=== PATIENT | male | born 1955 | race American Indian/Alaskan Native ===

== ENCOUNTER 2016-07-11 15:05 | Inpatient (IN) | payer MEDICARE ==
--- NOTE | 2016-07-11 15:37 | Emergency Department Report ---
Chief Complaint: Chest Pain Stated Complaint: CHEST PAIN Time Seen by Provider: 07/11/16 15:33 - HPI History of Present Illness: Patient is a 61 y/p male with h/o CHF, COPD, ESRD, TYPE 2 DIABETES and HIV who presents due to chest pain and hypotension 2 hours ago. Patient states that pain started while he was at dialysis. Patient states that he has had similar symptoms before during dialysis. Patient also c/o cough x 1 month. - ROS Review of Systems: POSITIVE FOR CHEST PAIN and dizziness, NO SOB - Exam Vital Signs: Vital Signs 07/11/16 15:21 Temperature 97.5 F L Pulse Rate 90 Respiratory 20 Rate Blood Pressure 114/70 O2 Sat by Pulse 91 Oximetry Physical Exam: NAD MSE screening note: Focused history and physical exam performed. Due to findings the following was ordered:chest pain protocol ED Disposition for MSE Condition: Stable
[2016-07-11 16:06] LABS: Basophils % (Auto) 0.5 % (0.0-1.8); Eosinophils % (Auto) 1.3 % (0.0-4.3); Hematocrit 45.6 % (35.5-45.6); Hemoglobin 14.9 gm/dl (11.8-15.2); Mean Corpuscular HGB Conc 33 % (32-34); Mean Corpuscular Hemoglobin 32 pg (28-32); Mean Corpuscular Volume 97 fl (84-94); Platelet Count 137 K/mm3 (140-440); Red Blood Count 4.69 M/mm3 (3.65-5.03); Red Cell Distribution Width 17.5 % (13.2-15.2); White Blood Count 6.5 K/mm3 (4.5-11.0)
[2016-07-11 16:29] LABS: Creatine Kinase MB 2.8 ng/mL (0.0-4.0)
[2016-07-11 16:32] LABS: Albumin 4.2 g/dL (3.9-5); BUN/Creatinine Ratio 2.84; Bilirubin,Direct 0.2 mg/dL (0-0.2); Bilirubin,Indirect 0.4 mg/dL; Bilirubin,Total 0.6 mg/dL (0.1-1.2); Calcium 8.7 mg/dL (8.4-10.2); Chloride 88.7 mmol/L (98-107); Potassium 3.4 mmol/L (3.6-5.0); Total Protein 8.5 g/dL (6.3-8.2)
--- NOTE | 2016-07-11 16:36 | XRay Report ---
PA and lateral chest: There is mild enlargement of the heart. The aorta is slightly tortuous. The lungs are clear there is no current vascular congestion. There is a left subclavian vascular stent. Compared to the prior study on January 15, 2016 the vascular pattern is improved. No other interval changes noted. Impression: Mild cardiac enlargement. No other current cardiopulmonary pathology identified.
--- NOTE | 2016-07-11 23:19 | Emergency Department Report ---
HPI - General Chief Complaint: Chest Pain Time Seen by Provider: 07/11/16 22:19 - HPI HPI: This is a 61-year-old Afro-[place] male who presents to the emergency department from dialysis after receiving 2 out of 4 hours of dialysis. All of a sudden the patient had some hypotension and began developing chest pain and some shortness of breath. He says that the pain is stopped upon presentation here. He is usually hemodialysis dependent on Monday, Monday and Monday. He has a past medical history of asthma, CHF, COPD on 3 L oxygen, insulin- dependent diabetes, HIV, hypertension. His primary care doctor is Dr. Victoria, his counter dish carrier is Dr. Lara, his infectious disease physician is Dr. Hernandez , his tank crewmember is Dr. 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 He denies any history of NH. He last had a stress test about 1 year ago. Denies any history of PE/DVT or CVA. ED Past Medical Hx - Past Medical History Hx Hypertension: Yes Hx Congestive Heart Failure: Yes Hx Diabetes: Yes Hx Renal Disease: Yes (Dialysis) Hx Asthma: Yes Hx COPD: Yes Hx HIV: Yes Additional medical history: pancreatitis, left upper arm HD graft. bells palsy - Surgical History Additional Surgical History: graft to left arm, R chest vas cath - Social History Smoking Status: Current Every Day Smoker Substance Use Type: None - Medications Home Medications: Home Medications Medication Instructions Recorded Confirmed Last Taken Type Gabapentin 200 mg PO QHS 11/29/14 01/15/16 08/02/15 History Insulin Aspart [NovoLOG Flexpen] 5 unit SQ TID 11/29/14 01/15/16 08/02/15 History [place]-3 Acid Ethyl Esters [Lovaza] 2 gm PO BID 11/29/14 01/15/16 08/02/15 History Omeprazole [PriLOSEC] 20 mg PO BID 11/29/14 01/15/16 08/02/15 History Vit B Cplx #11/FA/C/Biot/Zn Ox 1 tab PO QAM 11/29/14 01/15/16 08/02/15 History [Dialyvite with Zinc Tablet] lamiVUDine [Epivir Hbv] 50 mg PO QDAY 11/29/14 01/15/16 08/02/15 History Abacavir [Ziagen TAB] 300 mg PO BID #60 tablet 07/28/15 01/15/16 08/02/15 Rx Carvedilol [Coreg] 6.25 mg PO BID #60 tablet 07/28/15 01/15/16 08/02/15 Rx Cinacalcet [Sensipar] 30 mg PO QDAY #30 tablet 07/28/15 01/15/16 08/02/15 Rx Efavirenz [Sustiva] 600 mg PO DAILY #30 capsule 07/28/15 01/15/16 08/02/15 Rx Insulin Glargine [Lantus VIAL] 10 unit SUB-Q DAILY #30 units 07/28/15 01/15/16 08/02/15 Rx Lipase/Protease/Amylase [Zenpep Dr 1 each PO TID #90 capsule. 07/28/1508/02/15 Rx 15,000 Units Capsule] Losartan [Cozaar] 25 mg PO QDAY #30 tablet 07/28/15 01/15/16 08/02/15 Rx Rosuvastatin (Nf) [Crestor] 10 mg PO QHS #30 tablet 07/28/15 01/15/16 08/02/15 Rx ED Review of Systems ROS: Stated complaint: CHEST PAIN Other details as noted in HPI Comment: All other systems reviewed and negative Constitutional: denies: chills, fever Eyes: denies: eye pain, eye discharge, vision change ENT: denies: ear pain, throat pain Respiratory: shortness of breath. denies: cough Cardiovascular: chest pain. denies: palpitations Gastrointestinal: denies: abdominal pain, nausea, diarrhea Genitourinary: denies: urgency, dysuria Musculoskeletal: denies: back pain, joint swelling, arthralgia Skin: denies: rash, lesions Neurological: denies: headache, weakness, paresthesias Physical Exam - Physical Exam Vital Signs: Vital Signs 07/11/16 15:21 Temperature 97.5 F L Pulse Rate 90 Respiratory 20 Rate Blood Pressure 114/70 O2 Sat by Pulse 91 Oximetry Physical Exam: GENERAL: The patient is well-developed well-nourished. HEENT: Normocephalic. Atraumatic. Extraocular motions are intact. Patient has moist mucous membranes. Pupils equal reactive to light bilaterally. NECK: Supple. Trachea is midline. CHEST/LUNGS: Clear to auscultation. There is no respiratory distress noted. HEART/CARDIOVASCULAR: Regular. There is no tachycardia. There is no gallop rub or murmur. ABDOMEN: Abdomen is soft, nontender. Patient has normal bowel sounds. There is no abdominal distention. SKIN: Skin is warm and dry. NEURO: The patient is awake, alert, and oriented. The patient is cooperative. The patient has no focal neurologic deficits. The patient has normal speech. MUSCULOSKELETAL: There is no tenderness or deformity. There is no limitation range of motion. There is no evidence of acute injury. ED Course Vital Signs 07/11/16 15:21 Temperature 97.5 F L Pulse Rate 90 Respiratory 20 Rate Blood Pressure 114/70 O2 Sat by Pulse 91 Oximetry ED Medical Decision Making - Lab Data Result diagrams: 07/11/16 15:47 07/11/16 15:47 - EKG Data -: EKG Interpreted by Me EKG shows normal: sinus rhythm, axis (LAD), intervals (prolong QTC), QRS complexes (LVH with mild QRS widening), ST-T waves (T-wave inversions to the lateral leads) Rate: normal - EKG Data When compared to previous EKG there are: changes noted (patient has T-wave inversions to the lateral leads that were not previously seen on his EKG from January 2016) Interpretation: other (sinus rhythm, left axis deviation, LVH, T-wave inversions to the lateral leads) - Radiology Data Radiology results: image reviewed interpreted by me: Chest x-ray shows some mild cardiomegaly but otherwise no acute process. - Medical Decision Making 61-year-old male presents to the emergency department after developing some chest pain and shortness of breath while at dialysis. The chest pain has resolved upon presentation. However the EKG shows some T-wave inversions that are new from January of last year, and combined with his chest pain is concerning. Patient had positive troponins that are trending down. Patient does have end-stage renal disease so the elevated troponin levels may be due to the renal insufficiency versus coronary artery disease. However with the change in EKG and the comorbidities he has and his complaint of chest pain he will be admitted to the hospital for further evaluation and treatment. He has been accepted for admission by the hospice, Dr. Elmore. - Differential Diagnosis NH, PE, pneumonia, CHF Critical Care Time: No Critical care attestation.: If time is entered above; I have spent that time in minutes in the direct care of this critically ill patient, excluding procedure time. ED Disposition Clinical Impression: Abnormal EKG, HIV (human immunodeficiency virus infection), Tobacco use disorder, ESRD on hemodialysis Chest pain Qualifiers: Chest pain type: unspecified Qualified Code(s): R07.9 - Chest pain, unspecified Chronic kidney disease Qualifiers: Chronic kidney disease stage: unspecified stage Qualified Code(s): N18.9 - Chronic kidney disease, unspecified Disposition: OP ADMITTED IP TO THIS HOSP Is pt being admited?: Yes Condition: Stable
[2016-07-12 00:20] LABS: Magnesium 2.7 mg/dL (1.7-2.3); Phosphorous 4.8 mg/dL (2.5-4.5)
[2016-07-12] MEDS ORDERED: BENADRYL IV ONE (01:05)
[2016-07-12] MEDS ORDERED: MORPHINE IV PRN (03:10)
[2016-07-12] MEDS ORDERED: ZOFRAN IV PRN (03:10)
[2016-07-12] MEDS ORDERED: TYLENOL PO PRN (03:10)
[2016-07-12] MEDS ORDERED: DULCOLAX PR PRN (03:10)
[2016-07-12] MEDS ORDERED: D50W (25GM) IV PRN (03:10)
[2016-07-12] MEDS ORDERED: SODIUM CHLORIDE FLUSH SYRINGE 10 ML IV PRN (03:10)
--- NOTE | 2016-07-12 05:21 | History and Physical Report ---
History of Present Illness Date of examination: 07/12/16 Date of admission: 07/12/16 02:26 History of present illness: 61-year-old man with a history of hypertension end-stage renal disease on dialysis, diabetes, hepatitis C, HIV, hyperlipidemia comes emergency room with complaints of chest pain while he was at dialysis. Pain is in the left substernal area which she describes as a tightness, intermittent in nature lasting for 5 minutes, intensity 8/10, radiating to the left arm, cannot identify exacerbating or relieving factors. He admits to shortness breath, no nausea vomiting, diaphoresis or palpitation. He had a stress test 6 months ago Patient denies cough, abdominal pain, hematochezia, dysuria, frequency, focal weakness, dysarthria, fever chills, polydipsia polyuria, hot or cold intolerance , easy bruisability, or rash or bleeding from mucosal membrane, rhinorrhea, epistaxis, earache, tinnitus, blurry vision, eye discharge, anxiety, depression. Other review of systems negative PAST SURGICAL HISTORY: AV fistula SOCIAL HISTORY: Smoke cigarettes, no alcohol or drugs FAMILY HISTORY: Coronary artery disease Medications and Allergies Allergies Allergy/AdvReac Type Severity Reaction Status Date / Time sulfamethoxazole Allergy Unknown Verified 08/03/15 15:03 [From Bactrim] trimethoprim [From Bactrim] Allergy Unknown Verified 08/03/15 15:03 Home Medications Medication Instructions Recorded Confirmed Last Taken Type Gabapentin 200 mg PO QHS 11/29/14 01/15/16 08/02/15 History Insulin Aspart [NovoLOG Flexpen] 5 unit SQ TID 11/29/14 01/15/16 08/02/15 History [place]-3 Acid Ethyl Esters [Lovaza] 2 gm PO BID 11/29/14 01/15/16 08/02/15 History Omeprazole [PriLOSEC] 20 mg PO BID 11/29/14 01/15/16 08/02/15 History Vit B Cplx #11/FA/C/Biot/Zn Ox 1 tab PO QAM 11/29/14 01/15/16 08/02/15 History [Dialyvite with Zinc Tablet] lamiVUDine [Epivir Hbv] 50 mg PO QDAY 11/29/14 01/15/16 08/02/15 History Abacavir [Ziagen TAB] 300 mg PO BID #60 tablet 07/28/15 01/15/16 08/02/15 Rx Carvedilol [Coreg] 6.25 mg PO BID #60 tablet 07/28/15 01/15/16 08/02/15 Rx Cinacalcet [Sensipar] 30 mg PO QDAY #30 tablet 07/28/15 01/15/16 08/02/15 Rx Efavirenz [Sustiva] 600 mg PO DAILY #30 capsule 07/28/15 01/15/16 08/02/15 Rx Insulin Glargine [Lantus VIAL] 10 unit SUB-Q DAILY #30 units 07/28/15 01/15/16 08/02/15 Rx Lipase/Protease/Amylase [Zenpep Dr 1 each PO TID #90 capsule. 07/28/1508/02/15 Rx 15,000 Units Capsule] Losartan [Cozaar] 25 mg PO QDAY #30 tablet 07/28/15 01/15/16 08/02/15 Rx Rosuvastatin (Nf) [Crestor] 10 mg PO QHS #30 tablet 07/28/15 01/15/16 08/02/15 Rx Active Meds: Active Medications Acetaminophen (Tylenol) 650 mg PO Q4H PRN PRN Reason: Pain MILD(1-3)/Fever >100.5/BA Aspirin (Baby Aspirin) 81 mg PO QDAY TRICIA Bisacodyl (Dulcolax) 10 mg [place] QDAY PRN PRN Reason: Constipation unrelieved by MOM Dextrose (D50w (25gm)) 50 ml IV PRN PRN PRN Reason: Hypoglycemia Diphenhydramine HCl (Benadryl) 25 mg IV Q6H PRN PRN Reason: Itching Enoxaparin Sodium (Lovenox) 30 mg SUB-Q QDAY TRICIA Insulin Aspart (Novolog) 0 units SUB-Q ACHS TRICIA PRN Reason: Protocol Morphine Sulfate (Morphine) 2 mg IV Q4H PRN PRN Reason: Pain, Moderate (4-6) Ondansetron HCl (Zofran) 4 mg IV Q8H PRN PRN Reason: N/V unrelieved by Reglan Sodium Chloride (Sodium Chloride Flush Syringe 10 Ml) 10 ml IV PRN PRN PRN Reason: LINE FLUSH Exam - Physical Exam Narrative exam: Gen. appearance: Patient lying in bed, no apparent distress HEENT: Normocephalic, atraumatic, pupils equally round and reactive to light, extraocular movement intact, and no sclericterus,. No JVD or thyromegaly or nodule,neck supple, no carotid bruit ,mucous membranes moist, no exudate or erythema Heart: S1, S2, regular rate and rhythm Lungs: Clear to auscultation bilaterally, breathing comfortable Abdomen: Positive bowel sounds, nontender, nondistended, no organomegaly Extremity: No edema, cyanosis, clubbing Skin: No rash, nodules, warm, dry Neuro: Oriented 3, cranial nerves II-12 intact, speech is fluent, motor and sensory intact - Constitutional Vitals: Temp Pulse Resp BP Pulse Ox 97.5 F L 89 18 137/76 97 07/11/16 15:21 07/12/16 02:00 07/12/16 02:16 07/12/16 02:12 07/12/16 02:16 Results - Labs CBC & Chem 7: 07/11/16 15:47 07/11/16 15:47 - Imaging and Cardiology EKG: image reviewed Chest x-ray: image reviewed Assessment and Plan Chest pain with abnormal EKG Hypertension Diabetes type 2 End-stage renal disease on dialysis C GV inotrope cytopenia Admit to medicine Check cardiac enzymes, consult cardiology Start aspirin, IV morphine Continue appropriate outpatient medication, start DVT prophylaxis
[2016-07-12] MEDS: BENADRYL IV PRN (06:35)
[2016-07-12 07:27] LABS: Creatine Kinase MB 2.6 ng/mL (0.0-4.0)
[2016-07-12] MEDS: NOVOLOG SUB-Q SCH ×3 (08:30→17:28)
--- NOTE | 2016-07-12 09:27 | Admit Criteria Form ---
Admission Criteria Documentation: CHEST PAIN Clinical Indications for Admission to Inpatient Care (Place 'X' for any and all applicable criteria): Admission is indicated for chest pain and ANY ONE of the following(1)(2)(3)(4)(5 ): [ ]I. Angina with acute coronary syndrome (Also use Myocardial Infarction or Angina guideline) [ ]II. Hemodynamic instability [X]III. Angina needing acute intervention as indicated by ALL of the following( 11)(12): [X]a) Unstable angina is present as indicated by angina that is ANY ONE of the following: [X]i) New onset [ ]ii) Nocturnal [ ]iii) Prolonged at rest [ ]iv) Progressive [X]b) Angina warrants acute intervention as indicated by ANY ONE of the following: [ ]i) Recurrent angina (e.g, not responding as previously to treatment) [ ]ii) Angina at rest or with low-level activities despite initial medical therapy [ ]iii) New or presumably new ST-segment depression on ECG [ ]iv) Signs or symptoms of heart failure (eg, dyspnea, pulmonary edema) [ ]v) New or worsening mitral regurgitation [ ]vi) Hemodynamic instability [ ]vii) Dangerous arrhythmia (eg, sustained ventricular tachycardia) [ ]viii) History of percutaneous coronary intervention within 6 months [ ]ix) History of coronary artery bypass graft surgery [ ]x) DAWOOD risk score of 2 or greater[A] [X]xi) History of Diabetes(14) [ ]xii) High-risk cardiac ischemia findings on noninvasive testing (e.g, echocardiogram, treadmill testing, nuclear scan) [X]xiii) Chronic renal insufficiency (ie, estimated GFR less than 60 mL/min/1.732m) [ ]xiv) Left ventricular ejection fraction less than 40% [ ]IV. Evidence of AK (eg, cardiac biomarkers positive, ST-segment elevation on ECG) also use Myocardial Infarction Criteria Form. [ ]V. Pulmonary edema [ ]. Respiratory distress [ ]VII. Chest pain indicative of serious diagnosis other than coronary artery disease (eg, aortic dissection) [ ]VIII. Contraindications and/or Inappropriate clinical situations for Observational Care in patients with Chest Pain, when ANY ONE of the following is required: [ ]a) Patient with risk factor for pulmonary embolism, acute coronary syndrome and myocardial infarction (18) [ ]b) Patient with Pulmonary embolism require an average LOS of 4.3 days, therefore emergency department observation management is inappropriate 18,23 [ ]c) Painful condition/s in the elderly, have the highest rate of recidivism after emergency department observation management (10.8%) 20,21,22 [ ]d) Elevated cardiac biomarker requires intensive and exhaustive care (19) [ ]IX. General contraindications and/or Inappropriate clinical situations for Observational Care in patients with Chest Pain, when ANY ONE of the following is required: [ ]a) Prediction of prolongation of LOS based on ANY ONE of the following may be considered as a contraindication for observational care 2, 3, 4, 5, 6, 7, 8, 9, 10, 11 [ ]i) Age > 65 yrs. [ ]ii) Patient arriving by ambulance [ ]iii) Patient with high acuity [ ]iv) Patient requiring vital sign monitoring [ ]v) Patient on IV medication [ ]b) Systolic blood pressures 180mmHg 3,12 [ ]c) Patient with altered mental status including delirium and other alteration of consciousness, (3) [ ]d) Patient whose discharge disposition will be to a long term home or rehabilitation home should not be managed in Emergency Department Observation Unit. CMS rule requires 3 days hospital stay before such placement. 3,13 [ ]e) Patient with failure to thrive due to broad array of etiologies 3,16,17 [ ]f) Inability to ambulate 3,14 Extended stay beyond goal length of stay may be needed for (1)(28): [ ]a) Specific condition diagnosed after evaluation (eg, pulmonary embolism, aortic dissection) [ ]b) Unstable angina [ ]c) Continued suspicion of acute coronary syndrome with inability to complete needed cardiac evaluation (eg, patient clinically unable to undergo stress testing) [ ]d) Myocardial infarction (Contents from ANGINA and CHEST PAIN clinical indications for admission to inpatient care have been integrated in this form) The original [email or web address] content created by [email or web address] has been revised. The portions of the content which have been revised are identified through the use of italic text or in bold, and [email or web address] has neither reviewed nor approved the modified material. All other unmodified content is copyright [email or web address]. Please see references footnoted in the original [email or web address] edition 2016 Admission Criteria Met: Yes
[2016-07-12] MEDS ORDERED: LOVENOX SUB-Q SCH (10:00)
--- NOTE | 2016-07-12 12:57 | Consultation ---
History of Present Illness Consult date: 07/12/16 Consult reason: hypotension History of present illness: Patient is a 61-year-old man with end-stage renal disease on hemodialysis, and a dilated nonischemic cardiomyopathy. His cardiomyopathy dates to several years ago when he lived in [place]. A cardiac catheterization at that time demonstrated no significant coronary disease, and established a severe nonischemic cardiomyopathy. Serial outpatient left ventricular function assessment with echo have documented a left ventricle ejection fraction about 20 %. The patient has refused ICD therapy. He is admitted to the hospital at this time, with hypotension that occurred 2 hours into his dialysis session. He states that at the time he felt a little bit short of breath, but there was no chest pain, no palpitations and no syncope. He reports that over the past 2 weeks, each dialysis session has been associated with the development of borderline to low blood pressures. It will be noted that the patient is on multiple blood pressure lowering agents, both for his chronic hypertension and his dilated cardiomyopathy. He takes amlodipine, losartan, carvedilol and BiDil. At this time on the telemetry floor, he looks and feels comfortable, in no acute distress. His ECG is normal sinus rhythm with left ventricular hypertrophy and nonspecific ST and T-wave abnormalities. Cardiac enzymes show minimal levels of CPK and CK-MB, with a mild nonspecific isolated rise in troponin. Past History Past Medical History: heart failure, hypertension, renal failure Medications and Allergies Allergies Allergy/AdvReac Type Severity Reaction Status Date / Time sulfamethoxazole Allergy Unknown Verified 08/03/15 15:03 [From Bactrim] trimethoprim [From Bactrim] Allergy Unknown Verified 08/03/15 15:03 Home Medications Medication Instructions Recorded Confirmed Last Taken Type Gabapentin 200 mg PO QHS 11/29/14 01/15/16 08/02/15 History Insulin Aspart [NovoLOG Flexpen] 5 unit SQ TID 11/29/14 01/15/16 08/02/15 History [place]-3 Acid Ethyl Esters [Lovaza] 2 gm PO BID 11/29/14 01/15/16 08/02/15 History Omeprazole [PriLOSEC] 20 mg PO BID 11/29/14 01/15/16 08/02/15 History Vit B Cplx #11/FA/C/Biot/Zn Ox 1 tab PO QAM 11/29/14 01/15/16 08/02/15 History [Dialyvite with Zinc Tablet] lamiVUDine [Epivir Hbv] 50 mg PO QDAY 11/29/14 01/15/16 08/02/15 History Abacavir [Ziagen TAB] 300 mg PO BID #60 tablet 07/28/15 01/15/16 08/02/15 Rx Carvedilol [Coreg] 6.25 mg PO BID #60 tablet 07/28/15 01/15/16 08/02/15 Rx Cinacalcet [Sensipar] 30 mg PO QDAY #30 tablet 07/28/15 01/15/16 08/02/15 Rx Efavirenz [Sustiva] 600 mg PO DAILY #30 capsule 07/28/15 01/15/16 08/02/15 Rx Insulin Glargine [Lantus VIAL] 10 unit SUB-Q DAILY #30 units 07/28/15 01/15/16 08/02/15 Rx Lipase/Protease/Amylase [Zenpep Dr 1 each PO TID #90 capsule. 07/28/1508/02/15 Rx 15,000 Units Capsule] Losartan [Cozaar] 25 mg PO QDAY #30 tablet 07/28/15 01/15/16 08/02/15 Rx Rosuvastatin (Nf) [Crestor] 10 mg PO QHS #30 tablet 07/28/15 01/15/16 08/02/15 Rx Active Meds: Active Medications Acetaminophen (Tylenol) 650 mg PO Q4H PRN PRN Reason: Pain MILD(1-3)/Fever >100.5/BA Last Admin: 07/12/16 06:35 Dose: 650 mg Aspirin (Baby Aspirin) 81 mg PO QDAY TRICIA Bisacodyl (Dulcolax) 10 mg [place] QDAY PRN PRN Reason: Constipation unrelieved by MOM Dextrose (D50w (25gm)) 50 ml IV PRN PRN PRN Reason: Hypoglycemia Diphenhydramine HCl (Benadryl) 25 mg IV Q6H PRN PRN Reason: Itching Last Admin: 07/12/16 06:35 Dose: 25 mg Insulin Aspart (Novolog) 0 units SUB-Q ACHS TRICIA PRN Reason: Protocol Last Admin: 07/12/16 12:29 Dose: Not Given Morphine Sulfate (Morphine) 2 mg IV Q4H PRN PRN Reason: Pain, Moderate (4-6) Ondansetron HCl (Zofran) 4 mg IV Q8H PRN PRN Reason: N/V unrelieved by Reglan Sodium Chloride (Sodium Chloride Flush Syringe 10 Ml) 10 ml IV PRN PRN PRN Reason: LINE FLUSH Review of Systems Cardiovascular: shortness of breath, no chest pain, no orthopnea, no palpitations, no rapid/irregular heart beat, no edema, no syncope, no lightheadedness Physical Examination Vital Signs Temp Pulse Resp BP Pulse Ox 97.5 F L 90 20 114/70 91 07/11/16 15:21 07/11/16 15:21 07/11/16 15:21 07/11/16 15:21 07/11/16 15:21 General appearance: no acute distress HEENT: Positive: PERRL Neck: Positive: neck supple Cardiac: Positive: Reg Rate and Rhythm Lungs: Positive: clear to auscultation Neuro: Positive: Grossly Intact Abdomen: Positive: Soft Male genitourinary: Positive: deferred Skin: Positive: Clear Extremities: Absent: edema Results 07/11/16 15:47 07/11/16 15:47 Cardiac Enzymes 07/12/16 Range/Units 06:26 CK-MB (CK-2) 2.6 (0.0-4.0) ng/mL EKG interpretations - Telemetry EKG Rhythm: Sinus Rhythm Assessment and Plan - Patient Problems (1) Hypotension of hemodialysis Current Visit: Yes Status: Acute Plan to address problem: We will recommend that on dialysis days, the patient places a temporary hold on his amlodipine, losartan and BiDil. These medications can then be resumed after his dialysis sessions. Otherwise, no further cardiac workup is indicated , he is stable for cardiac discharge, follow-up in my office within one week.
[2016-07-12 13:41] LABS: Creatine Kinase MB 2.6 ng/mL (0.0-4.0)
[2016-07-12] MEDS ORDERED: PERCOCET 5/325 PO ONE (14:00)
[2016-07-13] MEDS: NOVOLOG SUB-Q SCH ×4 (00:24→23:44)
[2016-07-13] MEDS ORDERED: PERCOCET 5/325 ONE (11:54)
[2016-07-13] MEDS: BABY ASPIRIN PO SCH (13:40)
[2016-07-13] MEDS ORDERED: PERCOCET 5/325 PO PRN (13:40)
[2016-07-13] MEDS ORDERED: NACL 0.9% 1000 ML 100 ML IV PRN (13:58)
[2016-07-13] MEDS ORDERED: HEPARIN IV SCH (14:00)
--- NOTE | 2016-07-13 14:31 | Progress Note ---
Assessment and Plan Hypotension during HD ESRD on HD Hx of Dilated NICMP refused AICD in the past intolerance to ACEi -coughs with lisinopril HIV status Recommend On dialysis days, the patient places a temporary hold on his amlodipine, losartan and BiDil. These medications can then be resumed after his dialysis sessions. conservative cardiac management. Patient is stable for cardiac discharge. Follow-up with [facility] within one week. Subjective Date of service: 07/13/16 Interval history: Patient has no complaints. He has no shortness of breath or lower extremity edema. Objective Vital Signs Temp Pulse Pulse Resp BP Pulse Ox 07/13/16 11:43 98 07/13/16 00:00 98.2 F 76 18 110/78 94 07/12/16 23:35 20 07/12/16 20:44 81 07/12/16 20:10 95 07/12/16 20:00 97.6 F 79 20 130/69 93 07/12/16 16:48 97.9 F 88 18 156/93 - Physical Examination General: No Apparent Distress HEENT: Positive: PERRL Neck: Positive: neck supple Cardiac: Positive: Reg Rate and Rhythm Lungs: Positive: Decreased Breath Sounds Neuro: Positive: Grossly Intact Extremities: Absent: edema - Imaging and Cardiology EKG: image reviewed
[2016-07-13 14:51] LABS: Hematocrit 40.3 % (35.5-45.6); Mean Corpuscular HGB Conc 32 % (32-34); Mean Corpuscular Hemoglobin 32 pg (28-32); Mean Corpuscular Volume 100 fl (84-94); Platelet Count 120 K/mm3 (140-440); Red Blood Count 4.05 M/mm3 (3.65-5.03); Red Cell Distribution Width 17.1 % (13.2-15.2); White Blood Count 4.7 K/mm3 (4.5-11.0)
[2016-07-13 14:51] LABS: BUN/Creatinine Ratio 3.98; Calcium 8.3 mg/dL (8.4-10.2); Chloride 93.3 mmol/L (98-107); Potassium 4.1 mmol/L (3.6-5.0)
--- NOTE | 2016-07-13 16:01 | Consultation ---
History of Present Illness - Reason for Consult Consult date: 07/13/16 end stage renal disease Requesting physician: AZIZA HAMMONDS - History of Present Illness 61-year-old man with a history of hypertension end-stage renal disease on dialysis, diabetes, hepatitis C, HIV, hyperlipidemia comes emergency room with complaints of chest pain while he was at dialysis. Pain is in the left substernal area which she describes as a tightness, intermittent in nature lasting for 5 minutes, intensity 8/10, radiating to the left arm, cannot identify exacerbating or relieving factors. He admits to shortness breath, no nausea vomiting, diaphoresis or palpitation. He had a stress test 6 months ago Patient denies cough, abdominal pain, hematochezia, dysuria, frequency, focal weakness, dysarthria, fever chills, polydipsia polyuria, hot or cold intolerance , easy bruisability, or rash or bleeding from mucosal membrane, rhinorrhea, epistaxis, earache, tinnitus, blurry vision, eye discharge, anxiety, depression. Other review of systems negative Past History Past Medical History: anemia, diabetes, dialysis, ESRD, heart failure, hypertension, renal failure Past Surgical History: Other (av access) Social history: denies: prescription drug abuse, IV drug use Family history: hypertension Medications and Allergies Allergies Allergy/AdvReac Type Severity Reaction Status Date / Time sulfamethoxazole Allergy Unknown Verified 08/03/15 15:03 [From Bactrim] trimethoprim [From Bactrim] Allergy Unknown Verified 08/03/15 15:03 Home Medications Medication Instructions Recorded Confirmed Last Taken Type Gabapentin 200 mg PO QHS 11/29/14 07/13/16 08/02/15 History Insulin Aspart [NovoLOG Flexpen] 5 unit SQ TID 11/29/14 07/13/16 08/02/15 History Waldron-3 Acid Ethyl Esters [Lovaza] 2 gm PO BID 11/29/14 07/13/16 08/02/15 History Omeprazole [PriLOSEC] 20 mg PO BID 11/29/14 07/13/16 08/02/15 History Vit B Cplx #11/FA/C/Biot/Zn Ox 1 tab PO QAM 11/29/14 07/13/16 08/02/15 History [Dialyvite with Zinc Tablet] lamiVUDine [Epivir Hbv] 50 mg PO QDAY 11/29/14 07/13/16 08/02/15 History Abacavir [Ziagen TAB] 300 mg PO BID #60 tablet 07/28/15 07/13/16 08/02/15 Rx Carvedilol [Coreg] 6.25 mg PO BID #60 tablet 07/28/15 07/13/16 08/02/15 Rx Cinacalcet [Sensipar] 30 mg PO QDAY #30 tablet 07/28/15 07/13/16 08/02/15 Rx Efavirenz [Sustiva] 600 mg PO DAILY #30 capsule 07/28/15 07/13/16 08/02/15 Rx Insulin Glargine [Lantus VIAL] 10 unit SUB-Q DAILY #30 units 07/28/15 07/13/16 08/02/15 Rx Lipase/Protease/Amylase [Zenpep Dr 1 each PO TID #90 capsule. 07/28/1508/02/15 Rx 15,000 Units Capsule] Losartan [Cozaar] 25 mg PO QDAY #30 tablet 07/28/15 07/13/16 08/02/15 Rx Rosuvastatin (Nf) [Crestor] 10 mg PO QHS #30 tablet 07/28/15 07/13/16 08/02/15 Rx Active Meds: Active Medications Acetaminophen (Tylenol) 650 mg PO Q4H PRN PRN Reason: Pain MILD(1-3)/Fever >100.5/BA Last Admin: 07/12/16 06:35 Dose: 650 mg Aspirin (Baby Aspirin) 81 mg PO QDAY TRICIA Last Admin: 07/13/16 13:40 Dose: Not Given Bisacodyl (Dulcolax) 10 mg CA QDAY PRN PRN Reason: Constipation unrelieved by MOM Dextrose (D50w (25gm)) 50 ml IV PRN PRN PRN Reason: Hypoglycemia Diphenhydramine HCl (Benadryl) 25 mg IV Q6H PRN PRN Reason: Itching Last Admin: 07/12/16 06:35 Dose: 25 mg Heparin Sodium (Porcine) (Heparin) 1,000 unit IV ONCE TRICIA Stop: 07/13/16 23:00 Sodium Chloride (Nacl 0.9% 1000 Ml) 100 mls @ 999 mls/hr IV SIENA PRN PRN Reason: Hypotension Insulin Aspart (Novolog) 0 units SUB-Q ACHS TRICIA PRN Reason: Protocol Last Admin: 07/13/16 13:40 Dose: Not Given Morphine Sulfate (Morphine) 2 mg IV Q4H PRN PRN Reason: Pain, Moderate (4-6) Ondansetron HCl (Zofran) 4 mg IV Q8H PRN PRN Reason: N/V unrelieved by Reglan Oxycodone/Acetaminophen (Percocet 5/325) 1 tab PO Q4H PRN PRN Reason: Pain, Moderate (4-6) Sodium Chloride (Sodium Chloride Flush Syringe 10 Ml) 10 ml IV PRN PRN PRN Reason: LINE FLUSH Review of Systems Constitutional: fatigue, weakness, malaise Cardiovascular: chest pain, shortness of breath, high blood pressure Respiratory: shortness of breath, dyspnea on exertion Exam - Vital Signs Vital signs: Vital Signs Temp Pulse Resp BP Pulse Ox 97.5 F L 90 20 114/70 91 07/11/16 15:21 07/11/16 15:21 07/11/16 15:21 07/11/16 15:21 07/11/16 15:21 - Physical Exam Narrative exam: Gen. appearance: Patient lying in bed, no apparent distress HEENT: Normocephalic, atraumatic, pupils equally round and reactive to light, extraocular movement intact, and no sclericterus,. No JVD or thyromegaly or nodule,neck supple, no carotid bruit ,mucous membranes moist, no exudate or erythema Heart: S1, S2, regular rate and rhythm Lungs: Clear to auscultation bilaterally, breathing comfortable Abdomen: Positive bowel sounds, nontender, nondistended, no organomegaly Extremity: No edema, cyanosis, clubbing Skin: No rash, nodules, warm, dry Neuro: Oriented 3, cranial nerves II-12 intact, speech is fluent, motor and sensory intact Results - Lab Results 07/11/16 15:47 07/13/16 04:00 Most recent lab results Calcium 8.3 mg/dL (8.4-10.2) L 07/13/16 04:00 Phosphorus 4.8 mg/dL (2.5-4.5) H 07/11/16 23:22 Magnesium 2.7 mg/dL (1.7-2.3) H 07/11/16 23:22 Assessment and Plan Impression: * Chest pain with abnormal EKG * Hypertension * Diabetes type 2 * End-stage renal disease on dialysis Plan: * hd q MWF * uf with hd as tolerated * strict i/os * lytes prn * chest pain workup per cards
[2016-07-13] MEDS: BENADRYL IV PRN ×2 (16:17→21:38)
[2016-07-13 19:02] LABS: Basophils % (Manual) 0 % (0.0-1.8); Blastocytes % (Manual) 0 %
[2016-07-13 19:03] LABS: Platelet Estimate Consistent w Auto
[2016-07-13 19:04] LABS: Anisocytosis 1+; Diff Status Complete; Poikilocytosis Few
--- NOTE | 2016-07-13 19:23 | Progress Note ---
Assessment and Plan Assessment and plan: 1. Chest pain - transient hypotension during HD associated with shortness of breath and chest tightness; cardiac enzymes negative, EKG with no acute changes ; has regular cardiology follow-up and recent cardiac workup, so no additional testing necessary at this time; cardiology recommended holding some of antihypertensives (losartan, BiDil, amlodipine) on dialysis days 2. Dilated nonischemic cardiomyopathy - last cardiac catheterization showed no significant coronary disease; multiple echocardiograms in the last years showed dilated chambers and LV EF 20%; on BB, ARB, nitrate, hydralazine; cardiology consulted and no additional workup necessary at this time 3. Hypertension - on Coreg, losartan, amlodipine and bidil; see above discussion 4. Diabetes - on long-acting insulin and SSI based on Accu-Cheks 5. Hyperlipidemia - continue statin 6. ESRD on HD - nephrology consulted for regular HD 7. Hepatitis C 8. HIV - on ARB History Interval history: chest pain resolved scheduled for HD Hospitalist Physical - Constitutional Vitals: Temp Pulse Resp BP Pulse Ox 98.2 F 82 20 138/77 98 07/13/16 17:50 07/13/16 17:50 07/13/16 17:50 07/13/16 17:50 07/13/16 11:43 General appearance: Present: no acute distress, obese - EENT Eyes: Present: PERRL, EOM intact. Absent: scleral icterus, conjunctival injection - Neck Neck: Present: supple, normal ROM. Absent: masses or JVD - Respiratory Respiratory effort: normal Respiratory: bilateral: CTA, negative: rales, rhonchi, wheezing - Cardiovascular Rhythm: regular Heart Sounds: Present: S1 & S2. Absent: systolic murmur - Extremities Extremities: no ischemia - Abdominal General gastrointestinal: soft, non-tender, non-distended, normal bowel sounds - Psychiatric Psychiatric: cooperative - Neurologic Neurologic: CNII-XII intact, no focal deficits Results - Labs CBC & Chem 7: 07/13/16 07:01 07/13/16 04:00 Labs: Laboratory Last Values WBC 4.7 K/mm3 (4.5-11.0) 07/13/16 07:01 RBC 4.05 M/mm3 (3.65-5.03) 07/13/16 07:01 Hgb 13.0 gm/dl (11.8-15.2) 07/13/16 07:01 Hct 40.3 % (35.5-45.6) 07/13/16 07:01 MCV 100 fl (84-94) H D 07/13/16 07:01 MCH 32 pg (28-32) 07/13/16 07:01 MCHC 32 % (32-34) 07/13/16 07:01 RDW 17.1 % (13.2-15.2) H 07/13/16 07:01 Plt Count 120 K/mm3 (140-440) L 07/13/16 07:01 Lymph % (Auto) 32.7 % (13.4-35.0) 07/11/16 15:47 [place] % (Auto) 12.1 % (0.0-7.3) H 07/11/16 15:47 Eos % (Auto) 1.3 % (0.0-4.3) 07/11/16 15:47 Baso % (Auto) 0.5 % (0.0-1.8) 07/11/16 15:47 Lymph # 2.1 K/mm3 (1.2-5.4) 07/11/16 15:47 [place] # 0.8 K/mm3 (0.0-0.8) 07/11/16 15:47 Eos # 0.1 K/mm3 (0.0-0.4) 07/11/16 15:47 Baso # 0.0 K/mm3 (0.0-0.1) 07/11/16 15:47 Add Manual Diff Complete 07/13/16 07:01 Total Counted 100 07/13/16 07:01 Seg Neutrophils % Esthetician 07/13/16 07:01 Seg Neuts % (Manual) 41.0 % (40.0-70.0) 07/13/16 07:01 Band Neutrophils % 0 % 07/13/16 07:01 Lymphocytes % (Manual) 47.0 % (13.4-35.0) H 07/13/16 07:01 Reactive Lymphs % (Man) 0 % 07/13/16 07:01 Monocytes % (Manual) 10.0 % (0.0-7.3) H 07/13/16 07:01 Eosinophils % (Manual) 2.0 % (0.0-4.3) 07/13/16 07:01 Basophils % (Manual) 0 % (0.0-1.8) 07/13/16 07:01 Metamyelocytes % 0 % 07/13/16 07:01 Myelocytes % 0 % 07/13/16 07:01 Promyelocytes % 0 % 07/13/16 07:01 Blast Cells % 0 % 07/13/16 07:01 Nucleated RBC % Not Reportable 07/13/16 07:01 Seg Neutrophils # 3.4 K/mm3 (1.8-7.7) 07/11/16 15:47 Seg Neutrophils # Man 1.9 K/mm3 (1.8-7.7) 07/13/16 07:01 Band Neutrophils # 0.0 K/mm3 07/13/16 07:01 Lymphocytes # (Manual) 2.2 K/mm3 (1.2-5.4) 07/13/16 07:01 Abs React Lymphs (Man) 0.0 K/mm3 07/13/16 07:01 Monocytes # (Manual) 0.5 K/mm3 (0.0-0.8) 07/13/16 07:01 Eosinophils # (Manual) 0.1 K/mm3 (0.0-0.4) 07/13/16 07:01 Basophils # (Manual) 0.0 K/mm3 (0.0-0.1) 07/13/16 07:01 Metamyelocytes # 0.0 K/mm3 07/13/16 07:01 Myelocytes # 0.0 K/mm3 07/13/16 07:01 Promyelocytes # 0.0 K/mm3 07/13/16 07:01 Blast Cells # 0.0 K/mm3 07/13/16 07:01 WBC Morphology Not Reportable 07/13/16 07:01 Hypersegmented Neuts Not Reportable 07/13/16 07:01 Hyposegmented Neuts Not Reportable 07/13/16 07:01 Hypogranular Neuts Not Reportable 07/13/16 07:01 Smudge Cells Not Reportable 07/13/16 07:01 Toxic Granulation Not Reportable 07/13/16 07:01 Toxic Vacuolation Not Reportable 07/13/16 07:01 Dohle Bodies Not Reportable 07/13/16 07:01 Pelger-Huet Anomaly Not Reportable 07/13/16 07:01 Carmen Rods Not Reportable 07/13/16 07:01 Platelet Estimate Consistent w auto 07/13/16 07:01 Clumped Platelets Not Reportable 07/13/16 07:01 Plt Clumps, EDTA Not Reportable 07/13/16 07:01 Large Platelets Not Reportable 07/13/16 07:01 Giant Platelets Not Reportable 07/13/16 07:01 Platelet Satelliting Not Reportable 07/13/16 07:01 Plt Morphology Comment Not Reportable 07/13/16 07:01 RBC Morphology Not Reportable 07/13/16 07:01 Dimorphic RBCs Not Reportable 07/13/16 07:01 Polychromasia Not Reportable 07/13/16 07:01 Hypochromasia Not Reportable 07/13/16 07:01 Poikilocytosis Few 07/13/16 07:01 Anisocytosis 1+ 07/13/16 07:01 Microcytosis Not Reportable 07/13/16 07:01 Macrocytosis Not Reportable 07/13/16 07:01 Spherocytes Not Reportable 07/13/16 07:01 Pappenheimer Bodies Not Reportable 07/13/16 07:01 Sickle Cells Not Reportable 07/13/16 07:01 Target Cells Not Reportable 07/13/16 07:01 Tear Drop Cells Not Reportable 07/13/16 07:01 Ovalocytes Not Reportable 07/13/16 07:01 Helmet Cells Not Reportable 07/13/16 07:01 [place] Bodies Not Reportable 07/13/16 07:01 [place] Rings Not Reportable 07/13/16 07:01 Worth Cells Not Reportable 07/13/16 07:01 Bite Cells Not Reportable 07/13/16 07:01 Crenated Cell Not Reportable 07/13/16 07:01 Elliptocytes Not Reportable 07/13/16 07:01 Acanthocytes (Spur) Not Reportable 07/13/16 07:01 Rouleaux Not Reportable 07/13/16 07:01 Hemoglobin C Crystals Not Reportable 07/13/16 07:01 Schistocytes Not Reportable 07/13/16 07:01 Malaria parasites Not Reportable 07/13/16 07:01 Kendrick Bodies Not Reportable 07/13/16 07:01 Hem Pathologist Commnt No 07/13/16 07:01 D-Dimer < 135 ng/mlDDU (0-234) 07/11/16 23:22 Sodium 140 mmol/L (137-145) 07/13/16 04:00 Potassium 4.1 mmol/L (3.6-5.0) D 07/13/16 04:00 Chloride 93.3 mmol/L (98-107) L 07/13/16 04:00 Carbon Dioxide 28 mmol/L (22-30) 07/13/16 04:00 Anion Gap 23 mmol/L 07/13/16 04:00 BUN 51 mg/dL (9-20) H 07/13/16 04:00 Creatinine 12.8 mg/dL (0.8-1.5) H 07/13/16 04:00 Estimated GFR 5 ml/min 07/13/16 04:00 BUN/Creatinine Ratio 3.98 % 07/13/16 04:00 Glucose 73 mg/dL (75-100) L 07/13/16 04:00 POC Glucose 85 (70-105) 07/13/16 13:05 Calcium 8.3 mg/dL (8.4-10.2) L 07/13/16 04:00 Phosphorus 4.8 mg/dL (2.5-4.5) H 07/11/16 23:22 Magnesium 2.7 mg/dL (1.7-2.3) H 07/11/16 23:22 Total Bilirubin 0.6 mg/dL (0.1-1.2) 07/11/16 15:47 Direct Bilirubin 0.2 mg/dL (0-0.2) 07/11/16 15:47 Indirect Bilirubin 0.4 mg/dL 07/11/16 15:47 AST 21 units/L (5-40) 07/11/16 15:47 ALT 12 units/L (7-56) 07/11/16 15:47 Alkaline Phosphatase 136 units/L (35-129) H 07/11/16 15:47 Total Creatine Kinase 111 units/L (55-170) 07/12/16 12:42 CK-MB (CK-2) 2.6 ng/mL (0.0-4.0) 07/12/16 12:42 CK-MB (CK-2) Rel Index 2.3 (0-4) 07/12/16 12:42 Troponin T 0.139 ng/mL (0.00-0.029) H* 07/12/16 14:39 NT-Pro-B Natriuret Pep 74504 pg/mL (0-900) H 07/11/16 15:47 Total Protein 8.5 g/dL (6.3-8.2) H 07/11/16 15:47 Albumin 4.2 g/dL (3.9-5) 07/11/16 15:47 Albumin/Globulin Ratio 1.0 % 07/11/16 15:47 Triglycerides 178 mg/dL (2-149) H 07/11/16 15:47 Cholesterol 154 mg/dL (50-199) 07/11/16 15:47 LDL Cholesterol Direct 85 mg/dL (50-130) 07/11/16 15:47 HDL Cholesterol 34 mg/dL (40-59) L 07/11/16 15:47 Cholesterol/HDL Ratio 4.52 % 07/11/16 15:47 - Imaging and Cardiology Chest x-ray: image reviewed (cardiomegaly)
[2016-07-14 09:36] VITALS: BP 138/87
--- NOTE | 2016-07-14 09:42 | Progress Note ---
Assessment and Plan Impression: * Chest pain with abnormal EKG * Hypertension * Diabetes type 2 * End-stage renal disease on dialysis Plan: * hd q MWF * uf with hd as tolerated * strict i/os * lytes prn * chest pain workup per cards * ok to dc from renal standpoint Subjective Date of service: 07/14/16 Principal diagnosis: esrd Interval history: resting well in bed today Objective - Exam Narrative Exam: Gen. appearance: Patient lying in bed, no apparent distress HEENT: Normocephalic, atraumatic, pupils equally round and reactive to light, extraocular movement intact, and no sclericterus,. No JVD or thyromegaly or nodule,neck supple, no carotid bruit ,mucous membranes moist, no exudate or erythema Heart: S1, S2, regular rate and rhythm Lungs: Clear to auscultation bilaterally, breathing comfortable Abdomen: Positive bowel sounds, nontender, nondistended, no organomegaly Extremity: No edema, cyanosis, clubbing Skin: No rash, nodules, warm, dry Neuro: Oriented 3, cranial nerves II-12 intact, speech is fluent, motor and sensory intact - Vital Signs Vital signs: Vital Signs - 12hr 07/13/16 07/13/16 07/14/16 22:00 23:20 00:21 Temperature 98.2 F Pulse Rate 93 H Pulse Rate [ 101 H Right Radial] Respiratory 18 18 Rate Blood Pressure 138/77 [Right Arm] O2 Sat by Pulse 99 Oximetry 07/14/16 04:00 Temperature 98.3 F Pulse Rate Pulse Rate [ 83 Right Radial] Respiratory 18 Rate Blood Pressure 138/84 [Right Arm] O2 Sat by Pulse 99 Oximetry - Lab 07/13/16 07:01 07/13/16 04:00 Most recent lab results Calcium 8.3 mg/dL (8.4-10.2) L 07/13/16 04:00 Phosphorus 4.8 mg/dL (2.5-4.5) H 07/11/16 23:22 Magnesium 2.7 mg/dL (1.7-2.3) H 07/11/16 23:22
--- NOTE | 2016-07-14 09:43 | Discharge Summary ---
Providers - Providers Date of Admission: 07/12/16 02:26 Date of discharge: 07/14/16 Attending physician: JOSEFINA RHODES 07/13/16 13:41 Consult to Physician [CONS] Routine Consulting Provider: ROSI ARGUELLO Reason For Exam: ESRD on HD Place consult to:: Dr. Arguello Notified:: Dr. Arguello If yes, spoke with:: Fritz Time called:: 13:16 Primary care physician: [employer] WORKER Hospitalization Reason for admission: chest pain Condition: Stable Pertinent studies: CXR Hospital course: Patient is a 61 years old -Swedish obese male with ESRD on HD, hypertension, diabetes, HIV who presented to the hospital complaining of chest tightness and shortness of breath while having hemodialysis; had these symptoms with every dialysis for the last couple of weeks and they are always associated with transient hypotension. Acute coronary event was excluded. He has regular cardiology follow-ups and recentworkup; he has a known dilated nonischemic cardiomyopathy with EF 20%. Cardiology recommending holding antihypertensives on dialysis days. Discharge diagnosis: 1. Chest pain - due to hypotension secondary to antihypertensive use/ hemodialysis on his background of severe cardiomyopathy 2. Dilated nonischemic cardiomyopathy - LV EF 20%; on BB, ARB, nitrate, hydralazine 3. Hypertension 4. Diabetes 5. Hyperlipidemia 6. ESRD on HD 7. Hepatitis C 8. HIV 9. Obesity Disposition: DISCHARGED TO HOME OR SELFCARE Time spent for discharge: 35 min Core Measure Documentation - Palliative Care Palliative Care/ Comfort Measures: Not Applicable - Core Measures Any of the following diagnoses?: heart failure - Heart Failure Discharge Requirements DIOR/ARB for LVSD if EF <40%: Yes Beta caity at discharge: Yes Exam - Physical Exam Narrative exam: Patient seen and examined: - Constitutional Vitals: Temp Pulse Resp BP Pulse Ox 98.3 F 83 18 138/84 99 07/14/16 04:00 07/14/16 04:00 07/14/16 04:00 07/14/16 04:00 07/14/16 04:00 General appearance: Present: no acute distress, obese - EENT Eyes: Present: PERRL, EOM intact - Neck Neck: Present: supple, normal ROM. Absent: masses or JVD - Respiratory Respiratory effort: normal Respiratory: bilateral: CTA, negative: rales, rhonchi, wheezing - Cardiovascular Rhythm: regular Heart Sounds: Present: S1 & S2. Absent: systolic murmur - Extremities Extremities: no ischemia - Abdominal General gastrointestinal: Present: soft, non-tender, non-distended, normal bowel sounds - Integumentary Integumentary: Present: warm, dry. Absent: jaundice, rash - Psychiatric Psychiatric: cooperative - Neurologic Neurologic: CNII-XII intact, no focal deficits Plan Activity: advance as tolerated Diet: low cholesterol, low salt Special Instructions: other (hold Losartan, Bidil and Amlodipine on dialysis days) Additional Instructions: Follow-up with your ux designer to resume outpatient hemodialysis Follow up with: SHIRLEY LYNNE MD [Primary Care Provider] - 7 Days ANDREW RAMOS MD [Staff Physician] - 7 Days
[2016-07-14] MEDS: BABY ASPIRIN PO SCH (10:08)
== END 2016-07-14 10:44 | disposition home or self-care (01) | DRG 312 ==
LOC: ED 15:05 → 4A 07-12 02:26
PROVIDERS: ADMIT Internal Medicine; ATTEND Internal Medicine
PROC: 5A1D00Z (ICD-10-PCS; principal; 2016-07-13)
DX: I95.3 Hypotension of hemodialysis (principal); N18.6 End stage renal disease; B20 Human immunodeficiency virus [HIV] disease; I13.2 Hypertensive heart and chronic kidney disease with heart failure and with stage 5 chronic kidney disease, or end stage renal disease; I42.0 Dilated cardiomyopathy; J44.9 Chronic obstructive pulmonary disease, unspecified; E11.22 Type 2 diabetes mellitus with diabetic chronic kidney disease; I50.9 Heart failure, unspecified; J45.909 Unspecified asthma, uncomplicated; E78.5 Hyperlipidemia, unspecified; F17.210 Nicotine dependence, cigarettes, uncomplicated; E66.9 Obesity, unspecified; Z99.2 Dependence on renal dialysis; Z99.81 Dependence on supplemental oxygen; Z98.890 Other specified postprocedural states; Z79.4 Long term (current) use of insulin; Z79.899 Other long term (current) drug therapy; Z88.2 Allergy status to sulfonamides; Z68.32 Body mass index [BMI] 32.0-32.9, adult
CPT/HCPCS: 36415; 71020; 80048; 80053; 80061; 80074; 82550; 82553; 82962; 83735; 83880; 84100; 84484; 85007; 85025; 85379; 93005; 93010; 94760; 96374; 99406; J1200; J7030

== ENCOUNTER 2016-09-09 07:02 | Inpatient (IN) | payer MEDICARE ==
[2016-09-09] MEDS ORDERED: BABY ASPIRIN PO ONE (07:07)
[2016-09-09] MEDS: NITROSTAT SL ONE ×2 (07:20→09:15)
[2016-09-09 07:33] LABS: Basophils % (Auto) 0.8 % (0.0-1.8); Eosinophils % (Auto) 0.1 % (0.0-4.3); Hematocrit 34.9 % (35.5-45.6); Hemoglobin 11.3 gm/dl (11.8-15.2); Mean Corpuscular HGB Conc 32 % (32-34); Mean Corpuscular Hemoglobin 31 pg (28-32); Mean Corpuscular Volume 95 fl (84-94); Platelet Count 127 K/mm3 (140-440); Red Blood Count 3.68 M/mm3 (3.65-5.03); White Blood Count 5.6 K/mm3 (4.5-11.0)
--- NOTE | 2016-09-09 07:36 | Emergency Department Report ---
ED Chest Pain HPI - General Chief Complaint: Chest Pain Stated Complaint: CHEST PAIN Time Seen by Provider: 09/09/16 07:06 Source: patient, EMS Mode of arrival: Stretcher Limitations: No Limitations - History of Present Illness Initial Comments: 61-year-old male presents to the emergency department via EMS complaining of chest pain. Patient states that he got into an argument with his and began having chest pain at approximately 6 AM this morning. Patient describes a pressure sensation in the center of his chest "like someone is stepping on my chest". Patient reports pain radiates to his right shoulder with numbness in his right arm. He reports associated lightheadedness, shortness of breath, and nausea. Patient denies passing out or vomiting. EMS administered one sublingual nitroglycerin with improvement in pain. Patient also states he is scheduled for dialysis this morning at 11 AM. There are no other complaints. MD Complaint: chest pain -: Sudden, This morning Pain Location: substernal Pain Radiation: RUE Severity: moderate Severity scale (0 -10): 6 Quality: pressure Consistency: constant Improves With: nitroglycerin Worsens With: nothing re: nausea, dyspnea Treatments Prior to Arrival: nitroglycerin Aspirin use within the Past 7 Days: (0) No - Related Data Home Medications Medication Instructions Recorded Confirmed Last Taken Carvedilol [Coreg] 25 mg PO DAILY 09/09/16 09/09/16 Unknown Cinacalcet HCl [Sensipar] 60 mg PO DAILY 09/09/16 09/09/16 Unknown Fluticasone Propionate [Flovent 50 mcg IH TID PRN 09/09/16 09/09/16 Unknown Diskus] Megestrol [Megace] 40 mg PO DAILY 09/09/16 09/09/16 Unknown Triamcinolone 0.1% 0.1 mg TP TID PRN 09/09/16 09/09/16 Unknown Allergies Allergy/AdvReac Type Severity Reaction Status Date / Time sulfamethoxazole Allergy Unknown Verified 08/03/15 15:03 [From Bactrim] trimethoprim [From Bactrim] Allergy Unknown Verified 08/03/15 15:03 DAWOOD score - Dawood Score Age > 65: (0) No Aspirin use within the Past 7 Days: (0) No 3 or more CAD Risk Factors: (1) Yes 2 or more Angina events in past 24 hrs: (1) Yes Known CAD with more than 50% Stenosis: (0) No Elevated Cardiac Markers: (1) Yes ST Deviation Greater than 0.5mm: (0) No DAWOOD Score: 3 ED Review of Systems ROS: Stated complaint: CHEST PAIN Other details as noted in HPI Comment: All other systems reviewed and negative Respiratory: shortness of breath Cardiovascular: chest pain, syncope (lightheadedness, no loss of consciousness) Gastrointestinal: nausea ED Past Medical Hx - Past Medical History Previous Medical History?: Yes Hx Hypertension: Yes Hx Congestive Heart Failure: Yes Hx Diabetes: Yes Hx Renal Disease: Yes (Dialysis M, W, F) Hx Asthma: Yes Hx COPD: Yes Hx HIV: Yes Additional medical history: pancreatitis, left upper arm HD graft. bells palsy - Surgical History Past Surgical History?: Yes Hx Internal Defibrillator: Yes Additional Surgical History: graft to left arm, R chest vas cath - Family History Family history: no significant - Social History Smoking Status: Current Every Day Smoker Substance Use Type: None - Medications Home Medications: Home Medications Medication Instructions Recorded Confirmed Last Taken Type Carvedilol [Coreg] 25 mg PO DAILY 09/09/16 09/09/16 Unknown History Cinacalcet HCl [Sensipar] 60 mg PO DAILY 09/09/16 09/09/16 Unknown History Fluticasone Propionate [Flovent 50 mcg IH TID PRN 09/09/16 09/09/16 Unknown History Diskus] Megestrol [Megace] 40 mg PO DAILY 09/09/16 09/09/16 Unknown History Triamcinolone 0.1% 0.1 mg TP TID PRN 09/09/16 09/09/16 Unknown History ED Physical Exam - General Limitations: No Limitations General appearance: alert, in no apparent distress - Head Head exam: Present: atraumatic, normocephalic - Eye Eye exam: Present: normal appearance, PERRL, EOMI - ENT ENT exam: Present: normal exam, normal orophraynx, mucous membranes moist - Neck Neck exam: Present: normal inspection, full ROM. Absent: tenderness - Respiratory Respiratory exam: Present: normal lung sounds bilaterally. Absent: respiratory distress - Cardiovascular Cardiovascular Exam: Present: regular rate, normal rhythm, normal heart sounds - GI/Abdominal GI/Abdominal exam: Present: soft, normal bowel sounds. Absent: distended, tenderness - Extremities Exam Extremities exam: Present: normal inspection (dialysis graft noted to LUE), full ROM. Absent: tenderness - Neurological Exam Neurological exam: Present: alert, oriented X3. Absent: motor sensory deficit - Skin Skin exam: Present: warm, dry, intact ED Course Vital Signs 09/09/16 09/09/16 09/09/16 07:06 07:12 07:20 Temperature 98.9 F Pulse Rate 91 H 87 78 Respiratory 22 16 Rate Blood Pressure 159/95 162/97 Blood Pressure 159/95 [Right] O2 Sat by Pulse 99 98 Oximetry ED Medical Decision Making - Lab Data Result diagrams: 09/09/16 07:11 09/09/16 07:11 - EKG Data -: EKG Interpreted by Me EKG shows normal: sinus rhythm, axis Rate: normal - EKG Data When compared to previous EKG there are: previous EKG unavailable Interpretation: nonspecific ST-T wave shaheen, LVH, other (prolonged QT) - Radiology Data Radiology results: image reviewed interpreted by me: Chest x-ray shows cardiomegaly. There is mild pulmonary edema as exhibited by fluid in the right major fissure. - Medical Decision Making Lab and imaging results reviewed and discussed with the patient. Review of old records reveal that the patient has a nonischemic dilated cardiomyopathy. I have spoken with Dr. Olivera, cardiology. Dr. Ambrose with nephrology will also be notified. Patient is to be admitted by the hospitalist. - Differential Diagnosis ACS, AMI, ESRD needing dialysis Critical care attestation.: If time is entered above; I have spent that time in minutes in the direct care of this critically ill patient, excluding procedure time. ED Disposition Clinical Impression: Elevated troponin, ESRD on hemodialysis Chest pain Qualifiers: Chest pain type: precordial chest pain Qualified Code(s): R07.2 - Precordial pain Disposition: OP ADMITTED IP TO THIS HOSP Is pt being admited?: Yes Condition: Stable Instructions: Chest Pain (ED) Time of Disposition: 08:18
[2016-09-09 07:50] LABS: Creatine Kinase MB 2.5 ng/mL (0.0-4.0)
[2016-09-09 07:51] LABS: Albumin 3.6 g/dL (3.9-5); BUN/Creatinine Ratio 3.81; Bilirubin,Total 0.4 mg/dL (0.1-1.2); Calcium 10.1 mg/dL (8.4-10.2); Magnesium 2.5 mg/dL (1.7-2.3); Phosphorous 5.3 mg/dL (2.5-4.5); Potassium 4.3 mmol/L (3.6-5.0); Total Protein 7.3 g/dL (6.3-8.2)
--- NOTE | 2016-09-09 07:52 | XRay Report ---
Single view chest: Compared to 07/11/16. History: Chest pain. Findings: Cardiomegaly. Trachea is midline. No consolidation, pneumothorax or pleural effusion. Impression: Cardiomegaly. No acute lung changes.
[2016-09-09] MEDS ORDERED: MORPHINE IV ONE (08:05)
--- NOTE | 2016-09-09 08:18 | Admit Criteria Form ---
Admission Criteria Documentation: CHEST PAIN Clinical Indications for Admission to Inpatient Care (Place 'X' for any and all applicable criteria): Admission is indicated for chest pain and ANY ONE of the following(1)(2)(3)(4)(5 ): [ ]I. Angina with acute coronary syndrome (Also use Myocardial Infarction or Angina guideline) [ ]II. Hemodynamic instability [X ]III. Angina needing acute intervention as indicated by ALL of the following (11)(12): [X ]a) Unstable angina is present as indicated by angina that is ANY ONE of the following: [X ]i) New onset [ ]ii) Nocturnal [ ]iii) Prolonged at rest [ ]iv) Progressive [ X]b) Angina warrants acute intervention as indicated by ANY ONE of the following: [ ]i) Recurrent angina (e.g, not responding as previously to treatment) [ ]ii) Angina at rest or with low-level activities despite initial medical therapy [ ]iii) New or presumably new ST-segment depression on ECG [ ]iv) Signs or symptoms of heart failure (eg, dyspnea, pulmonary edema) [ ]v) New or worsening mitral regurgitation [ ]vi) Hemodynamic instability [ ]vii) Dangerous arrhythmia (eg, sustained ventricular tachycardia) [ ]viii) History of percutaneous coronary intervention within 6 months [ ]ix) History of coronary artery bypass graft surgery [ X]x) DAWOOD risk score of 2 or greater[A] [X ]xi) History of Diabetes(14) [ ]xii) High-risk cardiac ischemia findings on noninvasive testing (e.g, echocardiogram, treadmill testing, nuclear scan) [X ]xiii) Chronic renal insufficiency (ie, estimated GFR less than 60 mL/min/1.732m) [ ]xiv) Left ventricular ejection fraction less than 40% [ ]IV. Evidence of PA (eg, cardiac biomarkers positive, ST-segment elevation on ECG) also use Myocardial Infarction Criteria Form. [ ]V. Pulmonary edema [ ]. Respiratory distress [ ]VII. Chest pain indicative of serious diagnosis other than coronary artery disease (eg, aortic dissection) [X ]VIII. Contraindications and/or Inappropriate clinical situations for Observational Care in patients with Chest Pain, when ANY ONE of the following is required: [ ]a) Patient with risk factor for pulmonary embolism, acute coronary syndrome and myocardial infarction (18) [ ]b) Patient with Pulmonary embolism require an average LOS of 4.3 days, therefore emergency department observation management is inappropriate 18,23 [ ]c) Painful condition/s in the elderly, have the highest rate of recidivism after emergency department observation management (10.8%) 20,21,22 [X ]d) Elevated cardiac biomarker requires intensive and exhaustive care (19) [ X]IX. General contraindications and/or Inappropriate clinical situations for Observational Care in patients with Chest Pain, when ANY ONE of the following is required: [ X]a) Prediction of prolongation of LOS based on ANY ONE of the following may be considered as a contraindication for observational care 2, 3, 4, 5, 6, 7, 8, 9, 10, 11 [ ]i) Age > 65 yrs. [X ]ii) Patient arriving by ambulance [ ]iii) Patient with high acuity [ ]iv) Patient requiring vital sign monitoring [ ]v) Patient on IV medication [ ]b) Systolic blood pressures 180mmHg 3,12 [ ]c) Patient with altered mental status including delirium and other alteration of consciousness, (3) [ ]d) Patient whose discharge disposition will be to a fci home or rehabilitation home should not be managed in Emergency Department Observation Unit. CMS rule requires 3 days hospital stay before such placement. 3,13 [ ]e) Patient with failure to thrive due to broad array of etiologies 3,16,17 [ ]f) Inability to ambulate 3,14 Extended stay beyond goal length of stay may be needed for (1)(28): [ ]a) Specific condition diagnosed after evaluation (eg, pulmonary embolism, aortic dissection) [ ]b) Unstable angina [ ]c) Continued suspicion of acute coronary syndrome with inability to complete needed cardiac evaluation (eg, patient clinically unable to undergo stress testing) [ ]d) Myocardial infarction (Contents from ANGINA and CHEST PAIN clinical indications for admission to inpatient care have been integrated in this form) The original [facility] content created by [employer] has been revised. The portions of the content which have been revised are identified through the use of italic text or in bold, and [facility] has neither reviewed nor approved the modified material. All other unmodified content is copyright [facility]. Please see references footnoted in the original [facility] [employer] edition 2016 Admission Criteria Met: Yes
[2016-09-09 09:29] LABS: Creatine Kinase MB 2.6 ng/mL (0.0-4.0)
[2016-09-09] MEDS ORDERED: SODIUM CHLORIDE FLUSH SYRINGE 10 ML IV PRN (09:30)
[2016-09-09] MEDS ORDERED: ZOFRAN IV PRN (09:30)
[2016-09-09] MEDS ORDERED: TYLENOL PO PRN (09:30)
[2016-09-09] MEDS ORDERED: D50W (25GM) IV PRN (09:30)
[2016-09-09] MEDS ORDERED: MILK OF MAGNESIA PO PRN (09:30)
[2016-09-09] MEDS ORDERED: DULCOLAX PR PRN (10:00)
[2016-09-09] MEDS ORDERED: LEXISCAN IV ONE (10:35)
[2016-09-09] MEDS ORDERED: PROVENTIL IH PRN (11:00)
--- NOTE | 2016-09-09 11:48 | Consultation ---
History of Present Illness - History of Present Illness thank you for the consultation Assessment and plan Patient admitted with chest pain and cardiomyopathy currently does not acute emergent indication for renal replacement therapy will await for cardiology evaluation and likely will dialyze him tomorrow morning Ab card enzyme being follwed by cardioogy No evidence of any significant volume overload and the patient does have history of underlying cardiomyopathy has had ICD placement/ Anemia and end-stage renal disease to monitor and follow Secondary hyperparathyroidism monitor phosphorus and parathyroid hormone level Patient currently dialyzes on Monday here can be changed to Monday and Monday schedule End-stage renal disease related to dietary counseling and education was done and all questions are answered Patient needs to modify his lifestyle significantly We'll continue to follow and make recommendation from renal standpoint Medications and Allergies Allergies Allergy/AdvReac Type Severity Reaction Status Date / Time sulfamethoxazole Allergy Unknown Verified 08/03/15 15:03 [From Bactrim] trimethoprim [From Bactrim] Allergy Unknown Verified 08/03/15 15:03 Home Medications Medication Instructions Recorded Confirmed Last Taken Type Albuterol Sulfate [Ventolin HFA] 8 mg IH DAILY 09/09/16 09/09/16 Unknown History Carvedilol [Coreg] 25 mg PO DAILY 09/09/16 09/09/16 Unknown History Cinacalcet HCl [Sensipar] 60 mg PO DAILY 09/09/16 09/09/16 Unknown History Etravirine [Intelence] 200 mg PO DAILY 09/09/16 09/09/16 Unknown History Fluticasone Propionate [Flovent 50 mcg IH TID PRN 09/09/16 09/09/16 Unknown History Diskus] Gemfibrozil [Lopid] 600 mg PO DAILY 09/09/16 09/09/16 Unknown History Insulin Glargine [Lantus VIAL] See Protocol SQ TID 09/09/16 09/09/16 Unknown History Ipratropium/Albuter (Nf) 1 puff IH DAILY 09/09/16 09/09/16 Unknown History [Combivent Inhaler] Ipratropium/Albuterol Sulfate 1 puff IH PRN PRN 09/09/16 09/09/16 Unknown History [Duoneb 0.5 mg-3 mg/3 ml Soln] Losartan [Cozaar] 25 mg PO DAILY 09/09/16 09/09/16 Unknown History Megestrol [Megace] 40 mg PO DAILY 09/09/16 09/09/16 Unknown History Omega3,5,6,7,9 No.1/[place] Oil 1 tab PO DAILY 09/09/16 09/09/16 Unknown History [Complete [place] Softgel] Paroxetine HCl [PARoxetine] 40 mg PO DAILY 09/09/16 09/09/16 Unknown History Prezcobix 800 mg-150 mg Tablet 800 mg PO DAILY 09/09/16 09/09/16 Unknown History Raltegravir Potassium [Isentress] 400 mg PO DAILY 09/09/16 09/09/16 Unknown History Rosuvastatin (Nf) [Crestor] 10 mg PO DAILY 09/09/16 09/09/16 Unknown History Sevelamer Carbonate [Renvela] 800 mg PO TID 09/09/16 09/09/16 Unknown History Symbicort 160-4.5 (Nf) 160 mcg IH DAILY 09/09/16 09/09/16 Unknown History Triamcinolone 0.1% 0.1 mg TP TID PRN 09/09/16 09/09/16 Unknown History amLODIPine [Norvasc] 10 mg PO DAILY 09/09/16 09/09/16 Unknown History Active Meds: Active Medications Acetaminophen (Tylenol) 650 mg PO Q4H PRN PRN Reason: Pain MILD(1-3)/Fever >100.5/BA Albuterol (Proventil) 2.5 mg IH Q3HRT PRN PRN Reason: Shortness Of Breath Albuterol/Ipratropium (Duoneb 0.5 Mg-3 Mg/3 Ml Soln) 1 ampul IH Q6HRT [facility] Bisacodyl (Dulcolax) 10 mg [place] QDAY PRN PRN Reason: Constipation Dextrose (D50w (25gm)) 50 ml IV PRN PRN PRN Reason: Hypoglycemia Heparin Sodium (Porcine) (Heparin) 5,000 unit SUB-Q Q8HR [facility] Insulin Aspart (Novolog) 0 units SUB-Q ACHS [facility] PRN Reason: Protocol Magnesium Hydroxide (Milk Of Magnesia) 30 ml PO Q4H PRN PRN Reason: Constipation Methylprednisolone Sodium Succinate (Solu-Medrol) 20 mg IV BID [facility] Stop: 09/10/16 10:01 Morphine Sulfate (Morphine) 2 mg IV Q4H PRN PRN Reason: Pain, Moderate (4-6) Ondansetron HCl (Zofran) 4 mg IV Q8H PRN PRN Reason: Nausea And Vomiting Sodium Chloride (Sodium Chloride Flush Syringe 10 Ml) 10 ml IV PRN PRN PRN Reason: LINE FLUSH Exam - Vital Signs Vital signs: Vital Signs Pulse Resp 90 26 H 09/09/16 06:52 09/09/16 06:52 Results - Lab Results 09/09/16 07:11 09/09/16 07:11 Most recent lab results Calcium 10.1 mg/dL (8.4-10.2) 09/09/16 07:11 Phosphorus 5.3 mg/dL (2.5-4.5) H 09/09/16 07:11 Magnesium 2.5 mg/dL (1.7-2.3) H 09/09/16 07:11
[2016-09-09] MEDS: NOVOLOG SUB-Q SCH ×3 (11:59→22:23)
--- NOTE | 2016-09-09 12:10 | Consultation ---
History of Present Illness Consult date: 09/09/16 Consult reason: chest pain History of present illness: 61-year-old male presents to the emergency department via EMS complaining of chest pain. Patient states that he got into an argument with his and began having chest pain at approximately 6 AM this morning. Patient describes a pressure sensation in the center of his chest "like someone is stepping on my chest". Patient reports pain radiates to his right shoulder with numbness in his right arm. He reports associated lightheadedness, shortness of breath, and nausea. Patient denies passing out or vomiting. EMS administered one sublingual nitroglycerin with improvement in pain. Patient also states he is scheduled for dialysis this morning at 11 AM. There are no other complaints. Past History Past Medical History: diabetes, dialysis, ESRD, heart failure, HIV/AIDS, hypertension, renal failure, stroke Past Surgical History: Other (AV fistula, AICD) Social history: smoking Family history: cancer, hypertension Medications and Allergies Allergies Allergy/AdvReac Type Severity Reaction Status Date / Time sulfamethoxazole Allergy Unknown Verified 08/03/15 15:03 [From Bactrim] trimethoprim [From Bactrim] Allergy Unknown Verified 08/03/15 15:03 Home Medications Medication Instructions Recorded Confirmed Last Taken Type Albuterol Sulfate [Ventolin HFA] 8 mg IH DAILY 09/09/16 09/09/16 Unknown History Carvedilol [Coreg] 25 mg PO DAILY 09/09/16 09/09/16 Unknown History Cinacalcet HCl [Sensipar] 60 mg PO DAILY 09/09/16 09/09/16 Unknown History Etravirine [Intelence] 200 mg PO DAILY 09/09/16 09/09/16 Unknown History Fluticasone Propionate [Flovent 50 mcg IH TID PRN 09/09/16 09/09/16 Unknown History Diskus] Gemfibrozil [Lopid] 600 mg PO DAILY 09/09/16 09/09/16 Unknown History Insulin Glargine [Lantus VIAL] See Protocol SQ TID 09/09/16 09/09/16 Unknown History Ipratropium/Albuter (Nf) 1 puff IH DAILY 09/09/16 09/09/16 Unknown History [Combivent Inhaler] Ipratropium/Albuterol Sulfate 1 puff IH PRN PRN 09/09/16 09/09/16 Unknown History [Duoneb 0.5 mg-3 mg/3 ml Soln] Losartan [Cozaar] 25 mg PO DAILY 09/09/16 09/09/16 Unknown History Megestrol [Megace] 40 mg PO DAILY 09/09/16 09/09/16 Unknown History Omega3,5,6,7,9 No.1/[place] Oil 1 tab PO DAILY 09/09/16 09/09/16 Unknown History [Complete [place] Softgel] Paroxetine HCl [PARoxetine] 40 mg PO DAILY 09/09/16 09/09/16 Unknown History Prezcobix 800 mg-150 mg Tablet 800 mg PO DAILY 09/09/16 09/09/16 Unknown History Raltegravir Potassium [Isentress] 400 mg PO DAILY 09/09/16 09/09/16 Unknown History Rosuvastatin (Nf) [Crestor] 10 mg PO DAILY 09/09/16 09/09/16 Unknown History Sevelamer Carbonate [Renvela] 800 mg PO TID 09/09/16 09/09/16 Unknown History Symbicort 160-4.5 (Nf) 160 mcg IH DAILY 09/09/16 09/09/16 Unknown History Triamcinolone 0.1% 0.1 mg TP TID PRN 09/09/16 09/09/16 Unknown History amLODIPine [Norvasc] 10 mg PO DAILY 09/09/16 09/09/16 Unknown History Active Meds: Active Medications Acetaminophen (Tylenol) 650 mg PO Q4H PRN PRN Reason: Pain MILD(1-3)/Fever >100.5/BA Albuterol (Proventil) 2.5 mg IH Q3HRT PRN PRN Reason: Shortness Of Breath Albuterol/Ipratropium (Duoneb 0.5 Mg-3 Mg/3 Ml Soln) 1 ampul IH Q6HRT [facility] Bisacodyl (Dulcolax) 10 mg [place] QDAY PRN PRN Reason: Constipation Dextrose (D50w (25gm)) 50 ml IV PRN PRN PRN Reason: Hypoglycemia Heparin Sodium (Porcine) (Heparin) 5,000 unit SUB-Q Q8HR [facility] Insulin Aspart (Novolog) 0 units SUB-Q ACHS [facility] PRN Reason: Protocol Magnesium Hydroxide (Milk Of Magnesia) 30 ml PO Q4H PRN PRN Reason: Constipation Methylprednisolone Sodium Succinate (Solu-Medrol) 20 mg IV BID [facility] Stop: 09/10/16 10:01 Morphine Sulfate (Morphine) 2 mg IV Q4H PRN PRN Reason: Pain, Moderate (4-6) Ondansetron HCl (Zofran) 4 mg IV Q8H PRN PRN Reason: Nausea And Vomiting Sodium Chloride (Sodium Chloride Flush Syringe 10 Ml) 10 ml IV PRN PRN PRN Reason: LINE FLUSH Review of Systems All systems: negative Physical Examination Vital Signs Pulse Resp 90 26 H 09/09/16 06:52 09/09/16 06:52 General appearance: no acute distress HEENT: Positive: PERRL Neck: Positive: neck supple Cardiac: Positive: Reg Rate and Rhythm, Systolic Murmur Lungs: Positive: Normal Exam Abdomen: Positive: Soft Results 09/09/16 07:11 09/09/16 07:11 Cardiac Enzymes 09/09/16 Range/Units 08:58 CK-MB (CK-2) 2.6 (0.0-4.0) ng/mL - EKG Interpretation EKG: sinus rhythm EKG interpretations - Telemetry EKG Rhythm: Sinus Rhythm Assessment and Plan Assessment: Atypical chest pain Chronically elevated troponin No significant ECG changes No ischemia by MPI this admission BP on admission 159/95 Non-ischemic cardiomyopathy s/p AICD Normal coronaries in 2014 Systemic Hypertension End-stage renal disease HIV Recommendations: No further cardiac intervention is needed HD today May go home cardiac reilly
[2016-09-09] MEDS: DUONEB 0.5 MG-3 MG/3 ML SOLN IH SCH ×2 (13:21→19:58)
[2016-09-09] MEDS: HEPARIN SUB-Q SCH ×3 (14:07→22:27)
[2016-09-09] MEDS ORDERED: NON-FORMULARY (Fluticasone Propionate [Flovent Diskus] 50 MCG) IH PRN (15:48)
--- NOTE | 2016-09-09 15:52 | History and Physical Report ---
History of Present Illness Date of examination: 09/09/16 Date of admission: 09/09/16 08:40 Chief complaint: Chest pain History of present illness: Patient is a 61-year-old male with history of HIV, and stage renal disease, diabetes mellitus, asthma, who presents to the hospital with complaint of chest pain that started after argument with the . He reports that he felt like heaviness on his center of his chest like someone stepping on his chest. Her post radiation to his right shoulder numbness down the right arm. He didn't associate this with lightheadedness and some shortness of breath with no nausea diaphoresis. He denies any syncopal episode. He denies any palpitation or orthopnea. He fortunately did not go for his dialysis and presented to the hospital for evaluation. On arrival to the hospitalization via EMS he had received pre-hospitalization nitroglycerin which improved the pain initially the pain was rated at 10 over 10 in intensity pelvis of 5/10 intensity. ROS Constitutional: No fever, fatigue or weight loss. Skin: No rash. Eyes: No recent vision problems or eye pain. ENT: No congestion, ear pain, or sore throat. Endocrine: No thyroid problems. Cardiovascular: Chest pain Respiratory: Shortness of breath but no cough, congestion, or wheezing. Gastrointestinal: No abdominal pain, nausea, vomiting, or diarrhea. Genitourinary: No dysuria. Musculoskeletal: No joint swelling. Neurologic: No seizures. Hematologic: No unusual bruising or bleeding. Psychiatric: No psychiatric problems, hallucinations or depression. All other systems reviewed and otherwise negative. Past History Past Medical History: diabetes, dialysis, ESRD, heart failure, HIV/AIDS, hypertension, renal failure, stroke Past Surgical History: Other (AV fistula, AICD) Social history: smoking Family history: cancer, hypertension Medications and Allergies Allergies Allergy/AdvReac Type Severity Reaction Status Date / Time sulfamethoxazole Allergy Unknown Verified 08/03/15 15:03 [From Bactrim] trimethoprim [From Bactrim] Allergy Unknown Verified 08/03/15 15:03 Home Medications Medication Instructions Recorded Confirmed Last Taken Type Albuterol Sulfate [Ventolin HFA] 8 mg IH DAILY 09/09/16 09/09/16 Unknown History Carvedilol [Coreg] 25 mg PO DAILY 09/09/16 09/09/16 Unknown History Cinacalcet HCl [Sensipar] 60 mg PO DAILY 09/09/16 09/09/16 Unknown History Etravirine [Intelence] 200 mg PO DAILY 09/09/16 09/09/16 Unknown History Fluticasone Propionate [Flovent 50 mcg IH TID PRN 09/09/16 09/09/16 Unknown History Diskus] Gemfibrozil [Lopid] 600 mg PO DAILY 09/09/16 09/09/16 Unknown History Insulin Glargine [Lantus VIAL] See Protocol SQ TID 09/09/16 09/09/16 Unknown History Ipratropium/Albuter (Nf) 1 puff IH DAILY 09/09/16 09/09/16 Unknown History [Combivent Inhaler] Ipratropium/Albuterol Sulfate 1 puff IH PRN PRN 09/09/16 09/09/16 Unknown History [Duoneb 0.5 mg-3 mg/3 ml Soln] Losartan [Cozaar] 25 mg PO DAILY 09/09/16 09/09/16 Unknown History Megestrol [Megace] 40 mg PO DAILY 09/09/16 09/09/16 Unknown History Omega3,5,6,7,9 No.1/[place] Oil 1 tab PO DAILY 09/09/16 09/09/16 Unknown History [Complete [place] Softgel] Paroxetine HCl [PARoxetine] 40 mg PO DAILY 09/09/16 09/09/16 Unknown History Prezcobix 800 mg-150 mg Tablet 800 mg PO DAILY 09/09/16 09/09/16 Unknown History Raltegravir Potassium [Isentress] 400 mg PO DAILY 09/09/16 09/09/16 Unknown History Rosuvastatin (Nf) [Crestor] 10 mg PO DAILY 09/09/16 09/09/16 Unknown History Sevelamer Carbonate [Renvela] 800 mg PO TID 09/09/16 09/09/16 Unknown History Symbicort 160-4.5 (Nf) 160 mcg IH DAILY 09/09/16 09/09/16 Unknown History Triamcinolone 0.1% 0.1 mg TP TID PRN 09/09/16 09/09/16 Unknown History amLODIPine [Norvasc] 10 mg PO DAILY 09/09/16 09/09/16 Unknown History Active Meds: Active Medications Acetaminophen (Tylenol) 650 mg PO Q4H PRN PRN Reason: Pain MILD(1-3)/Fever >100.5/BA Albuterol (Proventil) 2.5 mg IH Q3HRT PRN PRN Reason: Shortness Of Breath Albuterol/Ipratropium (Duoneb 0.5 Mg-3 Mg/3 Ml Soln) 1 ampul IH Q6HRT [facility] Last Admin: 09/09/16 13:21 Dose: 1 ampul Bisacodyl (Dulcolax) 10 mg [place] QDAY PRN PRN Reason: Constipation Dextrose (D50w (25gm)) 50 ml IV PRN PRN PRN Reason: Hypoglycemia Heparin Sodium (Porcine) (Heparin) 5,000 unit SUB-Q Q8HR [facility] Last Admin: 09/09/16 14:07 Dose: 5,000 unit Insulin Aspart (Novolog) 0 units SUB-Q ACHS [facility] PRN Reason: Protocol Last Admin: 09/09/16 11:59 Dose: Not Given Magnesium Hydroxide (Milk Of Magnesia) 30 ml PO Q4H PRN PRN Reason: Constipation Methylprednisolone Sodium Succinate (Solu-Medrol) 20 mg IV BID [facility] Stop: 09/10/16 10:01 Last Admin: 09/09/16 14:06 Dose: 20 mg Morphine Sulfate (Morphine) 2 mg IV Q4H PRN PRN Reason: Pain, Moderate (4-6) Ondansetron HCl (Zofran) 4 mg IV Q8H PRN PRN Reason: Nausea And Vomiting Sodium Chloride (Sodium Chloride Flush Syringe 10 Ml) 10 ml IV PRN PRN PRN Reason: LINE FLUSH Exam - Physical Exam Narrative exam: VITAL SIGNS: Reviewed. GENERAL: The patient appeared well nourished and normally developed. Vital signs as documented. HEAD: No signs of head trauma. EYES: Pupils are equal. Extraocular motions intact. EARS: Hearing grossly intact. MOUTH: Oropharynx is normal. NECK: No adenopathy, no JVD. CHEST: Chest with clear breath sounds bilaterally. No wheezes, rales, or rhonchi. CARDIAC: Regular rate and rhythm. S1 and S2, without murmurs, gallops, or rubs. VASCULAR: No Edema. Peripheral pulses normal and equal in all extremities. Positive thrill to the left upper arm ABDOMEN: Soft, without detectable tenderness. No sign of distention. No rebound or guarding, and no masses palpated. Bowel Sounds normal. MUSCULOSKELETAL: Good range of motion of all major joints. Extremities without clubbing, cyanosis or edema. NEUROLOGIC EXAM: Alert and oriented x 3. No focal sensory or strength deficits. Speech normal. Follows commands. PSYCHIATRIC: Mood normal. SKIN: Without spinal or lesions to the left upper arm, right upper arm - Constitutional Vitals: Temp Pulse Resp BP Pulse Ox 97.8 F 84 20 157/92 94 09/09/16 12:28 09/09/16 13:31 09/09/16 13:31 09/09/16 12:28 09/09/16 12:28 Results - Labs CBC & Chem 7: 09/09/16 07:11 09/09/16 07:11 Labs: Laboratory Last Values WBC 5.6 K/mm3 (4.5-11.0) 09/09/16 07:11 RBC 3.68 M/mm3 (3.65-5.03) 09/09/16 07:11 Hgb 11.3 gm/dl (11.8-15.2) L 09/09/16 07:11 Hct 34.9 % (35.5-45.6) L 09/09/16 07:11 MCV 95 fl (84-94) H 09/09/16 07:11 MCH 31 pg (28-32) 09/09/16 07:11 MCHC 32 % (32-34) 09/09/16 07:11 RDW 16.0 % (13.2-15.2) H 09/09/16 07:11 Plt Count 127 K/mm3 (140-440) L 09/09/16 07:11 Lymph % (Auto) 44.1 % (13.4-35.0) H 09/09/16 07:11 [place] % (Auto) 6.7 % (0.0-7.3) 09/09/16 07:11 Eos % (Auto) 0.1 % (0.0-4.3) 09/09/16 07:11 Baso % (Auto) 0.8 % (0.0-1.8) 09/09/16 07:11 Lymph # 2.5 K/mm3 (1.2-5.4) 09/09/16 07:11 [place] # 0.4 K/mm3 (0.0-0.8) 09/09/16 07:11 Eos # 0.0 K/mm3 (0.0-0.4) 09/09/16 07:11 Baso # 0.0 K/mm3 (0.0-0.1) 09/09/16 07:11 Seg Neutrophils % 48.3 % (40.0-70.0) 09/09/16 07:11 Seg Neutrophils # 2.7 K/mm3 (1.8-7.7) 09/09/16 07:11 Sodium 140 mmol/L (137-145) 09/09/16 07:11 Potassium 4.3 mmol/L (3.6-5.0) 09/09/16 07:11 Chloride 98.0 mmol/L (98-107) 09/09/16 07:11 Carbon Dioxide 26 mmol/L (22-30) 09/09/16 07:11 Anion Gap 20 mmol/L 09/09/16 07:11 BUN 37 mg/dL (9-20) H 09/09/16 07:11 Creatinine 9.7 mg/dL (0.8-1.5) H 09/09/16 07:11 Estimated GFR 7 ml/min 09/09/16 07:11 BUN/Creatinine Ratio 3.81 % 09/09/16 07:11 Glucose 101 mg/dL (75-100) H 09/09/16 07:11 Calcium 10.1 mg/dL (8.4-10.2) 09/09/16 07:11 Phosphorus 5.3 mg/dL (2.5-4.5) H 09/09/16 07:11 Magnesium 2.5 mg/dL (1.7-2.3) H 09/09/16 07:11 Total Bilirubin 0.4 mg/dL (0.1-1.2) 09/09/16 07:11 AST 14 units/L (5-40) 09/09/16 07:11 ALT 5 units/L (7-56) L 09/09/16 07:11 Alkaline Phosphatase 98 units/L (35-129) 09/09/16 07:11 Total Creatine Kinase 39 units/L (55-170) L 09/09/16 08:58 CK-MB (CK-2) 2.6 ng/mL (0.0-4.0) 09/09/16 08:58 CK-MB (CK-2) Rel Index 6.6 (0-4) H 09/09/16 08:58 Troponin T 0.110 ng/mL (0.00-0.029) H* 09/09/16 08:58 Total Protein 7.3 g/dL (6.3-8.2) 09/09/16 07:11 Albumin 3.6 g/dL (3.9-5) L 09/09/16 07:11 Albumin/Globulin Ratio 1.0 % 09/09/16 07:11 Triglycerides 160 mg/dL (2-149) H 09/09/16 07:11 Cholesterol 176 mg/dL (50-199) 09/09/16 07:11 LDL Cholesterol Direct 108 mg/dL (50-130) 09/09/16 07:11 HDL Cholesterol 36 mg/dL (40-59) L 09/09/16 07:11 Cholesterol/HDL Ratio 4.88 % 09/09/16 07:11 - Imaging and Cardiology EKG: image reviewed (paced) Chest x-ray: image reviewed (no acute pathology) Assessment and Plan Assessment and plan: Patient is a 61-year-old male with history of HIV, and stage renal disease, diabetes mellitus, asthma, who presents to the hospital with complaint of chest pain that started after argument with the . He reports that he felt like heaviness on his center of his chest like someone stepping on his chest. Her post radiation to his right shoulder numbness down the right arm. He didn't associate this with lightheadedness and some shortness of breath with no nausea diaphoresis. He denies any syncopal episode. He denies any palpitation or orthopnea. He fortunately did not go for his dialysis and presented to the hospital for evaluation. On arrival to the hospitalization via EMS he had received pre-hospitalization nitroglycerin which improved the pain initially the pain was rated at 10 over 10 in intensity pelvis of 5/10 intensity. * Atypical chest pain, likely anxiety related * ASTHMA with mild exacerbation * ESRD on HD * HIV * Dyslipidemia * HTN * s/p pacemaker * Anemia of chronic renal disease * Nstemi Type 2 PLAN * Admit to tele, supportive care, cardiac and nephrology consult * Plan for stress test * Start on oxygen. Also start on morphine when necessary * Resume home medications * Resume lipid medications * DVT and GI prophylaxis * Wean oxygen as tolerated patient uses home oxygen at 2 L nasal cannula Advance Directives: Yes Plan of care discussed with patient/family: Yes
[2016-09-09] MEDS: MORPHINE IV PRN ×2 (16:47→22:18)
[2016-09-09] MEDS ORDERED: NACL 0.9% 100 ML IV PRN (20:17)
[2016-09-09] MEDS: RENVELA PO SCH (22:18)
[2016-09-09] MEDS: ISENTRESS PO SCH (22:18)
[2016-09-09] MEDS: NON-FORMULARY (Etravirine [Intelence] 200 MG) PO SCH (22:23)
--- NOTE | 2016-09-10 00:49 | Treadmill Report ---
INDICATION: Chest pain. ORDERING PHYSICIAN: Emergency Room FINDINGS: The left ventricular cavity is severely dilated. There is no scintigraphic evidence of myocardial ischemia. There is a mild decrease in counts noted in the anterior wall on stress imaging that is nonspecific. The left ventricular ejection fraction is measured at 25%. There is severe global left ventricular hypokinesis. IMPRESSION: 1. No scintigraphic evidence of significant myocardial ischemia. 2. Severely dilated and hypokinetic left ventricle with an ejection fraction measured at 25%. 3. Findings are consistent with nonischemic cardiomyopathy. JOB# [id number] JUAN ANTONIO/EDIN
[2016-09-10] MEDS: DUONEB 0.5 MG-3 MG/3 ML SOLN IH SCH ×3 (02:00→14:59)
[2016-09-10 04:07] LABS: Hematocrit 36.1 % (35.5-45.6); Hemoglobin 11.7 gm/dl (11.8-15.2); Mean Corpuscular HGB Conc 33 % (32-34); Mean Corpuscular Hemoglobin 31 pg (28-32); Mean Corpuscular Volume 95 fl (84-94); Platelet Count 123 K/mm3 (140-440); Red Blood Count 3.82 M/mm3 (3.65-5.03); Red Cell Distribution Width 15.7 % (13.2-15.2)
[2016-09-10 04:28] LABS: BUN/Creatinine Ratio 4.12; Calcium 9.7 mg/dL (8.4-10.2); Chloride 95.8 mmol/L (98-107)
[2016-09-10 04:44] LABS: Potassium 5.4 mmol/L (3.6-5.0)
[2016-09-10] MEDS: HEPARIN SUB-Q SCH (05:23)
[2016-09-10] MEDS: NOVOLOG SUB-Q SCH (08:25)
[2016-09-10] MEDS: RENVELA PO SCH (08:35)
[2016-09-10] MEDS: ISENTRESS PO SCH (09:36)
[2016-09-10] MEDS: NON-FORMULARY (Etravirine [Intelence] 200 MG) PO SCH (09:54)
[2016-09-10] MEDS ORDERED: COREG PO SCH (10:00)
[2016-09-10] MEDS ORDERED: BENADRYL PO PRN (10:00)
[2016-09-10] MEDS ORDERED: SENSIPAR PO SCH (10:00)
[2016-09-10] MEDS ORDERED: COZAAR PO SCH (10:00)
[2016-09-10] MEDS ORDERED: PREZCOBIX PO SCH (10:00)
[2016-09-10] MEDS ORDERED: NON-FORMULARY (Rosuvastatin (Nf) 10 MG) PO SCH (10:00)
[2016-09-10] MEDS ORDERED: LOPID PO SCH (10:00)
[2016-09-10] MEDS ORDERED: MEGACE PO SCH (10:00)
[2016-09-10] MEDS ORDERED: NON-FORMULARY (Etravirine [Intelence] 200 MG) PO SCH (10:00)
[2016-09-10] MEDS ORDERED: PAXIL PO SCH (10:00)
[2016-09-10] MEDS ORDERED: GEMFIBROZIL 600 MG PO SCH (10:00)
[2016-09-10] MEDS ORDERED: NORVASC PO SCH (10:00)
[2016-09-10] MEDS ORDERED: ISENTRESS PO SCH (10:00)
[2016-09-10] MEDS ORDERED: NON-FORMULARY (Paroxetine Hcl [Paroxetine] 40 MG) PO SCH (10:00)
--- NOTE | 2016-09-10 11:18 | Consultation ---
TIME OF SERVICE: Around 1148 in the morning. HISTORY OF PRESENT ILLNESS: The patient is a pleasant 61-year-old -[place] gentleman who has been admitted here with complaints of chest pain. The patient is also currently dialysis dependent on Monday, Monday, Monday schedule. His chest pain started around 6:00 in the morning and he felt like somebody was stepping on his chest with some radiation of his pain to right shoulder along with numbness of the right arm. The patient denies any nausea, vomiting, otherwise no history of any fever or chills. PAST MEDICAL HISTORY: Significant for: 1. End-stage renal disease, currently on maintenance hemodialysis. 2. Anemia and end-stage renal disease. 3. Secondary hyperparathyroidism. 4. Diabetes. 5. HIV. 6. Prior stroke. CURRENT ALLERGIES: INCLUDE BACTRIM. HOME MEDICATIONS: Included albuterol, carvedilol, Sensipar, Intelence, Flovent, Lopid, Lantus, Combivent, DuoNeb, losartan, Megace, [place]-3, paroxetine, Prezcobix, raltegravir, rosuvastatin, sevelamer, Symbicort, triamcinolone and amlodipine. REVIEW OF SYSTEMS: Positive for intermittent chest pain with mild shortness of breath, but no discomfort. The patient denies any other complaint at this time. Complete review of systems obtained, pertinent positives as mentioned above. Other review of systems negative. PHYSICAL EXAMINATION: GENERAL: The patient is a pleasant 61-year-old -[place] male who is lying comfortably and does not appear in acute distress. VITAL SIGNS: Reviewed from this admission. HEENT: Normocephalic and atraumatic. Extraocular movements are intact. NECK: Supple without thyromegaly or JVD. CHEST: Essentially clear to auscultation anteriorly and posteriorly. HEART: Regular rate. S1, S2 are heard. No S3, S4. No JVD. ABDOMEN: Soft, nontender. No hepatojugular reflux. EXTREMITIES: Minimal edema. LABORATORY DATA: Labs and x-rays as of this admission, BUN 37, creatinine 9.7, sodium 140, potassium 4.3, chloride 98, bicarbonate 26. White cell count 5.6, hemoglobin 11.3, hematocrit 34.9, platelet count 127,000. ASSESSMENT AND PLAN: 1. End-stage renal disease, currently on maintenance hemodialysis. The patient normally dialyzes on Monday, Monday, and Monday; however, he has been admitted here with diffuse and intermittent chest pain with a history of prior cardiac problems. At this time, I would like to await till cardiology evaluation. There is no emergent indication for renal replacement therapy. Consider hemodialysis tomorrow morning. 2. Abnormal cardiac enzymes currently needs to be seen and followed by Cardiology. The patient does have history of prior cardiac history. 3. Anemia and end-stage renal disease to follow. 4. Secondary hyperparathyroidism to follow. 5. History of underlying cardiomyopathy. 6. Outpatient dialysis on Monday, Monday, Monday, which will be changed to Monday, Monday, outpatient and receive on the regular scheduled days. 7. Hypertension. Goal systolic blood pressure on dialysis day should be around 160, on predialysis and normal days under 140. Plan of care discussed with the patient. All questions were answered. At this time, he does need further workup for his chest pain after which if he is stable, can be considered for hemodialysis and no acute emergent indication for renal replacement therapy today. The patient been advised to maintain fluid restriction. We will continue to follow and make recommendations from renal standpoint. The patient extensively counseled and educated about the role of diet and lifestyle, modify eating habits, fluid restriction and increased protein diet, which will improve overall outcome and prevent hospitalization. JOB# [id number] DUONG/EDIN
[2016-09-10 11:23] LABS: Basophils % (Manual) 0 % (0.0-1.8); Blastocytes % (Manual) 0 %; Eosinophils % (Manual) 0 % (0.0-4.3)
[2016-09-10 11:24] LABS: Anisocytosis 1+; Diff Status Complete; Platelet Estimate Appears Decreased; Polychromasia 1+; Stomatocytes 2+
[2016-09-10] MEDS ORDERED: NACL 0.9 (PRIMING MACHINE ONLY DIALYSIS) MC ONE (12:45)
--- NOTE | 2016-09-10 13:42 | Progress Note ---
Assessment and Plan Impression * Chest pain w/ elevated troponin * End-stage renal disease on HD (MWF at outpatient clinic) * Cardiomyopathy * Hypertension * Secondary hyperparathyroidism * Anemia secondary to end-stage renal disease Plan: * Hemodialysis today; will change to MWF schedule next week * UF as tolerated * Cardiology following * Continue current antiHTN medications * Renal diet * Epogen with dialysis Subjective Date of service: 09/10/16 Interval history: Patient seen sleeping during dialysis Objective - Vital Signs Vital signs: Vital Signs - 12hr 09/10/16 09/10/16 09/10/16 05:48 08:18 08:28 Temperature 97.7 F Pulse Rate Pulse Rate [ 91 H 88 Anterior Bilateral Throughout] Pulse Rate [ 775 H Left Radial] Respiratory 20 Rate Respiratory 20 20 Rate [Anterior Bilateral Throughout] Blood Pressure Blood Pressure 168/95 [Left Arm] O2 Sat by Pulse 100 98 Oximetry 09/10/16 09/10/16 09/10/16 09:07 09:08 10:00 Temperature 97.6 F Pulse Rate 70 70 93 H Pulse Rate [ Anterior Bilateral Throughout] Pulse Rate [ Left Radial] Respiratory 18 Rate Respiratory Rate [Anterior Bilateral Throughout] Blood Pressure 167/76 167/76 155/94 Blood Pressure [Left Arm] O2 Sat by Pulse Oximetry 09/10/16 09/10/16 09/10/16 10:05 10:30 10:45 Temperature Pulse Rate 86 84 89 Pulse Rate [ Anterior Bilateral Throughout] Pulse Rate [ Left Radial] Respiratory Rate Respiratory Rate [Anterior Bilateral Throughout] Blood Pressure 142/90 157/96 163/103 Blood Pressure [Left Arm] O2 Sat by Pulse Oximetry 09/10/16 09/10/16 09/10/16 11:00 11:15 11:30 Temperature Pulse Rate 77 75 74 Pulse Rate [ Anterior Bilateral Throughout] Pulse Rate [ Left Radial] Respiratory Rate Respiratory Rate [Anterior Bilateral Throughout] Blood Pressure 161/93 163/96 156/95 Blood Pressure [Left Arm] O2 Sat by Pulse Oximetry 09/10/16 09/10/16 09/10/16 11:45 11:56 12:00 Temperature Pulse Rate 74 60 Pulse Rate [ Anterior Bilateral Throughout] Pulse Rate [ Left Radial] Respiratory Rate Respiratory Rate [Anterior Bilateral Throughout] Blood Pressure 163/111 161/98 Blood Pressure [Left Arm] O2 Sat by Pulse 96 Oximetry 09/10/16 09/10/16 09/10/16 12:15 12:30 12:45 Temperature Pulse Rate 73 72 72 Pulse Rate [ Anterior Bilateral Throughout] Pulse Rate [ Left Radial] Respiratory Rate Respiratory Rate [Anterior Bilateral Throughout] Blood Pressure 150/95 151/100 144/93 Blood Pressure [Left Arm] O2 Sat by Pulse Oximetry 09/10/16 09/10/16 13:00 13:15 Temperature Pulse Rate 71 71 Pulse Rate [ Anterior Bilateral Throughout] Pulse Rate [ Left Radial] Respiratory Rate Respiratory Rate [Anterior Bilateral Throughout] Blood Pressure 139/90 125/83 Blood Pressure [Left Arm] O2 Sat by Pulse Oximetry - General Appearance General appearance: well-developed, well-nourished EENT: ATNC Respiratory: Present: Decreased Breath Sounds Cardiology: regular, S1S2 Gastrointestinal: normal, no tenderness, no distended Integumentary: no rash Musculoskeletal: other (trace edema) Psychiatric: cooperative - Lab 09/10/16 03:41 09/10/16 03:41 Most recent lab results Calcium 9.7 mg/dL (8.4-10.2) 09/10/16 03:41 Phosphorus 5.3 mg/dL (2.5-4.5) H 09/09/16 07:11 Magnesium 2.5 mg/dL (1.7-2.3) H 09/09/16 07:11
--- NOTE | 2016-09-10 14:01 | Discharge Summary ---
Providers - Providers Date of Admission: 09/09/16 08:40 Date of discharge: 09/10/16 Attending physician: SWATHI SNYDER MD Primary care physician: SCULPTURE INSTRUCTOR Hospitalization Reason for admission: chest pain Condition: Stable Hospital course: Patient is a 61-year-old male with history of HIV, and stage renal disease, diabetes mellitus, asthma, who presents to the hospital with complaint of chest pain that started after argument with the . He reports that he felt like heaviness on his center of his chest like someone stepping on his chest. Her post radiation to his right shoulder numbness down the right arm. He didn't associate this with lightheadedness and some shortness of breath with no nausea diaphoresis. He denies any syncopal episode. He denies any palpitation or orthopnea. He fortunately did not go for his dialysis and presented to the hospital for evaluation. On arrival to the hospitalization via EMS he had received pre-hospitalization nitroglycerin which improved the pain initially the pain was rated at 10 over 10 in intensity pelvis of 5/10 intensity. She was admitted and proceeded to have a stress test which was negative for ischemia and did show severely dilated and hypokinetic ventricle with ejection fraction of 25% significant for nonischemic cardiomyopathy. Patient does have an AICD in place. Cardiology recommended continued conservative management and no other intervention. Patient was dialyzed with recommendation for Monday at outpatient clinic. He is clinically stable at this point for discharge to follow up with nephrology and cardiology outpatient. Asthma exacerbation is also resolved. * Atypical chest pain, likely anxiety related * ASTHMA with mild exacerbation * ESRD on HD * HIV * Dyslipidemia * HTN * s/p pacemaker * Anemia of chronic renal disease * Nstemi Type 2-chronically elevated troponin * Ischemic cardiomyopathy Disposition: DISCHARGED TO HOME OR SELFCARE Time spent for discharge: 35 mins Core Measure Documentation - Palliative Care Palliative Care/ Comfort Measures: Not Applicable - Core Measures Any of the following diagnoses?: none - VTE Discharge Requirements Deep Vein Thrombosis/Pulmonary Embolism Present on Admission: No Exam - Physical Exam Narrative exam: VITAL SIGNS: Reviewed. GENERAL: The patient appeared well and comfortably in bed in no acute distress. Vital signs as documented. HEAD: No signs of head trauma. EYES: Pupils are equal. Extraocular motions intact. EARS: Hearing grossly intact. MOUTH: Oropharynx is normal. NECK: No adenopathy, no JVD. CHEST: Chest with clear breath sounds bilaterally. No wheezes, rales, or rhonchi. CARDIAC: Regular rate and rhythm. S1 and S2, without murmurs, gallops, or rubs. VASCULAR: No Edema. Peripheral pulses normal and equal in all extremities. Positive thrill to the left upper arm ABDOMEN: Soft, without detectable tenderness. No sign of distention. No rebound or guarding, and no masses palpated. Bowel Sounds normal. MUSCULOSKELETAL: Good range of motion of all major joints. Extremities without clubbing, cyanosis or edema. NEUROLOGIC EXAM: Alert and oriented x 3. No focal sensory or strength deficits. Speech normal. Follows commands. PSYCHIATRIC: Mood normal. SKIN: Without spinal or lesions to the left upper arm, right upper arm - Constitutional Vitals: Temp Pulse Resp BP Pulse Ox 97.6 F 71 18 125/83 96 09/10/16 10:00 09/10/16 13:15 09/10/16 10:00 09/10/16 13:15 09/10/16 11:56 Plan Activity: advance as tolerated, fall precautions Diet: low salt, renal Special Instructions: record daily weights, record daily BP diary Additional Instructions: Must follow with Senior Security Engineer- there is a plan to change dialysis days to MWF Follow up with: PRIMARY MD MAGED [Primary Care Provider] - 7 Days SHAGGY PINZON MD [Staff Physician] - 7 Days GENARO SUN MD [Staff Physician] - 7 Days
[2016-09-10 14:17] VITALS: BP 137/83
== END 2016-09-10 16:40 | disposition home or self-care (01) | DRG 880 ==
LOC: ED 07:02 → 4A 08:40
PROVIDERS: ADMIT Internal Medicine; ATTEND Internal Medicine
PROC: 5A1D00Z (ICD-10-PCS; principal; 2016-09-09)
DX: F41.9 Anxiety disorder, unspecified (principal); N18.6 End stage renal disease; B20 Human immunodeficiency virus [HIV] disease; I21.4 Non-ST elevation (NSTEMI) myocardial infarction; I13.2 Hypertensive heart and chronic kidney disease with heart failure and with stage 5 chronic kidney disease, or end stage renal disease; J45.901 Unspecified asthma with (acute) exacerbation; I50.9 Heart failure, unspecified; E11.9 Type 2 diabetes mellitus without complications; J45.909 Unspecified asthma, uncomplicated; J44.9 Chronic obstructive pulmonary disease, unspecified; G51.0 Bell's palsy; F17.200 Nicotine dependence, unspecified, uncomplicated; E11.22 Type 2 diabetes mellitus with diabetic chronic kidney disease; D63.1 Anemia in chronic kidney disease; E78.5 Hyperlipidemia, unspecified; I25.5 Ischemic cardiomyopathy; Z99.2 Dependence on renal dialysis; Z88.2 Allergy status to sulfonamides; Z80.9 Family history of malignant neoplasm, unspecified; Z82.49 Family history of ischemic heart disease and other diseases of the circulatory system; Z86.73 Personal history of transient ischemic attack (TIA), and cerebral infarction without residual deficits
CPT/HCPCS: 36415; 71010; 78452; 80048; 80053; 80061; 82550; 82553; 82962; 83735; 84100; 84132; 84484; 85007; 85025; 93005; 93010; 93017; 94640; 94760; 96374; 96375; 99406; A9270-GY; A9502; J1644; J1815; J2270; J2785; J2920; J7030

== ENCOUNTER 2016-11-22 10:33 | Emergency (ER) | payer MEDICARE ==
--- NOTE | 2016-11-22 11:17 | Emergency Department Report ---
Entered by AARON OSBORN, acting as scribe for LARRY CHERY NP. Chief Complaint: Extremity Injury, Lower Stated Complaint: FLUID ISSUE/ DIALYSIS PT Time Seen by Provider: 11/22/16 11:05 - HPI History of Present Illness: 61 y/o male with bilateral foot pain. PT states the pain is his neuropathy and he has had to stop hd earlier on Monday and Monday due to the pain. No relief with Neurotin or Trazadone. denies swelling and redness of the extremities - ROS Review of Systems: + SOB + Pain in the feet - Exam Vital Signs: Vital Signs 11/22/16 11:04 Temperature 98.3 F Pulse Rate 103 H Respiratory 20 Rate Blood Pressure 156/83 O2 Sat by Pulse 96 Oximetry Physical Exam: GENERAL: The patient is a well-developed, well-nourished male in no apparent distress. Patient is alert and oriented x3. Extremities: no swelling or redness MSE screening note: Focused history and physical exam performed. Due to findings the following was ordered: labs This documentation as recorded by the scribe,AARON OSBORN,accurately reflects the service I personally performed and the decisions made by ,LARRY CHERY, FIRE WATCHER.
[2016-11-22 11:41] LABS: Basophils % (Auto) 0.7 % (0.0-1.8); Eosinophils % (Auto) 1.3 % (0.0-4.3); Hematocrit 33.2 % (35.5-45.6); Hemoglobin 10.7 gm/dl (11.8-15.2); Mean Corpuscular HGB Conc 32 % (32-34); Mean Corpuscular Hemoglobin 31 pg (28-32); Mean Corpuscular Volume 96 fl (84-94); Platelet Count 166 K/mm3 (140-440); Red Blood Count 3.46 M/mm3 (3.65-5.03); Red Cell Distribution Width 16.9 % (13.2-15.2); White Blood Count 4.5 K/mm3 (4.5-11.0)
[2016-11-22 11:55] LABS: Albumin 3.7 g/dL (3.9-5); Albumin/Globulin Ratio 0.9 %; BUN/Creatinine Ratio 3.14; Bilirubin,Total 0.4 mg/dL (0.1-1.2); Calcium 9.2 mg/dL (8.4-10.2); Chloride 95.2 mmol/L (98-107); Potassium 3.8 mmol/L (3.6-5.0); Total Protein 7.7 g/dL (6.3-8.2)
[2016-11-22] MEDS ORDERED: DILAUDID IV ONE ×2 (15:38→18:03)
[2016-11-22] MEDS ORDERED: ZOFRAN IV ONE (15:38)
--- NOTE | 2016-11-22 16:46 | XRay Report ---
PORTABLE CHEST INDICATION: Shortness of breath. COMPARISON: 09/09/2016 FINDINGS: Portable, frontal chest radiograph again demonstrates mild cardiomegaly, aortic knob calcifications and a left chest wall battery pack with single lead projecting left paraspinal and terminating about the aortic knob level. Congestive bronchovascular prominence again noted with mild fluid or thickening along the right minor fissure. No large pleural effusions toward the bases. EKG leads. Stable bones with mild degenerative changes. CONCLUSION: Mild cardiomegaly and possible chronic congestive appearance again noted, as described. Please correlate. Thank you for the opportunity to participate in this patient's care.
--- NOTE | 2016-11-22 17:06 | Emergency Department Report ---
ED Shortness of Breath HPI - General Chief Complaint: Extremity Injury, Lower Stated Complaint: FLUID ISSUE/ DIALYSIS PT Time Seen by Provider: 11/22/16 11:02 Source: patient Mode of arrival: Ambulatory Limitations: No Limitations - History of Present Illness Initial Comments: Chief complaint: Bilateral foot pain HPI: 61-year-old male with a past medical history CHF, COPD on 3 L of home oxygen, diabetes, HIV, hypertension, neuropathy, end-stage renal disease on dialysis presents to the hospital complaining of exacerbation in his neuropathy pain. Patient has been having worsening neuropathic pain to bilateral feet for the past week. Patient taken Neurontin 300 mg once a day without improvement. Patient denies any recent injury or trauma or edema. Symptoms worsened during dialysis and patient has had difficulty completing a dialysis session the last several episodes secondary to worsening foot pain. Pain is at its worse 10/10 in intensity is still a his toes are being cut off. Pain is currently not/10 in intensity it is constant and worse with palpation. Patient does complain of some shortness of breath and states he feels a little boudreaux the usual but not severe. - Related Data Home Medications Medication Instructions Recorded Confirmed Last Taken Albuterol Sulfate [Ventolin HFA] 8 mg IH DAILY 09/09/16 09/09/16 Unknown Carvedilol [Coreg] 25 mg PO DAILY 09/09/16 09/09/16 Unknown Cinacalcet HCl [Sensipar] 60 mg PO DAILY 09/09/16 09/09/16 Unknown Etravirine [Intelence] 200 mg PO DAILY 09/09/16 09/09/16 Unknown Fluticasone Propionate [Flovent 50 mcg IH TID PRN 09/09/16 09/09/16 Unknown Diskus] Gemfibrozil [Lopid] 600 mg PO DAILY 09/09/16 09/09/16 Unknown Insulin Glargine [Lantus VIAL] See Protocol SQ TID 09/09/16 09/09/16 Unknown Ipratropium/Albuter (Nf) 1 puff IH DAILY 09/09/16 09/09/16 Unknown [Combivent Inhaler] Ipratropium/Albuterol Sulfate 1 puff IH PRN PRN 09/09/16 09/09/16 Unknown [Duoneb 0.5 mg-3 mg/3 ml Soln] Losartan [Cozaar] 25 mg PO DAILY 09/09/16 09/09/16 Unknown Megestrol [Megace] 40 mg PO DAILY 09/09/16 09/09/16 Unknown Omega3,5,6,7,9 No.1/[place] Oil 1 tab PO DAILY 09/09/16 09/09/16 Unknown [Complete Thomas Softgel] Paroxetine HCl [PARoxetine] 40 mg PO DAILY 09/09/16 09/09/16 Unknown Prezcobix 800 mg-150 mg Tablet 800 mg PO DAILY 09/09/16 09/09/16 Unknown Raltegravir Potassium [Isentress] 400 mg PO DAILY 09/09/16 09/09/16 Unknown Rosuvastatin (Nf) [Crestor] 10 mg PO DAILY 09/09/16 09/09/16 Unknown Sevelamer Carbonate [Renvela] 800 mg PO TID 09/09/16 09/09/16 Unknown Symbicort 160-4.5 (Nf) 160 mcg IH DAILY 09/09/16 09/09/16 Unknown Triamcinolone 0.1% 0.1 mg TP TID PRN 09/09/16 09/09/16 Unknown amLODIPine [Norvasc] 10 mg PO DAILY 09/09/16 09/09/16 Unknown Gabapentin [Neurontin] 300 mg PO QHS 11/22/16 11/22/16 Unknown Previous Rx's Medication Instructions Recorded Last Taken Type Oxycodone HCl/Acetaminophen 1 each PO Q6HR PRN #20 tablet 11/22/16 Unknown Rx [Percocet 7.5/325 mg] Allergies Allergy/AdvReac Type Severity Reaction Status Date / Time sulfamethoxazole Allergy Anaphylaxis Verified 11/22/16 11:03 [From Bactrim] trimethoprim [From Bactrim] Allergy Anaphylaxis Verified 11/22/16 11:03 ED Review of Systems ROS: Stated complaint: FLUID ISSUE/ DIALYSIS PT Other details as noted in HPI Comment: All other systems reviewed and negative Other: Constitutional: No fevers chills Eyes: No eye pain visual changes ENT: No ear pain or throat pain Neck: Denies pain Respiratory: Denies cough wheezing shortness of breath Cardiovascular: Denies chest pain, palpitations, syncope GI: Denies abdominal pain, nausea, vomiting, diarrhea : Denies dysuria Musculoskeletal: As per HPI Skin: Denies rash, lesions, erythema Neurologic: Denies headache, numbness, weakness Psychiatric: Denies suicidal ideation, hallucinations ED Past Medical Hx - Past Medical History Hx Hypertension: Yes Hx Congestive Heart Failure: Yes Hx Diabetes: Yes Hx Renal Disease: Yes (Dialysis M, W, F) Hx Asthma: Yes Hx COPD: Yes Hx HIV: Yes Additional medical history: pancreatitis, left upper arm HD graft. bells palsy - Surgical History Hx Internal Defibrillator: Yes Additional Surgical History: graft to left arm, R chest vas cath - Social History Smoking Status: Current Every Day Smoker Substance Use Type: None - Medications Home Medications: Home Medications Medication Instructions Recorded Confirmed Last Taken Type Albuterol Sulfate [Ventolin HFA] 8 mg IH DAILY 09/09/16 09/09/16 Unknown History Carvedilol [Coreg] 25 mg PO DAILY 09/09/16 09/09/16 Unknown History Cinacalcet HCl [Sensipar] 60 mg PO DAILY 09/09/16 09/09/16 Unknown History Etravirine [Intelence] 200 mg PO DAILY 09/09/16 09/09/16 Unknown History Fluticasone Propionate [Flovent 50 mcg IH TID PRN 09/09/16 09/09/16 Unknown History Diskus] Gemfibrozil [Lopid] 600 mg PO DAILY 09/09/16 09/09/16 Unknown History Insulin Glargine [Lantus VIAL] See Protocol SQ TID 09/09/16 09/09/16 Unknown History Ipratropium/Albuter (Nf) 1 puff IH DAILY 09/09/16 09/09/16 Unknown History [Combivent Inhaler] Ipratropium/Albuterol Sulfate 1 puff IH PRN PRN 09/09/16 09/09/16 Unknown History [Duoneb 0.5 mg-3 mg/3 ml Soln] Losartan [Cozaar] 25 mg PO DAILY 09/09/16 09/09/16 Unknown History Megestrol [Megace] 40 mg PO DAILY 09/09/16 09/09/16 Unknown History Omega3,5,6,7,9 No.1/[place] Oil 1 tab PO DAILY 09/09/16 09/09/16 Unknown History [Complete Thomas Softgel] Paroxetine HCl [PARoxetine] 40 mg PO DAILY 09/09/16 09/09/16 Unknown History Prezcobix 800 mg-150 mg Tablet 800 mg PO DAILY 09/09/16 09/09/16 Unknown History Raltegravir Potassium [Isentress] 400 mg PO DAILY 09/09/16 09/09/16 Unknown History Rosuvastatin (Nf) [Crestor] 10 mg PO DAILY 09/09/16 09/09/16 Unknown History Sevelamer Carbonate [Renvela] 800 mg PO TID 09/09/16 09/09/16 Unknown History Symbicort 160-4.5 (Nf) 160 mcg IH DAILY 09/09/16 09/09/16 Unknown History Triamcinolone 0.1% 0.1 mg TP TID PRN 09/09/16 09/09/16 Unknown History amLODIPine [Norvasc] 10 mg PO DAILY 09/09/16 09/09/16 Unknown History Gabapentin [Neurontin] 300 mg PO QHS 11/22/16 11/22/16 Unknown History Oxycodone HCl/Acetaminophen 1 each PO Q6HR PRN #20 tablet 11/22/16 Unknown Rx [Percocet 7.5/325 mg] ED Physical Exam - General Limitations: No Limitations - Other Other exam information: General: No limitations, patient is alert in no acute distress Head exam: Atraumatic, normocephalic Eyes exam: Normal appearance ENT: Moist mucous membrane, normal oropharynx Neck exam: Normal inspection Respiratory exam: Clear to auscultation bilateral, no wheezes, rales, crackles Cardiovascular: Normal rate and rhythm. Positive thrill to left arm AV access Abdomen: Soft, nondistended, and nontender, with normal bowel sounds, no rebound, or guarding Extremity: Full range of motion normal inspection no deformity, 2+ DP pulses equal bilateral no ulcerations, edema, erythema, warmth Back: Normal Inspection, full range of motion, no tenderness Neurologic: Alert, oriented x3, cranial nerves intact, no motor or sensory deficit Psychiatric: normal affect, normal mood Skin: Warm, dry, intact ED Course Vital Signs 11/22/16 11/22/16 11/22/16 11:04 14:22 14:30 Temperature 98.3 F Pulse Rate 103 H 90 Respiratory 20 38 H Rate Blood Pressure 156/83 154/88 Blood Pressure [Right] O2 Sat by Pulse 96 100 100 Oximetry 11/22/16 14:50 Temperature 98.3 F Pulse Rate 89 Respiratory 22 Rate Blood Pressure Blood Pressure 162/82 [Right] O2 Sat by Pulse 99 Oximetry - Reevaluation(s) Reevaluation #1: 11/22/16 17:20 Patient received Dilaudid and Zofran with improvement in symptoms ED Medical Decision Making - Lab Data Result diagrams: 11/22/16 11:22 11/22/16 11:22 Lab Results 11/22/16 11/22/16 Range/Units 11:22 11:22 WBC 4.5 (4.5-11.0) K/mm3 RBC 3.46 L (3.65-5.03) M/mm3 Hgb 10.7 L (11.8-15.2) gm/dl Hct 33.2 L (35.5-45.6) % MCV 96 H (84-94) fl MCH 31 (28-32) pg MCHC 32 (32-34) % RDW 16.9 H (13.2-15.2) % Plt Count 166 (140-440) K/mm3 Lymph % (Auto) 32.5 (13.4-35.0) % [place] % (Auto) 13.8 H (0.0-7.3) % Eos % (Auto) 1.3 (0.0-4.3) % Baso % (Auto) 0.7 (0.0-1.8) % Lymph # 1.4 (1.2-5.4) K/mm3 [place] # 0.6 (0.0-0.8) K/mm3 Eos # 0.1 (0.0-0.4) K/mm3 Baso # 0.0 (0.0-0.1) K/mm3 Seg Neutrophils % 51.7 (40.0-70.0) % Seg Neutrophils # 2.3 (1.8-7.7) K/mm3 Sodium 140 (137-145) mmol/L Potassium 3.8 (3.6-5.0) mmol/L Chloride 95.2 L (98-107) mmol/L Carbon Dioxide 31 H (22-30) mmol/L Anion Gap 18 mmol/L BUN 33 H (9-20) mg/dL Creatinine 10.5 H (0.8-1.5) mg/dL Estimated GFR 6 ml/min BUN/Creatinine Ratio 3.14 % Glucose 134 H (75-100) mg/dL Calcium 9.2 (8.4-10.2) mg/dL Total Bilirubin 0.40 (0.1-1.2) mg/dL AST 14 (5-40) units/L ALT 7 (7-56) units/L Alkaline Phosphatase 93 (35-129) units/L Total Protein 7.7 (6.3-8.2) g/dL Albumin 3.7 L (3.9-5) g/dL Albumin/Globulin Ratio 0.9 % - Radiology Data Radiology results: report reviewed (chest x-ray: Cardiomegaly chronic CHF) - Medical Decision Making Patient's had exacerbation of his chronic and progressive peripheral neuropathy. Symptoms improved ED treatment. Although patient has had difficulty completing a full dialysis session he does not meet criteria for emergent dialysis at this time. Patient is not hypoxic on his dose of home oxygen. There are no signs of hyperkalemia, pulmonary edema, or leg edema. Patient is scheduled for dialysis tomorrow is stable to go to his outpatient dialysis center. He will be instructed to take a pain tablet/Percocet prior to his dialysis session to see if it makes his sessions more tolerable. Just prior to discharge patient expresses to me that he has problems with chronic impotence and was wondering what was the cause. I informed him he needs to follow-up with the urologist and will provide the name of one for outpatient evaluation. - Differential Diagnosis volume overload, hyperkalemia, neuropathy, vascular disease Critical Care Time: No Critical care attestation.: If time is entered above; I have spent that time in minutes in the direct care of this critically ill patient, excluding procedure time. ED Disposition Clinical Impression: Diabetic neuropathy, End stage renal disease on dialysis, COPD (chronic obstructive pulmonary disease), O2 dependent Disposition: DC-01 TO HOME OR SELFCARE Is pt being admited?: No Does the pt Need Aspirin: No Condition: Stable Instructions: Diabetic Neuropathy (ED), End-Stage Kidney Disease (ED), Chronic Obstructive Pulmonary Disease (ED) Additional Instructions: Take the pain medication as needed specifically prior to dialysis see if it makes dialysis more tolerable. Return if symptoms worsen. Follow up with your doctor and the urologist provided. Prescriptions: Oxycodone HCl/Acetaminophen [Percocet 7.5/325 mg] 1 each PO Q6HR PRN #20 tablet PRN Reason: Pain Referrals: Georgina Vega [Other] - 3-5 Days RICHARD AGUILAR MD [Staff Physician] - as needed (Urologist) Time of Disposition: 17:26
[2016-11-22 17:35] VITALS: BP 162/98
== END 2016-11-22 18:27 | disposition home or self-care (01) ==
LOC: ED 10:33
DX: J44.9 Chronic obstructive pulmonary disease, unspecified (principal); E11.40 Type 2 diabetes mellitus with diabetic neuropathy, unspecified; I12.0 Hypertensive chronic kidney disease with stage 5 chronic kidney disease or end stage renal disease; E11.22 Type 2 diabetes mellitus with diabetic chronic kidney disease; N18.6 End stage renal disease; I50.9 Heart failure, unspecified; J45.909 Unspecified asthma, uncomplicated; F17.200 Nicotine dependence, unspecified, uncomplicated; Z99.2 Dependence on renal dialysis; Z79.4 Long term (current) use of insulin; Z88.2 Allergy status to sulfonamides; Z88.8 Allergy status to other drugs, medicaments and biological substances
CPT/HCPCS: 36415; 71010; 80053; 85025; 96374; 96375; 96376; 99284; J1170; J2405

== ENCOUNTER 2016-12-03 19:48 | Emergency (ER) | payer MEDICARE | END 2016-12-03 20:15 | disposition left against medical advice (07) | LOC: ED 19:48 | DX: R07.9 Chest pain, unspecified (principal); Z88.2 Allergy status to sulfonamides; Z88.8 Allergy status to other drugs, medicaments and biological substances; Z53.21 Procedure and treatment not carried out due to patient leaving prior to being seen by health care provider | CPT/HCPCS: 93005; 93010 ==

== ENCOUNTER 2017-01-27 20:39 | Inpatient (IN) | payer MEDICARE ==
[2017-01-27 21:47] LABS: Hematocrit 36.5 % (35.5-45.6); Hemoglobin 11.9 gm/dl (11.8-15.2); Mean Corpuscular HGB Conc 33 % (32-34); Mean Corpuscular Hemoglobin 31 pg (28-32); Mean Corpuscular Volume 94 fl (84-94); Platelet Count 172 K/mm3 (140-440); Red Blood Count 3.88 M/mm3 (3.65-5.03); Red Cell Distribution Width 17.4 % (13.2-15.2); White Blood Count 7.7 K/mm3 (4.5-11.0)
[2017-01-27] MEDS ORDERED: TYLENOL ONE (21:48)
[2017-01-27] MEDS ORDERED: TYLENOL PO ONE (21:50)
[2017-01-27 22:03] LABS: BUN/Creatinine Ratio 2.81; Chloride 91.9 mmol/L (98-107); Potassium 3.3 mmol/L (3.6-5.0)
[2017-01-27 22:24] LABS: Basophils % (Manual) 0 % (0.0-1.8); Blastocytes % (Manual) 0 %
[2017-01-27 22:26] LABS: Anisocytosis 1+
[2017-01-27 22:27] LABS: Ovalocytes Rare; Stomatocytes 1+
[2017-01-27 22:28] LABS: Diff Status Complete; Platelet Estimate Consistent w Auto
--- NOTE | 2017-01-28 00:02 | XRay Report ---
FINAL REPORT PROCEDURE: XR CHEST ROUTINE 2V TECHNIQUE: PA and lateral chest radiographs were obtained. CPT 54155 HISTORY: PRODUCTIVE COUGH, SOB COMPARISON: No prior studies are available for comparison. FINDINGS: Heart: [id number] cardiomegaly is noted. Mediastinum/Vessels: Mild degree pulmonary venous congestion is noted. Lungs/Pleural space: Evaluation of the lungs is limited due to suboptimal inspiration. There are no confluent infiltrates or mass lesions. Pleural spaces are clear. There is mild prominence of interstitial markings. Bony thorax: No acute osseous abnormality. Other: A spinal stimulation lead is identified IMPRESSION: Cardiomegaly with the findings of early CHF.
[2017-01-28] MEDS ORDERED: MORPHINE IV ONE (00:05)
--- NOTE | 2017-01-28 00:06 | Emergency Department Report ---
ED General Adult HPI - General Chief complaint: Chest Pain Stated complaint: SHANTHI, CHEST PAIN, DIZZINESS, ITCHING Time Seen by Provider: 01/27/17 23:22 Source: patient, RN notes reviewed, old records reviewed Mode of arrival: Ambulatory Limitations: No Limitations - History of Present Illness Initial comments: This is a 61-year-old male, he is previously unknown to me. Past medical history includes diabetes, dialysis, end-stage renal disease on dialysis Monday, Monday, Monday, congestive heart failure, HIV/AIDS (does not know CD4 count, does not know viral load, he reports he is on highly active antiretroviral therapy, but he does not recall the name of his medication or the name of his HIV specialist), CVA The patient reports that he got his typical outpatient dialysis on Monday, Monday, and he comes in today complaining of chest tightness, cough, wheezing, shortness of breath, frothy liquid. The patient has been admitted to the hospital recently, as for his cardiology evaluation in August 2016, he was found to have chronically elevated troponin, a negative nuclear stress test, nonischemic cardiomyopathy with "normal coronaries in 2014), and cardiology recommended "no further cardiac intervention is needed." -: Gradual Location: chest Radiation: non-radiation Severity scale (0 -10): 5 Quality: aching Consistency: intermittent Improves with: movement, rest Associated Symptoms: chest pain, cough, shortness of breath, weakness - Related Data Home Medications Medication Instructions Recorded Confirmed Last Taken Albuterol Sulfate [Ventolin HFA] 8 mg IH DAILY 09/09/16 01/28/17 01/27/17 Carvedilol [Coreg] 25 mg PO DAILY 09/09/16 01/28/17 01/27/17 Cinacalcet HCl [Sensipar] 60 mg PO DAILY 09/09/16 01/28/17 01/27/17 Etravirine [Intelence] 200 mg PO DAILY 09/09/16 01/28/17 01/27/17 Fluticasone Propionate [Flovent 50 mcg IH TID PRN 09/09/16 01/28/17 01/27/17 Diskus] Gemfibrozil [Lopid] 600 mg PO DAILY 09/09/16 01/28/17 01/27/17 Insulin Glargine [Lantus VIAL] See Protocol SQ TID 09/09/16 01/28/17 01/27/17 Ipratropium/Albuter (Nf) 1 puff IH DAILY 09/09/16 01/28/17 01/27/17 [Combivent Inhaler] Ipratropium/Albuterol Sulfate 1 puff IH PRN PRN 09/09/16 01/28/17 01/27/17 [DUONEB *Not for PRN Use*] Losartan [Cozaar] 25 mg PO DAILY 09/09/16 01/28/17 01/27/17 Megestrol [Megace] 40 mg PO DAILY 09/09/16 01/28/17 01/27/17 Omega3,5,6,7,9 No.1/Radnor Oil 1 tab PO DAILY 09/09/16 01/28/17 01/27/17 [Complete [place] Softgel] Paroxetine HCl [PARoxetine] 40 mg PO DAILY 09/09/16 01/28/17 01/27/17 Prezcobix 800 mg-150 mg Tablet 800 mg PO DAILY 09/09/16 01/28/17 01/27/17 Raltegravir Potassium [Isentress] 400 mg PO DAILY 09/09/16 01/28/17 01/27/17 Rosuvastatin (Nf) [Crestor] 10 mg PO DAILY 09/09/16 01/28/17 01/27/17 Sevelamer Carbonate [Renvela] 800 mg PO TID 09/09/16 01/28/17 01/27/17 Symbicort 160-4.5 (Nf) 160 mcg IH DAILY 09/09/16 01/28/17 01/27/17 Triamcinolone 0.1% 0.1 mg TP TID PRN 09/09/16 01/28/17 01/27/17 amLODIPine [Norvasc] 10 mg PO DAILY 09/09/16 01/28/17 01/27/17 Gabapentin [Neurontin] 300 mg PO QHS 11/22/16 01/28/17 01/27/17 Previous Rx's Medication Instructions Recorded Last Taken Type Oxycodone HCl/Acetaminophen 1 each PO Q6HR PRN #20 tablet 11/22/16 01/27/17 Rx [Percocet 7.5/325 mg] Allergies Allergy/AdvReac Type Severity Reaction Status Date / Time sulfamethoxazole Allergy Anaphylaxis Verified 01/28/17 00:05 [From Bactrim] trimethoprim [From Bactrim] Allergy Anaphylaxis Verified 01/28/17 00:05 ED Review of Systems ROS: Stated complaint: SHANTHI, CHEST PAIN, DIZZINESS, ITCHING Other details as noted in HPI Constitutional: malaise. denies: fever Eyes: denies: vision change ENT: denies: epistaxis Respiratory: cough, shortness of breath, wheezing Cardiovascular: chest pain Gastrointestinal: denies: abdominal pain Genitourinary: denies: dysuria Musculoskeletal: arthralgia, myalgia Skin: rash. denies: lesions Neurological: weakness Psychiatric: anxiety ED Past Medical Hx - Past Medical History Previous Medical History?: Yes Hx Hypertension: Yes Hx Congestive Heart Failure: Yes Hx Diabetes: Yes Hx Renal Disease: Yes (Dialysis M, W, F) Hx Asthma: Yes Hx COPD: Yes Hx HIV: Yes Additional medical history: pancreatitis, left upper arm HD graft. bells palsy - Surgical History Past Surgical History?: Yes Hx Pacemaker: Yes Hx Internal Defibrillator: Yes Additional Surgical History: graft to left arm, R chest vas cath - Social History Smoking Status: Current Every Day Smoker Substance Use Type: None - Medications Home Medications: Home Medications Medication Instructions Recorded Confirmed Last Taken Type Albuterol Sulfate [Ventolin HFA] 8 mg IH DAILY 09/09/16 01/28/17 01/27/17 History Carvedilol [Coreg] 25 mg PO DAILY 09/09/16 01/28/17 01/27/17 History Cinacalcet HCl [Sensipar] 60 mg PO DAILY 09/09/16 01/28/17 01/27/17 History Etravirine [Intelence] 200 mg PO DAILY 09/09/16 01/28/17 01/27/17 History Fluticasone Propionate [Flovent 50 mcg IH TID PRN 09/09/16 01/28/17 01/27/17 History Diskus] Gemfibrozil [Lopid] 600 mg PO DAILY 09/09/16 01/28/17 01/27/17 History Insulin Glargine [Lantus VIAL] See Protocol SQ TID 09/09/16 01/28/17 01/27/17 History Ipratropium/Albuter (Nf) 1 puff IH DAILY 09/09/16 01/28/17 01/27/17 History [Combivent Inhaler] Ipratropium/Albuterol Sulfate 1 puff IH PRN PRN 09/09/16 01/28/17 01/27/17 History [DUONEB *Not for PRN Use*] Losartan [Cozaar] 25 mg PO DAILY 09/09/16 01/28/17 01/27/17 History Megestrol [Megace] 40 mg PO DAILY 09/09/16 01/28/17 01/27/17 History Omega3,5,6,7,9 No.1/Radnor Oil 1 tab PO DAILY 09/09/16 01/28/17 01/27/17 History [Complete [place] Softgel] Paroxetine HCl [PARoxetine] 40 mg PO DAILY 09/09/16 01/28/17 01/27/17 History Prezcobix 800 mg-150 mg Tablet 800 mg PO DAILY 09/09/16 01/28/17 01/27/17 History Raltegravir Potassium [Isentress] 400 mg PO DAILY 09/09/16 01/28/17 01/27/17 History Rosuvastatin (Nf) [Crestor] 10 mg PO DAILY 09/09/16 01/28/17 01/27/17 History Sevelamer Carbonate [Renvela] 800 mg PO TID 09/09/16 01/28/17 01/27/17 History Symbicort 160-4.5 (Nf) 160 mcg IH DAILY 09/09/16 01/28/17 01/27/17 History Triamcinolone 0.1% 0.1 mg TP TID PRN 09/09/16 01/28/17 01/27/17 History amLODIPine [Norvasc] 10 mg PO DAILY 09/09/16 01/28/17 01/27/17 History Gabapentin [Neurontin] 300 mg PO QHS 11/22/16 01/28/17 01/27/17 History Oxycodone HCl/Acetaminophen 1 each PO Q6HR PRN #20 tablet 11/22/16 01/28/17 Rx [Percocet 7.5/325 mg] ED Physical Exam - General Limitations: No Limitations General appearance: alert, in distress, obese - Head Head exam: Present: atraumatic, normocephalic - Eye Eye exam: Present: normal appearance, EOMI. Absent: nystagmus - ENT ENT exam: Present: normal exam, normal orophraynx, mucous membranes moist, normal external ear exam - Neck Neck exam: Present: normal inspection, full ROM, other (jugular venous distention is noted bilaterally). Absent: tenderness, meningismus - Respiratory Respiratory exam: Present: respiratory distress, rales, rhonchi - Cardiovascular Cardiovascular Exam: Present: normal rhythm, tachycardia, normal heart sounds. Absent: systolic murmur, diastolic murmur, rubs, gallop - GI/Abdominal GI/Abdominal exam: Present: soft, distended, tenderness, normal bowel sounds. Absent: guarding, rebound, rigid, pulsatile mass - Rectal Rectal exam: Present: deferred - Extremities Exam Extremities exam: Present: normal inspection (left upper extremity AV fistula is appreciated, appropriate throat, no redness, pus or streaking), full ROM, normal capillary refill, other (chronic areas of hyperpigmentation are noted, suggestive of nephrocalcinosis). Absent: pedal edema, joint swelling, calf tenderness - Back Exam Back exam: Present: normal inspection, full ROM. Absent: tenderness, CVA tenderness (R), CVA tenderness (L), paraspinal tenderness, vertebral tenderness - Neurological Exam Neurological exam: Present: alert, oriented X3, other (Extraocular movements intact. Tongue midline. No facial droop. Facial sensation intact to light touch in the V1, V2, V3 distribution bilaterally. 5 and 5 strength in 4 extremities.. Sensation is intact to light touch in 4 extremities.). Absent: motor sensory deficit - Psychiatric Psychiatric exam: Present: normal affect, normal mood - Skin Skin exam: Present: warm, dry, intact, normal color. Absent: rash ED Course Vital Signs 01/27/17 01/27/17 01/28/17 21:02 22:05 00:05 Temperature 98.9 F Pulse Rate 99 H 95 H Respiratory 22 24 20 Rate Blood Pressure 119/64 Blood Pressure 153/98 [Right] O2 Sat by Pulse 100 96 Oximetry 01/28/17 01/28/17 01/28/17 00:56 01:28 01:33 Temperature Pulse Rate 94 H 101 H 97 H Respiratory 18 22 24 Rate Blood Pressure Blood Pressure 148/93 143/98 [Right] O2 Sat by Pulse 96 98 93 Oximetry 01/28/17 01/28/17 01/28/17 01:45 01:56 02:15 Temperature Pulse Rate 98 H 98 H 91 H Respiratory 22 22 20 Rate Blood Pressure Blood Pressure 153/99 148/99 164/96 [Right] O2 Sat by Pulse 95 94 98 Oximetry 01/28/17 01/28/17 01/28/17 02:45 04:00 05:00 Temperature Pulse Rate 91 H 98 H 98 H Respiratory 20 16 16 Rate Blood Pressure Blood Pressure 156/98 133/71 125/71 [Right] O2 Sat by Pulse 98 100 100 Oximetry 01/28/17 06:06 Temperature Pulse Rate 81 Respiratory 16 Rate Blood Pressure Blood Pressure 133/79 [Right] O2 Sat by Pulse 100 Oximetry ED Medical Decision Making - Lab Data Result diagrams: 01/27/17 21:26 01/27/17 21:26 Vital Signs 01/27/17 01/27/17 01/28/17 21:02 22:05 00:05 Temperature 98.9 F Pulse Rate 99 H 95 H Respiratory 22 24 20 Rate Blood Pressure 119/64 Blood Pressure 153/98 [Right] O2 Sat by Pulse 100 96 Oximetry 01/28/17 01/28/17 01/28/17 00:56 01:28 01:33 Temperature Pulse Rate 94 H 101 H 97 H Respiratory 18 22 24 Rate Blood Pressure Blood Pressure 148/93 143/98 [Right] O2 Sat by Pulse 96 98 93 Oximetry 01/28/17 01/28/17 01:45 01:56 Temperature Pulse Rate 98 H 98 H Respiratory 22 22 Rate Blood Pressure Blood Pressure 153/99 148/99 [Right] O2 Sat by Pulse 95 94 Oximetry Lab Results 01/27/17 01/27/17 01/28/17 Range/Units 21:26 21:26 00:08 WBC 7.7 (4.5-11.0) K/mm3 RBC 3.88 (3.65-5.03) M/mm3 Hgb 11.9 (11.8-15.2) gm/dl Hct 36.5 (35.5-45.6) % MCV 94 (84-94) fl MCH 31 (28-32) pg MCHC 33 (32-34) % RDW 17.4 H (13.2-15.2) % Plt Count 172 (140-440) K/mm3 Lymph % (Auto) Internist [place] % (Auto) Internist Eos % (Auto) Internist Baso % (Auto) Internist Lymph # Internist [place] # Internist Eos # Internist Baso # Internist Add Manual Diff Complete Total Counted 100 Seg Neutrophils % Internist Seg Neuts % (Manual) 50.0 (40.0-70.0) % Band Neutrophils % 0 % Lymphocytes % (Manual) 26.0 (13.4-35.0) % Reactive Lymphs % (Man) 0 % Monocytes % (Manual) 22.0 H (0.0-7.3) % Eosinophils % (Manual) 2.0 (0.0-4.3) % Basophils % (Manual) 0 (0.0-1.8) % Metamyelocytes % 0 % Myelocytes % 0 % Promyelocytes % 0 % Blast Cells % 0 % Nucleated RBC % Not Reportable Seg Neutrophils # Internist Seg Neutrophils # Man 3.9 (1.8-7.7) K/mm3 Band Neutrophils # 0.0 K/mm3 Lymphocytes # (Manual) 2.0 (1.2-5.4) K/mm3 Abs React Lymphs (Man) 0.0 K/mm3 Monocytes # (Manual) 1.7 H (0.0-0.8) K/mm3 Eosinophils # (Manual) 0.2 (0.0-0.4) K/mm3 Basophils # (Manual) 0.0 (0.0-0.1) K/mm3 Metamyelocytes # 0.0 K/mm3 Myelocytes # 0.0 K/mm3 Promyelocytes # 0.0 K/mm3 Blast Cells # 0.0 K/mm3 WBC Morphology Not Reportable Hypersegmented Neuts Not Reportable Hyposegmented Neuts Not Reportable Hypogranular Neuts Not Reportable Smudge Cells Not Reportable Toxic Granulation Not Reportable Toxic Vacuolation Not Reportable Dohle Bodies Not Reportable Pelger-Huet Anomaly Not Reportable Carmen Rods Not Reportable Platelet Estimate Consistent w auto Clumped Platelets Not Reportable Plt Clumps, EDTA Not Reportable Large Platelets Not Reportable Giant Platelets Not Reportable Platelet Satelliting Not Reportable Plt Morphology Comment Not Reportable RBC Morphology Not Reportable Dimorphic RBCs Not Reportable Polychromasia Not Reportable Hypochromasia Not Reportable Poikilocytosis Not Reportable Anisocytosis 1+ Microcytosis Not Reportable Macrocytosis Not Reportable Spherocytes Not Reportable Pappenheimer Bodies Not Reportable Sickle Cells Not Reportable Target Cells Not Reportable Tear Drop Cells Not Reportable Ovalocytes Rare Stomatocytes 1+ Helmet Cells Not Reportable Villalobos-[place] Bodies Not Reportable [place] Rings Not Reportable [place] Cells Not Reportable Bite Cells Not Reportable Crenated Cell Not Reportable Elliptocytes Not Reportable Acanthocytes (Spur) Not Reportable Rouleaux Not Reportable Hemoglobin C Crystals Not Reportable Schistocytes Not Reportable Malaria parasites Not Reportable Kendrick Bodies Not Reportable Hem Pathologist Commnt No PT (12.2-14.9) Sec. INR (0.87-1.13) Sodium 139 (137-145) mmol/L Potassium 3.3 L (3.6-5.0) mmol/L Chloride 91.9 L (98-107) mmol/L Carbon Dioxide 29 (22-30) mmol/L Anion Gap 21 mmol/L BUN 20 (9-20) mg/dL Creatinine 7.1 H (0.8-1.5) mg/dL Estimated GFR 10 ml/min BUN/Creatinine Ratio 2.81 % Glucose 119 H (75-100) mg/dL Calcium 8.0 L (8.4-10.2) mg/dL Total Bilirubin (0.1-1.2) mg/dL Direct Bilirubin (0-0.2) mg/dL Indirect Bilirubin mg/dL AST (5-40) units/L ALT (7-56) units/L Alkaline Phosphatase (35-129) units/L Troponin T 0.336 H* (0.00-0.029) ng/mL NT-Pro-B Natriuret Pep 82599 H (0-900) pg/mL Total Protein (6.3-8.2) g/dL Albumin (3.9-5) g/dL Albumin/Globulin Ratio % Triglycerides 226 H (2-149) mg/dL Cholesterol 157 (50-199) mg/dL LDL Cholesterol Direct 87 (50-130) mg/dL HDL Cholesterol 25 L (40-59) mg/dL Cholesterol/HDL Ratio 6.28 % Lipase (13-60) units/L 08/19/17 08/19/17 08/19/17 Range/Units 00:18 00:18 00:18 WBC (4.5-11.0) K/mm3 RBC (3.65-5.03) M/mm3 Hgb (11.8-15.2) gm/dl Hct (35.5-45.6) % MCV (84-94) fl MCH (28-32) pg MCHC (32-34) % RDW (13.2-15.2) % Plt Count (140-440) K/mm3 Lymph % (Auto) [place] % (Auto) Eos % (Auto) Baso % (Auto) Lymph # [place] # Eos # Baso # Add Manual Diff Total Counted Seg Neutrophils % Seg Neuts % (Manual) (40.0-70.0) % Band Neutrophils % % Lymphocytes % (Manual) (13.4-35.0) % Reactive Lymphs % (Man) % Monocytes % (Manual) (0.0-7.3) % Eosinophils % (Manual) (0.0-4.3) % Basophils % (Manual) (0.0-1.8) % Metamyelocytes % % Myelocytes % % Promyelocytes % % Blast Cells % % Nucleated RBC % Seg Neutrophils # Seg Neutrophils # Man (1.8-7.7) K/mm3 Band Neutrophils # K/mm3 Lymphocytes # (Manual) (1.2-5.4) K/mm3 Abs React Lymphs (Man) K/mm3 Monocytes # (Manual) (0.0-0.8) K/mm3 Eosinophils # (Manual) (0.0-0.4) K/mm3 Basophils # (Manual) (0.0-0.1) K/mm3 Metamyelocytes # K/mm3 Myelocytes # K/mm3 Promyelocytes # K/mm3 Blast Cells # K/mm3 WBC Morphology Hypersegmented Neuts Hyposegmented Neuts Hypogranular Neuts Smudge Cells Toxic Granulation Toxic Vacuolation Dohle Bodies Pelger-Huet Anomaly Carmen Rods Platelet Estimate Clumped Platelets Plt Clumps, EDTA Large Platelets Giant Platelets Platelet Satelliting Plt Morphology Comment RBC Morphology Dimorphic RBCs Polychromasia Hypochromasia Poikilocytosis Anisocytosis Microcytosis Macrocytosis Spherocytes Pappenheimer Bodies Sickle Cells Target Cells Tear Drop Cells Ovalocytes Stomatocytes Helmet Cells Villalobos-[place] Bodies [place] Rings [place] Cells Bite Cells Crenated Cell Elliptocytes Acanthocytes (Spur) Rouleaux Hemoglobin C Crystals Schistocytes Malaria parasites Kendrick Bodies Hem Pathologist Commnt PT 14.2 (12.2-14.9) Sec. INR 1.05 (0.87-1.13) Sodium (137-145) mmol/L Potassium (3.6-5.0) mmol/L Chloride (98-107) mmol/L Carbon Dioxide (22-30) mmol/L Anion Gap mmol/L BUN (9-20) mg/dL Creatinine (0.8-1.5) mg/dL Estimated GFR ml/min BUN/Creatinine Ratio % Glucose (75-100) mg/dL Calcium (8.4-10.2) mg/dL Total Bilirubin 0.70 (0.1-1.2) mg/dL Direct Bilirubin < 0.2 (0-0.2) mg/dL Indirect Bilirubin 0.5 mg/dL AST 36 (5-40) units/L ALT 12 (7-56) units/L Alkaline Phosphatase 113 (35-129) units/L Troponin T 0.360 H* (0.00-0.029) ng/mL NT-Pro-B Natriuret Pep (0-900) pg/mL Total Protein 8.9 H (6.3-8.2) g/dL Albumin 3.5 L (3.9-5) g/dL Albumin/Globulin Ratio 0.6 % Triglycerides (2-149) mg/dL Cholesterol (50-199) mg/dL LDL Cholesterol Direct (50-130) mg/dL HDL Cholesterol (40-59) mg/dL Cholesterol/HDL Ratio % Lipase 35 (13-60) units/L - EKG Data -: EKG Interpreted by Or EKG shows normal: sinus rhythm Rate: normal - EKG Data 01/28/17 01:59 EKG #1 demonstrates sinus tachycardia, 100 bpm, left axis deviation, high left ventricular voltage, poor R wave progression, T-wave inversions in the lateral leads, not morphologically consistent with STEMI, unchanged from prior November 2016 EKG #2 demonstrates normal sinus 94 bpm, left axis deviation, left ventricular hypertrophy, persistence lateral T-wave abnormality, QTC prolonged at 552 ms - Radiology Data Radiology results: report reviewed, image reviewed X-ray of the chest shows congestive heart failure volume overload - Medical Decision Making Differential diagnosis: Congestive heart failure, volume overload, acute coronary syndrome, costochondritis, pneumonia Assessment and plan: 61-year-old male with a primary complaint of cough, chest tightness, shortness of breath, tachypnea. He denies dietary indiscretions, x- ray of the chest consistent with congestive heart failure and not pneumonia. Low risk by well's criteria. Elevated troponin is appreciated, patient always has elevated troponins, however this troponin is somewhat more elevated than baseline. He will be given aspirin. The patient was started empirically on nitroglycerin drip and BiPAP therapy; the patient is an uric, so Lasix would not be helpful. He clinically improved remarkably on positive pressure ventilation and on nitroglycerin drip. The case was discussed with the call worker person on-call, Dr. Ambrose, who will graciously arranged dialysis in the morning. The case is presented to the Hospital physician, Dr. Elmore, and she accepted the patient to her service. Patient did complain of diffuse pruritic lesions on his upper and lower extremities, on extraction they are consistent with nephrocalcinosis, and they' re not superinfected. Critical Care Time: Yes Critical care time in (mins) excluding proc time.: 35 Critical care attestation.: If time is entered above; I have spent that time in minutes in the direct care of this critically ill patient, excluding procedure time. Critical Care Time: Critical care time includes multiple bedside evaluations, interpretation of laboratory studies, radiology studies, time spent managing a patient with congestive heart failure and end-stage renal disease, requiring positive pressure ventilation, and nitroglycerin drip. This does not include procedure time. ED Disposition Clinical Impression: Chest pain, Elevated troponin, Chronic systolic (congestive) heart failure, Acute pulmonary edema, Chronic kidney disease Disposition: OP ADMIT IP TO THIS HOSP Is pt being admited?: Yes Does the pt Need Aspirin: Yes Condition: Good
[2017-01-28 00:38] LABS: INR 1.05 (0.87-1.13)
[2017-01-28 00:51] LABS: Alanine Aminotransferase 12 units/L (7-56); Albumin 3.5 g/dL (3.9-5); Albumin/Globulin Ratio 0.6 %; Alkaline Phosphatase 113 units/L (35-129); Lipase 35 units/L (13-60); Total Protein 8.9 g/dL (6.3-8.2)
[2017-01-28 00:53] LABS: Bilirubin,Direct < 0.2 mg/dL (0-0.2); Bilirubin,Indirect 0.5 mg/dL
[2017-01-28] MEDS ORDERED: TRIDIL DRIP 50MG/250ML 50 MG/250 ML BOTTLE IV SCH (01:00)
[2017-01-28] MEDS ORDERED: BABY ASPIRIN PO ONE (02:03)
[2017-01-28] MEDS ORDERED: ATARAX PO ONE (02:12)
[2017-01-28 02:37] LABS: ISTAT Base Excess 12; ISTAT HCO3 36.2; ISTAT PCO2 53.1 (35-45); ISTAT PH 7.441 (7.35-7.45); ISTAT PO2 66 (80-105); ISTAT SO2 93; ISTAT TCO2 38
[2017-01-28 02:37] LABS: ISTAT Base Excess 15; ISTAT HCO3 38.6; ISTAT PCO2 52.6 (35-45); ISTAT PH 7.473 (7.35-7.45); ISTAT PO2 36 (80-105); ISTAT SO2 71; ISTAT TCO2 40
--- NOTE | 2017-01-28 04:04 | History and Physical Report ---
History of Present Illness Date of examination: 01/28/17 History of present illness: 61-year-old man with a history of hypertension end-stage renal disease on dialysis, diabetes, hepatitis C, HIV, unknown CD4 count, hyperlipidemia comes emergency room with complaints of nonproductive cough, sneezing and shortness of breath. Patient stated he had dialysis today, he had a scheduled treatment. Also complaining of chest pain, Pain is in the epigastric which she describes as sharp, intermittent in nature lasting for 5 minutes, intensity 6/10 , radiating to cross chest, cannot identify exacerbating or relieving factors. He admits to shortness breath, nausea , no vomiting, diaphoresis or palpitation. He had a stress test this year. Patient was placed on BiPAP, started on nitroglycerin drip Review Of Systems: Constitutional: no fever, chills, weight loss Ears, eyes, nose, mouth and throat: no nasal congestion, no nasal discharge, no sinus pressure, blurry vision, diplopia Neck: No neck pain or rigidity. Cardiovascular: no orthopnea, palpitations Respiratory: No shortness of breath Gastrointestinal: abdominal pain, hematochezia Genitourinary : no dysuria, frequency , hematuria Musculoskeletal: no joint swelling or muscle ache Integumentary: no rash, no pruritis Neurological: no parathesias, focal weakness Endocrine: no cold or heat intolerance, no polyuria or polydipsia Hematologic/Lymphatic: no easy bruising, no easy bleeding, no gland swelling Allergic/Immunologic: no urticaria, no angioedema. PAST SURGICAL HISTORY: AV fistula, AICD SOCIAL HISTORY: Smoke cigarettes, no alcohol or drugs FAMILY HISTORY: Coronary artery disease Medications and Allergies Allergies Allergy/AdvReac Type Severity Reaction Status Date / Time sulfamethoxazole Allergy Anaphylaxis Verified 01/28/17 00:05 [From Bactrim] trimethoprim [From Bactrim] Allergy Anaphylaxis Verified 01/28/17 00:05 Home Medications Medication Instructions Recorded Confirmed Last Taken Type Albuterol Sulfate [Ventolin HFA] 8 mg IH DAILY 09/09/16 01/28/17 01/27/17 History Carvedilol [Coreg] 25 mg PO DAILY 09/09/16 01/28/17 01/27/17 History Cinacalcet HCl [Sensipar] 60 mg PO DAILY 09/09/16 01/28/17 01/27/17 History Etravirine [Intelence] 200 mg PO DAILY 09/09/16 01/28/17 01/27/17 History Fluticasone Propionate [Flovent 50 mcg IH TID PRN 09/09/16 01/28/17 01/27/17 History Diskus] Gemfibrozil [Lopid] 600 mg PO DAILY 09/09/16 01/28/17 01/27/17 History Insulin Glargine [Lantus VIAL] See Protocol SQ TID 09/09/16 01/28/17 01/27/17 History Ipratropium/Albuter (Nf) 1 puff IH DAILY 09/09/16 01/28/17 01/27/17 History [Combivent Inhaler] Ipratropium/Albuterol Sulfate 1 puff IH PRN PRN 09/09/16 01/28/17 01/27/17 History [DUONEB *Not for PRN Use*] Losartan [Cozaar] 25 mg PO DAILY 09/09/16 01/28/17 01/27/17 History Megestrol [Megace] 40 mg PO DAILY 09/09/16 01/28/17 01/27/17 History Omega3,5,6,7,9 No.1/[place] Oil 1 tab PO DAILY 09/09/16 01/28/17 01/27/17 History [Complete [place] Softgel] Paroxetine HCl [PARoxetine] 40 mg PO DAILY 09/09/16 01/28/17 01/27/17 History Prezcobix 800 mg-150 mg Tablet 800 mg PO DAILY 09/09/16 01/28/17 01/27/17 History Raltegravir Potassium [Isentress] 400 mg PO DAILY 09/09/16 01/28/17 01/27/17 History Rosuvastatin (Nf) [Crestor] 10 mg PO DAILY 09/09/16 01/28/17 01/27/17 History Sevelamer Carbonate [Renvela] 800 mg PO TID 09/09/16 01/28/17 01/27/17 History Symbicort 160-4.5 (Nf) 160 mcg IH DAILY 09/09/16 01/28/17 01/27/17 History Triamcinolone 0.1% 0.1 mg TP TID PRN 09/09/16 01/28/17 01/27/17 History amLODIPine [Norvasc] 10 mg PO DAILY 09/09/16 01/28/17 01/27/17 History Gabapentin [Neurontin] 300 mg PO QHS 11/22/16 01/28/17 01/27/17 History Oxycodone HCl/Acetaminophen 1 each PO Q6HR PRN #20 tablet 11/22/16 01/28/17 Rx [Percocet 7.5/325 mg] Active Meds: Active Medications Nitroglycerin/Dextrose (Tridil Drip 50mg/250ml) 50 mg in 250 mls @ 3 mls/hr IV TITR TRICIA; 10 MCG/MIN PRN Reason: Protocol Last Admin: 01/28/17 01:22 Dose: 10 mcg/min, 3 mls/hr Exam - Physical Exam Narrative exam: Gen. appearance: Patient lying in bed, no apparent distress HEENT: Normocephalic, atraumatic, pupils equally round and reactive to light, extraocular movement intact, and no sclericterus,. No JVD or thyromegaly or nodule,neck supple, no carotid bruit ,mucous membranes moist, no exudate or erythema Heart: S1, S2, regular rate and rhythm Lungs: Crackles bilaterally, breathing comfortable Abdomen: Positive bowel sounds, nontender, nondistended, no organomegaly Extremity: No edema, cyanosis, clubbing Skin: No rash, nodules, warm, dry Neuro: Oriented 3, cranial nerves II-12 intact, speech is fluent, motor and sensory intact - Constitutional Vitals: Temp Pulse Resp BP Pulse Ox 98.9 F 91 H 20 156/98 98 01/27/17 21:02 01/28/17 02:45 01/28/17 02:45 01/28/17 02:45 01/28/17 02:45 Results - Labs CBC & Chem 7: 01/27/17 21:26 01/27/17 21:26 Labs: Abnormal lab results 01/27/17 01/27/17 01/28/17 Range/Units 21:26 21:26 00:08 RDW 17.4 H (13.2-15.2) % Monocytes % (Manual) 22.0 H (0.0-7.3) % Monocytes # (Manual) 1.7 H (0.0-0.8) K/mm3 POC ABG pH (7.35-7.45) POC ABG pCO2 (35-45) POC ABG pO2 (80-105) Potassium 3.3 L (3.6-5.0) mmol/L Chloride 91.9 L (98-107) mmol/L Creatinine 7.1 H (0.8-1.5) mg/dL Glucose 119 H (75-100) mg/dL Calcium 8.0 L (8.4-10.2) mg/dL Troponin T 0.336 H* (0.00-0.029) ng/mL NT-Pro-B Natriuret Pep 57848 H (0-900) pg/mL Total Protein (6.3-8.2) g/dL Albumin (3.9-5) g/dL Triglycerides 226 H (2-149) mg/dL HDL Cholesterol 25 L (40-59) mg/dL 01/28/17 01/28/17 01/28/17 Range/Units 00:18 00:18 02:09 RDW (13.2-15.2) % Monocytes % (Manual) (0.0-7.3) % Monocytes # (Manual) (0.0-0.8) K/mm3 POC ABG pH 7.473 H (7.35-7.45) POC ABG pCO2 52.6 H (35-45) POC ABG pO2 36 L (80-105) Potassium (3.6-5.0) mmol/L Chloride (98-107) mmol/L Creatinine (0.8-1.5) mg/dL Glucose (75-100) mg/dL Calcium (8.4-10.2) mg/dL Troponin T 0.360 H* (0.00-0.029) ng/mL NT-Pro-B Natriuret Pep (0-900) pg/mL Total Protein 8.9 H (6.3-8.2) g/dL Albumin 3.5 L (3.9-5) g/dL Triglycerides (2-149) mg/dL HDL Cholesterol (40-59) mg/dL 01/28/17 01/28/17 Range/Units 02:19 03:04 RDW (13.2-15.2) % Monocytes % (Manual) (0.0-7.3) % Monocytes # (Manual) (0.0-0.8) K/mm3 POC ABG pH (7.35-7.45) POC ABG pCO2 53.1 H (35-45) POC ABG pO2 66 L (80-105) Potassium (3.6-5.0) mmol/L Chloride (98-107) mmol/L Creatinine (0.8-1.5) mg/dL Glucose (75-100) mg/dL Calcium (8.4-10.2) mg/dL Troponin T 0.319 H* (0.00-0.029) ng/mL NT-Pro-B Natriuret Pep (0-900) pg/mL Total Protein (6.3-8.2) g/dL Albumin (3.9-5) g/dL Triglycerides (2-149) mg/dL HDL Cholesterol (40-59) mg/dL - Imaging and Cardiology EKG: image reviewed Chest x-ray: image reviewed Assessment and Plan Assessment Acute respiratory distress Acute CHF exacerbation Chest pain Hypertension Diabetes type 2 End-stage renal disease on dialysis Plan Admit to medicine Check cardiac enzymes, consult cardiology, renal Monitor ins and outs, daily weight Start aspirin, IV morphine, continue BiPAP Continue appropriate outpatient medications, start DVT prophylaxis
[2017-01-28] MEDS ORDERED: MILK OF MAGNESIA PO PRN (04:11)
[2017-01-28] MEDS ORDERED: TYLENOL PO PRN ×2 (04:11→12:17)
[2017-01-28] MEDS ORDERED: DULCOLAX PR PRN (04:11)
[2017-01-28] MEDS ORDERED: ZOFRAN IV PRN (04:11)
[2017-01-28 05:17] LABS: Creatine Kinase MB 2.7 ng/mL (0.0-4.0)
[2017-01-28] MEDS: DUONEB *Not for PRN Use IH SCH ×3 (07:50→19:48)
--- NOTE | 2017-01-28 08:13 | Consultation ---
History of Present Illness Consult date: 01/28/17 Consult reason: chest pain History of present illness: 61 year old male presenting with cough induced chest pain and shortness of breath. He has missed HD on monday. His ECG is showing no interval changes and his SHARLENE are known to be chronically elevated. Today he states that he is feeling better. Medications and Allergies Allergies Allergy/AdvReac Type Severity Reaction Status Date / Time sulfamethoxazole Allergy Anaphylaxis Verified 01/28/17 00:05 [From Bactrim] trimethoprim [From Bactrim] Allergy Anaphylaxis Verified 01/28/17 00:05 Home Medications Medication Instructions Recorded Confirmed Last Taken Type Albuterol Sulfate [Ventolin HFA] 8 mg IH DAILY 09/09/16 01/28/17 01/27/17 History Carvedilol [Coreg] 25 mg PO DAILY 09/09/16 01/28/17 01/27/17 History Cinacalcet HCl [Sensipar] 60 mg PO DAILY 09/09/16 01/28/17 01/27/17 History Etravirine [Intelence] 200 mg PO DAILY 09/09/16 01/28/17 01/27/17 History Fluticasone Propionate [Flovent 50 mcg IH TID PRN 09/09/16 01/28/17 01/27/17 History Diskus] Gemfibrozil [Lopid] 600 mg PO DAILY 09/09/16 01/28/17 01/27/17 History Insulin Glargine [Lantus VIAL] See Protocol SQ TID 09/09/16 01/28/17 01/27/17 History Ipratropium/Albuter (Nf) 1 puff IH DAILY 09/09/16 01/28/17 01/27/17 History [Combivent Inhaler] Ipratropium/Albuterol Sulfate 1 puff IH PRN PRN 09/09/16 01/28/17 01/27/17 History [DUONEB *Not for PRN Use*] Losartan [Cozaar] 25 mg PO DAILY 09/09/16 01/28/17 01/27/17 History Megestrol [Megace] 40 mg PO DAILY 09/09/16 01/28/17 01/27/17 History Omega3,5,6,7,9 No.1/[place] Oil 1 tab PO DAILY 09/09/16 01/28/17 01/27/17 History [Complete [place] Softgel] Paroxetine HCl [PARoxetine] 40 mg PO DAILY 09/09/16 01/28/17 01/27/17 History Prezcobix 800 mg-150 mg Tablet 800 mg PO DAILY 09/09/16 01/28/17 01/27/17 History Raltegravir Potassium [Isentress] 400 mg PO DAILY 09/09/16 01/28/17 01/27/17 History Rosuvastatin (Nf) [Crestor] 10 mg PO DAILY 09/09/16 01/28/17 01/27/17 History Sevelamer Carbonate [Renvela] 800 mg PO TID 09/09/16 01/28/17 01/27/17 History Symbicort 160-4.5 (Nf) 160 mcg IH DAILY 09/09/16 01/28/17 01/27/17 History Triamcinolone 0.1% 0.1 mg TP TID PRN 09/09/16 01/28/17 01/27/17 History amLODIPine [Norvasc] 10 mg PO DAILY 09/09/16 01/28/17 01/27/17 History Gabapentin [Neurontin] 300 mg PO QHS 11/22/16 01/28/17 01/27/17 History Oxycodone HCl/Acetaminophen 1 each PO Q6HR PRN #20 tablet 11/22/16 01/28/17 Rx [Percocet 7.5/325 mg] Active Meds: Active Medications Acetaminophen (Tylenol) 650 mg PO Q4H PRN PRN Reason: Pain MILD(1-3)/Fever >100.5/BA Albuterol/Ipratropium (Duoneb *Not For Prn Use*) 1 ampul IH Q6HRT [facility] Last Admin: 01/28/17 07:50 Dose: 1 ampul Bisacodyl (Dulcolax) 10 mg [place] QDAY PRN PRN Reason: Constipation unrelieved by MOM Enoxaparin Sodium (Lovenox) 30 mg SUB-Q QDAY [facility] Magnesium Hydroxide (Milk Of Magnesia) 30 ml PO Q4H PRN PRN Reason: Constipation Ondansetron HCl (Zofran) 4 mg IV Q8H PRN PRN Reason: N/V unrelieved by Reglan Physical Examination Vital Signs Temp Pulse Resp BP Pulse Ox 98.9 F 99 H 22 119/64 100 01/27/17 21:02 01/27/17 21:02 01/27/17 21:02 01/27/17 21:02 01/27/17 21:02 Results 01/27/17 21:26 01/27/17 21:26 Cardiac Enzymes 01/28/17 01/28/17 Range/Units 04:38 04:38 Total Creatine Kinase 308 H (55-170) units/L CK-MB (CK-2) 2.7 (0.0-4.0) ng/mL CK-MB (CK-2) Rel Index 0.8 (0-4) Troponin T 0.309 H* (0.00-0.029) ng/mL Assessment and Plan Assessment: Atypical chest pain Chronically elevated troponin No significant ECG changes No ischemia by MPI this admission Non-ischemic cardiomyopathy s/p AICD Normal coronaries in 2014 Systemic Hypertension End-stage renal disease HIV Recommendations: No further cardiac intervention is needed Fluid management through HD May go home cardiac reilly
[2017-01-28] MEDS: LOVENOX SUB-Q SCH (09:28)
[2017-01-28] MEDS ORDERED: PROAIR IH SCH (10:00)
[2017-01-28] MEDS ORDERED: CLARITIN PO SCH (11:00)
[2017-01-28] MEDS ORDERED: NACL 0.9% 100 ML IV PRN (11:22)
--- NOTE | 2017-01-28 11:23 | Consultation ---
History of Present Illness - History of Present Illness Thank you for the consultation patient was evaluated today for dialysis needs dictation to follow Assessment and plan End-stage renal disease patient does appear to have some evidence of fluid overload based on the fact that he does have bilateral crackles both lower to mid edema and some JVD upon lying down Will consider dialysis for approximately 3 hours needs to comply with fluid and sodium restriction, noncompliance could not be completely ruled out Patient was advised not to miss any dialysis treatment Anemia in end-stage renal disease to monitor and follow. Current hemoglobin is satisfactory 11.9 platelet count normal once every 1999 Secondary hyperparathyroidism to monitor phosphorus and PTH level Hypokalemia we'll consider higher dialysis potassium bath Chest pain felt to be atypical per cardiology no significant EKG changes History of nonischemic cardiomyopathy status post AICD placement Cardiac catheterization was normal in 2014 HIV disease Patient did receive at appropriate counseling and education regarding multiple renal related issues advise about diet and lifestyle changes workup risk factors and follow-up with his personal trainer upon discharge We'll continue to follow and make recommendation from renal standpoint Medications and Allergies Allergies Allergy/AdvReac Type Severity Reaction Status Date / Time sulfamethoxazole Allergy Anaphylaxis Verified 01/28/17 00:05 [From Bactrim] trimethoprim [From Bactrim] Allergy Anaphylaxis Verified 01/28/17 00:05 Home Medications Medication Instructions Recorded Confirmed Last Taken Type Albuterol Sulfate [Ventolin HFA] 8 mg IH DAILY 09/09/16 01/28/17 01/27/17 History Carvedilol [Coreg] 25 mg PO DAILY 09/09/16 01/28/17 01/27/17 History Cinacalcet HCl [Sensipar] 60 mg PO DAILY 09/09/16 01/28/17 01/27/17 History Etravirine [Intelence] 200 mg PO DAILY 09/09/16 01/28/17 01/27/17 History Fluticasone Propionate [Flovent 50 mcg IH TID PRN 09/09/16 01/28/17 01/27/17 History Diskus] Gemfibrozil [Lopid] 600 mg PO DAILY 09/09/16 01/28/17 01/27/17 History Insulin Glargine [Lantus VIAL] See Protocol SQ TID 09/09/16 01/28/17 01/27/17 History Ipratropium/Albuter (Nf) 1 puff IH DAILY 09/09/16 01/28/17 01/27/17 History [Combivent Inhaler] Ipratropium/Albuterol Sulfate 1 puff IH PRN PRN 09/09/16 01/28/17 01/27/17 History [DUONEB *Not for PRN Use*] Losartan [Cozaar] 25 mg PO DAILY 09/09/16 01/28/17 01/27/17 History Megestrol [Megace] 40 mg PO DAILY 09/09/16 01/28/17 01/27/17 History Omega3,5,6,7,9 No.1/[place] Oil 1 tab PO DAILY 09/09/16 01/28/17 01/27/17 History [Complete [place] Softgel] Paroxetine HCl [PARoxetine] 40 mg PO DAILY 09/09/16 01/28/17 01/27/17 History Raltegravir Potassium [Isentress] 400 mg PO DAILY 09/09/16 01/28/17 01/27/17 History Rosuvastatin (Nf) [Crestor] 10 mg PO DAILY 09/09/16 01/28/17 01/27/17 History Sevelamer Carbonate [Renvela] 800 mg PO TID 09/09/16 01/28/17 01/27/17 History Symbicort 160-4.5 (Nf) 160 mcg IH DAILY 09/09/16 01/28/17 01/27/17 History Triamcinolone 0.1% 0.1 mg TP TID PRN 09/09/16 01/28/17 01/27/17 History amLODIPine [Norvasc] 10 mg PO DAILY 09/09/16 01/28/17 01/27/17 History Gabapentin [Neurontin] 300 mg PO QHS 11/22/16 01/28/17 01/27/17 History Oxycodone HCl/Acetaminophen 1 each PO Q6HR PRN #20 tablet 11/22/16 01/28/17 Rx [Percocet 7.5/325 mg] Evotaz 300 mg-150 mg Tablet 1 tab PO DAILY 01/29/17 01/29/17 01/26/17 09:00 History Tivicay (Nf) 50 mg PO DAILY 01/29/17 01/29/1701/26/17 09:00 History Active Meds: Active Medications Acetaminophen (Tylenol) 650 mg PO Q4H PRN PRN Reason: Pain MILD(1-3)/Fever >100.5/BA Albuterol/Ipratropium (Duoneb *Not For Prn Use*) 1 ampul IH Q6HRT [facility] Last Admin: 01/28/17 07:50 Dose: 1 ampul Bisacodyl (Dulcolax) 10 mg [place] QDAY PRN PRN Reason: Constipation unrelieved by MOM Enoxaparin Sodium (Lovenox) 30 mg SUB-Q QDAY [facility] Last Admin: 01/28/17 09:28 Dose: 30 mg Guaifenesin (Robitussin Dm) 10 ml PO Q4H PRN PRN Reason: Cough Loratadine (Claritin) 10 mg PO Q48H [facility] Magnesium Hydroxide (Milk Of Magnesia) 30 ml PO Q4H PRN PRN Reason: Constipation Ondansetron HCl (Zofran) 4 mg IV Q8H PRN PRN Reason: N/V unrelieved by Reglan Exam - Vital Signs Vital signs: Vital Signs Temp Pulse Resp BP Pulse Ox 98.9 F 99 H 22 119/64 100 01/27/17 21:02 01/27/17 21:02 01/27/17 21:02 01/27/17 21:02 01/27/17 21:02 Results - Lab Results 01/29/17 07:15 01/29/17 07:15 Most recent lab results Calcium 8.0 mg/dL (8.4-10.2) L 01/27/17 21:26
[2017-01-28] MEDS ORDERED: DUONEB *Not for PRN Use IH (11:24)
[2017-01-28] MEDS ORDERED: NON-FORMULARY (Fluticasone Propionate [Flovent Diskus] 50 MCG) IH PRN (11:24)
[2017-01-28] MEDS ORDERED: NON-FORMULARY (Oxycodone Hcl/Acetaminophen [Percocet 7.5/325 Mg] 1 EACH) PO PRN (11:24)
[2017-01-28] MEDS ORDERED: NON-FORMULARY (Rosuvastatin (Nf) 10 MG) PO SCH (11:30)
[2017-01-28] MEDS ORDERED: NON-FORMULARY (Ipratropium/Albuter (Nf) 1 PUFF) IH SCH (11:30)
[2017-01-28] MEDS ORDERED: NON-FORMULARY (Paroxetine Hcl [Paroxetine] 40 MG) PO SCH (11:30)
--- NOTE | 2017-01-28 11:33 | Event Note ---
Date: 01/28/17 Patient admitted this morning, charts were reviewed, labs and imaging noted. Patient's medications were reconciled, GI and nephrology consult appreciated.
[2017-01-28] MEDS ORDERED: ISENTRESS PO SCH (12:00)
[2017-01-28] MEDS ORDERED: PROVENTIL IH PRN (12:07)
[2017-01-28] MEDS: SENSIPAR PO SCH (12:08)
[2017-01-28] MEDS: CLARITIN PO SCH (12:09)
[2017-01-28] MEDS: NORVASC PO SCH (12:10)
[2017-01-28] MEDS: MEGACE PO SCH (12:10)
[2017-01-28] MEDS: COREG PO SCH (12:11)
[2017-01-28] MEDS: BENADRYL IV PRN ×2 (12:17→21:52)
[2017-01-28] MEDS: ROBITUSSIN DM PO PRN (12:17)
[2017-01-28 12:57] LABS: Creatine Kinase MB 4.1 ng/mL (0.0-4.0)
[2017-01-28] MEDS: RENVELA PO SCH ×2 (13:57→21:50)
[2017-01-28] MEDS ORDERED: NON-FORMULARY (Insulin Glargine 5 UNITS) SQ SCH (14:00)
[2017-01-28] MEDS: BROVANA NEBU IH SCH ×2 (14:03→19:48)
[2017-01-28] MEDS: PULMICORT IH SCH ×2 (14:04→19:48)
[2017-01-28] MEDS ORDERED: NACL 0.9 (PRIMING MACHINE ONLY DIALYSIS) MC ONE (14:16)
[2017-01-28] MEDS: LOPID PO SCH (18:22)
[2017-01-28] MEDS: NON-FORMULARY (Etravirine [Intelence] 200 MG) PO SCH (21:47)
[2017-01-28] MEDS: NEURONTIN PO SCH (21:50)
[2017-01-28] MEDS: ROXICODONE PO PRN (21:50)
[2017-01-28] MEDS ORDERED: LEVEMIR SUB-Q SCH (22:00)
[2017-01-29] MEDS: DUONEB *Not for PRN Use IH SCH ×4 (01:49→19:36)
[2017-01-29] MEDS: LEVEMIR SUB-Q SCH ×2 (03:12→21:45)
[2017-01-29] MEDS: PULMICORT IH SCH ×2 (07:37→19:36)
[2017-01-29] MEDS: BROVANA NEBU IH SCH ×2 (07:37→19:36)
[2017-01-29 07:41] LABS: Hematocrit 36.4 % (35.5-45.6); Hemoglobin 11.8 gm/dl (11.8-15.2); Mean Corpuscular HGB Conc 32 % (32-34); Mean Corpuscular Hemoglobin 31 pg (28-32); Mean Corpuscular Volume 95 fl (84-94); Platelet Count 148 K/mm3 (140-440); Red Blood Count 3.84 M/mm3 (3.65-5.03); Red Cell Distribution Width 17.9 % (13.2-15.2); White Blood Count 6.4 K/mm3 (4.5-11.0)
[2017-01-29 07:50] LABS: BUN/Creatinine Ratio 2.62; Calcium 8.2 mg/dL (8.4-10.2); Chloride 96.8 mmol/L (98-107); Potassium 4.4 mmol/L (3.6-5.0)
[2017-01-29] MEDS: RENVELA PO SCH ×3 (08:33→21:42)
[2017-01-29] MEDS: LOPID PO SCH ×2 (08:33→17:44)
--- NOTE | 2017-01-29 08:51 | Progress Note ---
Assessment and Plan Assessment: Atypical chest pain Chronically elevated troponin No significant ECG changes No ischemia by MPI previous recent admission Non-ischemic cardiomyopathy s/p AICD Normal coronaries in 2015 Systemic Hypertension End-stage renal disease HIV Recommendations: No further cardiac intervention is needed Fluid management through HD May go home cardiac reilly Subjective Date of service: 01/29/17 Principal diagnosis: Atypical CP Interval history: No interval changes No events on tele Objective Vital Signs Temp Pulse Pulse Resp Resp Resp BP 01/29/17 04:49 97.6 F 74 18 130/82 01/29/17 01:45 72 01/29/17 01:19 20 01/29/17 00:00 97.5 F L 72 18 99/66 01/28/17 23:59 78 22 01/28/17 21:50 22 01/28/17 19:58 83 18 01/28/17 19:48 78 18 01/28/17 18:09 98.7 F 75 20 98/57 01/28/17 17:00 98.3 F 71 18 109/52 01/28/17 16:55 87 01/28/17 16:45 70 107/56 01/28/17 16:30 71 109/60 01/28/17 16:15 61 101/50 01/28/17 16:00 69 106/56 01/28/17 15:45 71 101/62 01/28/17 15:30 69 104/67 01/28/17 15:15 74 107/59 01/28/17 15:00 78 100/48 01/28/17 14:45 72 107/64 01/28/17 14:30 73 108/54 01/28/17 14:15 73 108/66 01/28/17 14:00 75 113/66 01/28/17 13:45 76 105/58 01/28/17 13:30 80 112/64 01/28/17 13:15 90 125/69 01/28/17 13:00 98.3 F 79 18 115/68 01/28/17 12:11 78 153/83 01/28/17 12:10 78 153/83 01/28/17 11:25 98.3 F 94 H 20 153/83 01/28/17 11:17 18 Pulse Ox 01/29/17 04:49 97 01/29/17 01:45 01/29/17 01:19 01/29/17 00:00 100 01/28/17 23:59 98 01/28/17 21:50 01/28/17 19:58 01/28/17 19:48 95 01/28/17 18:09 94 01/28/17 17:00 01/28/17 16:55 01/28/17 16:45 01/28/17 16:30 01/28/17 16:15 01/28/17 16:00 01/28/17 15:45 01/28/17 15:30 01/28/17 15:15 01/28/17 15:00 01/28/17 14:45 01/28/17 14:30 01/28/17 14:15 01/28/17 14:00 01/28/17 13:45 01/28/17 13:30 01/28/17 13:15 01/28/17 13:00 01/28/17 12:11 01/28/17 12:10 01/28/17 11:25 98 01/28/17 11:17 94 - Physical Examination General: Appears Well HEENT: Positive: PERRL Neck: Positive: neck supple Cardiac: Positive: Reg Rate and Rhythm Lungs: Positive: Normal Exam - Labs and Meds Cardiac Enzymes 01/28/17 Range/Units 11:16 CK-MB (CK-2) 4.1 H (0.0-4.0) ng/mL CBC 01/29/17 Range/Units 07:15 WBC 6.4 (4.5-11.0) K/mm3 RBC 3.84 (3.65-5.03) M/mm3 Hgb 11.8 (11.8-15.2) gm/dl Hct 36.4 (35.5-45.6) % Plt Count 148 (140-440) K/mm3 Comprehensive Metabolic Panel 01/29/17 Range/Units 07:15 Sodium 140 (137-145) mmol/L Potassium 4.4 D (3.6-5.0) mmol/L Chloride 96.8 L (98-107) mmol/L Carbon Dioxide 30 (22-30) mmol/L BUN 16 (9-20) mg/dL Creatinine 6.1 H (0.8-1.5) mg/dL Glucose 79 (75-100) mg/dL Calcium 8.2 L (8.4-10.2) mg/dL - Imaging and Cardiology EKG: image reviewed
[2017-01-29 09:26] LABS: Anisocytosis 1+; Basophils % (Manual) 0 % (0.0-1.8); Blastocytes % (Manual) 0 %
[2017-01-29 09:27] LABS: Diff Status Complete; Poikilocytosis Few; Polychromasia 1+
[2017-01-29] MEDS: NON-FORMULARY (Etravirine [Intelence] 200 MG) PO SCH ×2 (09:30→21:44)
[2017-01-29] MEDS: MEGACE PO SCH (09:31)
[2017-01-29] MEDS: SENSIPAR PO SCH (09:31)
[2017-01-29] MEDS: LOVENOX SUB-Q SCH (09:32)
[2017-01-29] MEDS: COREG PO SCH ×2 (09:33→21:45)
[2017-01-29] MEDS: COZAAR PO SCH (09:33)
[2017-01-29] MEDS: NORVASC PO SCH (09:34)
[2017-01-29] MEDS: ROBITUSSIN DM PO PRN ×2 (09:52→21:41)
[2017-01-29] MEDS ORDERED: SYMBICORT 160 MCG IH SCH (10:00)
--- NOTE | 2017-01-29 11:01 | Progress Note ---
Subjective Principal diagnosis: Atypical CP Interval history: patient was seen today for follow-up of multiple renal-related issues He tolerated dialysis treatment fairly well localized without any shortness of breath Vitals last intake and output medications were reviewed HEENT: No pallor or icterus Neck: Supple no JVD Chest: Clear to auscultation Heart: Regular rate and rhythm Abdomen: Soft nontender no renal bruit Extremity examination no edema Neurological: Alert and awake oriented 4 Assessment and plan End-stage renal disease patient manages this is a Monday received extra treatment yesterday with which his shortness of breath has markedly improved Noncompliant patient educated to comply with diet and lifestyle fluid and sodium restriction Dietary counseling and education was done Monitor dialysis related labs blood pressure volume control is important Patient did receive appropriate counseling and education regarding all the related issues Upon discharge will need to make appointment for follow-up with 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 crime prevention police officer and will also benefit from a pulmonary evaluation please consider We'll continue to follow and make recommendation for renal standpoint Objective - Vital Signs Vital signs: Vital Signs - 12hr 01/28/17 01/29/17 01/29/17 23:59 00:00 01:19 Temperature 97.5 F L Pulse Rate 78 72 Pulse Rate [ Anterior Bilateral Throughout] Respiratory 22 18 Rate Respiratory Rate [Anterior Bilateral Throughout] Respiratory 20 Rate [chest pain] Blood Pressure 99/66 O2 Sat by Pulse 98 100 Oximetry 01/29/17 01/29/17 01/29/17 01:45 04:49 07:15 Temperature 97.6 F 97.4 F L Pulse Rate 72 74 78 Pulse Rate [ Anterior Bilateral Throughout] Respiratory 18 20 Rate Respiratory Rate [Anterior Bilateral Throughout] Respiratory Rate [chest pain] Blood Pressure 130/82 114/71 O2 Sat by Pulse 97 95 Oximetry 01/29/17 01/29/17 01/29/17 07:37 07:47 09:33 Temperature Pulse Rate 78 Pulse Rate [ 72 73 Anterior Bilateral Throughout] Respiratory Rate Respiratory 20 20 Rate [Anterior Bilateral Throughout] Respiratory Rate [chest pain] Blood Pressure 114/71 O2 Sat by Pulse 97 Oximetry 01/29/17 09:34 Temperature Pulse Rate 78 Pulse Rate [ Anterior Bilateral Throughout] Respiratory Rate Respiratory Rate [Anterior Bilateral Throughout] Respiratory Rate [chest pain] Blood Pressure 114/71 O2 Sat by Pulse Oximetry - Lab 01/29/17 07:15 01/29/17 07:15 Most recent lab results Calcium 8.2 mg/dL (8.4-10.2) L 01/29/17 07:15
--- NOTE | 2017-01-29 11:45 | Progress Note ---
Assessment and Plan Assessment and plan: Atypical chest pain Hypertension ESRD on hemodialysis Cough likely secondary to viral upper respiratory tract infection HIV/AIDS - Nephrology consult appreciated and continue with hemodialysis - Cardiology consult appreciated and doesn't need any cardiac workup - Continue appropriate home medications - Cough syrup, and symptomatic treatment for upper respiratory tract infection DVT prophylaxis -Heparin Disposition - Patient said he is not feeling well - will observe him today and will discharge tomorrow morning History Interval history: Patient was seen and evaluated this morning, he complains occasional shortness of breath and chest pain, congestion. Hospitalist Physical - Physical exam Narrative exam: Not in cardiopulmonary distress. The patient appeared well nourished and normally developed. Vital signs as documented. Head exam is unremarkable. No scleral icterus . Neck is without jugular venous distension, thyromegaly, or carotid bruits. Lungs are clear to auscultation. Cardiac exam reveals regular rate and Rhythm. First and second heart sounds normal. No murmurs, rubs or gallops. Abdominal exam reveals normal bowel sounds, no masses, no organomegaly and no aortic enlargement. Extremities are nonedematous and both femoral and pedal pulses are normal. BANQUET SET UP PERSON: Alert and oriented 3. No focal weakness. - Constitutional Vitals: Temp Pulse Resp BP Pulse Ox 97.4 F L 78 20 114/71 97 01/29/17 07:15 01/29/17 09:34 01/29/17 07:47 01/29/17 09:34 01/29/17 07:37 Results - Labs CBC & Chem 7: 01/29/17 07:15 01/29/17 07:15 Labs: Laboratory Last Values WBC 6.4 K/mm3 (4.5-11.0) 01/29/17 07:15 RBC 3.84 M/mm3 (3.65-5.03) 01/29/17 07:15 Hgb 11.8 gm/dl (11.8-15.2) 01/29/17 07:15 Hct 36.4 % (35.5-45.6) 01/29/17 07:15 MCV 95 fl (84-94) H 01/29/17 07:15 MCH 31 pg (28-32) 01/29/17 07:15 MCHC 32 % (32-34) 01/29/17 07:15 RDW 17.9 % (13.2-15.2) H 01/29/17 07:15 Plt Count 148 K/mm3 (140-440) 01/29/17 07:15 Lymph % (Auto) Cable Installer Repairer Helper 01/27/17 21:26 [place] % (Auto) Cable Installer Repairer Helper 01/29/17 07:15 Eos % (Auto) Cable Installer Repairer Helper 01/27/17 21:26 Baso % (Auto) Cable Installer Repairer Helper 01/27/17 21:26 Lymph # Cable Installer Repairer Helper 01/27/17 21:26 [place] # Cable Installer Repairer Helper 01/27/17 21:26 Eos # Cable Installer Repairer Helper 01/27/17 21:26 Baso # Cable Installer Repairer Helper 01/27/17 21:26 Add Manual Diff Complete 01/29/17 07:15 Total Counted 100 01/29/17 07:15 Seg Neutrophils % Cable Installer Repairer Helper 01/29/17 07:15 Seg Neuts % (Manual) 39 % (40.0-70.0) L 01/29/17 07:15 Band Neutrophils % 1.0 % 01/29/17 07:15 Lymphocytes % (Manual) 31.0 % (13.4-35.0) 01/29/17 07:15 Reactive Lymphs % (Man) 0 % 01/29/17 07:15 Monocytes % (Manual) 15 % (0.0-7.3) H 01/29/17 07:15 Eosinophils % (Manual) 4.0 % (0.0-4.3) 01/29/17 07:15 Basophils % (Manual) 0 % (0.0-1.8) 01/29/17 07:15 Metamyelocytes % 0 % 01/29/17 07:15 Myelocytes % 0 % 01/29/17 07:15 Promyelocytes % 0 % 01/29/17 07:15 Blast Cells % 0 % 01/29/17 07:15 Nucleated RBC % Not Reportable 01/29/17 07:15 Seg Neutrophils # Cable Installer Repairer Helper 01/27/17 21:26 Seg Neutrophils # Man 2.7 K/mm3 (1.8-7.7) 01/29/17 07:15 Band Neutrophils # 0.1 K/mm3 01/29/17 07:15 Lymphocytes # (Manual) 2.0 K/mm3 (1.2-5.4) 01/29/17 07:15 Abs React Lymphs (Man) 0.0 K/mm3 01/29/17 07:15 Monocytes # (Manual) 1.4 K/mm3 (0.0-0.8) H 01/29/17 07:15 Eosinophils # (Manual) 0.3 K/mm3 (0.0-0.4) 01/29/17 07:15 Basophils # (Manual) 0.0 K/mm3 (0.0-0.1) 01/29/17 07:15 Metamyelocytes # 0.0 K/mm3 01/29/17 07:15 Myelocytes # 0.0 K/mm3 01/29/17 07:15 Promyelocytes # 0.0 K/mm3 01/29/17 07:15 Blast Cells # 0.0 K/mm3 01/29/17 07:15 WBC Morphology Not Reportable 01/29/17 07:15 Hypersegmented Neuts Not Reportable 01/29/17 07:15 Hyposegmented Neuts Not Reportable 01/29/17 07:15 Hypogranular Neuts Not Reportable 01/29/17 07:15 Smudge Cells Not Reportable 01/29/17 07:15 Toxic Granulation Not Reportable 01/29/17 07:15 Toxic Vacuolation Not Reportable 01/29/17 07:15 Dohle Bodies Not Reportable 01/29/17 07:15 Pelger-Huet Anomaly Not Reportable 01/29/17 07:15 Carmen Rods Not Reportable 01/29/17 07:15 Platelet Estimate Not Reportable 01/29/17 07:15 Clumped Platelets Not Reportable 01/29/17 07:15 Plt Clumps, EDTA Not Reportable 01/29/17 07:15 Large Platelets Not Reportable 01/29/17 07:15 Giant Platelets Not Reportable 01/29/17 07:15 Platelet Satelliting Not Reportable 01/29/17 07:15 Plt Morphology Comment Not Reportable 01/29/17 07:15 RBC Morphology Not Reportable 01/29/17 07:15 Dimorphic RBCs Not Reportable 01/29/17 07:15 Polychromasia 1+ 01/29/17 07:15 Hypochromasia Not Reportable 01/29/17 07:15 Poikilocytosis Few 01/29/17 07:15 Anisocytosis 1+ 01/29/17 07:15 Microcytosis Not Reportable 01/29/17 07:15 Macrocytosis Not Reportable 01/29/17 07:15 Spherocytes Not Reportable 01/29/17 07:15 Pappenheimer Bodies Not Reportable 01/29/17 07:15 Sickle Cells Not Reportable 01/29/17 07:15 Target Cells Not Reportable 01/29/17 07:15 Tear Drop Cells Not Reportable 01/29/17 07:15 Ovalocytes Not Reportable 01/29/17 07:15 Stomatocytes 1+ 01/27/17 21:26 Helmet Cells Not Reportable 01/29/17 07:15 [place] Bodies Not Reportable 01/29/17 07:15 [place] Rings Not Reportable 01/29/17 07:15 [place] Cells Not Reportable 01/29/17 07:15 Bite Cells Not Reportable 01/29/17 07:15 Crenated Cell Not Reportable 01/29/17 07:15 Elliptocytes Not Reportable 01/29/17 07:15 Acanthocytes (Spur) Not Reportable 01/29/17 07:15 Rouleaux Not Reportable 01/29/17 07:15 Hemoglobin C Crystals Not Reportable 01/29/17 07:15 Schistocytes Not Reportable 01/29/17 07:15 Malaria parasites Not Reportable 01/29/17 07:15 [place] Bodies Not Reportable 01/29/17 07:15 Hem Pathologist Commnt No 01/29/17 07:15 PT 14.2 Sec. (12.2-14.9) 01/28/17 00:18 INR 1.05 (0.87-1.13) 01/28/17 00:18 POC ABG pH 7.441 (7.35-7.45) 01/28/17 02:19 POC ABG pCO2 53.1 (35-45) H 01/28/17 02:19 POC ABG pO2 66 (80-105) L 01/28/17 02:19 POC ABG HCO3 36.2 01/28/17 02:19 POC ABG Total CO2 38 01/28/17 02:19 POC ABG O2 Sat 93 01/28/17 02:19 POC ABG Base Excess 12 01/28/17 02:19 FiO2 35 % 01/28/17 02:19 Sodium 140 mmol/L (137-145) 01/29/17 07:15 Potassium 4.4 mmol/L (3.6-5.0) D 01/29/17 07:15 Chloride 96.8 mmol/L (98-107) L 01/29/17 07:15 Carbon Dioxide 30 mmol/L (22-30) 01/29/17 07:15 Anion Gap 18 mmol/L 01/29/17 07:15 BUN 16 mg/dL (9-20) 01/29/17 07:15 Creatinine 6.1 mg/dL (0.8-1.5) H 01/29/17 07:15 Estimated GFR 11 ml/min 01/29/17 07:15 BUN/Creatinine Ratio 2.62 % 01/29/17 07:15 Glucose 79 mg/dL (75-100) 01/29/17 07:15 POC Glucose 142 (70-105) H 01/29/17 01:10 Calcium 8.2 mg/dL (8.4-10.2) L 01/29/17 07:15 Total Bilirubin 0.70 mg/dL (0.1-1.2) 01/28/17 00:18 Direct Bilirubin < 0.2 mg/dL (0-0.2) 01/28/17 00:18 Indirect Bilirubin 0.5 mg/dL 01/28/17 00:18 AST 36 units/L (5-40) 01/28/17 00:18 ALT 12 units/L (7-56) 01/28/17 00:18 Alkaline Phosphatase 113 units/L (35-129) 01/28/17 00:18 Total Creatine Kinase 331 units/L (55-170) H 01/28/17 11:16 CK-MB (CK-2) 4.1 ng/mL (0.0-4.0) H 01/28/17 11:16 CK-MB (CK-2) Rel Index 1.2 (0-4) 01/28/17 11:16 Troponin T 0.292 ng/mL (0.00-0.029) H* 01/28/17 11:16 NT-Pro-B Natriuret Pep 49963 pg/mL (0-900) H 01/28/17 00:08 Total Protein 8.9 g/dL (6.3-8.2) H 01/28/17 00:18 Albumin 3.5 g/dL (3.9-5) L 01/28/17 00:18 Albumin/Globulin Ratio 0.6 % 01/28/17 00:18 Triglycerides 226 mg/dL (2-149) H 01/27/17 21:26 Cholesterol 157 mg/dL (50-199) 01/27/17 21:26 LDL Cholesterol Direct 87 mg/dL (50-130) 01/27/17 21:26 HDL Cholesterol 25 mg/dL (40-59) L 01/27/17 21:26 Cholesterol/HDL Ratio 6.28 % 01/27/17 21:26 Lipase 35 units/L (13-60) 01/28/17 00:18
[2017-01-29] MEDS: PAXIL PO SCH (13:33)
[2017-01-29] MEDS: BENADRYL IV PRN (17:45)
[2017-01-29] MEDS: ROXICODONE PO PRN (21:42)
[2017-01-29] MEDS: NEURONTIN PO SCH (21:42)
--- NOTE | 2017-01-30 00:43 | Consultation ---
TIME OF SERVICE: Around 10:45 in morning. REQUESTING PHYSICIAN: Billy Dickey MD REASON FOR CONSULTATION: Management of end-stage renal disease in a patient who is currently short of breath and in need for additional dialysis treatment. HISTORY OF PRESENT ILLNESS: The patient is a pleasant 61-year-old -[place] male who is currently being dialyzed on Monday, Monday, Monday. The patient came to the hospital with complaints of shortness of breath and was also noted to have some pulmonary edema. Normally, he does dialyze 3 times a week, but the compliance with fluid has not been so good. Denies any complaints of fever, nausea, vomiting, yellowish expectoration or any skin rashes. PAST MEDICAL HISTORY: 1. Significant for end-stage renal disease, currently on maintenance hemodialysis, being dialyzed 3 times a week. 2. Hypertension. 3. Anemia of end-stage renal disease. 4. Secondary hyperparathyroidism. 5. HIV. HOME MEDICATIONS: Reviewed. CURRENT ALLERGIES: Reviewed. SOCIAL HISTORY: The patient denies any recreational drug or substance abuse. The patient has a history of smoking. FAMILY HISTORY: Essentially negative for renal-related disorder. REVIEW OF SYSTEMS: Positive for shortness of breath, cough and wheezing. Dialysis access has been working well, no fever or chills. Complete other systems are obtained, pertinent positive as mentioned above, other review of systems negative. PHYSICAL EXAMINATION: GENERAL: The patient is a pleasant 89-year-old -[place] male who is lying comfortably in bed, does not complain of any acute issues, but does complain of some shortness of breath and some wheezing. VITAL SIGNS: Reviewed from this admission. HEENT: Normocephalic, atraumatic skull. Extraocular movements intact. Oral mucosa moist. NECK: Supple. CHEST: Occasional wheezes posteriorly in the lower one-third lung jay with basilar crackles. HEART: Regular rate. S1, S2 are heard. S3 or S4. ABDOMEN: Soft, nontender. No voluntary guarding, rigidity, rebound, or organomegaly. No masses. EXTREMITIES: The patient does have approximately 1+ edema. Peripheral pulses palpable. No acute discoloration or cyanosis. ENDOCRINE: Thyroid not enlarged. PSYCHIATRIC: The patient is pleasant, but mildly anxious due to his breathing issues. LABORATORY DATA: Labs and x-rays: reviewed from this admission. ASSESSMENT AND PLAN: 1. End-stage renal disease, currently on maintenance hemodialysis. The patient will need an additional treatment even though he has had dialysis yesterday due to some evidence of fluid overload, his dry weight needs to be adjusted. I have educated him about fluid restriction, sodium restriction and increasing protein in the back and follow up with the forensic identification specialist for dry weight adjustment upon discharge. 2. Appears to have pulmonary edema, bilateral crackles and 1+ peripheral edema. Advised to regulate fluid, restrict to approximately 800 mL per day and then titrate as needed. 3. Anemia of end-stage renal disease, to monitor and follow. 4. Secondary hyperparathyroidism. I also educated about avoiding processed food, foods with high phosphorus content and preferably eat fresh and fresh frozen. 5. HIV disease, to follow up with his physician. Adequately counseled and educated. All questions were answered and the patient may benefit from seeing a pulmonary physician given the history smoking in the past and some shortness of breath, which will be due to underlying lung condition. He also needs keep up with his infectious disease physician as well. As far as I am concerned, we will reevaluate him in the morning after dialysis is done today to see what his breathing status is tomorrow. We will continue to follow and make recommendations from a renal standpoint. JOB# [id number] DUONG/EDIN
[2017-01-30] MEDS: DUONEB *Not for PRN Use IH SCH ×4 (01:43→21:27)
--- NOTE | 2017-01-30 06:23 | Admit Criteria Form ---
Admission Criteria Documentation: HEART FAILURE: COMMON COMPLICATIONS Clinical Indications for Inpatient Care (nome/check or initial the applicable condition/criteria): Ongoing inpatient care may be indicated for heart failure with 1 or more of the following (1)(2)(3)(4)(5)(6)(7)(8): [ ]I. New-onset heart failure [ ]II. Acute cardiac ischemia causing or associated with failure [ ]III. Ongoing need for care for primary condition requiring frequent therapy adjustments because of changes in cardiac function (eg, drug dosage changes for drugs that are renally metabolized) [X ]IV. Complications of heart failure, including 1 or more of the following: [ ]a) Hemodynamic instability [ ]b) Pericardial effusion [ ]c) Symptomatic pleural effusion(16) [ ]d) Hypoxemia [ ]e) Tachypnea [ X]f) Dyspnea [ ]g) Syncope [ ]h) Altered mental status [ ]i) Acute renal insufficiency that is severe (reduction of more than 50% in estimated glomerular filtration rate from baseline) or progressive (reduction of more than 25% in estimated glomerular filtration rate from baseline, with creatinine continuing to rise) [ ]j) Debilitating anasarca (eg tissue breakdown with infection, inability to void due to edema)(E) (17) [ ]k) Clinically significant metabolic abnormalities due to heart failure (e.g., new-onset metabolic acidosis) Extended stay may be needed until ALL of the following are present(1)(3)(18)(41) (55): [ ]a) Hemodynamic stability [ ]b) Stable and effective diuretic regimen established (or patient on stable dialysis regimen if in chronic renal failure) [ ]c) Volume status acceptable on oral medication [ ]d) Breathing comfortably at rest [ ]e) Saturation of arterial oxygen greater than 90% or at acceptable baseline [ ]f) Pulmonary edema absent or improved [ ]g) Peripheral or sacral edema absent or improved [ ]h) Renal function stable and manageable at a lower level of care [ ]i) Complications (e.g., pleural effusion) resolved or manageable at a lower level of care [ ]j) Patient or caregiver has received written discharge instructions or educational material addressing activity level, diet, discharge medications, follow-up appointment, weight monitoring, and what to do if symptoms worsen. (56)(57)(58) The original [facility] content created by Justin Perez has been revised. The portions of the content which have been revised are identified through the use of italic text or in bold, and Justin Perez has neither reviewed nor approved the modified material.All other unmodified content is copyright [facility] [employer]. Please see references footnoted in the original [facility] edition 2017 Admission Criteria Met: Yes
[2017-01-30] MEDS: PREZCOBIX PO SCH (07:21)
[2017-01-30] MEDS ORDERED: EVOTAZ PO SCH (08:00)
[2017-01-30] MEDS: LOPID PO SCH ×2 (08:28→16:28)
[2017-01-30] MEDS: RENVELA PO SCH ×2 (08:28→14:37)
[2017-01-30] MEDS: PULMICORT IH SCH ×2 (08:54→21:28)
[2017-01-30] MEDS: BROVANA NEBU IH SCH ×2 (08:54→21:27)
--- NOTE | 2017-01-30 08:57 | Discharge Summary ---
Providers - Providers Date of Admission: 01/28/17 04:11 Date of discharge: 01/30/17 Attending physician: JUDIT MORENO MD Primary care physician: CERTIFIED MEDICAL BILLER Hospitalization Reason for admission: cough, Chest pain, ESRD on HD Condition: Good Hospital course: History of present illness: 61-year-old man with a history of hypertension end-stage renal disease on dialysis, diabetes, hepatitis C, HIV, unknown CD4 count, hyperlipidemia comes emergency room with complaints of nonproductive cough, sneezing and shortness of breath. Patient stated he had dialysis today, he had a scheduled treatment. Also complaining of chest pain, Pain is in the epigastric which she describes as sharp, intermittent in nature lasting for 5 minutes, intensity 6/10 , radiating to cross chest, cannot identify exacerbating or relieving factors. He admits to shortness breath, nausea , no vomiting, diaphoresis or palpitation. He had a stress test this year. Patient was placed on BiPAP, started on nitroglycerin. Patient was admitted to the floor and cardiology was consulted and doesn't think he has acute cardiac event and recommend to continue with his home medications. Nephrology was consulted and continued with his HD. We resumed appropriate home medications. I believe the cough is due to viral Upper respiratory tract infections and was treated symptomatically and patient showed some improvement and discharged home in a stable condition. Disposition: DC-01 TO HOME OR SELFCARE Time spent for discharge: 31 minutes - Discharge Diagnoses (1) Acute pulmonary edema Status: Acute (2) Chest pain Status: Acute Qualifiers: Chest pain type: C Ischemic chest pain type: I (3) Chronic systolic (congestive) heart failure Status: Acute (4) Elevated troponin Status: Acute (5) Diabetes mellitus Status: Chronic Qualifiers: Diabetes mellitus type: D Diabetes mellitus complication status: D Diabetes mellitus complication detail: D Diabetic retinopathy severity: D Proliferative retinopathy type: P Diabetes mellitus macular edema: D Diabetes mellitus long term acute care registered nurse insulin use: D Laterality: L Chronic kidney disease stage: C (6) ESRD on hemodialysis Status: Chronic Core Measure Documentation - Palliative Care Palliative Care/ Comfort Measures: Not Applicable - Core Measures Any of the following diagnoses?: none Exam - Physical Exam Narrative exam: Not in cardiopulmonary distress. The patient appeared well nourished and normally developed. Vital signs as documented. Head exam is unremarkable. No scleral icterus . Neck is without jugular venous distension, thyromegaly, or carotid bruits. Lungs are clear to auscultation. Cardiac exam reveals regular rate and Rhythm. First and second heart sounds normal. No murmurs, rubs or gallops. Abdominal exam reveals normal bowel sounds, no masses, no organomegaly and no aortic enlargement. Extremities are nonedematous and both femoral and pedal pulses are normal. PEDIATRIC ORTHODONTIST: Alert and oriented 3. No focal weakness. - Constitutional Vitals: Temp Pulse Resp BP Pulse Ox 98.7 F 69 18 100/54 100 01/30/17 04:00 01/30/17 04:00 01/30/17 04:00 01/30/17 04:00 01/30/17 04:00 Plan Activity: no restrictions Weight Bearing Status: Full Weight Bearing Diet: low cholesterol, low salt, diabetic, renal Follow up with: PRIMARY CARE,MD [Primary Care Provider] - 3-5 Days Prescriptions: Acetaminophen [Acetaminophen TAB] 325 mg PO Q6H PRN #20 tablet PRN Reason: Pain, Mild (1-3) guaiFENesin DM [Robitussin Dm] 10 ml PO Q4H PRN #1 bottle PRN Reason: Cough Loratadine [Claritin] 10 mg PO Q48H #5 tablet
[2017-01-30] MEDS ORDERED: TIVICAY 50 MG PO SCH (10:00)
[2017-01-30] MEDS: COREG PO SCH (10:05)
[2017-01-30] MEDS: SENSIPAR PO SCH (10:05)
[2017-01-30] MEDS: MEGACE PO SCH (10:05)
[2017-01-30] MEDS: COZAAR PO SCH (10:05)
[2017-01-30] MEDS: NORVASC PO SCH (10:06)
[2017-01-30] MEDS: CLARITIN PO SCH (10:06)
[2017-01-30] MEDS: LOVENOX SUB-Q SCH (10:06)
[2017-01-30] MEDS: PAXIL PO SCH (10:06)
[2017-01-30] MEDS: ROBITUSSIN DM PO PRN (10:06)
[2017-01-30] MEDS ORDERED: NACL 0.9% 100 ML IV PRN (10:36)
--- NOTE | 2017-01-30 10:36 | Progress Note ---
Subjective Principal diagnosis: Atypical CP Interval history: patient was seen today for follow-up of multiple renal-related issues He tolerated dialysis treatment fairly well localized without any shortness of breath His normal dialysis days are Monday and Monday patient wants to know if he can receive his dialysis today He will be discharged today and is requesting dialysis Vitals last intake and output medications were reviewed HEENT: No pallor or icterus Neck: Supple no JVD Chest: Clear to auscultation Heart: Regular rate and rhythm Abdomen: Soft nontender no renal bruit Extremity examination no edema Neurological: Alert and awake oriented 4 Assessment and plan End-stage renal disease patient manages this is a Monday Will order for hemodialysis treatment today patient normally dialyzes 4 hours he has been appropriately counseled and educated regarding sodium fluid restriction etc. 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 upon discharge Will also benefit from pulmonary evaluation this can be done in the outpatient setting as well Patient did receive sufficient education about his renal-related issues here We'll continue to follow and make recommendation for renal standpoint Objective - Vital Signs Vital signs: Vital Signs - 12hr 01/29/17 01/30/17 01/30/17 23:43 00:00 02:00 Temperature 98.3 F Pulse Rate 76 71 73 Pulse Rate [ Anterior Bilateral Throughout] Respiratory 22 18 Rate Respiratory Rate [Anterior Bilateral Throughout] Blood Pressure 92/53 O2 Sat by Pulse 97 100 Oximetry 01/30/17 01/30/17 01/30/17 04:00 08:55 09:03 Temperature 98.7 F Pulse Rate 69 Pulse Rate [ 63 75 Anterior Bilateral Throughout] Respiratory 18 Rate Respiratory 20 20 Rate [Anterior Bilateral Throughout] Blood Pressure 100/54 O2 Sat by Pulse 100 95 Oximetry 01/30/17 09:34 Temperature 98.0 F Pulse Rate 78 Pulse Rate [ Anterior Bilateral Throughout] Respiratory 18 Rate Respiratory Rate [Anterior Bilateral Throughout] Blood Pressure 108/59 O2 Sat by Pulse 91 Oximetry - Lab 01/29/17 07:15 01/29/17 07:15 Most recent lab results Calcium 8.2 mg/dL (8.4-10.2) L 01/29/17 07:15
--- NOTE | 2017-01-30 11:02 | Progress Note ---
Assessment and Plan Atypical chest pain Chronically elevated troponin No significant ECG changes No ischemia by MPI 08/2016 Non-ischemic cardiomyopathy s/p AICD Normal coronaries in 2015 Systemic Hypertension End-stage renal disease HIV Recommendations: Fluid management through HD. Continue medical management for his nonischemic cardiomyopathy. Stable cardiac reilly. Subjective Date of service: 01/30/17 Principal diagnosis: Atypical CP Interval history: Patient reports continued coughs and congestion. Objective Vital Signs Temp Pulse Pulse Resp Resp Resp BP 01/30/17 10:40 72 01/30/17 09:34 98.0 F 78 18 108/59 01/30/17 09:03 75 20 01/30/17 08:55 63 20 01/30/17 04:00 98.7 F 69 18 100/54 01/30/17 02:00 73 01/30/17 00:00 98.3 F 71 18 92/53 01/29/17 23:43 76 22 01/29/17 22:00 18 18 01/29/17 21:45 74 98/57 01/29/17 21:42 18 01/29/17 20:00 98.1 F 73 18 98/57 01/29/17 19:46 78 18 01/29/17 19:36 74 18 01/29/17 18:42 68 01/29/17 16:40 97.7 F 72 20 113/56 01/29/17 13:50 75 20 01/29/17 13:39 72 20 01/29/17 12:00 98.1 F 73 18 102/56 Pulse Ox 01/30/17 10:40 01/30/17 09:34 91 01/30/17 09:03 01/30/17 08:55 95 01/30/17 04:00 100 01/30/17 02:00 01/30/17 00:00 100 01/29/17 23:43 97 01/29/17 22:00 96 01/29/17 21:45 01/29/17 21:42 01/29/17 20:00 99 01/29/17 19:46 01/29/17 19:36 94 01/29/17 18:42 01/29/17 16:40 97 01/29/17 13:50 01/29/17 13:39 01/29/17 12:00 98 - Physical Examination General: No Apparent Distress HEENT: Positive: PERRL Cardiac: Positive: Reg Rate and Rhythm - Imaging and Cardiology EKG: image reviewed
[2017-01-30] MEDS: BENADRYL IV PRN (14:06)
[2017-01-30 17:53] VITALS: BP 104/64
== END 2017-01-30 20:30 | disposition home or self-care (01) | DRG 291 ==
LOC: ED 20:39 → 4A 01-28 04:11
PROVIDERS: ADMIT Internal Medicine; ATTEND Internal Medicine
PROC: 4A033R1 Measurement of Arterial Saturation, Peripheral, Percutaneous Approach (ICD-10-PCS; principal; 2017-01-28)
PROC: 5A09357 Assistance with Respiratory Ventilation, Less than 24 Consecutive Hours, Continuous Positive Airway Pressure (ICD-10-PCS; 2017-01-28)
PROC: 5A1D60Z (ICD-10-PCS; 2017-01-28)
DX: I13.2 Hypertensive heart and chronic kidney disease with heart failure and with stage 5 chronic kidney disease, or end stage renal disease (principal); N18.6 End stage renal disease; B20 Human immunodeficiency virus [HIV] disease; I50.23 Acute on chronic systolic (congestive) heart failure; N25.81 Secondary hyperparathyroidism of renal origin; J06.9 Acute upper respiratory infection, unspecified; I42.8 Other cardiomyopathies; E11.22 Type 2 diabetes mellitus with diabetic chronic kidney disease; E78.5 Hyperlipidemia, unspecified; F41.9 Anxiety disorder, unspecified; G51.0 Bell's palsy; J44.9 Chronic obstructive pulmonary disease, unspecified; B19.20 Unspecified viral hepatitis C without hepatic coma; F17.210 Nicotine dependence, cigarettes, uncomplicated; E87.6 Hypokalemia; D63.1 Anemia in chronic kidney disease; Z71.3 Dietary counseling and surveillance; Z79.4 Long term (current) use of insulin; Z88.2 Allergy status to sulfonamides; Z82.49 Family history of ischemic heart disease and other diseases of the circulatory system; Z95.810 Presence of automatic (implantable) cardiac defibrillator; Z91.14 Patient's other noncompliance with medication regimen
CPT/HCPCS: 36415; 71020; 80048; 80061; 80074; 82550; 82553; 82803; 82962; 83690; 83880; 84484; 85007; 85025; 85610; 93005; 93010; 94640; 94760; 99291; A9270-GY; J1200; J1650; J1818; J2270; J2405; J7030

== ENCOUNTER 2017-03-13 07:34 | Inpatient (IN) | payer MEDICARE ==
[2017-03-13] MEDS ORDERED: MORPHINE IV ONE (10:18)
[2017-03-13] MEDS ORDERED: NITRO-BID 2% TP ONE (10:18)
[2017-03-13] MEDS ORDERED: ZOFRAN IV ONE (10:18)
[2017-03-13] MEDS ORDERED: ASPIRIN PO ONE (10:18)
--- NOTE | 2017-03-13 10:25 | Emergency Department Report ---
HPI - General Chief Complaint: Chest Pain Time Seen by Provider: 03/13/17 10:09 - HPI HPI: Room 5 The patient is a 61-year-old male presented with a chief complaint of chest pain. The patient states his symptoms began yesterday at 18:00 with left-sided chest pain. Patient states he took a nitroglycerin and the pain improved. The patient states the pain has been intermittent since last night. The patient states the pain is associated with shortness of breath and nausea/vomiting. Patient denies diaphoresis. Patient states his last stress test occurred approximately 6 months ago but he is not certain of the results. The patient states he is uncertain if he has ever had a cardiac catheterization Location: Left chest Duration: Intermittent since 18:00 yesterday Quality: Sharp/stabbing Severity: Moderate Modifying factors: [see above] Context: [see above] Mode of transportation: [not driving] ED Past Medical Hx - Past Medical History Hx Hypertension: Yes Hx Congestive Heart Failure: Yes Hx Diabetes: Yes Hx Renal Disease: Yes (Dialysis M, W, F) Hx Asthma: Yes Hx COPD: Yes Hx HIV: Yes Additional medical history: pancreatitis, left upper arm HD graft. bells palsy - Surgical History Hx Pacemaker: Yes Hx Internal Defibrillator: Yes Additional Surgical History: graft to left arm, R chest vas cath, DeFib - Family History Family history: no significant - Social History Smoking Status: Current Every Day Smoker Substance Use Type: None (denies illicit drug use) - Medications Home Medications: Home Medications Medication Instructions Recorded Confirmed Last Taken Type Albuterol Sulfate [Ventolin HFA] 8 mg IH DAILY 09/09/16 01/28/17 01/27/17 History Carvedilol [Coreg] 25 mg PO DAILY 09/09/16 01/28/17 01/27/17 History Cinacalcet HCl [Sensipar] 60 mg PO DAILY 09/09/16 01/28/17 01/27/17 History Etravirine [Intelence] 200 mg PO DAILY 09/09/16 01/28/17 01/27/17 History Fluticasone Propionate [Flovent 50 mcg IH TID PRN 09/09/16 01/28/17 01/27/17 History Diskus] Gemfibrozil [Lopid] 600 mg PO DAILY 09/09/16 01/28/17 01/27/17 History Insulin Glargine [Lantus VIAL] See Protocol SQ TID 09/09/16 01/28/17 01/27/17 History Ipratropium/Albuter (Nf) 1 puff IH DAILY 09/09/16 01/28/17 01/27/17 History [Combivent Inhaler] Ipratropium/Albuterol Sulfate 1 puff IH PRN PRN 09/09/16 01/28/17 01/27/17 History [DUONEB *Not for PRN Use*] Losartan [Cozaar] 25 mg PO DAILY 09/09/16 01/28/17 01/27/17 History Megestrol [Megace] 40 mg PO DAILY 09/09/16 01/28/17 01/27/17 History Omega3,5,6,7,9 No.1/[place] Oil 1 tab PO DAILY 09/09/16 01/28/17 01/27/17 History [Complete [place] Softgel] Paroxetine HCl [PARoxetine] 40 mg PO DAILY 09/09/16 01/28/17 01/27/17 History Raltegravir Potassium [Isentress] 400 mg PO DAILY 09/09/16 01/28/17 01/27/17 History Rosuvastatin (Nf) [Crestor] 10 mg PO DAILY 09/09/16 01/28/17 01/27/17 History Sevelamer Carbonate [Renvela] 800 mg PO TID 09/09/16 01/28/17 01/27/17 History Symbicort 160-4.5 (Nf) 160 mcg IH DAILY 09/09/16 01/28/17 01/27/17 History Triamcinolone 0.1% 0.1 mg TP TID PRN 09/09/16 01/28/17 01/27/17 History amLODIPine [Norvasc] 10 mg PO DAILY 09/09/16 01/28/17 01/27/17 History Gabapentin [Neurontin] 300 mg PO QHS 11/22/16 01/28/17 01/27/17 History Oxycodone HCl/Acetaminophen 1 each PO Q6HR PRN #20 tablet 11/22/16 01/28/17 Rx [Percocet 7.5/325 mg] Evotaz 300 mg-150 mg Tablet 1 tab PO DAILY 01/29/17 01/29/17 01/26/17 09:00 History Tivicay (Nf) 50 mg PO DAILY 01/29/17 01/29/17 01/26/17 09:00 History Acetaminophen [Acetaminophen TAB] 325 mg PO Q6H PRN #20 tablet 01/30/17 Unknown Rx Loratadine [Claritin] 10 mg PO Q48H #5 tablet 01/30/17 Unknown Rx guaiFENesin DM [Robitussin Dm] 10 ml PO Q4H PRN #1 bottle 01/30/17 Unknown Rx ED Review of Systems ROS: Stated complaint: CHEST PAIN Other details as noted in HPI Comment: All other systems reviewed and negative Constitutional: denies: chills, diaphoresis, fever Eyes: denies: eye pain, eye discharge, vision change ENT: denies: ear pain, throat pain Respiratory: shortness of breath Cardiovascular: chest pain Endocrine: no symptoms reported Gastrointestinal: nausea. denies: vomiting Genitourinary: denies: urgency, dysuria Musculoskeletal: denies: back pain, joint swelling, arthralgia Skin: denies: rash, lesions Neurological: denies: headache, weakness, paresthesias Psychiatric: denies: anxiety, depression Hematological/Lymphatic: denies: easy bleeding, easy bruising Physical Exam - Physical Exam Vital Signs: Vital Signs 03/13/17 07:57 Temperature 99.3 F Pulse Rate 64 Respiratory 18 Rate Blood Pressure 146/70 O2 Sat by Pulse 100 Oximetry Physical Exam: GENERAL: The patient is well-developed well-nourished male lying on stretcher not appearing to be in acute distress. [] HEENT: Normocephalic. Atraumatic. Extraocular motions are intact. Patient has moist mucous membranes. NECK: Supple. Trachea midline CHEST/LUNGS: Clear to auscultation. There is no respiratory distress noted. HEART/CARDIOVASCULAR: Regular. There is no tachycardia. There is no gallop rub or murmur. ABDOMEN: Abdomen is soft, nontender. Patient has normal bowel sounds. There is no abdominal distention. SKIN: There is no rash. There is no diaphoresis. NEURO: The patient is awake, alert, and oriented. The patient is cooperative. The patient has normal speech MUSCULOSKELETAL: There is no evidence of acute injury. ED Course Vital Signs 03/13/17 07:57 Temperature 99.3 F Pulse Rate 64 Respiratory 18 Rate Blood Pressure 146/70 O2 Sat by Pulse 100 Oximetry - Consultations Consultation #1: 03/13/17 10:[address] De Oliveira and Mary called- message given to office staff to inform physicians that Mr. Hinojosa will be admitted to the hospital for chest pain ED Medical Decision Making - Lab Data Result diagrams: 03/13/17 10:30 03/13/17 10:30 Laboratory Tests 03/13/17 03/13/17 03/13/17 10:19 10:30 10:30 WBC 5.7 RBC 3.55 L Hgb 10.9 L Hct 33.2 L MCV 94 MCH 31 MCHC 33 RDW 18.0 H Plt Count 143 Lymph % (Auto) 42.1 H [place] % (Auto) 15.0 H Eos % (Auto) 2.1 Baso % (Auto) 0.6 Lymph # 2.4 [place] # 0.9 H Eos # 0.1 Baso # 0.0 Seg Neutrophils % 40.2 Seg Neutrophils # 2.3 PT 14.8 INR 1.10 APTT 35.4 Sodium 139 Potassium 4.3 Chloride 95.9 L Carbon Dioxide 26 Anion Gap 21 BUN 50 H Creatinine 11.3 H Estimated GFR 6 BUN/Creatinine Ratio 4.42 Glucose 100 Calcium 8.8 Troponin T 0.178 H* - EKG Data -: EKG Interpreted by Me EKG shows normal: sinus rhythm Rate: normal - EKG Data When compared to previous EKG there are: previous EKG unavailable Interpretation: nonspecific ST-T wave shaheen (biphasic T-wave in lead 1, T wave inversion in lead aVL.) - Radiology Data Radiology results: image reviewed (chest x-ray) interpreted by me: Chest x-ray- cardiomegaly, venous congestion. No pneumothorax - Differential Diagnosis ACS, GERD, pericarditis, pneumothorax, pneumonia Critical care attestation.: If time is entered above; I have spent that time in minutes in the direct care of this critically ill patient, excluding procedure time. ED Disposition Clinical Impression: Chest pain, ESRD on hemodialysis Disposition: OP ADMIT IP TO THIS HOSP Is pt being admited?: Yes Does the pt Need Aspirin: Yes Condition: Fair Instructions: Chest Pain (ED) Referrals: PRIMARY CARE, [Primary Care Provider] - 3-5 Days Time of Disposition: 11:12 (hospitalist paged)
[2017-03-13 10:45] LABS: INR 1.1 (0.87-1.13)
[2017-03-13 10:46] LABS: Partial Thromboplastin Time 35.4 Sec. (24.2-36.6)
--- NOTE | 2017-03-13 10:58 | XRay Report ---
Single view chest: Compared to 01/27/17. History: Chest pain. Findings: Cardiomegaly. Trachea is midline. Mild pulmonary venous congestion. No consolidation or pleural effusion. No significant interval change. Impression: No significant interval change.
[2017-03-13 10:59] LABS: BUN/Creatinine Ratio 4.42; Calcium 8.8 mg/dL (8.4-10.2); Chloride 95.9 mmol/L (98-107); Potassium 4.3 mmol/L (3.6-5.0)
[2017-03-13 11:07] LABS: Basophils % (Auto) 0.6 % (0.0-1.8); Eosinophils % (Auto) 2.1 % (0.0-4.3); Hematocrit 33.2 % (35.5-45.6); Hemoglobin 10.9 gm/dl (11.8-15.2); Mean Corpuscular HGB Conc 33 % (32-34); Mean Corpuscular Hemoglobin 31 pg (28-32); Mean Corpuscular Volume 94 fl (84-94); Platelet Count 143 K/mm3 (140-440); Red Blood Count 3.55 M/mm3 (3.65-5.03); White Blood Count 5.7 K/mm3 (4.5-11.0)
--- NOTE | 2017-03-13 12:35 | History and Physical Report ---
History of Present Illness Date of admission: 03/13/17 11:42 Chief complaint: Im having pain in my chest History of present illness: 61 YO Male with Systolic CHF(EF 25%), HTN, ESRD (HD:M,W,F), Asthma, COPD, HIV, Nicotine Dependence presents to ED for evaluation. Pt states that he has experienced pain in his chest for the past day, with worsening pain over the past 4 hours. Pain is 7/10, Localized to the left chest, nonradiating, stabbing/ sharp in nature, nonradiating, associated with shortness of breath and diaphoresis. No reports of fever, chills, palpitations, Synope, prolonged travel /immobility, leg swelling, calf pain, individual/family hisotry of DVT/PE, productive cough, BRBPR, or recent ill contacts. Past History Past Medical History: COPD, ESRD, heart failure, HIV/AIDS, hypertension Past Surgical History: Other (AV Fistula, Permacath, ICD/Pacemaker) Social history: . denies: smoking, alcohol abuse Family history: CAD, hypertension Medications and Allergies Allergies Allergy/AdvReac Type Severity Reaction Status Date / Time sulfamethoxazole Allergy Anaphylaxis Verified 01/28/17 00:05 [From Bactrim] trimethoprim [From Bactrim] Allergy Anaphylaxis Verified 01/28/17 00:05 Home Medications Medication Instructions Recorded Confirmed Last Taken Type Albuterol Sulfate [Ventolin HFA] 8 mg IH DAILY 09/09/16 03/13/17 01/27/17 History Carvedilol [Coreg] 25 mg PO DAILY 09/09/16 03/13/17 03/12/17 History Cinacalcet HCl [Sensipar] 60 mg PO DAILY 09/09/16 03/13/17 03/12/17 History Etravirine [Intelence] 200 mg PO DAILY 09/09/16 03/13/17 03/12/17 History Fluticasone Propionate [Flovent 50 mcg IH TID PRN 09/09/16 03/13/17 01/27/17 History Diskus] Gemfibrozil [Lopid] 600 mg PO DAILY 09/09/16 03/13/17 03/12/17 History Insulin Glargine [Lantus VIAL] See Protocol SQ TID 09/09/16 03/13/17 03/12/17 History Ipratropium/Albuter (Nf) 1 puff IH DAILY 09/09/16 03/13/17 01/27/17 History [Combivent Inhaler] Losartan [Cozaar] 25 mg PO DAILY 09/09/16 03/13/17 03/12/17 History Megestrol [Megace] 40 mg PO DAILY 09/09/16 03/13/17 03/12/17 History Omega3,5,6,7,9 No.1/[place] Oil 1 tab PO DAILY 09/09/16 03/13/17 03/12/17 History [Complete [place] Softgel] Paroxetine HCl [PARoxetine] 40 mg PO DAILY 09/09/16 03/13/17 03/12/17 History Raltegravir Potassium [Isentress] 400 mg PO DAILY 09/09/16 03/13/17 03/12/17 History Rosuvastatin (Nf) [Crestor] 10 mg PO DAILY 09/09/16 03/13/17 03/12/17 History Sevelamer Carbonate [Renvela] 800 mg PO TID 09/09/16 03/13/17 03/12/17 History Symbicort 160-4.5 (Nf) 160 mcg IH DAILY 09/09/16 03/13/17 03/12/17 History Triamcinolone 0.1% 0.1 mg TP TID PRN 09/09/16 03/13/17 03/12/17 History amLODIPine [Norvasc] 10 mg PO DAILY 09/09/16 03/13/17 03/12/17 History Gabapentin [Neurontin] 300 mg PO QHS 11/22/16 03/13/17 03/12/17 History Oxycodone HCl/Acetaminophen 1 each PO Q6HR PRN #20 tablet 11/22/16 03/13/1706/28 Rx [Percocet 7.5/325 mg] Evotaz 300 mg-150 mg Tablet 1 tab PO DAILY 01/29/17 03/13/17 03/12/17 History Tivicay (Nf) 50 mg PO DAILY 01/29/17 03/13/17 03/12/17 History Loratadine [Claritin] 10 mg PO Q48H #5 tablet 01/30/17 03/13/17 03/12/17 Rx guaiFENesin DM [Robitussin Dm] 10 ml PO Q4H PRN #1 bottle 01/30/17 03/13/17 Unknown Rx Acetaminophen [Acetaminophen TAB] 650 mg PO Q6H PRN 03/13/17 03/13/17 03/12/17 History Review of Systems Constitutional: no weight loss, no weight gain, no fever, no chills Ears, nose, mouth and throat: no ear pain, no ear discharge, no tinnitis, no decreased hearing, no nose pain, no nasal congestion, no nasal discharge, no sinus pressure, no sinus pain Cardiovascular: chest pain, shortness of breath, no orthopnea, no palpitations, no rapid/irregular heart beat, no edema, no syncope Respiratory: no cough, no cough with sputum, no excessive sputum, no hemoptysis Gastrointestinal: no abdominal pain, no nausea, no vomiting, no diarrhea Genitourinary Male: no dysuria, no hematuria, no flank pain, no discharge, no urinary frequency Rectal: no pain, no incontinence, no bleeding Musculoskeletal: no neck stiffness, no neck pain, no shooting arm pain, no arm numbness/tingling, no low back pain, no shooting leg pain, no leg numbness/ tingling, no redness of joints Integumentary: no rash, no pruritis, no redness, no sores, no wounds, no jaundice Neurological: no head injury, no transient paralysis, no paralysis, no weakness , no parathesias, no numbness, no tingling, no seizures Psychiatric: no anxiety, no memory loss, no change in sleep habits, no sleep disturbances, no insomnia, no hypersomnia, no change in appetite, no change in libido, no suicidal ideation Endocrine: no cold intolerance, no heat intolerance, no polyphagia, no excessive thirst, no polydipsia, no polyuria, no nocturia, no excessive sweating Hematologic/Lymphatic: no easy bruising, no easy bleeding Allergic/Immunologic: no urticaria, no allergic rhinitis, no wheezing Exam - Constitutional Vitals: Temp Pulse Resp BP Pulse Ox 99.3 F 79 18 156/93 98 03/13/17 07:57 03/13/17 11:16 03/13/17 11:50 03/13/17 11:16 03/13/17 11:50 General appearance: Present: mild distress - EENT Eyes: Present: PERRL ENT: hearing intact, clear oral mucosa - Neck Neck: Present: supple, normal ROM - Respiratory Respiratory: bilateral: diminished - Cardiovascular Heart Sounds: Present: S1 & S2. Absent: rub, click - Extremities Extremities: pulses symmetrical, No edema Peripheral Pulses: within normal limits - Abdominal General gastrointestinal: Present: soft, non-tender, non-distended, normal bowel sounds Male genitourinary: Present: normal - Integumentary Integumentary: Present: clear, warm, dry - Musculoskeletal Musculoskeletal: gait normal, strength equal bilaterally - Psychiatric Psychiatric: appropriate mood/affect, intact judgment & insight - Neurologic Neurologic: CNII-XII intact, moves all extremities Results - Labs CBC & Chem 7: 03/13/17 10:30 03/13/17 10:30 Assessment and Plan - Patient Problems (1) CHF (congestive heart failure) Current Visit: Yes Status: Acute Qualifiers: Congestive heart failure type: systolic Congestive heart failure chronicity : acute on chronic Qualified Code(s): I50.23 - Acute on chronic systolic ( congestive) heart failure Plan to address problem: Cardiology consulted, Fluid restriction, afterload reduction, telemetry, diuresis, monitor uop q shift, dialysis as per renal team. (2) ACS (acute coronary syndrome) Current Visit: Yes Status: Acute Plan to address problem: Serial cardiac enzymes, ekg, telemetry, supportive care, (3) ESRD (end stage renal disease) Current Visit: Yes Status: Acute Plan to address problem: Nephrology consulted for dialysis, Renal diet, sodium restriction (4) HIV (human immunodeficiency virus infection) Current Visit: Yes Status: Acute Plan to address problem: resume home medication, outpatient ID F/u (5) DVT prophylaxis Current Visit: Yes Status: Acute
[2017-03-13] MEDS ORDERED: NACL 0.9% 100 ML IV PRN (12:53)
[2017-03-13] MEDS ORDERED: ZOFRAN IV PRN (13:08)
[2017-03-13] MEDS ORDERED: TYLENOL PO PRN (13:08)
[2017-03-13] MEDS ORDERED: PROVENTIL IH PRN (13:08)
--- NOTE | 2017-03-13 15:56 | Consultation ---
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 Pain is 7/10, nonradiating, stabbing/sharp in nature. We are consulted for management of his ESRD. He gets HD on MWF schedule and last dialysis was on Monday. Past Medical History: COPD, ESRD, heart failure, HIV/AIDS, hypertension Past Surgical History: Other (AV Fistula, Permacath, ICD/Pacemaker) Social history: . denies: smoking, alcohol abuse Family history: CAD, hypertension Medications and Allergies Allergies Allergy/AdvReac Type Severity Reaction Status Date / Time sulfamethoxazole Allergy Anaphylaxis Verified 01/28/17 00:05 [From Bactrim] trimethoprim [From Bactrim] Allergy Anaphylaxis Verified 01/28/17 00:05 Home Medications Medication Instructions Recorded Confirmed Last Taken Type Albuterol Sulfate [Ventolin HFA] 8 mg IH DAILY 09/09/16 03/13/17 01/27/17 History Carvedilol [Coreg] 25 mg PO DAILY 09/09/16 03/13/17 03/12/17 History Cinacalcet HCl [Sensipar] 60 mg PO DAILY 09/09/16 03/13/17 03/12/17 History Etravirine [Intelence] 200 mg PO DAILY 09/09/16 03/13/17 03/12/17 History Fluticasone Propionate [Flovent 50 mcg IH TID PRN 09/09/16 03/13/17 01/27/17 History Diskus] Gemfibrozil [Lopid] 600 mg PO DAILY 09/09/16 03/13/17 03/12/17 History Insulin Glargine [Lantus VIAL] See Protocol SQ TID 09/09/16 03/13/17 03/12/17 History Ipratropium/Albuter (Nf) 1 puff IH DAILY 09/09/16 03/13/17 01/27/17 History [Combivent Inhaler] Losartan [Cozaar] 25 mg PO DAILY 09/09/16 03/13/17 03/12/17 History Megestrol [Megace] 40 mg PO DAILY 09/09/16 03/13/17 03/12/17 History Omega3,5,6,7,9 No.1/[place] Oil 1 tab PO DAILY 09/09/16 03/13/17 03/12/17 History [Complete [place] Softgel] Paroxetine HCl [PARoxetine] 40 mg PO DAILY 09/09/16 03/13/17 03/12/17 History Raltegravir Potassium [Isentress] 400 mg PO DAILY 09/09/16 03/13/17 03/12/17 History Rosuvastatin (Nf) [Crestor] 10 mg PO DAILY 09/09/16 03/13/17 03/12/17 History Sevelamer Carbonate [Renvela] 800 mg PO TID 09/09/16 03/13/17 03/12/17 History Symbicort 160-4.5 (Nf) 160 mcg IH DAILY 09/09/16 03/13/17 03/12/17 History Triamcinolone 0.1% 0.1 mg TP TID PRN 09/09/16 03/13/17 03/12/17 History amLODIPine [Norvasc] 10 mg PO DAILY 09/09/16 03/13/17 03/12/17 History Gabapentin [Neurontin] 300 mg PO QHS 11/22/16 03/13/17 03/12/17 History Oxycodone HCl/Acetaminophen 1 each PO Q6HR PRN #20 tablet 11/22/16 03/13/1706/28 Rx [Percocet 7.5/325 mg] Evotaz 300 mg-150 mg Tablet 1 tab PO DAILY 01/29/17 03/13/17 03/12/17 History Tivicay (Nf) 50 mg PO DAILY 01/29/17 03/13/17 03/12/17 History Loratadine [Claritin] 10 mg PO Q48H #5 tablet 01/30/17 03/13/17 03/12/17 Rx guaiFENesin DM [Robitussin Dm] 10 ml PO Q4H PRN #1 bottle 01/30/17 03/13/17 Unknown Rx Acetaminophen [Acetaminophen TAB] 650 mg PO Q6H PRN 03/13/17 03/13/17 03/12/17 History Active Meds: Active Medications Acetaminophen (Tylenol) 650 mg PO Q4H PRN PRN Reason: Pain MILD(1-3)/Fever >100.5/BA Albuterol (Proventil) 2.5 mg IH Q4HRT PRN PRN Reason: Shortness Of Breath Furosemide (Lasix) 20 mg IV BID@0600,1800 TRICIA Sodium Chloride (Nacl 0.9%) 100 mls @ 999 mls/hr IV SIENA PRN PRN Reason: Hypotension Ondansetron HCl (Zofran) 4 mg IV Q8H PRN PRN Reason: N/V unrelieved by [facility] Review of Systems Constitutional: no fever, no chills, no fatigue, no poor appetite, no daytime sleepiness Ears, nose, mouth and throat: no ear pain, no ear discharge, no tinnitis Cardiovascular: chest pain, shortness of breath, no orthopnea, no palpitations, no rapid/irregular heart beat Respiratory: no cough, no shortness of breath Gastrointestinal: no abdominal pain, no nausea, no vomiting, no diarrhea, no constipation Genitourinary Male: no dysuria, no hematuria, no flank pain, no discharge Rectal: no pain, no incontinence Musculoskeletal: no neck pain, no shooting arm pain, no low back pain Integumentary: no rash, no pruritis, no redness Neurological: no paralysis, no weakness, no parathesias Psychiatric: no memory loss, no change in sleep habits, no sleep disturbances Endocrine: no cold intolerance, no heat intolerance Hematologic/Lymphatic: no easy bruising, no easy bleeding Allergic/Immunologic: no urticaria Exam - Vital Signs Vital signs: Vital Signs Temp Pulse Resp BP Pulse Ox 99.3 F 64 18 146/70 100 03/13/17 07:57 03/13/17 07:57 03/13/17 07:57 03/13/17 07:57 03/13/17 07:57 - General Appearance General appearance: well-developed, well-nourished, appears stated age EENT: PERRL, mucous membranes moist Neck: Present: neck supple, trachea midline. Absent: JVD/HJR, Masses Respiratory: Clear to Ascultation Heart: regular, normal heart rate, S1S2, no murmurs Gastrointestinal: Present: normoactive bowel sounds. Absent: tenderness Integumentary: no rash, warm and dry Neurologic: no focal deficit, alert and oriented x3, gait normal, strength 5/5 Musculoskeletal: Absent: deformities, joint swelling Psychiatric: mood/affect appropriate, cooperative Results - Lab Results 03/13/17 10:30 03/13/17 10:30 Most recent lab results Calcium 8.8 mg/dL (8.4-10.2) 03/13/17 10:30 Assessment and Plan (1) ESRD on HD (2) Fluid overload (3) ACS (acute coronary syndrome) (4) Anemia of ESRD (5) HIV (human immunodeficiency virus infection) Plan: - HD arrangements made. Will plan to remove 3-4 L as BP/HR allows -EPogen on dialysis -Cardio work up -Further recommendations to follow. Thank you for the consult
--- NOTE | 2017-03-13 17:35 | Consultation ---
History of Present Illness Consult date: 03/13/17 Consult reason: congestive heart failure History of present illness: This is a 61yr old man with end-stage renal disease on hemodialysis. He also has a dilated nonischemic cardiomyopathy. His cardiomyopathy dates to several years ago when he lived in [place]. A cardiac catheterization at that time demonstrated no significant coronary disease, and established a severe nonischemic cardiomyopathy. He has an indwelling ICD. Serial outpatient left ventricular function assessment with echo have documented a left ventricle ejection fraction about 20%. Most recent cardiac workup was a normal stress thallium test 6 months ago that reports no ischemia. He is admitted to the hospital at this time chest pain. Patient reports intermittent chest pain over the last 2 days relieved with chest pain. He denies missed dialysis. He denies AICD discharge. Cardiology consultation was requested. Past History Past Medical History: COPD, ESRD, heart failure, HIV/AIDS, hypertension Past Surgical History: Other (AV Fistula, Permacath, ICD/Pacemaker) Social history: . denies: smoking, alcohol abuse Family history: CAD, hypertension Medications and Allergies Allergies Allergy/AdvReac Type Severity Reaction Status Date / Time sulfamethoxazole Allergy Anaphylaxis Verified 01/28/17 00:05 [From Bactrim] trimethoprim [From Bactrim] Allergy Anaphylaxis Verified 01/28/17 00:05 Home Medications Medication Instructions Recorded Confirmed Last Taken Type Albuterol Sulfate [Ventolin HFA] 8 mg IH DAILY 09/09/16 03/13/17 01/27/17 History Carvedilol [Coreg] 25 mg PO DAILY 09/09/16 03/13/17 03/12/17 History Cinacalcet HCl [Sensipar] 60 mg PO DAILY 09/09/16 03/13/17 03/12/17 History Etravirine [Intelence] 200 mg PO DAILY 09/09/16 03/13/17 03/12/17 History Fluticasone Propionate [Flovent 50 mcg IH TID PRN 09/09/16 03/13/17 01/27/17 History Diskus] Gemfibrozil [Lopid] 600 mg PO DAILY 09/09/16 03/13/17 03/12/17 History Insulin Glargine [Lantus VIAL] See Protocol SQ TID 09/09/16 03/13/17 03/12/17 History Ipratropium/Albuter (Nf) 1 puff IH DAILY 09/09/16 03/13/17 01/27/17 History [Combivent Inhaler] Losartan [Cozaar] 25 mg PO DAILY 09/09/16 03/13/17 03/12/17 History Megestrol [Megace] 40 mg PO DAILY 09/09/16 03/13/17 03/12/17 History Omega3,5,6,7,9 No.1/Wallace Oil 1 tab PO DAILY 09/09/16 03/13/17 03/12/17 History [Complete [place] Softgel] Paroxetine HCl [PARoxetine] 40 mg PO DAILY 09/09/16 03/13/17 03/12/17 History Raltegravir Potassium [Isentress] 400 mg PO DAILY 09/09/16 03/13/17 03/12/17 History Rosuvastatin (Nf) [Crestor] 10 mg PO DAILY 09/09/16 03/13/17 03/12/17 History Sevelamer Carbonate [Renvela] 800 mg PO TID 09/09/16 03/13/17 03/12/17 History Symbicort 160-4.5 (Nf) 160 mcg IH DAILY 09/09/16 03/13/17 03/12/17 History Triamcinolone 0.1% 0.1 mg TP TID PRN 09/09/16 03/13/17 03/12/17 History amLODIPine [Norvasc] 10 mg PO DAILY 09/09/16 03/13/17 03/12/17 History Gabapentin [Neurontin] 300 mg PO QHS 11/22/16 03/13/17 03/12/17 History Oxycodone HCl/Acetaminophen 1 each PO Q6HR PRN #20 tablet 11/22/16 03/13/1706/28 Rx [Percocet 7.5/325 mg] Evotaz 300 mg-150 mg Tablet 1 tab PO DAILY 01/29/17 03/13/17 03/12/17 History Tivicay (Nf) 50 mg PO DAILY 01/29/17 03/13/17 03/12/17 History Loratadine [Claritin] 10 mg PO Q48H #5 tablet 01/30/17 03/13/17 03/12/17 Rx guaiFENesin DM [Robitussin Dm] 10 ml PO Q4H PRN #1 bottle 01/30/17 03/13/17 Unknown Rx Acetaminophen [Acetaminophen TAB] 650 mg PO Q6H PRN 03/13/17 03/13/17 03/12/17 History Active Meds: Active Medications Acetaminophen (Tylenol) 650 mg PO Q4H PRN PRN Reason: Pain MILD(1-3)/Fever >100.5/BA Albuterol (Proventil) 2.5 mg IH Q4HRT PRN PRN Reason: Shortness Of Breath Furosemide (Lasix) 20 mg IV BID@0600,1800 TRICIA Sodium Chloride (Nacl 0.9%) 100 mls @ 999 mls/hr IV SIENA PRN PRN Reason: Hypotension Ondansetron HCl (Zofran) 4 mg IV Q8H PRN PRN Reason: N/V unrelieved by Reglan Physical Examination Vital Signs Temp Pulse Resp BP Pulse Ox 99.3 F 64 18 146/70 100 03/13/17 07:57 03/13/17 07:57 03/13/17 07:57 03/13/17 07:57 03/13/17 07:57 General appearance: no acute distress HEENT: Positive: PERRL Neck: Positive: trachea midline Cardiac: Positive: Reg Rate and Rhythm Results 03/13/17 10:30 03/13/17 10:30 Assessment and Plan Atypical chest pain Chronically elevated troponin No significant ECG changes No ischemia by MPI 08/2016 Non-ischemic cardiomyopathy s/p AICD Normal coronaries in 2014 Hypertension End-stage renal disease on HD HIV disease Hx of COPD on home O2
[2017-03-13] MEDS: LASIX IV SCH (17:51)
[2017-03-13] MEDS: COZAAR PO SCH (20:37)
[2017-03-13] MEDS: COREG PO SCH (22:24)
[2017-03-14] MEDS: LASIX IV SCH ×2 (06:04→17:09)
[2017-03-14] MEDS: COREG PO SCH ×2 (09:29→21:51)
[2017-03-14] MEDS: COZAAR PO SCH (09:29)
--- NOTE | 2017-03-14 10:32 | Progress Note ---
Assessment and Plan (1) ESRD on HD (2) Fluid overload (3) ACS (acute coronary syndrome) (4) Anemia of ESRD (5) HIV (human immunodeficiency virus infection) Plan: - HD terminated 40 minutes early per pt request yesterday. 2.5 L fluid removed. - Next HD on Monday - Epogen on dialysis -D/c planning per primary team Subjective Date of service: 03/14/17 Interval history: +SOB Objective - Exam Narrative Exam: General appearance: well-developed, well-nourished, appears stated age EENT: PERRL, mucous membranes moist Neck: Present: neck supple, trachea midline. Absent: JVD/HJR, Masses Respiratory: Clear to Ascultation Heart: regular, normal heart rate, S1S2, no murmurs Gastrointestinal: Present: normoactive bowel sounds. Absent: tenderness Integumentary: no rash, warm and dry Neurologic: no focal deficit, alert and oriented x3, gait normal, strength 5/5 Musculoskeletal: Absent: deformities, joint swelling Psychiatric: mood/affect appropriate, cooperative - Vital Signs Vital signs: Vital Signs - 12hr 03/13/17 03/14/17 03/14/17 23:43 04:34 08:01 Temperature 98.6 F 98.6 F 98.8 F Pulse Rate 86 77 Respiratory 20 20 Rate Blood Pressure 146/84 133/83 108/65 O2 Sat by Pulse 98 94 Oximetry - Lab 03/13/17 10:30 03/13/17 10:30 Most recent lab results Calcium 8.8 mg/dL (8.4-10.2) 03/13/17 10:30
[2017-03-14] MEDS ORDERED: TYLENOL PO PRN (11:16)
[2017-03-14] MEDS ORDERED: TRIAMCINOLONE TP PRN (11:16)
[2017-03-14] MEDS ORDERED: NON-FORMULARY (Oxycodone Hcl/Acetaminophen [Percocet 7.5/325 Mg] 1 EACH) PO PRN (11:16)
[2017-03-14] MEDS ORDERED: EVOTAZ PO SCH (11:30)
[2017-03-14] MEDS ORDERED: NON-FORMULARY (Ipratropium/Albuter (Nf) 1 PUFF) IH SCH (11:30)
[2017-03-14] MEDS ORDERED: NON-FORMULARY (Paroxetine Hcl [Paroxetine] 40 MG) PO SCH (11:30)
[2017-03-14] MEDS ORDERED: NON-FORMULARY (Etravirine [Intelence] 200 MG) PO SCH (11:30)
[2017-03-14] MEDS ORDERED: NON-FORMULARY (Cinacalcet Hcl [Sensipar] 60 MG) PO SCH (11:30)
[2017-03-14] MEDS ORDERED: GEMFIBROZIL 600 MG PO SCH (11:30)
[2017-03-14] MEDS ORDERED: SYMBICORT 160 MCG IH SCH (11:30)
[2017-03-14] MEDS ORDERED: TIVICAY 50 MG PO SCH (11:30)
--- NOTE | 2017-03-14 11:43 | Progress Note ---
Assessment and Plan Chest pain, musculoskeletal Chronically elevated troponin No significant ECG changes No ischemia by MPI 08/2016 Non-ischemic cardiomyopathy, EF 20-25% s/p AICD Normal coronaries in 2015 Hypertension End-stage renal disease on HD HIV disease Hx of COPD on home O2 Recommendations: Medical therapy for dilated nonischemic cardiomyopathy. Hemodialysis for fluid management. Subjective Date of service: 03/14/17 Interval history: Patient complains of coughs followed by musculoskeletal chest pain. Chest pain reproducible with palpation. Objective Vital Signs Temp Pulse Resp Resp Resp BP BP 03/14/17 10:00 18 18 20 03/14/17 08:01 98.8 F 108/65 03/14/17 04:34 98.6 F 77 20 133/83 03/13/17 23:43 98.6 F 86 20 146/84 03/13/17 20:28 03/13/17 20:25 97.5 F L 84 20 132/80 03/13/17 20:15 84 03/13/17 19:40 60 13 141/81 03/13/17 19:30 63 16 141/81 03/13/17 19:20 65 10 L 141/81 03/13/17 19:10 67 12 141/81 03/13/17 19:00 71 11 L 141/81 03/13/17 18:50 75 10 L 171/77 03/13/17 18:40 65 18 171/77 03/13/17 18:30 97.3 F L 75 20 171/77 148/81 03/13/17 18:20 77 22 171/77 03/13/17 18:10 63 19 171/77 03/13/17 18:00 64 13 155/77 03/13/17 17:50 62 18 155/77 03/13/17 17:40 65 18 155/77 03/13/17 17:30 65 10 L 155/77 03/13/17 17:20 66 16 155/77 03/13/17 17:10 64 11 L 155/77 03/13/17 17:00 58 L 18 155/77 03/13/17 16:50 59 L 19 159/75 03/13/17 16:40 98.3 F 66 12 159/75 03/13/17 16:30 59 L 20 159/75 03/13/17 16:20 59 L 14 159/75 03/13/17 16:15 74 141/77 03/13/17 16:10 59 L 16 165/85 03/13/17 16:00 58 L 21 165/85 03/13/17 15:52 63 159/75 03/13/17 15:45 71 144/72 03/13/17 15:30 72 129/67 03/13/17 15:15 72 140/73 03/13/17 15:00 58 L 13 159/75 03/13/17 14:50 60 12 152/73 03/13/17 14:45 69 137/71 03/13/17 14:40 62 22 152/73 03/13/17 14:30 58 L 18 152/73 03/13/17 14:20 57 L 10 L 152/73 03/13/17 14:16 45 L 14 155/89 03/13/17 14:00 79 156/83 03/13/17 13:45 76 159/90 03/13/17 13:35 98.3 F 76 20 151/77 03/13/17 13:10 74 155/89 03/13/17 13:00 75 155/89 03/13/17 12:50 75 145/95 03/13/17 12:40 77 145/95 03/13/17 12:30 75 145/95 03/13/17 12:20 76 145/95 03/13/17 12:10 78 145/95 03/13/17 12:00 79 145/95 03/13/17 11:50 77 18 155/98 Pulse Ox 03/14/17 10:00 99 03/14/17 08:01 03/14/17 04:34 94 03/13/17 23:43 98 03/13/17 20:28 97 03/13/17 20:25 99 03/13/17 20:15 03/13/17 19:40 100 03/13/17 19:30 72 L 03/13/17 19:20 89 03/13/17 19:10 03/13/17 19:00 84 03/13/17 18:50 99 03/13/17 18:40 95 03/13/17 18:30 96 03/13/17 18:20 96 03/13/17 18:10 99 03/13/17 18:00 96 03/13/17 17:50 98 03/13/17 17:40 84 03/13/17 17:30 57 L 03/13/17 17:20 03/13/17 17:10 03/13/17 17:00 03/13/17 16:50 03/13/17 16:40 03/13/17 16:30 03/13/17 16:20 03/13/17 16:15 03/13/17 16:10 03/13/17 16:00 87 03/13/17 15:52 03/13/17 15:45 03/13/17 15:30 03/13/17 15:15 03/13/17 15:00 03/13/17 14:50 03/13/17 14:45 03/13/17 14:40 100 03/13/17 14:30 99 03/13/17 14:20 100 03/13/17 14:16 03/13/17 14:00 03/13/17 13:45 03/13/17 13:35 03/13/17 13:10 98 03/13/17 13:00 99 03/13/17 12:50 98 03/13/17 12:40 98 03/13/17 12:30 98 03/13/17 12:20 99 03/13/17 12:10 98 03/13/17 12:00 98 03/13/17 11:50 99 - Physical Examination General: No Apparent Distress HEENT: Positive: PERRL Neck: Positive: trachea midline Cardiac: Positive: Reg Rate and Rhythm Lungs: Positive: Decreased Breath Sounds Neuro: Positive: Grossly Intact
[2017-03-14] MEDS: PERCOCET 5/325 PO PRN ×2 (11:56→18:07)
[2017-03-14] MEDS: ROXICODONE PO PRN ×2 (11:57→18:07)
[2017-03-14] MEDS ORDERED: CLARITIN PO SCH (12:00)
[2017-03-14] MEDS ORDERED: ISENTRESS PO SCH (12:00)
[2017-03-14] MEDS: LOPID PO SCH (12:23)
[2017-03-14] MEDS: PAXIL PO SCH (12:24)
[2017-03-14] MEDS: NORVASC PO SCH (12:24)
[2017-03-14] MEDS: SENSIPAR PO SCH (12:24)
[2017-03-14] MEDS: RENVELA PO SCH ×2 (14:02→21:51)
--- NOTE | 2017-03-14 15:28 | Progress Note ---
Assessment and Plan Assessment and plan: Chest pain, to r/o acute coronary syndrome. cardiology following. On Aspirin, coreg ESRD on dialysis. Nephrology managing dialysis Chronic respiratory failure due to COPD. He is on home oxygen. Willl continue oxygen at discharge. Non ischemic cardiomyopathy with EF 20-25% COPD, stable, no acute exacerbation HIV. Continue HAART medications. Hypertension. BP stable on Coreg, losartan Dyslipidemia. On Crestor, Lopid DVT prophylaxis Full code status. I discussed plan with patient History Interval history: Chest pain on and off, No shortness of breath, no fever Hospitalist Physical - Physical exam Narrative exam: Gen Appearance: Not in acute distress,obese,sitting up in bed HEENT: normocephalic, atraumatic Neck: supple, no JVD Lungs: Clear to auscultation, no rales, no wheezing, Heart: S1 and S2 regular, no murmurs,no rubs or gallop, Abdomen: Soft , non tender, non distended, normal bowel sounds Extremity: No edema, no clubbing or cyanosis, Neuro : Awake,alert, oriented x 3, normal speech, moves all extremities - Constitutional Vitals: Temp Pulse Resp BP Pulse Ox 98.4 F 70 18 122/70 99 03/14/17 13:07 03/14/17 12:00 03/14/17 13:07 03/14/17 13:07 03/14/17 10:00 General appearance: Present: no acute distress Results - Labs CBC & Chem 7: 03/13/17 10:30 03/13/17 10:30 Labs: Laboratory Last Values WBC 5.7 K/mm3 (4.5-11.0) 03/13/17 10:30 RBC 3.55 M/mm3 (3.65-5.03) L 03/13/17 10:30 Hgb 10.9 gm/dl (11.8-15.2) L 03/13/17 10:30 Hct 33.2 % (35.5-45.6) L 03/13/17 10:30 MCV 94 fl (84-94) 03/13/17 10:30 MCH 31 pg (28-32) 03/13/17 10:30 MCHC 33 % (32-34) 03/13/17 10:30 RDW 18.0 % (13.2-15.2) H 03/13/17 10:30 Plt Count 143 K/mm3 (140-440) 03/13/17 10:30 Lymph % (Auto) 42.1 % (13.4-35.0) H 03/13/17 10:30 Daniels % (Auto) 15.0 % (0.0-7.3) H 03/13/17 10:30 Eos % (Auto) 2.1 % (0.0-4.3) 03/13/17 10:30 Baso % (Auto) 0.6 % (0.0-1.8) 03/13/17 10:30 Lymph # 2.4 K/mm3 (1.2-5.4) 03/13/17 10:30 Daniels # 0.9 K/mm3 (0.0-0.8) H 03/13/17 10:30 Eos # 0.1 K/mm3 (0.0-0.4) 03/13/17 10:30 Baso # 0.0 K/mm3 (0.0-0.1) 03/13/17 10:30 Seg Neutrophils % 40.2 % (40.0-70.0) 03/13/17 10:30 Seg Neutrophils # 2.3 K/mm3 (1.8-7.7) 03/13/17 10:30 PT 14.8 Sec. (12.2-14.9) 03/13/17 10:19 INR 1.10 (0.87-1.13) 03/13/17 10:19 APTT 35.4 Sec. (24.2-36.6) 03/13/17 10:19 Sodium 139 mmol/L (137-145) 03/13/17 10:30 Potassium 4.3 mmol/L (3.6-5.0) 03/13/17 10:30 Chloride 95.9 mmol/L (98-107) L 03/13/17 10:30 Carbon Dioxide 26 mmol/L (22-30) 03/13/17 10:30 Anion Gap 21 mmol/L 03/13/17 10:30 BUN 50 mg/dL (9-20) H 03/13/17 10:30 Creatinine 11.3 mg/dL (0.8-1.5) H 03/13/17 10:30 Estimated GFR 6 ml/min 03/13/17 10:30 BUN/Creatinine Ratio 4.42 % 03/13/17 10:30 Glucose 100 mg/dL (75-100) 03/13/17 10:30 POC Glucose 104 (70-105) 03/13/17 22:27 Calcium 8.8 mg/dL (8.4-10.2) 03/13/17 10:30 Troponin T 0.191 ng/mL (0.00-0.029) H* 03/13/17 19:05 Triglycerides 252 mg/dL (2-149) H 03/13/17 10:30 Cholesterol 132 mg/dL (50-199) 03/13/17 10:30 LDL Cholesterol Direct 61 mg/dL (50-130) 03/13/17 10:30 HDL Cholesterol 21 mg/dL (40-59) L 03/13/17 10:30 Cholesterol/HDL Ratio 6.28 % 03/13/17 10:30
[2017-03-14] MEDS: HABITROL TD SCH (18:06)
[2017-03-14] MEDS ORDERED: DUONEB *Not for PRN Use IH SCH (19:30)
[2017-03-14] MEDS ORDERED: PULMICORT IH SCH (20:00)
[2017-03-14] MEDS ORDERED: KENALOG TP SCH (20:00)
[2017-03-14] MEDS ORDERED: KENALOG TP PRN (20:00)
[2017-03-14] MEDS: BROVANA NEBU IH SCH (21:23)
[2017-03-14] MEDS: PULMICORT IH SCH (21:23)
[2017-03-14] MEDS ORDERED: NEURONTIN PO SCH (22:00)
[2017-03-15] MEDS ORDERED: PROVENTIL IH PRN
[2017-03-15] MEDS: LASIX IV SCH ×2 (06:42→18:00)
[2017-03-15] MEDS: PULMICORT IH SCH (07:46)
[2017-03-15] MEDS: BROVANA NEBU IH SCH (07:46)
[2017-03-15] MEDS: RENVELA PO SCH ×2 (08:37→13:16)
--- NOTE | 2017-03-15 09:11 | Progress Note ---
Assessment and Plan Chest pain, musculoskeletal Chronically elevated troponin No significant ECG changes No ischemia by MPI 08/2016 Non-ischemic cardiomyopathy, EF 20-25% s/p AICD Normal coronaries in 2015 Hypertension End-stage renal disease on HD HIV disease Hx of COPD on home O2 Subjective Date of service: 03/15/17 Interval history: Patient complains of coughs and congestion. Objective Vital Signs Temp Pulse Pulse Resp Resp Resp Resp 03/15/17 05:00 98.1 F 69 18 03/15/17 01:56 20 03/14/17 23:35 98.1 F 73 18 03/14/17 21:25 85 22 03/14/17 21:15 03/14/17 21:10 80 20 03/14/17 20:25 80 18 20 03/14/17 19:38 98.2 F 80 18 03/14/17 18:07 20 03/14/17 16:43 98.0 F 20 03/14/17 13:07 98.4 F 18 03/14/17 12:57 20 03/14/17 12:00 70 03/14/17 11:57 20 03/14/17 10:00 18 18 20 BP Pulse Ox 03/15/17 05:00 117/63 93 03/15/17 01:56 03/14/17 23:35 130/78 98 03/14/17 21:25 03/14/17 21:15 95 03/14/17 21:10 03/14/17 20:25 03/14/17 19:38 138/73 100 03/14/17 18:07 03/14/17 16:43 134/72 03/14/17 13:07 122/70 03/14/17 12:57 03/14/17 12:00 03/14/17 11:57 03/14/17 10:00 99 - Physical Examination General: No Apparent Distress HEENT: Positive: PERRL Neck: Positive: trachea midline Cardiac: Positive: Reg Rate and Rhythm Lungs: Positive: Decreased Breath Sounds Neuro: Positive: Grossly Intact
[2017-03-15] MEDS: PAXIL PO SCH (09:24)
[2017-03-15] MEDS: HABITROL TD SCH (09:25)
[2017-03-15] MEDS: SENSIPAR PO SCH (09:25)
[2017-03-15] MEDS: LOPID PO SCH (09:25)
[2017-03-15] MEDS: NORVASC PO SCH (10:00)
[2017-03-15] MEDS ORDERED: NON-FORMULARY (Rosuvastatin (Nf) 10 MG) PO SCH ×2 (10:00)
[2017-03-15] MEDS ORDERED: FISH OIL PO SCH (10:00)
[2017-03-15] MEDS ORDERED: DUONEB *Not for PRN Use IH SCH (10:00)
[2017-03-15] MEDS ORDERED: [UNRECOGNIZED DRUG - REMARK] PO SCH (10:00)
[2017-03-15] MEDS ORDERED: MEGACE PO SCH (10:00)
[2017-03-15] MEDS ORDERED: COZAAR PO SCH (10:00)
[2017-03-15] MEDS ORDERED: ISENTRESS PO SCH (10:00)
[2017-03-15] MEDS: COREG PO SCH (10:00)
--- NOTE | 2017-03-15 11:02 | Discharge Summary ---
Providers - Providers Date of Admission: 03/13/17 11:42 Date of discharge: 03/15/17 Attending physician: SAMANTHA JAY 03/13/17 12:26 Consult to Physician [CONS] Urgent Consulting Provider: LAXMI BRIGGS Reason For Exam: esrd Place consult to:: office Notified:: yes Phone number called:: [phone] Was contact made?: Yes If yes, spoke with:: Silviano Time called:: 12:39 03/13/17 13:09 Consult to Cardiology [CONS] Routine Consulting Provider: ANDREW RAMOS Reason For Exam: chf Primary care physician: MEDICAID ELIGIBILITY SPECIALIST Hospitalization Condition: Fair Disposition: DC-01 TO HOME OR SELFCARE - Discharge Diagnoses (1) Chest pain Status: Acute Qualifiers: Chest pain type: C Ischemic chest pain type: I Core Measure Documentation - Palliative Care Palliative Care/ Comfort Measures: Not Applicable Exam - Physical Exam Narrative exam: Gen Appearance: Not in acute distress,obese,sitting up in bed HEENT: normocephalic, atraumatic Neck: supple, no JVD Lungs: Clear to auscultation, no rales, no wheezing, Heart: S1 and S2 regular, no murmurs,no rubs or gallop, Abdomen: Soft , non tender, non distended, normal bowel sounds Extremity: No edema, no clubbing or cyanosis, Neuro : Awake,alert, oriented x 3, normal speech, moves all extremities - Constitutional Vitals: Temp Pulse Resp BP Pulse Ox 98.2 F 68 18 134/77 94 03/15/17 10:13 03/15/17 10:13 03/15/17 05:00 03/15/17 10:13 03/15/17 08:02 Plan Activity: advance as tolerated Diet: low fat, low cholesterol, low salt, diabetic, renal Additional Instructions: 1.Follow up with PCP in 1 week. 2.Follow up with cardiology in 1 week. 3.Continue routine hemodialysis. 4.Continue home Oxygen continuously. Follow up with: PRIMARY CAREMD [Primary Care Provider] - 3-5 Days
[2017-03-15] MEDS ORDERED: NACL 0.9% 100 ML IV PRN (11:47)
--- NOTE | 2017-03-15 12:10 | Progress Note ---
Assessment and Plan (1) ESRD on HD (2) Fluid overload (3) ACS (acute coronary syndrome) (4) Anemia of ESRD (5) HIV (human immunodeficiency virus infection) Plan: - HD today. - Epogen on dialysis -D/c planning per primary team Subjective Date of service: 03/15/17 Interval history: No new complaints Objective - Exam Narrative Exam: General appearance: well-developed, well-nourished, appears stated age EENT: PERRL, mucous membranes moist Neck: Present: neck supple, trachea midline. Absent: JVD/HJR, Masses Respiratory: Clear to Ascultation Heart: regular, normal heart rate, S1S2, no murmurs Gastrointestinal: Present: normoactive bowel sounds. Absent: tenderness Integumentary: no rash, warm and dry Neurologic: no focal deficit, alert and oriented x3, gait normal, strength 5/5 Musculoskeletal: Absent: deformities, joint swelling Psychiatric: mood/affect appropriate, cooperative - Vital Signs Vital signs: Vital Signs - 12hr 03/15/17 03/15/17 03/15/17 01:56 05:00 08:02 Temperature 98.1 F Pulse Rate 69 71 Respiratory 20 18 Rate Blood Pressure 117/63 Blood Pressure [Right] O2 Sat by Pulse 93 94 Oximetry 03/15/17 10:13 Temperature 98.2 F Pulse Rate 68 Respiratory Rate Blood Pressure Blood Pressure 134/77 [Right] O2 Sat by Pulse Oximetry - Lab 03/13/17 10:30 03/13/17 10:30 Most recent lab results Calcium 8.8 mg/dL (8.4-10.2) 03/13/17 10:30
[2017-03-15] MEDS ORDERED: NACL 0.9 (PRIMING MACHINE ONLY DIALYSIS) MC ONE (17:42)
[2017-03-15 19:34] VITALS: BP 131/75
== END 2017-03-15 20:40 | disposition home or self-care (01) | DRG 291 ==
LOC: ED 07:34 → 4A 11:42
PROVIDERS: ADMIT Internal Medicine; ATTEND Internal Medicine
PROC: 5A1D70Z Performance of Urinary Filtration, Intermittent, Less than 6 Hours Per Day (ICD-10-PCS; principal; 2017-03-13)
DX: I13.2 Hypertensive heart and chronic kidney disease with heart failure and with stage 5 chronic kidney disease, or end stage renal disease (principal); I50.23 Acute on chronic systolic (congestive) heart failure; N18.6 End stage renal disease; B20 Human immunodeficiency virus [HIV] disease; I24.9 Acute ischemic heart disease, unspecified; J96.10 Chronic respiratory failure, unspecified whether with hypoxia or hypercapnia; E11.22 Type 2 diabetes mellitus with diabetic chronic kidney disease; J44.9 Chronic obstructive pulmonary disease, unspecified; F17.200 Nicotine dependence, unspecified, uncomplicated; D63.1 Anemia in chronic kidney disease; I42.0 Dilated cardiomyopathy; Z82.49 Family history of ischemic heart disease and other diseases of the circulatory system; Z95.810 Presence of automatic (implantable) cardiac defibrillator; Z99.2 Dependence on renal dialysis; Z88.2 Allergy status to sulfonamides; Z88.8 Allergy status to other drugs, medicaments and biological substances; Z79.899 Other long term (current) drug therapy
CPT/HCPCS: 36415; 71010; 80048; 80061; 82962; 84484; 85025; 85610; 85730; 93005; 93010; 94640; 94760; 96374; 96375; 99406; J1940; J2270; J2405; J7030

== ENCOUNTER 2017-05-22 12:21 | Emergency (ER) | payer MEDICARE ==
[2017-05-22 12:39] VITALS: BP 127/80
--- NOTE | 2017-05-22 14:26 | XRay Report ---
AP AND LATERAL SOFT TISSUES OF THE NECK: History: Foreign body. The contour of the upper airway appears within normal limits. The epiglottis is not enlarged. No prevertebral soft tissue swelling is apparent. No mass density or foreign body is evident. IMPRESSION: Normal study.
== END 2017-05-22 16:30 | disposition left against medical advice (07) ==
LOC: ED 12:21
DX: Z53.21 Procedure and treatment not carried out due to patient leaving prior to being seen by health care provider (principal)
CPT/HCPCS: 70360

== ENCOUNTER → 2017-07-07 | Emergency (ER) | payer MEDICARE ==
[~2017-07-07] MED LIST: ASPIRIN PO ONE; NACL 0.9% 500 ML 500 ML IV ONE
--- NOTE | 2017-07-07 11:24 | Emergency Department Report ---
ED Chest Pain HPI - General Stated Complaint: HEART RATE ELEVATED Time Seen by Provider: 07/07/17 11:20 Source: patient, EMS Mode of arrival: Stretcher Limitations: No Limitations - History of Present Illness Initial Comments: Patient is a 62-year-old male presents to emergency room via EMS after being at dialysis center and completing his dialysis complaints of chest pain. EMS states that they had to stop dialysis early due to tachycardia. Patient then developed chest pain approximately 30 minutes afterwards. Patient denies shortness of breath. Patient denies fever and chills. Patient denies diaphoresis. Patient states his chest pain is worse with movement. Denies tenderness to chest wall. Patient states the chest pain is better with rest. Patient complains of palpitations. -: Sudden Onset: during rest Pain Location: substernal, left chest Severity: severe Severity scale (0 -10): 10 Quality: tightness, heaviness, sharp, pressure Consistency: constant Improves With: rest Worsens With: exertion, movement Other Symptoms: cough Treatments Prior to Arrival: oxygen Aspirin use within the Past 7 Days: (0) No - Related Data On Oral Contraceptives: No Home Medications Medication Instructions Recorded Confirmed Last Taken Albuterol Sulfate [Ventolin HFA] 8 mg IH DAILY 09/09/16 04/03/17 01/27/17 Carvedilol [Coreg] 25 mg PO DAILY 09/09/16 04/03/17 03/12/17 Fluticasone Propionate [Flovent 50 mcg IH TID PRN 09/09/16 04/03/17 01/27/17 Diskus] Losartan [Cozaar] 25 mg PO DAILY 09/09/16 04/03/17 03/12/17 amLODIPine [Norvasc] 10 mg PO DAILY 09/09/16 04/03/17 03/12/17 Gabapentin [Neurontin] 300 mg PO QHS 11/22/16 04/03/17 03/12/17 Acetaminophen [Acetaminophen TAB] 650 mg PO Q6H PRN 03/13/17 04/03/17 03/12/17 Atazanavir Sulfate/Cobicistat 1 each PO DAILY 04/03/17 04/03/17 Unknown [Evotaz 300 mg-150 mg Tablet] Previous Rx's Medication Instructions Recorded Last Taken Type Aspirin EC [Aspirin Enteric Coated 81 mg PO QDAY #100 tablet. 04/07/17 Unknown Rx TAB] Budesonide/Formoterol Fumarate 10.2 gm IH PRN #1 hfa.aer.ad 04/07/17 Unknown Rx [Symbicort 160-4.5 Mcg Inhaler] Cinacalcet HCl [Sensipar] 60 mg PO DAILY #30 tablet 04/07/17 Unknown Rx Dolutegravir Sodium [Tivicay] 50 mg PO DAILY #30 04/07/17 Unknown Rx Dolutegravir Sodium [Tivicay] 50 mg PO DAILY #30 tablet 04/07/17 Unknown Rx Etravirine [Intelence] 200 mg PO DAILY #30 tablet 04/07/17 Unknown Rx Ferric Citrate 630 mg PO QID #30 04/07/17 Unknown Rx Gemfibrozil [Lopid] 600 mg PO DAILY #30 tablet 04/07/17 Unknown Rx Insulin Glargine [Lantus VIAL] See Protocol SQ HS #15 units 04/07/17 Unknown Rx Ipratropium/Albuter (Nf) 1 puff IH DAILY #1 inha 04/07/17 Unknown Rx [Combivent Inhaler] Loratadine [Claritin] 10 mg PO Q48H #30 tablet 04/07/17 Unknown Rx Omega3,5,6,7,9 No.1/[place] Oil 1 tab PO DAILY #30 capsule 04/07/17 Unknown Rx [Complete [place] Softgel] Oxycodone HCl/Acetaminophen 1 each PO Q6HR PRN #20 tablet 04/07/17 Unknown Rx [Percocet 7.5/325 mg] PARoxetine [Paxil] 40 mg PO DAILY #30 tablet 04/07/17 Unknown Rx Paroxetine HCl [PARoxetine] 40 mg PO DAILY #30 tablet 04/07/17 Unknown Rx Rosuvastatin (Nf) [Crestor] 10 mg PO DAILY #30 tablet 04/07/17 Unknown Rx Sevelamer Carbonate [Renvela] 800 mg PO TID #90 tablet 04/07/17 Unknown Rx Sevelamer Carbonate [Renvela] 800 mg PO TID #90 tablet 04/07/17 Unknown Rx ALBUTEROL NEB's [Proventil 0.083% 2.5 mg IH Q4HRT PRN nebu 07/05/17 Unknown Rx NEBS] Acetaminophen [Acetaminophen TAB] 650 mg PO Q4H PRN tablet 07/05/17 Unknown Rx Arformoterol Nebu [Brovana Nebu] 15 mcg IH Q12HRT ml 07/05/17 Unknown Rx AtorvaSTATin [Lipitor] 20 mg PO QHS tablet 07/05/17 Unknown Rx Budesonide [Pulmicort Respules] 1 mg IH Q12HRT nebu 07/05/17 Unknown Rx Cinacalcet [Sensipar] 60 mg PO QDAY tablet 07/05/17 Unknown Rx Fluticasone [Flonase] 100 mcg NS QDAY bottle 07/05/17 Unknown Rx Insulin Detemir [Levemir] 10 units SUB-Q QHS units 07/05/17 Unknown Rx Loperamide [Imodium] 2 mg PO Q2H PRN capsule 07/05/17 Unknown Rx Warfarin [Coumadin] 5 mg PO DAILY@1700 tablet 07/05/17 Unknown Rx lamoTRIgine [LaMICtal] 200 mg PO BID tablet 07/05/17 Unknown Rx Allergies Allergy/AdvReac Type Severity Reaction Status Date / Time sulfamethoxazole Allergy Anaphylaxis Verified 01/28/17 00:05 [From Bactrim] trimethoprim [From Bactrim] Allergy Anaphylaxis Verified 01/28/17 00:05 Heart Score - HEART Score History: Slightly suspicious EKG: Normal Age: 45-65 Risk factors: > 3 risk factors or hx of atherosclerotic disease Troponin: 1-3x normal limit HEART Score: 4 ED Review of Systems ROS: Stated complaint: HEART RATE ELEVATED Other details as noted in HPI Comment: All other systems reviewed and negative Constitutional: denies: chills, fever Eyes: denies: eye pain, eye discharge, vision change ENT: denies: ear pain, throat pain Respiratory: cough. denies: shortness of breath, wheezing Cardiovascular: chest pain, palpitations Endocrine: no symptoms reported Gastrointestinal: denies: abdominal pain, nausea, diarrhea Genitourinary: denies: urgency, dysuria Musculoskeletal: denies: back pain, joint swelling, arthralgia Skin: denies: rash, lesions Neurological: denies: headache, weakness, paresthesias Psychiatric: denies: anxiety, depression Hematological/Lymphatic: denies: easy bleeding, easy bruising ED Past Medical Hx - Past Medical History Previous Medical History?: Yes Hx Hypertension: Yes Hx Congestive Heart Failure: Yes Hx Diabetes: Yes Hx Renal Disease: Yes (Dialysis M, W, F) Hx Asthma: Yes Hx COPD: Yes (3 L home O2) Hx HIV: Yes Additional medical history: pancreatitis, left upper arm HD graft. bells palsy - Surgical History Hx Pacemaker: Yes Hx Internal Defibrillator: Yes Additional Surgical History: graft to left arm, R chest vas cath, DeFib - Family History Family history: hypertension - Social History Smoking Status: Current Every Day Smoker Substance Use Type: None - Medications Home Medications: Home Medications Medication Instructions Recorded Confirmed Last Taken Type Albuterol Sulfate [Ventolin HFA] 8 mg IH DAILY 09/09/16 04/03/17 01/27/17 History Carvedilol [Coreg] 25 mg PO DAILY 09/09/16 04/03/17 03/12/17 History Fluticasone Propionate [Flovent 50 mcg IH TID PRN 09/09/16 04/03/17 01/27/17 History Diskus] Losartan [Cozaar] 25 mg PO DAILY 09/09/16 04/03/17 03/12/17 History amLODIPine [Norvasc] 10 mg PO DAILY 09/09/16 04/03/17 03/12/17 History Gabapentin [Neurontin] 300 mg PO QHS 11/22/16 04/03/17 03/12/17 History Acetaminophen [Acetaminophen TAB] 650 mg PO Q6H PRN 03/13/17 04/03/17 03/12/17 History Atazanavir Sulfate/Cobicistat 1 each PO DAILY 04/03/17 04/03/17 Unknown History [Evotaz 300 mg-150 mg Tablet] Aspirin EC [Aspirin Enteric Coated 81 mg PO QDAY #100 tablet.dr 04/07/17 Unknown Rx TAB] Budesonide/Formoterol Fumarate 10.2 gm IH PRN #1 hfa.aer.ad 04/07/17 Unknown Rx [Symbicort 160-4.5 Mcg Inhaler] Cinacalcet HCl [Sensipar] 60 mg PO DAILY #30 tablet 04/07/17 Unknown Rx Dolutegravir Sodium [Tivicay] 50 mg PO DAILY #30 04/07/17 Unknown Rx Dolutegravir Sodium [Tivicay] 50 mg PO DAILY #30 tablet 04/07/17 Unknown Rx Etravirine [Intelence] 200 mg PO DAILY #30 tablet 04/07/17 Unknown Rx Ferric Citrate 630 mg PO QID #30 04/07/17 Unknown Rx Gemfibrozil [Lopid] 600 mg PO DAILY #30 tablet 04/07/17 Unknown Rx Insulin Glargine [Lantus VIAL] See Protocol SQ HS #15 units 04/07/17 Unknown Rx Ipratropium/Albuter (Nf) 1 puff IH DAILY #1 inha 04/07/17 Unknown Rx [Combivent Inhaler] Loratadine [Claritin] 10 mg PO Q48H #30 tablet 04/07/17 Unknown Rx Omega3,5,6,7,9 No.1/[place] Oil 1 tab PO DAILY #30 capsule 04/07/17 Unknown Rx [Complete [place] Softgel] Oxycodone HCl/Acetaminophen 1 each PO Q6HR PRN #20 tablet 04/07/17 Unknown Rx [Percocet 7.5/325 mg] PARoxetine [Paxil] 40 mg PO DAILY #30 tablet 04/07/17 Unknown Rx Paroxetine HCl [PARoxetine] 40 mg PO DAILY #30 tablet 04/07/17 Unknown Rx Rosuvastatin (Nf) [Crestor] 10 mg PO DAILY #30 tablet 04/07/17 Unknown Rx Sevelamer Carbonate [Renvela] 800 mg PO TID #90 tablet 04/07/17 Unknown Rx Sevelamer Carbonate [Renvela] 800 mg PO TID #90 tablet 04/07/17 Unknown Rx ALBUTEROL NEB's [Proventil 0.083% 2.5 mg IH Q4HRT PRN nebu 07/05/17 Unknown Rx NEBS] Acetaminophen [Acetaminophen TAB] 650 mg PO Q4H PRN tablet 07/05/17 Unknown Rx Arformoterol Nebu [Brovana Nebu] 15 mcg IH Q12HRT ml 07/05/17 Unknown Rx AtorvaSTATin [Lipitor] 20 mg PO QHS tablet 07/05/17 Unknown Rx Budesonide [Pulmicort Respules] 1 mg IH Q12HRT nebu 07/05/17 Unknown Rx Cinacalcet [Sensipar] 60 mg PO QDAY tablet 07/05/17 Unknown Rx Fluticasone [Flonase] 100 mcg NS QDAY bottle 07/05/17 Unknown Rx Insulin Detemir [Levemir] 10 units SUB-Q QHS units 07/05/17 Unknown Rx Loperamide [Imodium] 2 mg PO Q2H PRN capsule 07/05/17 Unknown Rx Warfarin [Coumadin] 5 mg PO DAILY@1700 tablet 07/05/17 Unknown Rx lamoTRIgine [LaMICtal] 200 mg PO BID tablet 07/05/17 Unknown Rx ED Physical Exam - General Limitations: No Limitations General appearance: alert, in no apparent distress - Head Head exam: Present: atraumatic, normocephalic - Eye Eye exam: Present: normal appearance - ENT ENT exam: Present: mucous membranes moist - Neck Neck exam: Present: normal inspection - Respiratory Respiratory exam: Present: normal lung sounds bilaterally. Absent: respiratory distress - Cardiovascular Cardiovascular Exam: Present: regular rate, normal rhythm, tachycardia. Absent : systolic murmur, diastolic murmur, rubs, gallop - GI/Abdominal GI/Abdominal exam: Present: soft, normal bowel sounds - Rectal Rectal exam: Present: deferred - Extremities Exam Extremities exam: Present: normal inspection - Back Exam Back exam: Present: normal inspection - Neurological Exam Neurological exam: Present: alert, oriented X3 - Psychiatric Psychiatric exam: Present: normal affect, normal mood - Skin Skin exam: Present: warm, dry, intact, normal color. Absent: rash ED Course Vital Signs 07/07/17 11:46 Temperature 98.3 F Pulse Rate 123 H Respiratory 19 Rate Blood Pressure 88/50 O2 Sat by Pulse 96 Oximetry - Reevaluation(s) Reevaluation #1: 07/07/17 14:30 patient wants to leave. Patient states that he is tired of waiting. Patient made aware of all results. AMA signed. Discussed risk of leaving hospital AGAINST MEDICAL ADVICE. Patient voiced understanding of risks. Patient A&O 4. DAWOOD score - Dawood Score Age > 65: (0) No Aspirin use within the Past 7 Days: (1) Yes 3 or more CAD Risk Factors: (1) Yes 2 or more Angina events in past 24 hrs: (1) Yes Known CAD with more than 50% Stenosis: (0) No Elevated Cardiac Markers: (1) Yes ST Deviation Greater than 0.5mm: (0) No DAWOOD Score: 4 ED Medical Decision Making - Lab Data Result diagrams: 07/07/17 13:37 07/07/17 13:37 - EKG Data -: EKG Interpreted by Me EKG shows normal: sinus rhythm Rate: tachycardia - EKG Data When compared to previous EKG there are: changes noted Interpretation: no acute changes, LVH Critical care attestation.: If time is entered above; I have spent that time in minutes in the direct care of this critically ill patient, excluding procedure time. ED Disposition Clinical Impression: Chest pain, Chronic kidney disease, ESRD (end stage renal disease) on dialysis , Tachycardia Disposition: LEFT AGAINST MED ADVICE Is pt being admited?: No Does the pt Need Aspirin: No Time of Disposition: 14:30 (left AMA)
[2017-07-07 13:57] LABS: Hematocrit 38.5 % (35.5-45.6); Hemoglobin 12.2 gm/dl (11.8-15.2); Mean Corpuscular HGB Conc 32 % (32-34); Mean Corpuscular Hemoglobin 30 pg (28-32); Mean Corpuscular Volume 93 fl (84-94); Platelet Count 304 K/mm3 (140-440); Red Blood Count 4.13 M/mm3 (3.65-5.03); Red Cell Distribution Width 18.6 % (13.2-15.2)
--- NOTE | 2017-07-07 13:58 | XRay Report ---
Single view chest: Compared to 07/03/17 p.m. History: Chest pain. Findings: Cardiomegaly. Trachea is midline. Prominent pulmonary arteries are dominantly on the right side without significant interval change. There is suspicion of infiltrate right lower lobe. Normal CP angles. Impression: Suspicion of infiltrates right lower lobe
[2017-07-07 14:17] LABS: Albumin 3.5 g/dL (3.9-5); Calcium 6.9 mg/dL (8.4-10.2)
[2017-07-07 14:40] LABS: Chol/HDL Ratio 6.27 %
[2017-07-07 14:57] LABS: Anisocytosis 2+; Total Cells Counted 100
[2017-07-07 14:58] LABS: Crenated RBC 2+; Macrocytosis 1+; Platelet Estimate Consistent w Auto
[2017-07-07 16:04] VITALS: BP 93/59
== END | disposition left against medical advice (07) ==
LOC: ED 11:13
DX: R07.9 Chest pain, unspecified (principal); R00.0 Tachycardia, unspecified; E11.22 Type 2 diabetes mellitus with diabetic chronic kidney disease; I12.0 Hypertensive chronic kidney disease with stage 5 chronic kidney disease or end stage renal disease; N18.6 End stage renal disease; Z99.2 Dependence on renal dialysis; J44.9 Chronic obstructive pulmonary disease, unspecified; F17.200 Nicotine dependence, unspecified, uncomplicated
CPT/HCPCS: 36415; 71045; 80053; 80061; 84484; 85007; 85025; 93005; 93010

== ENCOUNTER 2017-07-19 19:41 | Emergency (ER) | payer MEDICARE ==
[2017-07-19 19:56] VITALS: BP 146/80
[2017-07-20] MEDS ORDERED: TYLENOL PO ONE (01:37)
--- NOTE | 2017-07-20 01:43 | Emergency Department Report ---
ED General Adult HPI - General Chief complaint: Pain General Stated complaint: PAINFUL LEGS AND ARMS Time Seen by Provider: 07/20/17 01:31 Source: patient Mode of arrival: Ambulatory Limitations: No Limitations - History of Present Illness Initial comments: This is 62-year-old male nontoxic, well nourished in appearance, no acute signs of distress presents to the ED with c/o of diabetic neuropathy pain of Bilateral hands, feet, legs and arms. Patient stated this is a chronic condition and that he does see a primary care doctor which is prescribed neurontin for 2 years but stated it is not working anymore. Patient denies any trauma to any extremities. Patient denies any chest pain, shortness of breath, fever, chills, nausea, vomiting. Patient denies any numbness or tingling. Patient states past medical history includes asthma, COPD, CHF, diabetes, HIV, hypertension, and renal disease. Allergies includes Bactrim. MD Complaint: neuropathy pain -: year(s) Radiation: non-radiation Severity scale (0 -10): 8 Quality: aching Consistency: constant Improves with: none Worsens with: none Associated Symptoms: denies other symptoms. denies: confusion, chest pain, cough, diaphoresis, fever/chills, headaches, loss of appetite, malaise, nausea/ vomiting, rash, seizure, shortness of breath, syncope, weakness Treatments Prior to Arrival: none - Related Data Home Medications Medication Instructions Recorded Confirmed Last Taken Albuterol Sulfate [Ventolin HFA] 8 mg IH DAILY 09/09/16 04/03/17 01/27/17 Carvedilol [Coreg] 25 mg PO DAILY 09/09/16 04/03/17 03/12/17 Fluticasone Propionate [Flovent 50 mcg IH TID PRN 09/09/16 04/03/17 01/27/17 Diskus] Losartan [Cozaar] 25 mg PO DAILY 09/09/16 04/03/17 03/12/17 amLODIPine [Norvasc] 10 mg PO DAILY 09/09/16 04/03/17 03/12/17 Gabapentin [Neurontin] 300 mg PO QHS 11/22/16 04/03/17 03/12/17 Acetaminophen [Acetaminophen TAB] 650 mg PO Q6H PRN 03/13/17 04/03/17 03/12/17 Atazanavir Sulfate/Cobicistat 1 each PO DAILY 04/03/17 04/03/17 Unknown [Evotaz 300 mg-150 mg Tablet] Previous Rx's Medication Instructions Recorded Last Taken Type Aspirin EC [Aspirin Enteric Coated 81 mg PO QDAY #100 tablet.dr 04/07/17 Unknown Rx TAB] Budesonide/Formoterol Fumarate 10.2 gm IH PRN #1 hfa.aer.ad 04/07/17 Unknown Rx [Symbicort 160-4.5 Mcg Inhaler] Cinacalcet HCl [Sensipar] 60 mg PO DAILY #30 tablet 04/07/17 Unknown Rx Dolutegravir Sodium [Tivicay] 50 mg PO DAILY #30 04/07/17 Unknown Rx Dolutegravir Sodium [Tivicay] 50 mg PO DAILY #30 tablet 04/07/17 Unknown Rx Etravirine [Intelence] 200 mg PO DAILY #30 tablet 04/07/17 Unknown Rx Ferric Citrate 630 mg PO QID #30 04/07/17 Unknown Rx Gemfibrozil [Lopid] 600 mg PO DAILY #30 tablet 04/07/17 Unknown Rx Insulin Glargine [Lantus VIAL] See Protocol SQ HS #15 units 04/07/17 Unknown Rx Ipratropium/Albuter (Nf) 1 puff IH DAILY #1 inha 04/07/17 Unknown Rx [Combivent Inhaler] Loratadine [Claritin] 10 mg PO Q48H #30 tablet 04/07/17 Unknown Rx Omega3,5,6,7,9 No.1/[place] Oil 1 tab PO DAILY #30 capsule 04/07/17 Unknown Rx [Complete [place] Softgel] Oxycodone HCl/Acetaminophen 1 each PO Q6HR PRN #20 tablet 04/07/17 Unknown Rx [Percocet 7.5/325 mg] PARoxetine [Paxil] 40 mg PO DAILY #30 tablet 04/07/17 Unknown Rx Paroxetine HCl [PARoxetine] 40 mg PO DAILY #30 tablet 04/07/17 Unknown Rx Rosuvastatin (Nf) [Crestor] 10 mg PO DAILY #30 tablet 04/07/17 Unknown Rx Sevelamer Carbonate [Renvela] 800 mg PO TID #90 tablet 04/07/17 Unknown Rx Sevelamer Carbonate [Renvela] 800 mg PO TID #90 tablet 04/07/17 Unknown Rx ALBUTEROL NEB's [Proventil 0.083% 2.5 mg IH Q4HRT PRN nebu 07/05/17 Unknown Rx NEBS] Acetaminophen [Acetaminophen TAB] 650 mg PO Q4H PRN tablet 07/05/17 Unknown Rx Arformoterol Nebu [Brovana Nebu] 15 mcg IH Q12HRT ml 07/05/17 Unknown Rx AtorvaSTATin [Lipitor] 20 mg PO QHS tablet 07/05/17 Unknown Rx Budesonide [Pulmicort Respules] 1 mg IH Q12HRT nebu 07/05/17 Unknown Rx Cinacalcet [Sensipar] 60 mg PO QDAY tablet 07/05/17 Unknown Rx Fluticasone [Flonase] 100 mcg NS QDAY bottle 07/05/17 Unknown Rx Insulin Detemir [Levemir] 10 units SUB-Q QHS units 07/05/17 Unknown Rx Loperamide [Imodium] 2 mg PO Q2H PRN capsule 07/05/17 Unknown Rx Warfarin [Coumadin] 5 mg PO DAILY@1700 tablet 07/05/17 Unknown Rx lamoTRIgine [LaMICtal] 200 mg PO BID tablet 07/05/17 Unknown Rx Acetaminophen/Codeine [Tylenol 1 tab PO Q6H PRN #12 tab 07/20/17 Unknown Rx /Codeine # 3 tab] Allergies Allergy/AdvReac Type Severity Reaction Status Date / Time sulfamethoxazole Allergy Anaphylaxis Verified 07/19/17 19:53 [From Bactrim] trimethoprim [From Bactrim] Allergy Anaphylaxis Verified 07/19/17 19:53 ED Review of Systems ROS: Stated complaint: PAINFUL LEGS AND ARMS Other details as noted in HPI Constitutional: denies: chills, fever Eyes: denies: eye pain, eye discharge, vision change ENT: denies: ear pain, throat pain Respiratory: denies: cough, shortness of breath, wheezing Cardiovascular: denies: chest pain, palpitations Endocrine: no symptoms reported Gastrointestinal: denies: abdominal pain, nausea, diarrhea Genitourinary: denies: urgency, dysuria Musculoskeletal: arthralgia. denies: back pain, joint swelling Skin: denies: rash, lesions Neurological: denies: headache, weakness, paresthesias Psychiatric: denies: anxiety, depression Hematological/Lymphatic: denies: easy bleeding, easy bruising ED Past Medical Hx - Past Medical History Hx Hypertension: Yes Hx Congestive Heart Failure: Yes Hx Diabetes: Yes Hx Renal Disease: Yes (Dialysis M, W, F) Hx Asthma: Yes Hx COPD: Yes (3 L home O2) Hx HIV: Yes Additional medical history: pancreatitis, left upper arm HD graft. bells palsy - Surgical History Hx Pacemaker: Yes Hx Internal Defibrillator: Yes Additional Surgical History: graft to left arm, R chest vas cath, DeFib - Social History Smoking Status: Current Every Day Smoker Substance Use Type: None - Medications Home Medications: Home Medications Medication Instructions Recorded Confirmed Last Taken Type Albuterol Sulfate [Ventolin HFA] 8 mg IH DAILY 09/09/16 04/03/17 01/27/17 History Carvedilol [Coreg] 25 mg PO DAILY 09/09/16 04/03/17 03/12/17 History Fluticasone Propionate [Flovent 50 mcg IH TID PRN 09/09/16 04/03/17 01/27/17 History Diskus] Losartan [Cozaar] 25 mg PO DAILY 09/09/16 04/03/17 03/12/17 History amLODIPine [Norvasc] 10 mg PO DAILY 09/09/16 04/03/17 03/12/17 History Gabapentin [Neurontin] 300 mg PO QHS 11/22/16 04/03/17 03/12/17 History Acetaminophen [Acetaminophen TAB] 650 mg PO Q6H PRN 03/13/17 04/03/17 03/12/17 History Atazanavir Sulfate/Cobicistat 1 each PO DAILY 04/03/17 04/03/17 Unknown History [Evotaz 300 mg-150 mg Tablet] Aspirin EC [Aspirin Enteric Coated 81 mg PO QDAY #100 tablet.dr 04/07/17 Unknown Rx TAB] Budesonide/Formoterol Fumarate 10.2 gm IH PRN #1 hfa.aer.ad 04/07/17 Unknown Rx [Symbicort 160-4.5 Mcg Inhaler] Cinacalcet HCl [Sensipar] 60 mg PO DAILY #30 tablet 04/07/17 Unknown Rx Dolutegravir Sodium [Tivicay] 50 mg PO DAILY #30 04/07/17 Unknown Rx Dolutegravir Sodium [Tivicay] 50 mg PO DAILY #30 tablet 04/07/17 Unknown Rx Etravirine [Intelence] 200 mg PO DAILY #30 tablet 04/07/17 Unknown Rx Ferric Citrate 630 mg PO QID #30 04/07/17 Unknown Rx Gemfibrozil [Lopid] 600 mg PO DAILY #30 tablet 04/07/17 Unknown Rx Insulin Glargine [Lantus VIAL] See Protocol SQ HS #15 units 04/07/17 Unknown Rx Ipratropium/Albuter (Nf) 1 puff IH DAILY #1 inha 04/07/17 Unknown Rx [Combivent Inhaler] Loratadine [Claritin] 10 mg PO Q48H #30 tablet 04/07/17 Unknown Rx Omega3,5,6,7,9 No.1/[place] Oil 1 tab PO DAILY #30 capsule 04/07/17 Unknown Rx [Complete [place] Softgel] Oxycodone HCl/Acetaminophen 1 each PO Q6HR PRN #20 tablet 04/07/17 Unknown Rx [Percocet 7.5/325 mg] PARoxetine [Paxil] 40 mg PO DAILY #30 tablet 04/07/17 Unknown Rx Paroxetine HCl [PARoxetine] 40 mg PO DAILY #30 tablet 04/07/17 Unknown Rx Rosuvastatin (Nf) [Crestor] 10 mg PO DAILY #30 tablet 04/07/17 Unknown Rx Sevelamer Carbonate [Renvela] 800 mg PO TID #90 tablet 04/07/17 Unknown Rx Sevelamer Carbonate [Renvela] 800 mg PO TID #90 tablet 04/07/17 Unknown Rx ALBUTEROL NEB's [Proventil 0.083% 2.5 mg IH Q4HRT PRN nebu 07/05/17 Unknown Rx NEBS] Acetaminophen [Acetaminophen TAB] 650 mg PO Q4H PRN tablet 07/05/17 Unknown Rx Arformoterol Nebu [Brovana Nebu] 15 mcg IH Q12HRT ml 07/05/17 Unknown Rx AtorvaSTATin [Lipitor] 20 mg PO QHS tablet 07/05/17 Unknown Rx Budesonide [Pulmicort Respules] 1 mg IH Q12HRT nebu 07/05/17 Unknown Rx Cinacalcet [Sensipar] 60 mg PO QDAY tablet 07/05/17 Unknown Rx Fluticasone [Flonase] 100 mcg NS QDAY bottle 07/05/17 Unknown Rx Insulin Detemir [Levemir] 10 units SUB-Q QHS units 07/05/17 Unknown Rx Loperamide [Imodium] 2 mg PO Q2H PRN capsule 07/05/17 Unknown Rx Warfarin [Coumadin] 5 mg PO DAILY@1700 tablet 07/05/17 Unknown Rx lamoTRIgine [LaMICtal] 200 mg PO BID tablet 07/05/17 Unknown Rx Acetaminophen/Codeine [Tylenol 1 tab PO Q6H PRN #12 tab 07/20/17 Unknown Rx /Codeine # 3 tab] ED Physical Exam - General Limitations: No Limitations General appearance: alert, in no apparent distress - Head Head exam: Present: atraumatic, normocephalic - Eye Eye exam: Present: normal appearance - ENT ENT exam: Present: mucous membranes moist - Neck Neck exam: Present: normal inspection - Respiratory Respiratory exam: Present: normal lung sounds bilaterally. Absent: respiratory distress - Cardiovascular Cardiovascular Exam: Present: regular rate, normal rhythm. Absent: systolic murmur, diastolic murmur, rubs, gallop - GI/Abdominal GI/Abdominal exam: Present: soft, normal bowel sounds - Rectal Rectal exam: Present: deferred - Extremities Exam Extremities exam: Present: normal inspection - Back Exam Back exam: Present: normal inspection - Neurological Exam Neurological exam: Present: alert, oriented X3 - Psychiatric Psychiatric exam: Present: normal affect, normal mood - Skin Skin exam: Present: warm, dry, intact, normal color. Absent: rash ED Course Vital Signs 07/19/17 19:53 Temperature 98.2 F Pulse Rate 106 H Respiratory 16 Rate Blood Pressure 146/80 O2 Sat by Pulse 93 Oximetry - Reevaluation(s) Reevaluation #1: 07/20/17 01:41 Patient is speaking in full sentences with no signs of distress noted. ED Medical Decision Making - Medical Decision Making This is a 62-year-old male that presents with diabetic neuropathy. Patient is stable and was examined by me. There is no joint swelling or joint redness. Patient received Tylenol in the ED respiratory symptoms are improving and subsided. I will treat patient with Tylenol 3 and was instructed not to operate any machinery while taking Tylenol No. 3 due to drowsiness. Patient was also instructed to follow-up with a primary care doctor in 3-5 days or if symptoms worsen and continue return to emergency room as soon as possible. At time of discharge, the patient does not seem toxic or ill in appearance. No acute signs of distress noted. Patient agrees to discharge treatment plan of care. No further questions noted by the patient. Critical care attestation.: If time is entered above; I have spent that time in minutes in the direct care of this critically ill patient, excluding procedure time. ED Disposition Clinical Impression: Diabetic neuropathy Qualifiers: Diabetes mellitus type: other specified (including PEPPER) Diabetes mellitus complication detail: with other neurological complication Qualified Code(s): E13.49 - Other specified diabetes mellitus with other diabetic neurological complication Disposition: DC- TO HOME OR SELFCARE Is pt being admited?: No Does the pt Need Aspirin: No Condition: Stable Instructions: Diabetes Mellitus Type 2 in Adults (ED), Diabetic Neuropathy (ED) , Acetaminophen/Codeine (By mouth) Additional Instructions: Follow-up with a primary care doctor in 3-5 days or if symptoms worsen and continue return to emergency room as soon as possible. Do not operate any machinery while taking Tylenol No. 3 due to drowsiness. Prescriptions: Acetaminophen/Codeine [Tylenol /Codeine # 3 tab] 1 tab PO Q6H PRN #12 tab PRN Reason: Pain Referrals: PRIMARY CAREMD [Primary Care Provider] - 3-5 Days LATANYA MENDOZA MD [Staff Physician] - 3-5 Days [facility] [Outside] - 3-5 Days [facility] [Outside] - 3-5 Days Forms: Work/School Release Form(ED)
== END 2017-07-20 01:50 | disposition home or self-care (01) ==
LOC: ED 19:41
DX: E13.49 Other specified diabetes mellitus with other diabetic neurological complication (principal); I10 Essential (primary) hypertension; J44.9 Chronic obstructive pulmonary disease, unspecified
CPT/HCPCS: 99282

== ENCOUNTER 2017-08-28 08:28 | Inpatient (IN) | payer MEDICARE ==
[2017-08-28] MEDS ORDERED: MORPHINE IV ONE (08:40)
[2017-08-28] MEDS ORDERED: DUONEB *Not for PRN Use IH ONE (08:40)
[2017-08-28] MEDS ORDERED: NORMODYNE IV ONE (08:57)
--- NOTE | 2017-08-28 08:58 | XRay Report ---
AP CHEST: HISTORY: Dyspnea Mild cardiomegaly and mild pulmonary venous congestion. No consolidation, large pleural effusion or pneumothorax. Stimulator device is unchanged since 07/21/17. IMPRESSION: Mild cardiomegaly and pulmonary venous congestion.
--- NOTE | 2017-08-28 09:09 | Emergency Department Report ---
HPI - General Chief Complaint: Dyspnea/Respdistress Time Seen by Provider: 08/28/17 08:36 - HPI HPI: 62 year-old male presents to the emergency department via EMS from home with complaint of shortness of breath has been going on for the past few days. It is associated with a mixed dry and productive cough. He denies any chest pain, fever, nausea, vomiting or diaphoresis. He also complains of a boil to the left buttock that opened yesterday after he soaked it in some warm water. He's been using some breathing treatments at home without much relief. He has a past medical history of asthma, CHF, COPD on 3 L home oxygen, diabetes , HIV, hypertension and has end-stage renal disease on hemodialysis on Monday/ Monday/Monday with a dialysis graft to the left upper extremity. His land surveying manager is Dr. Georgina Vega and his director adult is Dr. Castañeda. No recent travel or sick contacts at home. ED Past Medical Hx - Past Medical History Previous Medical History?: Yes Hx Hypertension: Yes Hx Congestive Heart Failure: Yes Hx Diabetes: Yes Hx Renal Disease: Yes (Dialysis M, W, F) Hx Asthma: Yes Hx COPD: Yes (3 L home O2) Hx HIV: Yes Additional medical history: pancreatitis, left upper arm HD graft. bells palsy - Surgical History Past Surgical History?: Yes Hx Pacemaker: Yes Hx Internal Defibrillator: Yes Additional Surgical History: graft to left arm, R chest vas cath, DeFib - Social History Smoking Status: Current Every Day Smoker Substance Use Type: None - Medications Home Medications: Home Medications Medication Instructions Recorded Confirmed Last Taken Type Albuterol Sulfate [Ventolin HFA] 2 puff IH QID PRN 09/09/16 08/28/17 01/27/17 History amLODIPine [Norvasc] 10 mg PO DAILY 09/09/16 08/28/17 03/12/17 History Gabapentin [Neurontin] 300 mg PO QHS 11/22/16 08/28/17 08/28/17 History Atazanavir Sulfate/Cobicistat 1 each PO QDAY 04/03/17 08/28/17 Unknown History [Evotaz 300 mg-150 mg Tablet] Dolutegravir Sodium [Tivicay] 50 mg PO DAILY #30 tablet 04/07/17 08/28/17 Unknown Rx Paroxetine HCl [PARoxetine] 40 mg PO DAILY #30 tablet 04/07/17 08/28/17 Unknown Rx Cinacalcet [Sensipar] 60 mg PO QDAY tablet 07/05/17 08/28/17 Unknown Rx Acetaminophen/Codeine [Tylenol 1 tab PO Q6H PRN #12 tab 07/20/17 08/28/17 Rx /Codeine # 3 tab] ALBUTEROL NEB's [Proventil 0.083% 2.5 mg IH Q6H PRN 07/21/17 08/28/17 Unknown History NEBS] Budesonide/Formoterol Fumarate 2 puff IH BID 07/21/17 08/28/17 Unknown History [Symbicort 160-4.5 Mcg Inhaler] Ferric Citrate (Nf) [Auryxia (Nf)] 3 tab PO QID 07/21/17 08/28/17 Unknown History Fluticasone [Flonase] 2 sprays NS QDAY 07/21/17 08/28/17 Unknown History Gemfibrozil [Lopid] 600 mg PO BID 07/21/17 08/28/17 Unknown History Insulin Glargine,Hum.rec.anlog 10 units SUB-Q DAILY 07/21/17 08/28/17 Unknown History [Lantus Solostar] Ipratropium/Albuterol Sulfate 1 spray IH QID 07/21/17 08/28/17 Unknown History [Combivent Respimat] Nitroglycerin [Nitrostat] 0.4 mg SL Q5M PRN 07/21/17 08/28/17 08/28/17 History Rosuvastatin Calcium [Crestor] 10 mg PO HS 07/21/17 08/28/17 Unknown History lamiVUDine [Epivir NICU] 5 ml PO DAILY 07/21/17 08/28/17 Unknown History traZODone [Desyrel] 50 mg PO QHS 07/21/17 08/28/17 Unknown History Amiodarone [Cordarone 200 MG TAB] 200 mg PO BID #60 tablet 07/26/17 08/28/17 Unknown Rx AtorvaSTATin [Lipitor] 20 mg PO QHS #30 tablet 07/26/17 08/28/17 Unknown Rx Budesonide [Pulmicort Respules] 1 mg IH Q12HRT #60 nebu 07/26/17 08/28/17 Unknown Rx Diltiazem [Cardizem] 60 mg PO Q6HR #90 tablet 07/26/17 08/28/17 Unknown Rx Sevelamer Carbonate [Renvela] 1,600 mg PO TIDWM #30 tablet 07/26/17 08/28/17 Unknown Rx Warfarin [Coumadin] 7.5 mg PO QDAY #30 tablet 07/26/17 08/28/17 Unknown Rx ED Review of Systems ROS: Stated complaint: SHANTHI Other details as noted in HPI Comment: All other systems reviewed and negative Constitutional: denies: chills, fever Eyes: denies: eye pain, eye discharge, vision change ENT: denies: ear pain, throat pain Respiratory: cough, shortness of breath Cardiovascular: denies: edema, syncope Gastrointestinal: denies: abdominal pain, nausea, diarrhea Genitourinary: denies: urgency, dysuria Musculoskeletal: denies: back pain, joint swelling, arthralgia Skin: denies: rash, lesions Neurological: denies: headache, weakness, paresthesias Physical Exam - Physical Exam Vital Signs: Vital Signs 08/28/17 08:40 Temperature 98 F Pulse Rate 135 H Respiratory 22 Rate Blood Pressure 151/97 O2 Sat by Pulse 100 Oximetry ED Course Vital Signs 08/28/17 08:40 Temperature 98 F Pulse Rate 135 H Respiratory 22 Rate Blood Pressure 151/97 O2 Sat by Pulse 100 Oximetry ED Medical Decision Making - Lab Data Result diagrams: 08/28/17 08:55 08/28/17 08:55 - EKG Data -: EKG Interpreted by Me - EKG Data When compared to previous EKG there are: no significant change Interpretation: unchanged when compared t (07/21/17), other (atrial flutter with RVR, left axis deviation, PVCs, Q waves to the anterior, lateral and inferior leads, slightly prolonged QTC) - Radiology Data Radiology results: image reviewed interpreted by me: Chest x-ray shows some cardiomegaly and pulmonary vascular congestion. No obvious pneumonia. Critical care attestation.: If time is entered above; I have spent that time in minutes in the direct care of this critically ill patient, excluding procedure time. ED Disposition Clinical Impression: Atrial flutter with rapid ventricular response, ESRD needing dialysis Dyspnea Qualifiers: Dyspnea type: shortness of breath Qualified Code(s): R06.02 - Shortness of breath; R06.00 - Dyspnea, unspecified; R06.01 - Orthopnea CHF (congestive heart failure) Qualifiers: Heart failure type: unspecified Heart failure chronicity: acute on chronic Qualified Code(s): I50.9 - Heart failure, unspecified Disposition: -09 OP ADMIT IP TO THIS HOSP Is pt being admited?: Yes Condition: Fair Time of Disposition: 14:43
[2017-08-28 09:16] LABS: Basophils # (Auto) 0.1 K/mm3 (0.0-0.1); Basophils % (Auto) 0.7 % (0.0-1.8); Eosinophils # (Auto) 0.2 K/mm3 (0.0-0.4); Eosinophils % (Auto) 2.3 % (0.0-4.3); Hematocrit 37.2 % (35.5-45.6); Hemoglobin 12.1 gm/dl (11.8-15.2); Lymphocytes # (Auto) 1.9 K/mm3 (1.2-5.4); Lymphocytes % (Auto) 26.4 % (13.4-35.0); Mean Corpuscular HGB Conc 33 % (32-34); Mean Corpuscular Hemoglobin 29 pg (28-32); Mean Corpuscular Volume 89 fl (84-94); Monocytes # (Auto) 0.9 K/mm3 (0.0-0.8); Monocytes % (Auto) 11.6 % (0.0-7.3); Platelet Count 236 K/mm3 (140-440); Red Blood Count 4.16 M/mm3 (3.65-5.03); Red Cell Distribution Width 19.2 % (13.2-15.2)
[2017-08-28 09:23] LABS: Albumin 3.6 g/dL (3.9-5); Calcium 8.2 mg/dL (8.4-10.2)
[2017-08-28 09:55] LABS: Chol/HDL Ratio 4.46 %
[2017-08-28 09:57] LABS: INR 1.41 (0.87-1.13)
[2017-08-28] MEDS ORDERED: BREVIBLOC DRIP 2.5GM/250ML 2.5 GM/250 ML BAG IV ONE (10:00)
[2017-08-28 10:06] LABS: Partial Thromboplastin Time 63.8 Sec. (24.2-36.6)
--- NOTE | 2017-08-28 14:37 | Nuclear Medicine Report ---
LUNG SCAN, VENTILATION AND PERFUSION: History: Vertebra. Technique: 5mci of Tc99m MAA was infused for the perfusion images. 15mci XE 133 gas was inhaled for the ventilatory images. Correlation is made with a chest x-ray dated 08/28/17. Findings: Inhalation of Xenon gas demonstrates a normal distribution of the activity throughout both lungs. The wash out phases show no focal retention of activity. After injection of Technetium 99m macroaggregated albumin gamma camera imaging of the lungs in multiple projections demonstrates normal pulmonary contours with a homogeneous distribution of activity. No focal areas of perfusion deficiency are identified. IMPRESSION: Low probability for pulmonary embolus.
[2017-08-28] MEDS ORDERED: SUBLIMAZE IV ONE (15:40)
[2017-08-28] MEDS ORDERED: ZOFRAN IV ONE (15:57)
--- NOTE | 2017-08-28 16:39 | Consultation ---
History of Present Illness - Reason for Consult Consult date: 08/28/17 end stage renal disease - History of Present Illness This is a 62 year old male who presented to the E.R with a chief complaint of shortness of breath and tachycardia. Patient was sent form his dialysis clinic which is [facility]. His outpatient Cutting Supervisor is Dr. Vega. Patient was placed on Esmolol drip for rate control as he was found to be with Atrial flutter. Patient has ESRD and is on Hemodialysis every ,,. He is due for hemodialysis today. We are being consulted for dialysis provision. Past History Past Medical History: arrhythmia, anemia, diabetes, dialysis, ESRD, HIV/AIDS, hypertension, hyperlipidemia Past Surgical History: Other (Left AVF placement) Social history: no significant social history Family history: no significant family history Medications and Allergies Allergies Allergy/AdvReac Type Severity Reaction Status Date / Time sulfamethoxazole Allergy Anaphylaxis Verified 08/28/17 08:46 [From Bactrim] trimethoprim [From Bactrim] Allergy Anaphylaxis Verified 08/28/17 08:46 Home Medications Medication Instructions Recorded Confirmed Last Taken Type Albuterol Sulfate [Ventolin HFA] 2 puff IH QID PRN 09/09/16 08/28/17 01/27/17 History amLODIPine [Norvasc] 10 mg PO DAILY 09/09/16 08/28/17 03/12/17 History Gabapentin [Neurontin] 300 mg PO QHS 11/22/16 08/28/17 08/28/17 History Atazanavir Sulfate/Cobicistat 1 each PO QDAY 04/03/17 08/28/17 Unknown History [Evotaz 300 mg-150 mg Tablet] Dolutegravir Sodium [Tivicay] 50 mg PO DAILY #30 tablet 04/07/17 08/28/17 Unknown Rx Paroxetine HCl [PARoxetine] 40 mg PO DAILY #30 tablet 04/07/17 08/28/17 Unknown Rx Cinacalcet [Sensipar] 60 mg PO QDAY tablet 07/05/17 08/28/17 Unknown Rx Acetaminophen/Codeine [Tylenol 1 tab PO Q6H PRN #12 tab 07/20/17 08/28/17 Rx /Codeine # 3 tab] ALBUTEROL NEB's [Proventil 0.083% 2.5 mg IH Q6H PRN 07/21/17 08/28/17 Unknown History NEBS] Budesonide/Formoterol Fumarate 2 puff IH BID 07/21/17 08/28/17 Unknown History [Symbicort 160-4.5 Mcg Inhaler] Ferric Citrate (Nf) [Auryxia (Nf)] 3 tab PO QID 07/21/17 08/28/17 Unknown History Fluticasone [Flonase] 2 sprays NS QDAY 07/21/17 08/28/17 Unknown History Gemfibrozil [Lopid] 600 mg PO BID 07/21/17 08/28/17 Unknown History Insulin Glargine,Hum.rec.anlog 10 units SUB-Q DAILY 07/21/17 08/28/17 Unknown History [Lantus Solostar] Ipratropium/Albuterol Sulfate 1 spray IH QID 07/21/17 08/28/17 Unknown History [Combivent Respimat] Nitroglycerin [Nitrostat] 0.4 mg SL Q5M PRN 07/21/17 08/28/17 08/28/17 History Rosuvastatin Calcium [Crestor] 10 mg PO HS 07/21/17 08/28/17 Unknown History lamiVUDine [Epivir NICU] 5 ml PO DAILY 07/21/17 08/28/17 Unknown History traZODone [Desyrel] 50 mg PO QHS 07/21/17 08/28/17 Unknown History Amiodarone [Cordarone 200 MG TAB] 200 mg PO BID #60 tablet 07/26/17 08/28/17 Unknown Rx AtorvaSTATin [Lipitor] 20 mg PO QHS #30 tablet 07/26/17 08/28/17 Unknown Rx Budesonide [Pulmicort Respules] 1 mg IH Q12HRT #60 nebu 07/26/17 08/28/17 Unknown Rx Diltiazem [Cardizem] 60 mg PO Q6HR #90 tablet 07/26/17 08/28/17 Unknown Rx Sevelamer Carbonate [Renvela] 1,600 mg PO TIDWM #30 tablet 07/26/17 08/28/17 Unknown Rx Warfarin [Coumadin] 7.5 mg PO QDAY #30 tablet 07/26/17 08/28/17 Unknown Rx Active Meds: Active Medications Esmolol HCl (Brevibloc Drip 2.5gm/250ml) 2.5 gm in 250 mls @ 29.937 mls/hr IV TITR ONE; Protocol Stop: 08/28/17 18:21 Last Titration: 08/28/17 14:42 Dose: 75 mcg/kg/min, 44.906 mls/hr Review of Systems Constitutional: fatigue, no weight loss, no weight gain, no fever, no chills, no sweats Ears, nose, mouth and throat: no ear pain, no ear discharge, no tinnitis, no decreased hearing, no nose pain, no nasal congestion, no nasal discharge Cardiovascular: chest pain, rapid/irregular heart beat, edema, shortness of breath, dyspnea on exertion, leg edema, no orthopnea Respiratory: cough, cough with sputum, shortness of breath, dyspnea on exertion Gastrointestinal: nausea, vomiting, no diarrhea, no constipation, no hematemesis Genitourinary Male: no hematuria, no flank pain, no discharge, no urinary frequency, no urinary hesitancy, no nocturia, no incontinence Rectal: no pain, no incontinence, no bleeding Musculoskeletal: no neck pain, no shooting arm pain, no arm numbness/tingling, no low back pain, no shooting leg pain, no leg numbness/tingling, no redness of joints Integumentary: no rash, no pruritis, no redness, no sores, no wounds, no jaundice Neurological: no head injury, no transient paralysis, no paralysis, no parathesias, no numbness, no tingling, no seizures Psychiatric: anxiety, no memory loss, no change in sleep habits, no sleep disturbances Endocrine: no cold intolerance, no heat intolerance, no polyphagia, no excessive thirst, no polydipsia Hematologic/Lymphatic: no easy bruising, no easy bleeding, no lymphadenopathy, no lymphedema Exam - Vital Signs Vital signs: Vital Signs Pulse Ox 100 08/28/17 08:36 - General Appearance General appearance: well-developed, fatigue EENT: ATNC, PERRL, hearing intact, vision intact Neck: Present: neck supple, trachea midline Respiratory: Decreased Breath Sounds Heart: tachycardia, S1S2 Gastrointestinal: Present: normoactive bowel sounds Integumentary: warm and dry Neurologic: alert and oriented x3 Musculoskeletal: Present: joint swelling Results - Lab Results 08/28/17 08:55 08/28/17 08:55 Most recent lab results Calcium 8.2 mg/dL (8.4-10.2) L 08/28/17 08:55 Assessment and Plan - Patient Problems (1) ESRD needing dialysis Current Visit: Yes Status: Acute Plan to address problem: Hemodialysis today for UF and clearance Fluid restriction of 1 liter per day Obtain daily weights Monitor I/O's Assess dialysis needs daily (2) Atrial flutter with rapid ventricular response Current Visit: Yes Status: Acute Plan to address problem: On Esmolol drip (3) Acute and chronic respiratory failure Current Visit: No Status: Acute Qualifiers: Respiratory failure complication: hypoxia Qualified Code(s): J96.21 - Acute and chronic respiratory failure with hypoxia Plan to address problem: CXR- Mild Cardiomegaly and pulmonary vascular congestion VQ scan- Low probability for Pulmonary Embolus (4) Hypertensive CKD, ESRD on dialysis Current Visit: No Status: Acute Plan to address problem: Blood pressures are controlled
--- NOTE | 2017-08-28 18:52 | History and Physical Report ---
History of Present Illness Date of examination: 08/28/17 Date of admission: 08/28/2017 Chief complaint: Chief complaint: Increasing shortness of breath for 1 day. Palpitations for 1 day. History of present illness: History of Present Illness This is a 62 year old male who presented to the E.R with a chief complaint of shortness of breath and tachycardia. Patient was sent form his dialysis clinic which is [facility]. His outpatient Qa Analyst is Dr. Vega. Patient was placed on Esmolol drip for rate control as he was found to be with Atrial flutter. Patient has ESRD and is on Hemodialysis every M,W,F. He is due for hemodialysis today. No chest pain. Shortness of breath on minimal exertion. No diaphoresis. Palpitations for 1 day present. Patient does class IV [employer] symptoms. Past History Past Medical History: arrhythmia, anemia, diabetes, dialysis, ESRD, HIV/AIDS, hypertension, hyperlipidemia Past Surgical History: Other (Left AVF placement) Social history: no significant social history Family history: no significant family history Review of Systems Constitutional: fatigue, no weight loss, no weight gain, no fever, no chills, no sweats Ears, nose, mouth and throat: no ear pain, no ear discharge, no tinnitis, no decreased hearing, no nose pain, no nasal congestion, no nasal discharge Cardiovascular: chest pain, rapid/irregular heart beat, edema, shortness of breath, dyspnea on exertion, leg edema, no orthopnea Respiratory: cough, cough with sputum, shortness of breath, dyspnea on exertion Gastrointestinal: nausea, vomiting, no diarrhea, no constipation, no hematemesis Genitourinary Male: no hematuria, no flank pain, no discharge, no urinary frequency, no urinary hesitancy, no nocturia, no incontinence Rectal: no pain, no incontinence, no bleeding Musculoskeletal: no neck pain, no shooting arm pain, no arm numbness/tingling, no low back pain, no shooting leg pain, no leg numbness/tingling, no redness of joints Integumentary: no rash, no pruritis, no redness, no sores, no wounds, no jaundice Neurological: no head injury, no transient paralysis, no paralysis, no parathesias, no numbness, no tingling, no seizures Psychiatric: anxiety, no memory loss, no change in sleep habits, no sleep disturbances Endocrine: no cold intolerance, no heat intolerance, no polyphagia, no excessive thirst, no polydipsia Hematologic/Lymphatic: no easy bruising, no easy bleeding, no lymphadenopathy, no lymphedema Medications Home Medications: Home Medications Medication Instructions Recorded Confirmed Last Taken Type Albuterol Sulfate [Ventolin HFA] 2 puff IH QID PRN 09/09/16 08/28/17 01/27/17 History amLODIPine [Norvasc] 10 mg PO DAILY 09/09/16 08/28/17 03/12/17 History Gabapentin [Neurontin] 300 mg PO QHS 11/22/16 08/28/17 08/28/17 History Atazanavir Sulfate/Cobicistat 1 each PO QDAY 04/03/17 08/28/17 Unknown History [Evotaz 300 mg-150 mg Tablet] Dolutegravir Sodium [Tivicay] 50 mg PO DAILY #30 tablet 04/07/17 08/28/17 Unknown Rx Paroxetine HCl [PARoxetine] 40 mg PO DAILY #30 tablet 04/07/17 08/28/17 Unknown Rx Cinacalcet [Sensipar] 60 mg PO QDAY tablet 07/05/17 08/28/17 Unknown Rx Acetaminophen/Codeine [Tylenol 1 tab PO Q6H PRN #12 tab 07/20/17 08/28/17 Rx /Codeine # 3 tab] ALBUTEROL NEB's [Proventil 0.083% 2.5 mg IH Q6H PRN 07/21/17 08/28/17 Unknown History NEBS] Budesonide/Formoterol Fumarate 2 puff IH BID 07/21/17 08/28/17 Unknown History [Symbicort 160-4.5 Mcg Inhaler] Ferric Citrate (Nf) [Auryxia (Nf)] 3 tab PO QID 07/21/17 08/28/17 Unknown History Fluticasone [Flonase] 2 sprays NS QDAY 07/21/17 08/28/17 Unknown History Gemfibrozil [Lopid] 600 mg PO BID 07/21/17 08/28/17 Unknown History Insulin Glargine,Hum.rec.anlog 10 units SUB-Q DAILY 07/21/17 08/28/17 Unknown History [Lantus Solostar] Ipratropium/Albuterol Sulfate 1 spray IH QID 07/21/17 08/28/17 Unknown History [Combivent Respimat] Nitroglycerin [Nitrostat] 0.4 mg SL Q5M PRN 07/21/17 08/28/17 08/28/17 History Rosuvastatin Calcium [Crestor] 10 mg PO HS 07/21/17 08/28/17 Unknown History lamiVUDine [Epivir NICU] 5 ml PO DAILY 07/21/17 08/28/17 Unknown History traZODone [Desyrel] 50 mg PO QHS 07/21/17 08/28/17 Unknown History Amiodarone [Cordarone 200 MG TAB] 200 mg PO BID #60 tablet 07/26/17 08/28/17 Unknown Rx AtorvaSTATin [Lipitor] 20 mg PO QHS #30 tablet 07/26/17 08/28/17 Unknown Rx Budesonide [Pulmicort Respules] 1 mg IH Q12HRT #60 nebu 07/26/17 08/28/17 Unknown Rx Diltiazem [Cardizem] 60 mg PO Q6HR #90 tablet 07/26/17 08/28/17 Unknown Rx Sevelamer Carbonate [Renvela] 1,600 mg PO TIDWM #30 tablet 07/26/17 08/28/17 Unknown Rx Warfarin [Coumadin] 7.5 mg PO QDAY #30 tablet 07/26/17 08/28/17 Unknown Rx Past History Past Medical History: arrhythmia, anemia, diabetes, dialysis, ESRD, HIV/AIDS, hypertension, hyperlipidemia Past Surgical History: Other (Left AVF placement) Social history: no significant social history Family history: no significant family history Medications and Allergies Allergies Allergy/AdvReac Type Severity Reaction Status Date / Time sulfamethoxazole Allergy Anaphylaxis Verified 08/28/17 08:46 [From Bactrim] trimethoprim [From Bactrim] Allergy Anaphylaxis Verified 08/28/17 08:46 Home Medications Medication Instructions Recorded Confirmed Last Taken Type Albuterol Sulfate [Ventolin HFA] 2 puff IH QID PRN 09/09/16 08/28/17 01/27/17 History amLODIPine [Norvasc] 10 mg PO DAILY 09/09/16 08/28/17 03/12/17 History Gabapentin [Neurontin] 300 mg PO QHS 11/22/16 08/28/17 08/28/17 History Atazanavir Sulfate/Cobicistat 1 each PO QDAY 04/03/17 08/28/17 Unknown History [Evotaz 300 mg-150 mg Tablet] Dolutegravir Sodium [Tivicay] 50 mg PO DAILY #30 tablet 04/07/17 08/28/17 Unknown Rx Paroxetine HCl [PARoxetine] 40 mg PO DAILY #30 tablet 04/07/17 08/28/17 Unknown Rx Cinacalcet [Sensipar] 60 mg PO QDAY tablet 07/05/17 08/28/17 Unknown Rx Acetaminophen/Codeine [Tylenol 1 tab PO Q6H PRN #12 tab 07/20/17 08/28/17 Rx /Codeine # 3 tab] ALBUTEROL NEB's [Proventil 0.083% 2.5 mg IH Q6H PRN 07/21/17 08/28/17 Unknown History NEBS] Budesonide/Formoterol Fumarate 2 puff IH BID 07/21/17 08/28/17 Unknown History [Symbicort 160-4.5 Mcg Inhaler] Ferric Citrate (Nf) [Auryxia (Nf)] 3 tab PO QID 07/21/17 08/28/17 Unknown History Fluticasone [Flonase] 2 sprays NS QDAY 07/21/17 08/28/17 Unknown History Gemfibrozil [Lopid] 600 mg PO BID 07/21/17 08/28/17 Unknown History Insulin Glargine,Hum.rec.anlog 10 units SUB-Q DAILY 07/21/17 08/28/17 Unknown History [Lantus Solostar] Ipratropium/Albuterol Sulfate 1 spray IH QID 07/21/17 08/28/17 Unknown History [Combivent Respimat] Nitroglycerin [Nitrostat] 0.4 mg SL Q5M PRN 07/21/17 08/28/17 08/28/17 History Rosuvastatin Calcium [Crestor] 10 mg PO HS 07/21/17 08/28/17 Unknown History lamiVUDine [Epivir NICU] 5 ml PO DAILY 07/21/17 08/28/17 Unknown History traZODone [Desyrel] 50 mg PO QHS 07/21/17 08/28/17 Unknown History Amiodarone [Cordarone 200 MG TAB] 200 mg PO BID #60 tablet 07/26/17 08/28/17 Unknown Rx AtorvaSTATin [Lipitor] 20 mg PO QHS #30 tablet 07/26/17 08/28/17 Unknown Rx Budesonide [Pulmicort Respules] 1 mg IH Q12HRT #60 nebu 07/26/17 08/28/17 Unknown Rx Diltiazem [Cardizem] 60 mg PO Q6HR #90 tablet 07/26/17 08/28/17 Unknown Rx Sevelamer Carbonate [Renvela] 1,600 mg PO TIDWM #30 tablet 07/26/17 08/28/17 Unknown Rx Warfarin [Coumadin] 7.5 mg PO QDAY #30 tablet 07/26/17 08/28/17 Unknown Rx Exam - Physical Exam Narrative exam: Lying in bed-slight respiratory distress - Constitutional Vitals: Temp Pulse Resp BP Pulse Ox 98.2 F 90 18 124/72 92 08/28/17 16:15 08/28/17 18:45 08/28/17 16:15 08/28/17 18:45 08/28/17 14:46 General appearance: Present: no acute distress, well-nourished - EENT Eyes: Present: PERRL ENT: hearing intact, clear oral mucosa - Neck Neck: Present: supple, normal ROM - Respiratory Respiratory effort: normal Respiratory: bilateral: CTA - Cardiovascular Heart rate: 130 Rhythm: regular Heart Sounds: Present: S1 & S2. Absent: rub, click - Extremities Extremities: no ischemia, pulses intact, pulses symmetrical, No edema Peripheral Pulses: within normal limits - Abdominal General gastrointestinal: Present: soft, non-tender, non-distended, normal bowel sounds Male genitourinary: Present: normal - Rectal Rectal Exam: deferred - Integumentary Integumentary: Present: clear, warm, dry - Musculoskeletal Musculoskeletal: gait normal, strength equal bilaterally - Psychiatric Psychiatric: appropriate mood/affect, intact judgment & insight - Neurologic Neurologic: CNII-XII intact, moves all extremities - Allied Health Allied health notes reviewed: nursing, case management Results - Labs CBC & Chem 7: 08/28/17 08:55 08/28/17 08:55 Labs: Laboratory Last Values WBC 7.4 K/mm3 (4.5-11.0) 08/28/17 08:55 RBC 4.16 M/mm3 (3.65-5.03) 08/28/17 08:55 Hgb 12.1 gm/dl (11.8-15.2) 08/28/17 08:55 Hct 37.2 % (35.5-45.6) 08/28/17 08:55 MCV 89 fl (84-94) 08/28/17 08:55 MCH 29 pg (28-32) 08/28/17 08:55 MCHC 33 % (32-34) 08/28/17 08:55 RDW 19.2 % (13.2-15.2) H 08/28/17 08:55 Plt Count 236 K/mm3 (140-440) 08/28/17 08:55 Lymph % (Auto) 26.4 % (13.4-35.0) 08/28/17 08:55 Burke % (Auto) 11.6 % (0.0-7.3) H 08/28/17 08:55 Eos % (Auto) 2.3 % (0.0-4.3) 08/28/17 08:55 Baso % (Auto) 0.7 % (0.0-1.8) 08/28/17 08:55 Lymph # 1.9 K/mm3 (1.2-5.4) 08/28/17 08:55 Burke # 0.9 K/mm3 (0.0-0.8) H 08/28/17 08:55 Eos # 0.2 K/mm3 (0.0-0.4) 08/28/17 08:55 Baso # 0.1 K/mm3 (0.0-0.1) 08/28/17 08:55 Seg Neutrophils % 59.0 % (40.0-70.0) 08/28/17 08:55 Seg Neutrophils # 4.4 K/mm3 (1.8-7.7) 08/28/17 08:55 PT 18.1 Sec. (12.2-14.9) H 08/28/17 08:55 INR 1.41 (0.87-1.13) H 08/28/17 08:55 APTT 63.8 Sec. (24.2-36.6) H* 08/28/17 08:55 D-Dimer 292.39 ng/mlDDU (0-234) H 08/28/17 08:55 Sodium 137 mmol/L (137-145) 08/28/17 08:55 Potassium 4.4 mmol/L (3.6-5.0) 08/28/17 08:55 Chloride 92.3 mmol/L (98-107) L 08/28/17 08:55 Carbon Dioxide 26 mmol/L (22-30) 08/28/17 08:55 Anion Gap 23 mmol/L 08/28/17 08:55 BUN 42 mg/dL (9-20) H 08/28/17 08:55 Creatinine 11.7 mg/dL (0.8-1.5) H 08/28/17 08:55 Estimated GFR 5 ml/min 08/28/17 08:55 BUN/Creatinine Ratio 4 % 08/28/17 08:55 Glucose 97 mg/dL (75-100) 08/28/17 08:55 Calcium 8.2 mg/dL (8.4-10.2) L 08/28/17 08:55 Total Bilirubin 0.60 mg/dL (0.1-1.2) 08/28/17 08:55 AST 19 units/L (5-40) 08/28/17 08:55 ALT 8 units/L (7-56) 08/28/17 08:55 Alkaline Phosphatase 106 units/L (35-129) 08/28/17 08:55 Troponin T 0.161 ng/mL (0.00-0.029) H* 08/28/17 08:55 Total Protein 7.9 g/dL (6.3-8.2) 08/28/17 08:55 Albumin 3.6 g/dL (3.9-5) L 08/28/17 08:55 Albumin/Globulin Ratio 0.8 % 08/28/17 08:55 Triglycerides 153 mg/dL (2-149) H 08/28/17 08:55 Cholesterol 116 mg/dL (50-199) 08/28/17 08:55 LDL Cholesterol Direct 67 mg/dL (50-130) 08/28/17 08:55 HDL Cholesterol 26 mg/dL (40-59) L 08/28/17 08:55 Cholesterol/HDL Ratio 4.46 % 08/28/17 08:55 - Imaging and Cardiology EKG: report reviewed (supraventricular tachycardia) Chest x-ray: report reviewed Imaging and Cardiology: Chest x-ray Pulmonary venous congestion Mild cardiomegaly Assessment and Plan Assessment and plan: The high probability of a clinically significant, sudden or life threatening deterioration of the [Pulmonary, cadiac, renal] system(s) required my full and direct attention, intervention and personal management. The aggregate critical care time was [45] minutes. This time is in addition to time spent performing reported procedures but includes the following: [x] Data Review and interpretation [x] Patient assessment and monitoring of vital signs [x] Documentation [x] Medication orders and management Advance Directives: Yes (full code) VTE prophylaxis?: Chemical Plan of care discussed with patient/family: Yes - Patient Problems (1) Supraventricular tachycardia Current Visit: Yes Status: Acute Plan to address problem: Patient on Esmolol drip Patient also started on Cardizem 240 mg once a day for rate control. Discontinue esmolol drip once the rate is better in the 70s to 80s. Critical care unit admission. Cardiology and nephrology and shrimp peeling machine tender consulted (2) Acute and chronic respiratory failure Current Visit: No Status: Acute Qualifiers: Respiratory failure complication: hypoxia Qualified Code(s): J96.21 - Acute and chronic respiratory failure with hypoxia Plan to address problem: Secondary to CHF and volume overload (3) Acute exacerbation of congestive heart failure Current Visit: Yes Status: Acute Qualifiers: Heart failure type: combined systolic and diastolic Qualified Code(s): I50.43 - Acute on chronic combined systolic (congestive) and diastolic ( congestive) heart failure Plan to address problem: Secondary to noncompliance. Excessive fluid intake. Needs ultrafiltration. Echocardiogram for ejection fraction (4) ESRD needing dialysis Current Visit: Yes Status: Acute Plan to address problem: Continue hemodialysis. Nephrology consulted Dr. RAMIREZ (5) Elevated troponin level Current Visit: Yes Status: Acute Plan to address problem: Maybe secondary to end-stage renal disease and compromised renal function. Will trend the troponins. Cardiology consulted for CHF (6) HIV (human immunodeficiency virus infection) Current Visit: No Status: Chronic Plan to address problem: Continue antiretrovirals (7) HTN (hypertension) Current Visit: No Status: Chronic Qualifiers: Hypertension type: essential hypertension Qualified Code(s): I10 - Essential (primary) hypertension Plan to address problem: Continue antihypertensives (8) IDDM (insulin dependent diabetes mellitus) Current Visit: No Status: Chronic Plan to address problem: Continue hypoglycemics and coverage Check A1c (9) Tobacco use disorder Current Visit: No Status: Chronic Plan to address problem: NicoDerm patch ordered. Smoking cessation consult (10) Arrhythmia Current Visit: Yes Status: Chronic Qualifiers: Arrhythmia type: atrial fibrillation Atrial fibrillation type: chronic Qualified Code(s): I48.2 - Chronic atrial fibrillation Plan to address problem: Continue amiodarone (11) COPD (chronic obstructive pulmonary disease) Current Visit: Yes Status: Chronic Qualifiers: Emphysema type: unspecified Plan to address problem: Continue bronchodilators (12) Neuropathy Current Visit: No Status: Chronic Plan to address problem: Continue gabapentin (13) Hyperlipidemia Current Visit: Yes Status: Chronic Qualifiers: Hyperlipidemia type: mixed hyperlipidemia Qualified Code(s): E78.2 - Mixed hyperlipidemia Plan to address problem: Continue gemfibrozil and statins (14) Anticoagulation goal of INR 2 to 3 Current Visit: Yes Status: Chronic Plan to address problem: Continue codeine with goal INR of 2-3. (15) DVT prophylaxis Current Visit: No Status: Acute Plan to address problem: On heparin
[2017-08-28] MEDS ORDERED: PROAIR IH PRN (18:53)
[2017-08-28] MEDS ORDERED: TYLENOL #3 PO PRN (18:53)
[2017-08-28] MEDS ORDERED: NITROSTAT SL PRN (18:53)
[2017-08-28] MEDS ORDERED: PROVENTIL IH PRN (18:53)
[2017-08-28] MEDS ORDERED: NACL 0.9 (PRIMING MACHINE ONLY DIALYSIS) MC ONE (18:58)
[2017-08-28] MEDS ORDERED: COUMADIN PO SCH ×2 (19:00→20:00)
[2017-08-28] MEDS ORDERED: BREVIBLOC DRIP 2.5GM/250ML 2.5 GM/250 ML BAG IV SCH (19:00)
[2017-08-28] MEDS ORDERED: NON-FORMULARY (Paroxetine Hcl [Paroxetine] 40 MG) PO SCH (19:00)
[2017-08-28] MEDS ORDERED: NON-FORMULARY (Insulin Glargine,Hum.Rec.Anlog [Lantus Solostar] 10 UNITS) SUB-Q SCH (19:00)
[2017-08-28] MEDS ORDERED: SODIUM CHLORIDE FLUSH SYRINGE 10 ML IV PRN (19:01)
[2017-08-28] MEDS ORDERED: DILAUDID IV PRN (19:01)
[2017-08-28] MEDS ORDERED: MORPHINE IV PRN (19:01)
[2017-08-28] MEDS ORDERED: HABITROL TD ONE (19:52)
[2017-08-28] MEDS ORDERED: CARDIZEM CD PO ONE (20:00)
[2017-08-28] MEDS ORDERED: NON-FORMULARY (Rosuvastatin Calcium [Crestor] 10 MG) PO SCH (22:00)
[2017-08-28] MEDS ORDERED: NON-FORMULARY (Budesonide/Formoterol Fumarate [Symbicort 160-4.5 Mcg Inhaler] 2 PUFF) IH SCH (22:00)
[2017-08-28] MEDS ORDERED: NON-FORMULARY (Ipratropium/Albuterol Sulfate [Combivent Respimat] 1 SPRAY) IH SCH (22:00)
[2017-08-28] MEDS ORDERED: NACL 0.9% 250ML 250 ML IV ONE (22:51)
[2017-08-28] MEDS: CARDIZEM PO SCH (23:08)
[2017-08-28] MEDS: COBICISTAT PO SCH (23:08)
[2017-08-28] MEDS: ATAZANAVIR SULFATE PO SCH (23:08)
[2017-08-28] MEDS: NORVASC PO SCH (23:09)
[2017-08-28] MEDS: SENSIPAR PO SCH (23:09)
[2017-08-28] MEDS: NON-FORMULARY (Dolutegravir Sodium [Tivicay] 50 MG) PO SCH (23:09)
[2017-08-28] MEDS: PAXIL PO SCH (23:10)
[2017-08-28] MEDS: LOPID PO SCH (23:11)
[2017-08-28] MEDS ORDERED: INTROPIN DRIP 800 MG/D5W 250 ML 800 MG/250 ML BAG IV SCH (23:45)
[2017-08-28] MEDS: EPIVIR PO SCH (23:59)
[2017-08-29] MEDS: SODIUM CHLORIDE FLUSH SYRINGE 10 ML IV SCH ×2 (00:01→10:30)
[2017-08-29] MEDS: CORDARONE PO SCH ×3 (00:01→23:51)
[2017-08-29] MEDS: HEPARIN SUB-Q SCH ×4 (00:06→22:34)
[2017-08-29] MEDS: CARDIZEM PO SCH ×3 (00:07→13:47)
[2017-08-29] MEDS: LANTUS SUB-Q SCH (00:32)
[2017-08-29] MEDS: FERRIC CITRATE PO SCH ×2 (00:32→13:56)
[2017-08-29] MEDS: NEURONTIN PO SCH ×2 (00:33→23:47)
[2017-08-29] MEDS: DESYREL PO SCH ×2 (00:33→23:47)
[2017-08-29] MEDS: DUONEB *Not for PRN Use IH SCH ×6 (03:44→21:18)
[2017-08-29] MEDS: RENVELA PO SCH ×2 (05:45→13:42)
[2017-08-29 08:21] LABS: Albumin 3.4 g/dL (3.9-5); Calcium 7.9 mg/dL (8.4-10.2)
[2017-08-29 08:30] LABS: INR 2.26 (0.87-1.13)
[2017-08-29] MEDS: PULMICORT IH SCH ×3 (08:38→21:18)
[2017-08-29] MEDS: BROVANA NEBU IH SCH ×3 (08:39→21:18)
[2017-08-29] MEDS: FLONASE NS SCH (10:30)
--- NOTE | 2017-08-29 11:42 | Consultation ---
History of Present Illness Consult date: 08/29/17 Consult reason: congestive heart failure History of present illness: Mr Hinojosa is a 62yr old man with end-stage renal disease on hemodialysis. Patient has paroxysmal atrial flutter and is on warfarin for oral anticoagulation. He also has a dilated nonischemic cardiomyopathy. His cardiomyopathy dates to several years ago when he lived in [place]. A cardiac catheterization at that time demonstrated no significant coronary disease, and established a severe nonischemic cardiomyopathy. He has an indwelling ICD. A year ago, patient had a normal stress thallium test. An echocardiogram a year ago demonstrates an decrease left ventricular systolic function, EF 15-20%. Patient was sent to the ED from dialysis for shortness of breath and palpitations, admitted with CHF exacerbation and rapid atrial flutter. Cardiology consultation was requested for further management. A chest xray reports mild cardiomegaly with pulmonary venous congestion. Patient reports as an outpatient, his dialysis treatments are terminated early secondary to lower extremity pain and cramps. He has returned to a sinus rhythm since his initial treatment in the emergency room. Past History Past Medical History: arrhythmia, anemia, diabetes, dialysis, ESRD, HIV/AIDS, hypertension, hyperlipidemia Past Surgical History: Other (Left AVF placement) Social history: no significant social history Family history: no significant family history Medications and Allergies Allergies Allergy/AdvReac Type Severity Reaction Status Date / Time sulfamethoxazole Allergy Anaphylaxis Verified 08/28/17 08:46 [From Bactrim] trimethoprim [From Bactrim] Allergy Anaphylaxis Verified 08/28/17 08:46 Home Medications Medication Instructions Recorded Confirmed Last Taken Type Albuterol Sulfate [Ventolin HFA] 2 puff IH QID PRN 09/09/16 08/28/17 01/27/17 History amLODIPine [Norvasc] 10 mg PO DAILY 09/09/16 08/28/17 03/12/17 History Gabapentin [Neurontin] 300 mg PO QHS 11/22/16 08/28/17 08/28/17 History Atazanavir Sulfate/Cobicistat 1 each PO QDAY 04/03/17 08/28/17 Unknown History [Evotaz 300 mg-150 mg Tablet] Dolutegravir Sodium [Tivicay] 50 mg PO DAILY #30 tablet 04/07/17 08/28/17 Unknown Rx Paroxetine HCl [PARoxetine] 40 mg PO DAILY #30 tablet 04/07/17 08/28/17 Unknown Rx Cinacalcet [Sensipar] 60 mg PO QDAY tablet 07/05/17 08/28/17 Unknown Rx Acetaminophen/Codeine [Tylenol 1 tab PO Q6H PRN #12 tab 07/20/17 08/28/17 Rx /Codeine # 3 tab] ALBUTEROL NEB's [Proventil 0.083% 2.5 mg IH Q6H PRN 07/21/17 08/28/17 Unknown History NEBS] Budesonide/Formoterol Fumarate 2 puff IH BID 07/21/17 08/28/17 Unknown History [Symbicort 160-4.5 Mcg Inhaler] Ferric Citrate (Nf) [Auryxia (Nf)] 3 tab PO QID 07/21/17 08/28/17 Unknown History Fluticasone [Flonase] 2 sprays NS QDAY 07/21/17 08/28/17 Unknown History Gemfibrozil [Lopid] 600 mg PO BID 07/21/17 08/28/17 Unknown History Insulin Glargine,Hum.rec.anlog 10 units SUB-Q DAILY 07/21/17 08/28/17 Unknown History [Lantus Solostar] Ipratropium/Albuterol Sulfate 1 spray IH QID 07/21/17 08/28/17 Unknown History [Combivent Respimat] Nitroglycerin [Nitrostat] 0.4 mg SL Q5M PRN 07/21/17 08/28/17 08/28/17 History Rosuvastatin Calcium [Crestor] 10 mg PO HS 07/21/17 08/28/17 Unknown History lamiVUDine [Epivir NICU] 5 ml PO DAILY 07/21/17 08/28/17 Unknown History traZODone [Desyrel] 50 mg PO QHS 07/21/17 08/28/17 Unknown History Amiodarone [Cordarone 200 MG TAB] 200 mg PO BID #60 tablet 07/26/17 08/28/17 Unknown Rx AtorvaSTATin [Lipitor] 20 mg PO QHS #30 tablet 07/26/17 08/28/17 Unknown Rx Budesonide [Pulmicort Respules] 1 mg IH Q12HRT #60 nebu 07/26/17 08/28/17 Unknown Rx Diltiazem [Cardizem] 60 mg PO Q6HR #90 tablet 07/26/17 08/28/17 Unknown Rx Sevelamer Carbonate [Renvela] 1,600 mg PO TIDWM #30 tablet 07/26/17 08/28/17 Unknown Rx Warfarin [Coumadin] 7.5 mg PO QDAY #30 tablet 07/26/17 08/28/17 Unknown Rx Active Meds: Active Medications Acetaminophen/Codeine Phosphate (Tylenol #3) 1 tab PO Q6H PRN PRN Reason: Pain Albuterol (Proventil) 2.5 mg IH Q6H PRN PRN Reason: Shortness Of Breath Albuterol/Ipratropium (Duoneb *Not For Prn Use*) 1 ampul IH Q6HRT [facility] Last Admin: 08/29/17 08:40 Dose: Not Given Amiodarone HCl (Cordarone) 200 mg PO BID [facility] Last Admin: 08/29/17 00:01 Dose: 200 mg Amlodipine Besylate (Norvasc) 10 mg PO DAILY [facility] Last Admin: 08/28/17 23:09 Dose: Not Given Arformoterol Tartrate (Brovana Nebu) 15 mcg IH Q12HRT [facility] Last Admin: 08/29/17 08:39 Dose: 15 mcg Atorvastatin Calcium (Lipitor) 20 mg PO QHS [facility] Last Admin: 08/29/17 00:33 Dose: 20 mg Budesonide (Pulmicort) 1 mg IH Q12HRT [facility] Last Admin: 08/29/17 08:38 Dose: 1 mg Cinacalcet (Sensipar) 60 mg PO QDAY [facility] Last Admin: 08/28/17 23:09 Dose: 60 mg Diltiazem HCl (Cardizem) 60 mg PO Q6HR [facility] Last Admin: 08/29/17 05:37 Dose: Not Given Fluticasone Propionate (Flonase) 100 mcg NS QDAY [facility] Gabapentin (Neurontin) 300 mg PO QHS [facility] Last Admin: 08/29/17 00:33 Dose: 300 mg Gemfibrozil (Lopid) 600 mg PO BID [facility] Last Admin: 08/28/17 23:11 Dose: 600 mg Heparin Sodium (Porcine) (Heparin) 5,000 unit SUB-Q Q8HR [facility] Last Admin: 08/29/17 05:38 Dose: Not Given Hydromorphone HCl (Dilaudid) 0.5 mg IV Q3H PRN PRN Reason: Pain , Severe (7-10) Esmolol HCl (Brevibloc Drip 2.5gm/250ml) 2.5 gm in 250 mls @ 29.937 mls/hr IV TITR [facility]; Protocol Dopamine HCl/Dextrose (Intropin Drip 800 Mg/D5w 250 Ml) 800 mg in 250 mls @ 3.742 mls/hr IV TITR [facility]; Protocol Last Titration: 08/29/17 06:42 Dose: 0 mcg/kg/min, 0 mls/hr Insulin Glargine (Lantus) 10 units SUB-Q QHS [facility] Last Admin: 08/29/17 00:32 Dose: 10 units Lamivudine (Epivir) 50 mg PO DAILY [facility] Last Admin: 08/28/17 23:59 Dose: Not Given Miscellaneous Medication (Atazanavir Sulfate/Cobicistat [Evotaz 300 Mg-150 Mg Tablet]) 1 each PO QDAY [facility] Last Admin: 08/28/17 23:08 Dose: Not Given Miscellaneous Medication (Dolutegravir Sodium [Tivicay]) 50 mg PO DAILY [facility] Last Admin: 08/28/17 23:09 Dose: Not Given Miscellaneous Medication (Ferric Citrate) 3 tab PO QID [facility] Last Admin: 08/29/17 00:32 Dose: Not Given Morphine Sulfate (Morphine) 2 mg IV Q4H PRN PRN Reason: Pain , Severe (7-10) Nitroglycerin (Nitrostat) 0.4 mg SL Q5M PRN PRN Reason: Chest Pain Oxycodone/Acetaminophen (Percocet 5/325) 1 tab PO Q6H PRN PRN Reason: Pain, Moderate (4-6) Paroxetine HCl (Paxil) 40 mg PO DAILY [facility] Last Admin: 08/28/17 23:10 Dose: 40 mg Sevelamer Carbonate (Renvela) 1,600 mg PO TIDWM [facility] Sodium Chloride (Sodium Chloride Flush Syringe 10 Ml) 10 ml IV BID [facility] [place] Last Admin: 08/29/17 00:01 Dose: 10 ml Sodium Chloride (Sodium Chloride Flush Syringe 10 Ml) 10 ml IV PRN PRN PRN Reason: LINE FLUSH Trazodone HCl (Desyrel) 50 mg PO QHS [facility] Last Admin: 08/29/17 00:33 Dose: 50 mg Warfarin Sodium (Coumadin) 7.5 mg PO DAILY@1700 [facility] Physical Examination Vital Signs Pulse Ox 100 08/28/17 08:36 Results 08/28/17 08:55 08/29/17 07:34 Cardiac Enzymes 08/29/17 Range/Units 07:34 AST 26 (5-40) units/L Coagulation 08/29/17 Range/Units 07:34 PT 26.4 H (12.2-14.9) Sec. INR 2.26 H (0.87-1.13) Comprehensive Metabolic Panel 08/29/17 Range/Units 07:34 Sodium 138 (137-145) mmol/L Potassium 5.4 H D (3.6-5.0) mmol/L Chloride 92.4 L (98-107) mmol/L Carbon Dioxide 29 (22-30) mmol/L BUN 31 H (9-20) mg/dL Creatinine 9.3 H (0.8-1.5) mg/dL Glucose 81 (75-100) mg/dL Calcium 7.9 L (8.4-10.2) mg/dL AST 26 (5-40) units/L ALT 8 (7-56) units/L Alkaline Phosphatase 89 (35-129) units/L Total Protein 7.4 (6.3-8.2) g/dL Albumin 3.4 L (3.9-5) g/dL Assessment and Plan Atrial flutter, paroxysmal currently in sinus rhythm on warfarin for oral anticoagulation. Acute systolic heart failure ESRD on HD HIV disease COPD on home O2 Nonischemic CMP, EF 20-25% normal coronaries in 2014 no ischemia on MPI 08/2016 Presence of AICD Chronic elevated troponin - non-specific Recommendations: Dialysis for fluid management. Medical therapy for nonischemic cardiomyopathy and paroxysmal atrial flutter.
--- NOTE | 2017-08-29 12:20 | Progress Note ---
Assessment and Plan /Atrial flutter, paroxysmal ordered esmolol drip but never started started on Cardizem 240 mg once a day for rate control on warfarin for oral anticoagulation Continue amiodarone / Acute and chronic respiratory failure Secondary to CHF and volume overload place on CHF protocol /Acute exacerbation of congestive heart failure Secondary to noncompliance. Excessive fluid intake. follow Echocardiogram for ejection fraction /ESRD needing dialysis Continue hemodialysis. Nephrology consulted Dr. RAMIREZ /Elevated troponin level Maybe secondary to end-stage renal disease and compromised renal function. Will trend the troponins. Cardiology consulted for CHF / HIV (human immunodeficiency virus infection) Continue antiretrovirals /HTN (hypertension) Continue antihypertensives / IDDM (insulin dependent diabetes mellitus) Continue hypoglycemics coverage, SSI Check A1c /Tobacco use disorder NicoDerm patch ordered. Smoking cessation consult done on admission / COPD (chronic obstructive pulmonary disease) Continue bronchodilators / Neuropathy Continue gabapentin / Hyperlipidemia Continue gemfibrozil and statins /Anticoagulation goal of INR 2 to 3 Continue coumadin with goal INR of 2-3. / DVT prophylaxis on coumadin Brief history: This is a 62 year old male with h/o dilated 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 Patient was sent form his dialysis clinic which is [facility]. Patient was found to be with Atrial flutter and admitted for further evaluation. His INR was subtherapeutic on admission. Hospitalist Physical exam: GENERAL: well-developed obese AAM lying on bed appeared to be in no discomfort. HEENT: Normocephalic. Atraumatic. No conjunctival congestion or icterus. Patient has moist mucous membranes. NECK: Supple. Trachea midline. CHEST/LUNGS: crackles auscultated bilaterally, breathing nonlabored. No wheezes HEART/CARDIOVASCULAR: IrRegular in rate and rhythm. S1 and S2 positive. ABDOMEN: Abdomen is soft, nontender. Patient has normal bowel sounds. SKIN: There is no rash. Warm and dry. NEURO: No focal motor deficit. Follows command. MUSCULOSKELETAL: No joint effusion or tenderness. EXTRIMITY: No edema, no cyanosis or clubbing. PSYCH: Cooperative. Subjective Date of service: 08/29/17 Interval history: Pt seen and examined resting on bed, plan for HD today tolerating diet, denies chest pain Objective - Constitutional Vitals: Vital Signs - 12hr 08/29/17 08/29/17 08/29/17 00:30 00:45 01:00 Pulse Rate 105 H 117 H 110 H Pulse Rate [ Anterior Lower Lobe] Pulse Rate [ Throughout] Respiratory 20 19 18 Rate Respiratory Rate [Anterior Lower Lobe] Respiratory Rate [ Throughout] Blood Pressure 166/95 187/102 177/94 O2 Sat by Pulse 95 99 96 Oximetry 08/29/17 08/29/17 08/29/17 01:15 01:30 01:45 Pulse Rate 95 H 91 H 88 Pulse Rate [ Anterior Lower Lobe] Pulse Rate [ Throughout] Respiratory 17 16 17 Rate Respiratory Rate [Anterior Lower Lobe] Respiratory Rate [ Throughout] Blood Pressure 151/80 108/67 100/73 O2 Sat by Pulse 99 98 100 Oximetry 08/29/17 08/29/17 08/29/17 02:00 02:15 02:30 Pulse Rate 86 84 81 Pulse Rate [ Anterior Lower Lobe] Pulse Rate [ Throughout] Respiratory 14 14 15 Rate Respiratory Rate [Anterior Lower Lobe] Respiratory Rate [ Throughout] Blood Pressure 118/73 122/74 131/77 O2 Sat by Pulse 97 100 100 Oximetry 08/29/17 08/29/17 08/29/17 02:45 03:00 03:15 Pulse Rate 84 87 84 Pulse Rate [ Anterior Lower Lobe] Pulse Rate [ Throughout] Respiratory 12 16 13 Rate Respiratory Rate [Anterior Lower Lobe] Respiratory Rate [ Throughout] Blood Pressure 135/87 122/78 108/72 O2 Sat by Pulse 99 98 100 Oximetry 08/29/17 08/29/17 08/29/17 03:30 03:45 04:00 Pulse Rate 84 83 85 Pulse Rate [ Anterior Lower Lobe] Pulse Rate [ Throughout] Respiratory 15 14 16 Rate Respiratory Rate [Anterior Lower Lobe] Respiratory Rate [ Throughout] Blood Pressure 108/73 109/77 105/68 O2 Sat by Pulse 98 100 97 Oximetry 08/29/17 08/29/17 08/29/17 04:15 04:30 04:45 Pulse Rate 77 79 79 Pulse Rate [ Anterior Lower Lobe] Pulse Rate [ Throughout] Respiratory 15 15 14 Rate Respiratory Rate [Anterior Lower Lobe] Respiratory Rate [ Throughout] Blood Pressure 106/69 101/69 101/68 O2 Sat by Pulse 99 100 Oximetry 08/29/17 08/29/17 08/29/17 05:00 05:15 06:37 Pulse Rate 85 83 Pulse Rate [ Anterior Lower Lobe] Pulse Rate [ Throughout] Respiratory 18 14 Rate Respiratory Rate [Anterior Lower Lobe] Respiratory Rate [ Throughout] Blood Pressure 117/66 106/65 124/78 O2 Sat by Pulse 80 L 99 Oximetry 08/29/17 08/29/17 08/29/17 06:45 07:01 07:15 Pulse Rate 80 79 79 Pulse Rate [ Anterior Lower Lobe] Pulse Rate [ Throughout] Respiratory 16 28 H 15 Rate Respiratory Rate [Anterior Lower Lobe] Respiratory Rate [ Throughout] Blood Pressure 124/78 95/62 124/78 O2 Sat by Pulse Oximetry 08/29/17 08/29/17 08/29/17 07:31 07:45 07:56 Pulse Rate 78 78 Pulse Rate [ Anterior Lower Lobe] Pulse Rate [ Throughout] Respiratory 24 26 H 18 Rate Respiratory Rate [Anterior Lower Lobe] Respiratory Rate [ Throughout] Blood Pressure 108/89 108/89 O2 Sat by Pulse 94 94 Oximetry 08/29/17 08/29/17 08:00 08:31 Pulse Rate 79 Pulse Rate [ 79 Anterior Lower Lobe] Pulse Rate [ 80 Throughout] Respiratory Rate Respiratory 18 Rate [Anterior Lower Lobe] Respiratory 18 Rate [ Throughout] Blood Pressure 109/79 O2 Sat by Pulse 92 Oximetry - Labs CBC & Chem 7: 08/31/17 05:26 08/29/17 20:40 Labs: Abnormal lab results 08/29/17 08/29/17 08/29/17 Range/Units 00:19 07:34 07:34 PT 26.4 H (12.2-14.9) Sec. INR 2.26 H (0.87-1.13) Potassium 5.4 H D (3.6-5.0) mmol/L Chloride 92.4 L (98-107) mmol/L BUN 31 H (9-20) mg/dL Creatinine 9.3 H (0.8-1.5) mg/dL POC Glucose 123 H (70-105) Calcium 7.9 L (8.4-10.2) mg/dL Phosphorus 7.90 H (2.5-4.5) mg/dL Albumin 3.4 L (3.9-5) g/dL
--- NOTE | 2017-08-29 13:34 | Progress Note ---
Assessment and Plan (1) ESRD needing dialysis Current Visit: Yes Status: Acute Plan to address problem: HD again today for clearance and volume removal Fluid restriction of 1 liter per day Obtain daily weights Monitor I/O's Assess dialysis needs daily (2) Atrial flutter with rapid ventricular response Current Visit: Yes Status: Acute Plan to address problem: On Esmolol drip (3) Acute and chronic respiratory failure Current Visit: No Status: Acute Qualifiers: Respiratory failure complication: hypoxia Qualified Code(s): J96.21 - Acute and chronic respiratory failure with hypoxia Plan to address problem: UF with HD again today (4) Hypertensive CKD, ESRD on dialysis Current Visit: No Status: Acute Plan to address problem: Blood pressures are controlled Subjective Date of service: 08/29/17 Principal diagnosis: ESRD on HD Interval history: feels better since he had HD yesterday Objective - Vital Signs Vital signs: Vital Signs - 12hr 08/29/17 08/29/17 08/29/17 01:45 02:00 02:15 Pulse Rate 88 86 84 Pulse Rate [ Anterior Lower Lobe] Pulse Rate [ Throughout] Respiratory 17 14 14 Rate Respiratory Rate [Anterior Lower Lobe] Respiratory Rate [ Throughout] Blood Pressure 100/73 118/73 122/74 O2 Sat by Pulse 100 97 100 Oximetry 08/29/17 08/29/17 08/29/17 02:30 02:45 03:00 Pulse Rate 81 84 87 Pulse Rate [ Anterior Lower Lobe] Pulse Rate [ Throughout] Respiratory 15 12 16 Rate Respiratory Rate [Anterior Lower Lobe] Respiratory Rate [ Throughout] Blood Pressure 131/77 135/87 122/78 O2 Sat by Pulse 100 99 98 Oximetry 08/29/17 08/29/17 08/29/17 03:15 03:30 03:45 Pulse Rate 84 84 83 Pulse Rate [ Anterior Lower Lobe] Pulse Rate [ Throughout] Respiratory 13 15 14 Rate Respiratory Rate [Anterior Lower Lobe] Respiratory Rate [ Throughout] Blood Pressure 108/72 108/73 109/77 O2 Sat by Pulse 100 98 100 Oximetry 08/29/17 08/29/17 08/29/17 04:00 04:15 04:30 Pulse Rate 85 77 79 Pulse Rate [ Anterior Lower Lobe] Pulse Rate [ Throughout] Respiratory 16 15 15 Rate Respiratory Rate [Anterior Lower Lobe] Respiratory Rate [ Throughout] Blood Pressure 105/68 106/69 101/69 O2 Sat by Pulse 97 99 Oximetry 08/29/17 08/29/17 08/29/17 04:45 05:00 05:15 Pulse Rate 79 85 83 Pulse Rate [ Anterior Lower Lobe] Pulse Rate [ Throughout] Respiratory 14 18 14 Rate Respiratory Rate [Anterior Lower Lobe] Respiratory Rate [ Throughout] Blood Pressure 101/68 117/66 106/65 O2 Sat by Pulse 100 80 L 99 Oximetry 08/29/17 08/29/17 08/29/17 06:37 06:45 07:01 Pulse Rate 80 79 Pulse Rate [ Anterior Lower Lobe] Pulse Rate [ Throughout] Respiratory 16 28 H Rate Respiratory Rate [Anterior Lower Lobe] Respiratory Rate [ Throughout] Blood Pressure 124/78 124/78 95/62 O2 Sat by Pulse Oximetry 08/29/17 08/29/17 08/29/17 07:15 07:31 07:45 Pulse Rate 79 78 78 Pulse Rate [ Anterior Lower Lobe] Pulse Rate [ Throughout] Respiratory 15 24 26 H Rate Respiratory Rate [Anterior Lower Lobe] Respiratory Rate [ Throughout] Blood Pressure 124/78 108/89 108/89 O2 Sat by Pulse 94 Oximetry 08/29/17 08/29/17 08/29/17 07:56 08:00 08:31 Pulse Rate 79 Pulse Rate [ 79 Anterior Lower Lobe] Pulse Rate [ 80 Throughout] Respiratory 18 Rate Respiratory 18 Rate [Anterior Lower Lobe] Respiratory 18 Rate [ Throughout] Blood Pressure 109/79 O2 Sat by Pulse 94 92 Oximetry - General Appearance General appearance: well-developed, well-nourished, appears stated age EENT: ATNC, PERRL, mucous membranes moist Neck: no JVD, no carotid bruit Respiratory: Present: Clear to Ascultation, Rales. Absent: Ronchi Cardiology: regular, S1S2 Gastrointestinal: normoactive bowel sounds, no tenderness, no distended, obese Integumentary: no rash, warm and dry Neurologic: no focal deficit, no asterixis, alert and oriented x3 Musculoskeletal: other (trace pitting edemain BLE) Psychiatric: mood/affect appropriate, cooperative - Lab 08/28/17 08:55 08/29/17 07:34 Most recent lab results Calcium 7.9 mg/dL (8.4-10.2) L 08/29/17 07:34 Phosphorus 7.90 mg/dL (2.5-4.5) H 08/29/17 07:34
[2017-08-29] MEDS: NORVASC PO SCH (13:45)
[2017-08-29] MEDS: LOPID PO SCH ×2 (13:45→23:47)
[2017-08-29] MEDS: COBICISTAT PO SCH ×2 (13:47→13:56)
[2017-08-29] MEDS: ATAZANAVIR SULFATE PO SCH ×2 (13:47→13:56)
[2017-08-29] MEDS: EPIVIR PO SCH ×2 (13:48→13:56)
[2017-08-29] MEDS: AURYXIA PO SCH (13:48)
[2017-08-29] MEDS: TIVICAY (NF) PO SCH (13:48)
[2017-08-29] MEDS: PAXIL PO SCH (13:51)
[2017-08-29] MEDS: SENSIPAR PO SCH (13:51)
[2017-08-29] MEDS: MORPHINE IV PRN ×2 (13:55→18:55)
[2017-08-29] MEDS: NON-FORMULARY (Dolutegravir Sodium [Tivicay] 50 MG) PO SCH (13:56)
[2017-08-29] MEDS ORDERED: COUMADIN PO SCH (17:00)
[2017-08-29] MEDS ORDERED: KIONEX PO ONE (17:30)
--- NOTE | 2017-08-29 18:49 | Consultation ---
History of Present Illness Consult date: 08/29/17 Requesting physician: SONDRA NGUYỄN Reason for consult: other (Dyspnea, tachyarrthymia, hypotension requiring ICU admission) History of present illness: This is a 62 year old male who presented to the E.R with a chief complaint of shortness of breath and tachycardia. Patient was sent form his dialysis clinic which is [facility]. His outpatient Medical Chemist is Dr. Vega. Patient was placed on Esmolol drip for rate control as he was found to be with Atrial flutter. Patient has ESRD and is on HD every M,W,F. No chest pain. Shortness of breath on minimal exertion with palpitations. No diaphoresis. Palpitations for 1 day present. Patient does class IV [place] [employer] symptoms. Patient has a history of COPD, chronic respiratory failure, HIV and tobacco abuse disorder Seen and examined. Vitals, labs, medications, chart reviewed. Not on any infusions at this time with adequate rate control Completing his session of HD. Currently denies any chest pain, no shortness of breath. Past History Past Medical History: arrhythmia, anemia, diabetes, dialysis, ESRD, HIV/AIDS, hypertension, hyperlipidemia Past Surgical History: Other (Left AVF placement) Social history: no significant social history Family history: no significant family history Review of Systems Constitutional: fatigue, no weight loss, no weight gain, no fever, no chills, no sweats Ears, nose, mouth and throat: no ear pain, no ear discharge, no tinnitis, no decreased hearing, no nose pain, no nasal congestion, no nasal discharge Cardiovascular: chest pain, rapid/irregular heart beat, edema, shortness of breath, dyspnea on exertion, leg edema, no orthopnea Respiratory: cough, cough with sputum, shortness of breath, dyspnea on exertion Gastrointestinal: nausea, vomiting, no diarrhea, no constipation, no hematemesis Genitourinary Male: no hematuria, no flank pain, no discharge, no urinary frequency, no urinary hesitancy, no nocturia, no incontinence Rectal: no pain, no incontinence, no bleeding Musculoskeletal: no neck pain, no shooting arm pain, no arm numbness/tingling, no low back pain, no shooting leg pain, no leg numbness/tingling, no redness of joints Integumentary: no rash, no pruritis, no redness, no sores, no wounds, no jaundice Neurological: no head injury, no transient paralysis, no paralysis, no parathesias, no numbness, no tingling, no seizures Psychiatric: anxiety, no memory loss, no change in sleep habits, no sleep disturbances Endocrine: no cold intolerance, no heat intolerance, no polyphagia, no excessive thirst, no polydipsia Hematologic/Lymphatic: no easy bruising, no easy bleeding, no lymphadenopathy, no lymphedema Past History Past Medical History: arrhythmia, anemia, diabetes, dialysis, ESRD, HIV/AIDS, hypertension, hyperlipidemia Past Surgical History: Other (Left AVF placement) Social history: no significant social history Family history: no significant family history Medications and Allergies Allergies Allergy/AdvReac Type Severity Reaction Status Date / Time sulfamethoxazole Allergy Anaphylaxis Verified 08/28/17 08:46 [From Bactrim] trimethoprim [From Bactrim] Allergy Anaphylaxis Verified 08/28/17 08:46 Home Medications Medication Instructions Recorded Confirmed Last Taken Type Albuterol Sulfate [Ventolin HFA] 2 puff IH QID PRN 09/09/16 08/28/17 01/27/17 History amLODIPine [Norvasc] 10 mg PO DAILY 09/09/16 08/28/17 03/12/17 History Gabapentin [Neurontin] 300 mg PO QHS 11/22/16 08/28/17 08/28/17 History Atazanavir Sulfate/Cobicistat 1 each PO QDAY 04/03/17 08/28/17 Unknown History [Evotaz 300 mg-150 mg Tablet] Dolutegravir Sodium [Tivicay] 50 mg PO DAILY #30 tablet 04/07/17 08/28/17 Unknown Rx Paroxetine HCl [PARoxetine] 40 mg PO DAILY #30 tablet 04/07/17 08/28/17 Unknown Rx Cinacalcet [Sensipar] 60 mg PO QDAY tablet 07/05/17 08/28/17 Unknown Rx Acetaminophen/Codeine [Tylenol 1 tab PO Q6H PRN #12 tab 07/20/17 08/28/17 Rx /Codeine # 3 tab] ALBUTEROL NEB's [Proventil 0.083% 2.5 mg IH Q6H PRN 07/21/17 08/28/17 Unknown History NEBS] Budesonide/Formoterol Fumarate 2 puff IH BID 07/21/17 08/28/17 Unknown History [Symbicort 160-4.5 Mcg Inhaler] Ferric Citrate (Nf) [Auryxia (Nf)] 3 tab PO QID 07/21/17 08/28/17 Unknown History Fluticasone [Flonase] 2 sprays NS QDAY 07/21/17 08/28/17 Unknown History Gemfibrozil [Lopid] 600 mg PO BID 07/21/17 08/28/17 Unknown History Insulin Glargine,Hum.rec.anlog 10 units SUB-Q DAILY 07/21/17 08/28/17 Unknown History [Lantus Solostar] Ipratropium/Albuterol Sulfate 1 spray IH QID 07/21/17 08/28/17 Unknown History [Combivent Respimat] Nitroglycerin [Nitrostat] 0.4 mg SL Q5M PRN 07/21/17 08/28/17 08/28/17 History Rosuvastatin Calcium [Crestor] 10 mg PO HS 07/21/17 08/28/17 Unknown History lamiVUDine [Epivir NICU] 5 ml PO DAILY 07/21/17 08/28/17 Unknown History traZODone [Desyrel] 50 mg PO QHS 07/21/17 08/28/17 Unknown History Amiodarone [Cordarone 200 MG TAB] 200 mg PO BID #60 tablet 07/26/17 08/28/17 Unknown Rx AtorvaSTATin [Lipitor] 20 mg PO QHS #30 tablet 07/26/17 08/28/17 Unknown Rx Budesonide [Pulmicort Respules] 1 mg IH Q12HRT #60 nebu 07/26/17 08/28/17 Unknown Rx Diltiazem [Cardizem] 60 mg PO Q6HR #90 tablet 07/26/17 08/28/17 Unknown Rx Sevelamer Carbonate [Renvela] 1,600 mg PO TIDWM #30 tablet 07/26/17 08/28/17 Unknown Rx Warfarin [Coumadin] 7.5 mg PO QDAY #30 tablet 07/26/17 08/28/17 Unknown Rx Active Meds: Active Medications Acetaminophen/Codeine Phosphate (Tylenol #3) 1 tab PO Q6H PRN PRN Reason: Pain Albuterol (Proventil) 2.5 mg IH Q6H PRN PRN Reason: Shortness Of Breath Albuterol/Ipratropium (Duoneb *Not For Prn Use*) 1 ampul IH Q6HRT [facility] Last Admin: 08/29/17 17:14 Dose: 1 ampul Amiodarone HCl (Cordarone) 200 mg PO BID [facility] Last Admin: 08/29/17 13:43 Dose: Not Given Amlodipine Besylate (Norvasc) 10 mg PO DAILY [facility] Last Admin: 08/29/17 13:45 Dose: Not Given Arformoterol Tartrate (Brovana Nebu) 15 mcg IH Q12HRT [facility] Last Admin: 08/29/17 08:39 Dose: 15 mcg Atorvastatin Calcium (Lipitor) 20 mg PO QHS [facility] Last Admin: 08/29/17 00:33 Dose: 20 mg Budesonide (Pulmicort) 1 mg IH Q12HRT [facility] Last Admin: 08/29/17 08:38 Dose: 1 mg Cinacalcet (Sensipar) 60 mg PO QDAY [facility] Last Admin: 08/29/17 13:51 Dose: 60 mg Diltiazem HCl (Cardizem) 60 mg PO Q6HR [facility] Last Admin: 08/29/17 13:47 Dose: Not Given Fluticasone Propionate (Flonase) 100 mcg NS QDAY [facility] Last Admin: 08/29/17 10:30 Dose: 100 mcg Gabapentin (Neurontin) 300 mg PO QHS [facility] Last Admin: 08/29/17 00:33 Dose: 300 mg Gemfibrozil (Lopid) 600 mg PO BID [facility] Last Admin: 08/29/17 13:45 Dose: 600 mg Heparin Sodium (Porcine) (Heparin) 5,000 unit SUB-Q Q8HR [facility] Last Admin: 08/29/17 13:49 Dose: Not Given Hydromorphone HCl (Dilaudid) 0.5 mg IV Q3H PRN PRN Reason: Pain , Severe (7-10) Esmolol HCl (Brevibloc Drip 2.5gm/250ml) 2.5 gm in 250 mls @ 29.937 mls/hr IV TITR TRICIA; Protocol Dopamine HCl/Dextrose (Intropin Drip 800 Mg/D5w 250 Ml) 800 mg in 250 mls @ 3.742 mls/hr IV TITR [facility]; Protocol Last Titration: 08/29/17 06:42 Dose: 0 mcg/kg/min, 0 mls/hr Insulin Glargine (Lantus) 10 units SUB-Q QHS [facility] Last Admin: 08/29/17 00:32 Dose: 10 units Lamivudine (Epivir) 50 mg PO DAILY [facility] Last Admin: 08/29/17 13:48 Dose: 50 mg Miscellaneous Medication (Atazanavir Sulfate/Cobicistat [Evotaz 300 Mg-150 Mg Tablet]) 1 each PO QDAY [facility] Last Admin: 08/29/17 13:47 Dose: 1 each Morphine Sulfate (Morphine) 2 mg IV Q4H PRN PRN Reason: Pain , Severe (7-10) Last Admin: 08/29/17 13:55 Dose: 2 mg Nitroglycerin (Nitrostat) 0.4 mg SL Q5M PRN PRN Reason: Chest Pain Oxycodone/Acetaminophen (Percocet 5/325) 1 tab PO Q6H PRN PRN Reason: Pain, Moderate (4-6) Paroxetine HCl (Paxil) 40 mg PO DAILY [facility] Last Admin: 08/29/17 13:51 Dose: 40 mg Sevelamer Carbonate (Renvela) 1,600 mg PO TIDWM [facility] Last Admin: 08/29/17 13:42 Dose: 1,600 mg Sodium Chloride (Sodium Chloride Flush Syringe 10 Ml) 10 ml IV BID [facility] Last Admin: 08/29/17 10:30 Dose: 10 ml Sodium Chloride (Sodium Chloride Flush Syringe 10 Ml) 10 ml IV PRN PRN PRN Reason: LINE FLUSH Trazodone HCl (Desyrel) 50 mg PO QHS [facility] Last Admin: 08/29/17 00:33 Dose: 50 mg Warfarin Sodium (Coumadin) 7.5 mg PO DAILY@1700 [facility] Physical Examination Vital signs: Vital Signs Pulse Ox 100 08/28/17 08:36 General appearance: no acute distress, other (obese, on HD) Eyes: non-icteric ENT: oropharynx moist, oropharynx dry Neck: supple, no JVD Effort: normal Ascultation: Bilateral: diminished breath sounds Cardiovascular: irregular rhythm, other (S1,S2) Gastrointestinal: normoactive bowel sounds, soft, non-tender, non-distended Integumentary: normal Extremities: no cyanosis, no edema, no ischemia or petechiae Musculoskeletal: no deformities normal mental status, non-focal exam, pupils equal and round mood appropriate, affect normal Results - Laboratory Findings CBC and BMP: 08/28/17 08:55 08/29/17 07:34 PT/INR, D-dimer PT 26.4 Sec. (12.2-14.9) H 08/29/17 07:34 INR 2.26 (0.87-1.13) H 08/29/17 07:34 D-Dimer 292.39 ng/mlDDU (0-234) H 08/28/17 08:55 Abnormal lab findings: Abnormal Labs 08/28/17 08/28/17 08/28/17 08:55 08:55 08:55 RDW 19.2 H [place] % (Auto) 11.6 H [place] # 0.9 H PT 18.1 H INR 1.41 H APTT 63.8 H* D-Dimer 292.39 H Potassium Chloride 92.3 L BUN 42 H Creatinine 11.7 H POC Glucose Calcium 8.2 L Phosphorus Troponin T 0.161 H* Albumin 3.6 L Triglycerides 153 H HDL Cholesterol 26 L 08/29/17 08/29/17 08/29/17 00:19 07:34 07:34 RDW [place] % (Auto) [place] # PT 26.4 H INR 2.26 H APTT D-Dimer Potassium 5.4 H D Chloride 92.4 L BUN 31 H Creatinine 9.3 H POC Glucose 123 H Calcium 7.9 L Phosphorus 7.90 H Troponin T Albumin 3.4 L Triglycerides HDL Cholesterol Assessment and Plan Dyspnea Chronic respiratory failure COPD History of tobacco abuse disorder/Nicotine dependence ESRD on HD Supraventricular tacycardia HIV -Continue with supplemental oxygen to keep O2 sats>90 -Bronchodilators -Antiarrhythmics-amiodarone -Supportive HD -Continue with anticoagulation -Resume all home medications -Ok to downgrade to telemetry Discussed with hospitalist service
[2017-08-29] MEDS ORDERED: NACL 0.9 (PRIMING MACHINE ONLY DIALYSIS) MC ONE (20:27)
[2017-08-29] MEDS: PERCOCET 5/325 PO PRN (23:51)
[2017-08-30] MEDS: LANTUS SUB-Q SCH ×2 (00:18→22:45)
[2017-08-30] MEDS: CARDIZEM PO SCH ×4 (00:18→21:07)
[2017-08-30] MEDS: SODIUM CHLORIDE FLUSH SYRINGE 10 ML IV SCH ×3 (00:19→23:00)
[2017-08-30] MEDS: DUONEB *Not for PRN Use IH SCH ×4 (03:52→21:48)
[2017-08-30 06:26] LABS: INR 2.9 (0.87-1.13)
[2017-08-30] MEDS: PULMICORT IH SCH ×2 (08:32→21:48)
[2017-08-30] MEDS: BROVANA NEBU IH SCH ×2 (08:32→22:21)
[2017-08-30] MEDS ORDERED: PROVENTIL IH PRN (09:00)
--- NOTE | 2017-08-30 09:40 | Progress Note ---
Assessment and Plan Atrial flutter, paroxysmal currently in sinus rhythm. on amiodarone for suppression. on warfarin for oral anticoagulation. Acute systolic heart failure ESRD on HD HIV disease COPD on home O2 Nonischemic CMP, EF 20-25% normal coronaries in 2014 no ischemia on MPI 08/2016 Presence of AICD Chronic elevated troponin - non-specific Recommendations: Dialysis for fluid management. Medical therapy for nonischemic cardiomyopathy and paroxysmal atrial flutter. Subjective Date of service: 08/30/17 Principal diagnosis: ESRD on HD Interval history: Patient has no complaints. Reports his breathing is better. Stable sinus rhythm on telemetry. Objective Vital Signs Temp Pulse Pulse Resp Resp BP BP 08/30/17 08:58 97.7 F 81 18 94/58 08/30/17 08:43 83 18 08/30/17 08:40 08/30/17 08:38 08/30/17 08:33 80 18 08/30/17 06:01 75 97/65 08/30/17 05:57 98.1 F 75 20 97/65 08/30/17 03:32 20 08/30/17 01:08 98.2 F 88 20 90/59 08/30/17 01:00 51 L 17 107/63 08/30/17 00:51 63 12 125/78 08/30/17 00:41 66 22 120/65 08/30/17 00:30 56 L 15 120/65 08/30/17 00:21 55 L 21 122/82 08/30/17 00:11 103 H 19 114/84 08/30/17 00:00 70 17 114/84 08/29/17 23:51 68 20 125/86 08/29/17 23:41 65 16 125/86 08/29/17 23:30 86 15 125/86 08/29/17 23:27 84 08/29/17 23:21 77 20 116/66 08/29/17 23:11 63 24 106/77 08/29/17 23:00 51 L 17 110/63 08/29/17 22:51 54 L 15 108/71 08/29/17 22:40 116/66 08/29/17 22:13 98.1 F 84 20 116/71 08/29/17 21:52 84 19 106/77 08/29/17 21:51 83 16 102/73 03/20/18 21:41 82 18 108/78 03/20/18 21:40 82 15 108/78 03/20/18 21:30 81 16 108/78 03/20/18 21:28 87 16 03/20/18 21:18 85 16 03/20/18 21:15 85 16 102/73 /20/18 21:00 83 17 107/65 /20/18 20:45 88 14 115/68 03/20/18 20:30 87 18 102/62 03/20/18 20:15 88 17 102/62 03/20/18 20:00 87 12 113/74 /20/18 19:45 88 18 109/69 /20/18 19:30 91 H 18 126/73 /20/18 19:15 90 14 118/77 /20/18 19:00 98.2 F 91 H 22 109/72 20/18 18:45 90 22 129/80 /20/18 18:30 86 17 129/80 03/20/18 18:15 86 14 115/81 20/18 18:00 85 16 116/81 /20/18 17:45 82 12 121/78 /20/18 17:30 84 16 121/75 /20/18 17:15 85 21 107/62 /20/18 17:00 83 15 88/55 /20/18 16:45 82 16 93/55 /20/18 16:31 85 16 99/69 /20/18 16:30 83 91/65 /20/18 16:15 98.4 F 69 18 99/69 /20/18 16:00 82 13 110/66 /20/18 15:45 85 16 108/73 /20/18 15:30 81 16 108/73 /20/18 15:15 82 18 101/68 /20/18 15:00 81 15 101/68 03/20/18 14:45 85 15 88/56 /20/18 14:30 83 17 88/56 /20/18 14:15 82 17 109/75 03/20/18 14:00 85 15 109/75 /20/18 13:45 85 18 108/63 03/20/18 13:30 82 15 108/63 03/20/18 13:15 81 15 99/67 08/29/17 13:00 81 13 99/67 08/29/17 12:45 82 15 105/71 08/29/17 12:31 83 11 L 105/71 08/29/17 12:15 84 14 87/48 08/29/17 12:00 83 13 87/48 08/29/17 11:45 89 19 89/48 08/29/17 11:30 82 89/48 08/29/17 11:15 84 107/73 08/29/17 11:00 81 18 107/73 08/29/17 10:45 85 90/57 08/29/17 10:30 86 90/57 08/29/17 10:15 83 105/61 08/29/17 10:00 83 105/61 08/29/17 09:45 81 85/52 Pulse Ox Pulse Ox 08/30/17 08:58 91 08/30/17 08:43 08/30/17 08:40 94 08/30/17 08:38 94 08/30/17 08:33 08/30/17 06:01 08/30/17 05:57 100 08/30/17 03:32 98 08/30/17 01:08 92 08/30/17 01:00 98 08/30/17 00:51 97 08/30/17 00:41 100 08/30/17 00:30 97 08/30/17 00:21 97 08/30/17 00:11 99 08/30/17 00:00 99 08/29/17 23:51 99 08/29/17 23:41 100 08/29/17 23:30 100 08/29/17 23:27 08/29/17 23:21 97 08/29/17 23:11 99 08/29/17 23:00 98 08/29/17 22:51 97 08/29/17 22:40 08/29/17 22:13 89 08/29/17 21:52 99 08/29/17 21:51 99 08/29/17 21:41 100 08/29/17 21:40 99 08/29/17 21:30 97 08/29/17 21:28 08/29/17 21:18 08/29/17 21:15 95 08/29/17 21:00 97 08/29/17 20:45 94 03/20/18 20:30 100 08/29/17 20:15 08/29/17 20:00 97 08/29/17 19:45 98 08/29/17 19:30 94 08/29/17 19:15 94 08/29/17 19:00 94 98 08/29/17 18:45 08/29/17 18:30 96 08/29/17 18:15 97 08/29/17 18:00 98 08/29/17 17:45 98 08/29/17 17:30 96 08/29/17 17:15 94 08/29/17 17:00 93 08/29/17 16:45 96 08/29/17 16:31 08/29/17 16:30 08/29/17 16:15 88 97 08/29/17 16:00 89 08/29/17 15:45 96 08/29/17 15:30 95 08/29/17 15:15 94 08/29/17 15:00 95 08/29/17 14:45 08/29/17 14:30 92 08/29/17 14:15 95 08/29/17 14:00 95 08/29/17 13:45 90 08/29/17 13:30 94 08/29/17 13:15 90 08/29/17 13:00 86 08/29/17 12:45 86 08/29/17 12:31 90 08/29/17 12:15 93 08/29/17 12:00 90 08/29/17 11:45 90 08/29/17 11:30 96 08/29/17 11:15 83 L 08/29/17 11:00 90 08/29/17 10:45 88 08/29/17 10:30 94 08/29/17 10:15 92 08/29/17 10:00 92 08/29/17 09:45 97 - Physical Examination General: No Apparent Distress HEENT: Positive: PERRL Neck: Positive: trachea midline Cardiac: Positive: Reg Rate and Rhythm Lungs: Positive: Decreased Breath Sounds Neuro: Positive: Grossly Intact - Labs and Meds Coagulation 08/30/17 Range/Units 05:21 PT 32.3 H (12.2-14.9) Sec. INR 2.90 H (0.87-1.13) Comprehensive Metabolic Panel 08/29/17 Range/Units 20:40 Potassium 3.9 D (3.6-5.0) mmol/L - Imaging and Cardiology EKG: report reviewed (supraventricular tachycardia)
[2017-08-30] MEDS: AURYXIA PO SCH ×4 (09:57→18:31)
[2017-08-30] MEDS: COBICISTAT PO SCH (09:59)
[2017-08-30] MEDS: ATAZANAVIR SULFATE PO SCH (09:59)
[2017-08-30] MEDS: SENSIPAR PO SCH (09:59)
[2017-08-30] MEDS: PAXIL PO SCH (10:00)
[2017-08-30] MEDS: RENVELA PO SCH ×4 (10:00→18:31)
[2017-08-30] MEDS: LOPID PO SCH ×2 (10:01→22:59)
[2017-08-30] MEDS: TIVICAY (NF) PO SCH (10:02)
[2017-08-30] MEDS: FLONASE NS SCH (10:02)
[2017-08-30] MEDS: CORDARONE PO SCH ×2 (10:03→22:59)
[2017-08-30] MEDS: NORVASC PO SCH (11:40)
--- NOTE | 2017-08-30 12:33 | Progress Note ---
Assessment and Plan Dyspnea Chronic hypoxemic respiratory failure AE-COPD History of tobacco abuse disorder/Nicotine dependence ESRD on HD Paroxysmal Atrial Flutter HIV - Continue with supplemental oxygen to keep O2 sats>90 - continue bronchodilators with pulmonary hygiene per RT - continue antiarrhythmics-amiodarone - cardiology evaluation - continue supportive HD/UF for toxin and volume control - continue glycemic control with SSI - continue full anticoagulation - Resume all home medications - continue other care per attending / other consultants ....re-evaluate in am & prn ...25' Subjective Date of service: 08/30/17 Principal diagnosis: Dyspnea; COPD; ESRD on HD Interval history: Patient is seen today for: Dyspnea; COPD; ESRD on HD Seen and examined at bedside; 24 hour events reviewed; nursing and respiratory care staff consulted; No adverse overnight events reported to me; feels a little better but still withg STEPHEN[place]; has not had dialysis yet today; denies palpitations; denies chest pains acutely; No N/V/F/C Objective Vital Signs - 12hr 08/30/17 08/30/17 08/30/17 00:41 00:51 01:00 Temperature Pulse Rate 66 63 51 L Pulse Rate [ Throughout] Respiratory 22 12 17 Rate Respiratory Rate [ Throughout] Blood Pressure 120/65 125/78 107/63 Blood Pressure [Right] O2 Sat by Pulse 100 97 98 Oximetry 08/30/17 08/30/17 08/30/17 01:08 03:32 05:57 Temperature 98.2 F 98.1 F Pulse Rate 88 75 Pulse Rate [ Throughout] Respiratory 20 20 20 Rate Respiratory Rate [ Throughout] Blood Pressure Blood Pressure 90/59 97/65 [Right] O2 Sat by Pulse 92 98 100 Oximetry 08/30/17 08/30/17 08/30/17 06:01 08:33 08:38 Temperature Pulse Rate 75 Pulse Rate [ 80 Throughout] Respiratory Rate Respiratory 18 Rate [ Throughout] Blood Pressure 97/65 Blood Pressure [Right] O2 Sat by Pulse 94 Oximetry 08/30/17 08/30/17 08/30/17 08:40 08:43 08:58 Temperature 97.7 F Pulse Rate 81 Pulse Rate [ 83 Throughout] Respiratory 18 Rate Respiratory 18 Rate [ Throughout] Blood Pressure Blood Pressure 94/58 [Right] O2 Sat by Pulse 94 91 Oximetry Constitutional: no acute distress, alert, other (obese) Eyes: non-icteric ENT: oropharynx moist, other (mallampatti 2) Neck: supple, no lymphadenopathy, no JVD, other (no thyromegaly) Effort: mildly labored Ascultation: Bilateral: diminished breath sounds, rhonchi (posterior basilar inspiratory) Percussion: Bilateral: not dull Cardiovascular: irregular rhythm, other (S1,S2; no rubs) Gastrointestinal: normoactive bowel sounds, soft, non-tender, non-distended, other (no palpable HSM) Integumentary: normal Extremities: no cyanosis, no edema, pulses normal, no ischemia or petechiae Neurologic: normal mental status, non-focal exam, pupils equal and round, motor strength normal and Psychiatric: mood appropriate, affect normal CBC and BMP: 08/31/17 05:26 08/29/17 20:40 ABG, PT/INR, D-dimer: PT/INR, D-dimer PT 32.3 Sec. (12.2-14.9) H 08/30/17 05:21 INR 2.90 (0.87-1.13) H 08/30/17 05:21 D-Dimer 292.39 ng/mlDDU (0-234) H 08/28/17 08:55 Abnormal lab findings: Abnormal Labs 08/28/17 08/28/17 08/28/17 08:55 08:55 08:55 RDW 19.2 H [place] % (Auto) 11.6 H [place] # 0.9 H PT 18.1 H INR 1.41 H APTT 63.8 H* D-Dimer 292.39 H Potassium Chloride 92.3 L BUN 42 H Creatinine 11.7 H POC Glucose Calcium 8.2 L Phosphorus Troponin T 0.161 H* Albumin 3.6 L Triglycerides 153 H HDL Cholesterol 26 L 08/29/17 08/29/17 08/29/17 00:19 07:34 07:34 RDW [place] % (Auto) [place] # PT 26.4 H INR 2.26 H APTT D-Dimer Potassium 5.4 H D Chloride 92.4 L BUN 31 H Creatinine 9.3 H POC Glucose 123 H Calcium 7.9 L Phosphorus 7.90 H Troponin T Albumin 3.4 L Triglycerides HDL Cholesterol 08/30/17 05:21 RDW [place] % (Auto) [place] # PT 32.3 H INR 2.90 H APTT D-Dimer Potassium Chloride BUN Creatinine POC Glucose Calcium Phosphorus Troponin T Albumin Triglycerides HDL Cholesterol Chest x-ray: image reviewed (mild interstitial edema pattern) Allied health notes reviewed: nursing
--- NOTE | 2017-08-30 12:39 | Progress Note ---
Assessment and Plan - Patient Problems (1) ESRD needing dialysis Current Visit: Yes Status: Acute Plan to address problem: Hemodialysis today for UF and clearance Fluid restriction of 1 liter per day Obtain daily weights Monitor I/O's Renally dose medications Assess dialysis needs daily Renal plan of care reviewed with Dr. Vargas (2) Atrial flutter with rapid ventricular response Current Visit: Yes Status: Acute Plan to address problem: S/P Esmolol drip Currnetly On Amiodarone, Diltiazem and Warfarin Nonischemic CMP, EF 20-25% As per Cardiology (3) Acute and chronic respiratory failure Current Visit: No Status: Acute Qualifiers: Respiratory failure complication: hypoxia Qualified Code(s): J96.21 - Acute and chronic respiratory failure with hypoxia Plan to address problem: CXR on 08/28/17- Mild Cardiomegaly and pulmonary vascular congestion VQ scan- Low probability for Pulmonary Embolus On Nebulizer treatments HD for UF As per pulmonary (4) Hypertensive CKD, ESRD on dialysis Current Visit: No Status: Acute Plan to address problem: Adjust anti-hypertensive regimen as needed (5) HIV (human immunodeficiency virus infection) Current Visit: No Status: Chronic Plan to address problem: On multiple anti-retrovirals Subjective Date of service: 08/30/17 Principal diagnosis: Dyspnea; COPD; ESRD on HD Interval history: Patient seen lying in bed. Awake and alert. Advised him that he is scheduled for hemodialysis today. Objective - Vital Signs Vital signs: Vital Signs - 12hr 08/30/17 08/30/17 08/30/17 00:41 00:51 01:00 Temperature Pulse Rate 66 63 51 L Pulse Rate [ Throughout] Respiratory 22 12 17 Rate Respiratory Rate [ Throughout] Blood Pressure 120/65 125/78 107/63 Blood Pressure [Right] O2 Sat by Pulse 100 97 98 Oximetry 08/30/17 08/30/17 08/30/17 01:08 03:32 05:57 Temperature 98.2 F 98.1 F Pulse Rate 88 75 Pulse Rate [ Throughout] Respiratory 20 20 20 Rate Respiratory Rate [ Throughout] Blood Pressure Blood Pressure 90/59 97/65 [Right] O2 Sat by Pulse 92 98 100 Oximetry 08/30/17 08/30/17 08/30/17 06:01 08:33 08:38 Temperature Pulse Rate 75 Pulse Rate [ 80 Throughout] Respiratory Rate Respiratory 18 Rate [ Throughout] Blood Pressure 97/65 Blood Pressure [Right] O2 Sat by Pulse 94 Oximetry 08/30/17 08/30/17 08/30/17 08:40 08:43 08:58 Temperature 97.7 F Pulse Rate 81 Pulse Rate [ 83 Throughout] Respiratory 18 Rate Respiratory 18 Rate [ Throughout] Blood Pressure Blood Pressure 94/58 [Right] O2 Sat by Pulse 94 91 Oximetry - General Appearance General appearance: well-developed, appears stated age, fatigue EENT: ATNC, PERRL, hearing intact, vision intact Neck: no JVD, supple Respiratory: Present: Decreased Breath Sounds Cardiology: regular, S1S2 Gastrointestinal: normoactive bowel sounds Integumentary: warm and dry Neurologic: alert and oriented x3 Musculoskeletal: joint swelling - Lab 08/28/17 08:55 08/29/17 20:40 Most recent lab results Calcium 7.9 mg/dL (8.4-10.2) L 08/29/17 07:34 Phosphorus 7.90 mg/dL (2.5-4.5) H 08/29/17 07:34
[2017-08-30] MEDS: EPIVIR PO SCH (13:21)
[2017-08-30] MEDS: PERCOCET 5/325 PO PRN ×2 (15:51→22:59)
[2017-08-30] MEDS ORDERED: COUMADIN NO DOSE TODAY PO ONE (17:00)
--- NOTE | 2017-08-30 17:58 | Progress Note ---
Assessment and Plan /Atrial flutter, paroxysmal ordered esmolol drip on admission but never started on warfarin for oral anticoagulation Continue amiodarone for rate control / Acute and chronic respiratory failure Secondary to CHF and volume overload cont on CHF protocol /Acute exacerbation of congestive heart failure Secondary to noncompliance. Excessive fluid intake. h/o Nonischemic CMP with EF 20-25% normal coronaries in 2014 per cardiac cath, no ischemia on MPI 08/2016 cont volume control with HD /ESRD needing dialysis Continue hemodialysis per Nephrology consulted /Elevated troponin level Maybe secondary to end-stage renal disease and compromised renal function. Cardiology following, medical mx for now / HIV (human immunodeficiency virus infection) Continue antiretrovirals /HTN (hypertension) Continue antihypertensives, adjust dose as needed / IDDM (insulin dependent diabetes mellitus) Continue SSI, diet controlled /Tobacco use disorder NicoDerm patch ordered. Smoking cessation consult done on admission / COPD (chronic obstructive pulmonary disease) Continue bronchodilators / Neuropathy Continue gabapentin / Hyperlipidemia Continue gemfibrozil and statins /Anticoagulation goal of INR 2 to 3 Continue coumadin, INR therapeutic today / DVT prophylaxis on coumadin Disposition: home after HD tomorrow, if clinically stable Brief history: This is a 62 year old male with h/o dilated 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 Patient was sent form his dialysis clinic which is [facility]. Patient was found to be with Atrial flutter and admitted for further evaluation. His INR was subtherapeutic on admission. Hospitalist Physical exam: GENERAL: well-developed obese AAM lying on bed appeared to be in no discomfort. HEENT: Normocephalic. Atraumatic. No conjunctival congestion or icterus. Patient has moist mucous membranes. NECK: Supple. Trachea midline. CHEST/LUNGS: crackles auscultated bilaterally, breathing nonlabored. No wheezes HEART/CARDIOVASCULAR: IrRegular in rate and rhythm. S1 and S2 positive. ABDOMEN: Abdomen is soft, nontender. Patient has normal bowel sounds. SKIN: There is no rash. Warm and dry. NEURO: No focal motor deficit. Follows command. MUSCULOSKELETAL: No joint effusion or tenderness. EXTRIMITY: No edema, no cyanosis or clubbing. PSYCH: Cooperative. Subjective Date of service: 08/30/17 Principal diagnosis: Dyspnea; COPD; ESRD on HD Interval history: Pt seen and examined resting on bed, SOB on exertion tolerating diet, denies chest pain Objective - Constitutional Vitals: Vital Signs - 12hr 08/30/17 08/30/17 08/30/17 06:01 07:50 08:33 Temperature 97.7 F Pulse Rate 75 74 Pulse Rate [ 80 Throughout] Respiratory 18 Rate Respiratory 18 Rate [ Throughout] Blood Pressure 97/65 94/58 Blood Pressure [Right] O2 Sat by Pulse 98 Oximetry 08/30/17 08/30/17 08/30/17 08:38 08:40 08:43 Temperature Pulse Rate Pulse Rate [ 83 Throughout] Respiratory Rate Respiratory 18 Rate [ Throughout] Blood Pressure Blood Pressure [Right] O2 Sat by Pulse 94 94 Oximetry 08/30/17 08/30/17 08/30/17 08:58 12:05 12:06 Temperature 97.7 F 98.1 F Pulse Rate 81 79 79 Pulse Rate [ Throughout] Respiratory 18 Rate Respiratory Rate [ Throughout] Blood Pressure 109/72 Blood Pressure 94/58 [Right] O2 Sat by Pulse 91 97 94 Oximetry 08/30/17 08/30/17 08/30/17 12:47 13:36 13:46 Temperature 98.1 F Pulse Rate Pulse Rate [ 80 82 Throughout] Respiratory Rate Respiratory 18 18 Rate [ Throughout] Blood Pressure Blood Pressure [Right] O2 Sat by Pulse Oximetry - Labs CBC & Chem 7: 08/31/17 05:26 08/29/17 20:40 Labs: Abnormal lab results 08/30/17 Range/Units 05:21 PT 32.3 H (12.2-14.9) Sec. INR 2.90 H (0.87-1.13)
[2017-08-30] MEDS: NEURONTIN PO SCH (22:59)
[2017-08-30] MEDS: DESYREL PO SCH (22:59)
[2017-08-31] MEDS: CARDIZEM PO SCH ×3 (00:40→13:09)
[2017-08-31 06:01] LABS: Basophils % (Auto) 0.7 % (0.0-1.8); Eosinophils # (Auto) 0.1 K/mm3 (0.0-0.4); Eosinophils % (Auto) 1.7 % (0.0-4.3); Hematocrit 33.1 % (35.5-45.6); Hemoglobin 10.4 gm/dl (11.8-15.2); Lymphocytes # (Auto) 1.3 K/mm3 (1.2-5.4); Mean Corpuscular HGB Conc 31 % (32-34); Mean Corpuscular Hemoglobin 29 pg (28-32); Mean Corpuscular Volume 91 fl (84-94); Monocytes # (Auto) 0.8 K/mm3 (0.0-0.8); Monocytes % (Auto) 15.2 % (0.0-7.3); Platelet Count 239 K/mm3 (140-440); Red Blood Count 3.63 M/mm3 (3.65-5.03); Red Cell Distribution Width 19.3 % (13.2-15.2)
[2017-08-31 06:14] LABS: INR 3.02 (0.87-1.13)
[2017-08-31] MEDS: BROVANA NEBU IH SCH (08:24)
[2017-08-31] MEDS: PULMICORT IH SCH (08:24)
[2017-08-31] MEDS: DUONEB *Not for PRN Use IH SCH ×2 (08:29→13:46)
--- NOTE | 2017-08-31 08:42 | Progress Note ---
Assessment and Plan - Patient Problems (1) ESRD needing dialysis Current Visit: Yes Status: Acute Plan to address problem: Patient did not receive dialysis yesterday eventhough it was ordered Hemodialysis today for UF and clearance, spoke to dialysis nurse Georgina today Fluid restriction of 1 liter per day Obtain daily weights Monitor I/O's Renally dose medications Assess dialysis needs daily (2) Atrial flutter with rapid ventricular response Current Visit: Yes Status: Acute Plan to address problem: S/P Esmolol drip Currnetly On Amiodarone, Diltiazem and Warfarin Nonischemic CMP, EF 20-25% As per Cardiology (3) Acute and chronic respiratory failure Current Visit: No Status: Acute Qualifiers: Respiratory failure complication: hypoxia Qualified Code(s): J96.21 - Acute and chronic respiratory failure with hypoxia Plan to address problem: CXR on 08/28/17- Mild Cardiomegaly and pulmonary vascular congestion VQ scan- Low probability for Pulmonary Embolus On Nebulizer treatments HD for UF As per pulmonary (4) Hypertensive CKD, ESRD on dialysis Current Visit: No Status: Acute Plan to address problem: Adjust anti-hypertensive regimen as needed (5) HIV (human immunodeficiency virus infection) Current Visit: No Status: Chronic Plan to address problem: On multiple anti-retrovirals Subjective Date of service: 08/31/17 Principal diagnosis: Dyspnea; COPD; ESRD on HD Interval history: Patient seen standing up in room, requesting a shaver to shave his chin. Patient states he did not receive dialysis yesterday when asked. Objective - Vital Signs Vital signs: Vital Signs - 12hr 08/30/17 08/30/17 08/30/17 20:45 20:55 21:16 Temperature Pulse Rate 81 Pulse Rate [ 82 85 Throughout] Respiratory Rate Respiratory 20 20 Rate [ Throughout] Blood Pressure Blood Pressure [Right] O2 Sat by Pulse 99 Oximetry 08/30/17 08/30/17 08/30/17 21:43 22:29 23:59 Temperature 98.2 F Pulse Rate 78 82 Pulse Rate [ Throughout] Respiratory 20 Rate Respiratory Rate [ Throughout] Blood Pressure Blood Pressure 104/65 [Right] O2 Sat by Pulse 98 98 94 Oximetry 08/31/17 08/31/17 08/31/17 01:29 04:09 04:14 Temperature 98.1 F 97.6 F Pulse Rate 82 87 Pulse Rate [ Throughout] Respiratory 20 20 Rate Respiratory Rate [ Throughout] Blood Pressure 100/62 Blood Pressure 103/78 [Right] O2 Sat by Pulse 100 94 Oximetry 08/31/17 08/31/17 06:11 07:56 Temperature 99.0 F Pulse Rate 87 82 Pulse Rate [ Throughout] Respiratory 20 Rate Respiratory Rate [ Throughout] Blood Pressure 100/62 96/67 Blood Pressure [Right] O2 Sat by Pulse 94 Oximetry - General Appearance General appearance: well-developed, appears stated age EENT: ATNC, PERRL, hearing intact, vision intact Neck: no JVD, supple Respiratory: Present: Decreased Breath Sounds Cardiology: regular, S1S2 Gastrointestinal: normoactive bowel sounds Integumentary: warm and dry Neurologic: alert and oriented x3 Musculoskeletal: joint swelling - Lab 08/31/17 05:26 08/29/17 20:40 Most recent lab results Calcium 7.9 mg/dL (8.4-10.2) L 08/29/17 07:34 Phosphorus 7.90 mg/dL (2.5-4.5) H 08/29/17 07:34
[2017-08-31] MEDS: EPIVIR PO SCH (09:40)
[2017-08-31] MEDS: TIVICAY (NF) PO SCH (09:40)
[2017-08-31] MEDS: LOPID PO SCH (09:40)
[2017-08-31] MEDS: PAXIL PO SCH (09:40)
[2017-08-31] MEDS: ATAZANAVIR SULFATE PO SCH (09:40)
[2017-08-31] MEDS: COBICISTAT PO SCH (09:40)
--- NOTE | 2017-08-31 10:59 | Progress Note ---
Assessment and Plan Atrial flutter, paroxysmal currently in sinus rhythm. on amiodarone for suppression. on warfarin for oral anticoagulation. Acute systolic heart failure ESRD on HD HIV disease COPD on home O2 Nonischemic CMP, EF 20-25% normal coronaries in 2014 no ischemia on MPI 08/2016 Presence of AICD Chronic elevated troponin - non-specific Recommendations: Dialysis for fluid management. Medical therapy for nonischemic cardiomyopathy and paroxysmal atrial flutter. Subjective Date of service: 08/31/17 Principal diagnosis: Dyspnea; COPD; ESRD on HD Interval history: Patient has no complaints. Reports his breathing is better. Stable sinus rhythm on telemetry. Objective Vital Signs Temp Pulse Pulse Resp Resp BP BP 08/31/17 10:45 80 119/56 08/31/17 10:30 81 99/54 08/31/17 10:15 82 106/52 08/31/17 10:00 83 96/50 08/31/17 09:50 97.5 F L 80 18 96/58 08/31/17 08:54 78 08/31/17 07:56 99.0 F 82 20 96/67 08/31/17 06:11 87 100/62 08/31/17 04:14 97.6 F 08/31/17 04:09 87 20 100/62 08/31/17 01:29 98.1 F 82 20 103/78 08/30/17 23:59 82 08/30/17 22:29 08/30/17 21:43 98.2 F 78 20 104/65 08/30/17 21:16 81 08/30/17 20:55 85 20 08/30/17 20:45 82 20 08/30/17 15:58 97.4 F L 18 96/67 08/30/17 13:46 82 18 08/30/17 13:36 80 18 08/30/17 12:47 98.1 F 08/30/17 12:06 79 08/30/17 12:05 98.1 F 79 109/72 Pulse Ox 08/31/17 10:45 08/31/17 10:30 08/31/17 10:15 08/31/17 10:00 08/31/17 09:50 08/31/17 08:54 08/31/17 07:56 94 08/31/17 06:11 08/31/17 04:14 08/31/17 04:09 94 08/31/17 01:29 100 08/30/17 23:59 94 08/30/17 22:29 98 08/30/17 21:43 98 08/30/17 21:16 99 08/30/17 20:55 08/30/17 20:45 08/30/17 15:58 08/30/17 13:46 08/30/17 13:36 08/30/17 12:47 08/30/17 12:06 94 08/30/17 12:05 97 - Physical Examination General: No Apparent Distress HEENT: Positive: PERRL Cardiac: Positive: Reg Rate and Rhythm Neuro: Positive: Grossly Intact - Labs and Meds Coagulation 08/31/17 Range/Units 05:26 PT 33.4 H (12.2-14.9) Sec. INR 3.02 H (0.87-1.13) CBC 08/31/17 Range/Units 05:26 WBC 5.5 (4.5-11.0) K/mm3 RBC 3.63 L (3.65-5.03) M/mm3 Hgb 10.4 L (11.8-15.2) gm/dl Hct 33.1 L (35.5-45.6) % Plt Count 239 (140-440) K/mm3 Lymph # 1.3 (1.2-5.4) K/mm3 [place] # 0.8 (0.0-0.8) K/mm3 Eos # 0.1 (0.0-0.4) K/mm3 Baso # 0.0 (0.0-0.1) K/mm3 - Imaging and Cardiology EKG: report reviewed (supraventricular tachycardia) - Allied health notes Allied health notes reviewed: nursing
[2017-08-31] MEDS ORDERED: NACL 0.9 (PRIMING MACHINE ONLY DIALYSIS) MC ONE (11:01)
[2017-08-31] MEDS: AURYXIA PO SCH ×2 (13:06→13:08)
[2017-08-31] MEDS: RENVELA PO SCH ×2 (13:06→13:09)
[2017-08-31] MEDS: NORVASC PO SCH (13:10)
[2017-08-31 13:25] VITALS: BP 115/63
--- NOTE | 2017-08-31 14:44 | Discharge Summary ---
Providers - Providers Date of Admission: 08/28/17 19:01 Date of discharge: 08/31/17 Attending physician: SONDRA NGUYỄN 08/28/17 13:26 Consult to Physician [CONS] Routine Comment: Consulting Provider: AKANKSHA RAMIREZ Physician Instructions: Reason For Exam: dialysis 08/28/17 19:01 Consult to Dietitian/Nutrition [CONS] Routine Physician Instructions: Reason For Exam: Reason for Consult: Diet education 08/28/17 19:04 Consult to Physician [CONS] Routine Comment: Consulting Provider: ABIGAIL MICHAEL Physician Instructions: Reason For Exam: svt 08/28/17 19:56 Consult to Physician [CONS] Routine Comment: Consulting Provider: ANDREW RAMOS Physician Instructions: Reason For Exam: CHF Primary care physician: UX LEAD Hospitalization Condition: Fair Hospital course: Brief history: This is a 62 year old male with h/o dilated 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 Patient was sent form his dialysis clinic which is [facility]. Patient was found to be with Atrial flutter and admitted for further evaluation. His INR was subtherapeutic on admission. Patient was started on by mouth Cardizem and was planned to start on esmolol drip. His HR improved after starting on Cardizem, esmolol drip discontinued. Coumadin was resumed, and cardiology was consulted. His HR was well controlled with amioderone, cardizem discontinued for low BP and INR became therapeutic. Nephrology consulted for HD and volume status improved. He was then discharge home in stable condition. Discharge diagnosis and management: /Atrial flutter, paroxysmal ordered esmolol drip on admission but never started on warfarin for oral anticoagulation Continue amiodarone for rate control / Acute and chronic respiratory failure Secondary to CHF and volume overload Improved symptom with HD /Acute exacerbation of congestive heart failure Secondary to noncompliance. Excessive fluid intake. h/o Nonischemic CMP with EF 20-25% normal coronaries in 2014 per cardiac cath, no ischemia on MPI 08/2016 cont volume control with HD, and medical management /ESRD needing dialysis Continue hemodialysis per Nephrology as HD /Elevated troponin level Maybe secondary to end-stage renal disease and compromised renal function. Cardiology was following, medical mx for now / HIV (human immunodeficiency virus infection) Continue antiretrovirals /HTN (hypertension), stable on current meds / IDDM (insulin dependent diabetes mellitus) Placed on SSI, diet controlled /Tobacco use disorder NicoDerm patch ordered. Smoking cessation counselling done on admission / COPD (chronic obstructive pulmonary disease) Continue home bronchodilators / Neuropathy Continue gabapentin / Hyperlipidemia Continue gemfibrozil and statins /Anticoagulation goal of INR 2 to 3 Continue coumadin, INR therapeutic on discharge / DVT prophylaxis on coumadin Hospitalist Physical exam: GENERAL: well-developed obese AAM lying on bed appeared to be in no discomfort. HEENT: Normocephalic. Atraumatic. No conjunctival congestion or icterus. Patient has moist mucous membranes. NECK: Supple. Trachea midline. CHEST/LUNGS: crackles auscultated bilaterally, breathing nonlabored. No wheezes HEART/CARDIOVASCULAR: IrRegular in rate and rhythm. S1 and S2 positive. ABDOMEN: Abdomen is soft, nontender. Patient has normal bowel sounds. SKIN: There is no rash. Warm and dry. NEURO: No focal motor deficit. Follows command. MUSCULOSKELETAL: No joint effusion or tenderness. EXTRIMITY: No edema, no cyanosis or clubbing. PSYCH: Cooperative. Disposition: DC-01 TO HOME OR SELFCARE Time spent for discharge: 32 minutes Core Measure Documentation - Palliative Care Palliative Care/ Comfort Measures: Not Applicable - Core Measures Any of the following diagnoses?: heart failure - Heart Failure Discharge Requirements DIOR/ARB for LVSD if EF <40%: No Reason for no DIOR/ARB: Renal impairment Beta caity at discharge: No Reason for no beta caity on DC: COPD Exam - Constitutional Vitals: Temp Pulse Resp BP Pulse Ox 97.5 F L 82 16 115/63 94 08/31/17 13:00 08/31/17 13:00 08/31/17 13:00 08/31/17 13:00 08/31/17 07:56 Plan Activity: advance as tolerated Weight Bearing Status: Non-Weight Bearing Diet: low fat, low salt, renal Follow up with: PRIMARY CARE, [Primary Care Provider] - 3-5 Days Forms: Warfarin Discharge Instruction
[2017-08-31] MEDS ORDERED: HABITROL TD SCH (15:00)
== END 2017-08-31 16:30 | disposition home or self-care (01) | DRG 291 ==
LOC: ED 08:28 → CC1 19:01 → 4A 08-29 21:06
PROVIDERS: ADMIT Internal Medicine; ATTEND Internal Medicine
PROC: 5A1D70Z Performance of Urinary Filtration, Intermittent, Less than 6 Hours Per Day (ICD-10-PCS; principal; 2017-08-31)
DX: I13.2 Hypertensive heart and chronic kidney disease with heart failure and with stage 5 chronic kidney disease, or end stage renal disease (principal); I50.41 Acute combined systolic (congestive) and diastolic (congestive) heart failure; N18.6 End stage renal disease; J96.21 Acute and chronic respiratory failure with hypoxia; B20 Human immunodeficiency virus [HIV] disease; I47.1 Supraventricular tachycardia; I48.92 Unspecified atrial flutter; R74.8 Abnormal levels of other serum enzymes
CPT/HCPCS: 36415; 71045; 78582; 80053; 80061; 82962; 84100; 84132; 84484; 85025; 85379; 85610; 85730; 93005; 93010; 94640; 94760; A9270-GY; A9540; A9558; J1265; J1815; J2270; J2405; J3010; J7030; J7050

== ENCOUNTER 2017-09-01 08:01 | Emergency (ER) | payer MEDICARE ==
[2017-09-01 09:10] LABS: Hematocrit 34.6 % (35.5-45.6); Hemoglobin 10.9 gm/dl (11.8-15.2); Mean Corpuscular HGB Conc 32 % (32-34); Mean Corpuscular Hemoglobin 29 pg (28-32); Mean Corpuscular Volume 91 fl (84-94); Platelet Count 272 K/mm3 (140-440); Red Blood Count 3.79 M/mm3 (3.65-5.03); Red Cell Distribution Width 19.2 % (13.2-15.2)
[2017-09-01 09:28] LABS: Calcium 7.1 mg/dL (8.4-10.2)
--- NOTE | 2017-09-01 09:28 | XRay Report ---
Portable chest: Chest pain. The heart is difficult to assess but may be borderline in size. There is some question concerning slight redistribution of flow to the upper lobes but the lungs otherwise appear generally clear. There has been slight improvement in the pulmonary findings adjacent to the right hilum compared to the recent exam of August 28. Impression: 1. Suspect mild cardiomegaly. 2. Findings suggesting slight cardiac decompensation. Interval improvement in right infrahilar region compared to prior exam.
[2017-09-01 09:53] VITALS: BP 124/78
[2017-09-01 10:40] LABS: Basophils % (Manual) 0 % (0.0-1.8); Hypochromasia 1+; Macrocytosis 1+; Platelet Estimate Consistent w Auto; Stomatocytes 1+; Total Cells Counted 100
--- NOTE | 2017-09-01 10:42 | Emergency Department Report ---
ED Chest Pain HPI - General Chief Complaint: Chest Pain Stated Complaint: CHEST PAIN Time Seen by Provider: 09/01/17 10:33 Source: patient Mode of arrival: Stretcher Limitations: No Limitations - History of Present Illness Initial Comments: The patient was transferred to this facility via EMS from his dialysis clinic. He states that while he was there he complained of some recurrent sharp chest pain. He states that he has been somewhat short of breath since discharge yesterday. His last dialysis was on Monday. In addition he stated his blood pressure was "too low for dialysis". He states it was about 105 systolic. He claims that he did not want to dialyze him. However, he may not be a reliable historian as he also states that his shunt has been hurting him when he gets dialyzed. He also is requesting to go home. His chest pain is persistent and recurrent. It is nonpleuritic. It is nonradiating and nonpenetrating. The patient was discharged from this facility yesterday. He has a dilated cardiomyopathy with a defibrillator. He states his he had his 7%. He has a history of HIV. He was just placed on Coumadin for atrial flutter. He is a regular patient of [facility]. He states he was due to have his INR checked on Monday. Additionally during his last hospitalization he had a negative VQ scan for pulmonary embolism. I believe he had a negative For coronary artery disease a long time ago. He cannot specify when that was. He states he is on 4 L O2 at home chronically. Complaint: chest pain -: year(s) Severity scale (0 -10): 7 - Related Data Home Medications Medication Instructions Recorded Confirmed Last Taken Albuterol Sulfate [Ventolin HFA] 2 puff IH QID PRN 09/09/16 08/28/17 01/27/17 amLODIPine [Norvasc] 10 mg PO DAILY 09/09/16 08/28/17 03/12/17 Gabapentin [Neurontin] 300 mg PO QHS 11/22/16 08/28/17 08/28/17 Atazanavir Sulfate/Cobicistat 1 each PO QDAY 04/03/17 08/28/17 Unknown [Evotaz 300 mg-150 mg Tablet] ALBUTEROL NEB's [Proventil 0.083% 2.5 mg IH Q6H PRN 07/21/17 08/28/17 Unknown NEBS] Budesonide/Formoterol Fumarate 2 puff IH BID 07/21/17 08/28/17 Unknown [Symbicort 160-4.5 Mcg Inhaler] Ferric Citrate (Nf) [Auryxia (Nf)] 3 tab PO QID 07/21/17 08/28/17 Unknown Fluticasone [Flonase] 2 sprays NS QDAY 07/21/17 08/28/17 Unknown Gemfibrozil [Lopid] 600 mg PO BID 07/21/17 08/28/17 Unknown Ipratropium/Albuterol Sulfate 1 spray IH QID 07/21/17 08/28/17 Unknown [Combivent Respimat] Nitroglycerin [Nitrostat] 0.4 mg SL Q5M PRN 07/21/17 08/28/17 08/28/17 Rosuvastatin Calcium [Crestor] 10 mg PO HS 07/21/17 08/28/17 Unknown lamiVUDine [Epivir NICU] 5 ml PO DAILY 07/21/17 08/28/17 Unknown traZODone [Desyrel] 50 mg PO QHS 07/21/17 08/28/17 Unknown Previous Rx's Medication Instructions Recorded Last Taken Type Dolutegravir Sodium [Tivicay] 50 mg PO DAILY #30 tablet 04/07/17 Unknown Rx Paroxetine HCl [PARoxetine] 40 mg PO DAILY #30 tablet 04/07/17 Unknown Rx Cinacalcet [Sensipar] 60 mg PO QDAY tablet 07/05/17 Unknown Rx Acetaminophen/Codeine [Tylenol 1 tab PO Q6H PRN #12 tab 07/20/17 07/20/17 Rx /Codeine # 3 tab] Amiodarone [Cordarone 200 MG TAB] 200 mg PO BID #60 tablet 07/26/17 Unknown Rx AtorvaSTATin [Lipitor] 20 mg PO QHS #30 tablet 07/26/17 Unknown Rx Budesonide [Pulmicort Respules] 1 mg IH Q12HRT #60 nebu 07/26/17 Unknown Rx Sevelamer Carbonate [Renvela] 1,600 mg PO TIDWM #30 tablet 07/26/17 Unknown Rx Warfarin [Coumadin] 7.5 mg PO QDAY #30 tablet 02/14/18 Unknown Rx Allergies Allergy/AdvReac Type Severity Reaction Status Date / Time sulfamethoxazole Allergy Anaphylaxis Verified 08/28/17 08:46 [From Bactrim] trimethoprim [From Bactrim] Allergy Anaphylaxis Verified 08/28/17 08:46 Heart Score - HEART Score History: Slightly suspicious EKG: Non-specific Age: 45-65 Risk factors: 1-2 risk factors Troponin: 1-3x normal limit HEART Score: 4 - Critical Actions Critical Actions: 4-6 pts:12-16.6% risk of adverse cardiac event. Should be admitted ED Review of Systems ROS: Stated complaint: CHEST PAIN Other details as noted in HPI Constitutional: denies: chills, fever Eyes: denies: eye pain, eye discharge, vision change ENT: denies: ear pain, throat pain Respiratory: shortness of breath. denies: cough, wheezing Cardiovascular: chest pain. denies: palpitations Endocrine: no symptoms reported Gastrointestinal: denies: abdominal pain, nausea, diarrhea Genitourinary: denies: urgency, dysuria Musculoskeletal: denies: back pain, joint swelling, arthralgia Skin: denies: rash, lesions Neurological: denies: headache, weakness, paresthesias Psychiatric: denies: anxiety, depression Hematological/Lymphatic: denies: easy bleeding, easy bruising ED Past Medical Hx - Past Medical History Previous Medical History?: Yes Hx Hypertension: Yes Hx Congestive Heart Failure: Yes Hx Diabetes: Yes Hx Renal Disease: Yes (Dialysis M, W, F) Hx Asthma: Yes Hx COPD: Yes (3 L home O2) Hx HIV: Yes Additional medical history: pancreatitis, left upper arm HD graft. bells palsy - Surgical History Past Surgical History?: Yes Hx Pacemaker: Yes Hx Internal Defibrillator: Yes Additional Surgical History: graft to left arm, R chest vas cath, DeFib - Social History Smoking Status: Unknown if ever smoked Substance Use Type: None - Medications Home Medications: Home Medications Medication Instructions Recorded Confirmed Last Taken Type Albuterol Sulfate [Ventolin HFA] 2 puff IH QID PRN 09/09/16 08/28/17 01/27/17 History amLODIPine [Norvasc] 10 mg PO DAILY 09/09/16 08/28/17 03/12/17 History Gabapentin [Neurontin] 300 mg PO QHS 11/22/16 08/28/17 08/28/17 History Atazanavir Sulfate/Cobicistat 1 each PO QDAY 04/03/17 08/28/17 Unknown History [Evotaz 300 mg-150 mg Tablet] Dolutegravir Sodium [Tivicay] 50 mg PO DAILY #30 tablet 04/07/17 08/28/17 Unknown Rx Paroxetine HCl [PARoxetine] 40 mg PO DAILY #30 tablet 04/07/17 08/28/17 Unknown Rx Cinacalcet [Sensipar] 60 mg PO QDAY tablet 07/05/17 08/28/17 Unknown Rx Acetaminophen/Codeine [Tylenol 1 tab PO Q6H PRN #12 tab 07/20/17 08/28/17 Rx /Codeine # 3 tab] ALBUTEROL NEB's [Proventil 0.083% 2.5 mg IH Q6H PRN 07/21/17 08/28/17 Unknown History NEBS] Budesonide/Formoterol Fumarate 2 puff IH BID 07/21/17 08/28/17 Unknown History [Symbicort 160-4.5 Mcg Inhaler] Ferric Citrate (Nf) [Auryxia (Nf)] 3 tab PO QID 07/21/17 08/28/17 Unknown History Fluticasone [Flonase] 2 sprays NS QDAY 07/21/17 08/28/17 Unknown History Gemfibrozil [Lopid] 600 mg PO BID 07/21/17 08/28/17 Unknown History Ipratropium/Albuterol Sulfate 1 spray IH QID 07/21/17 08/28/17 Unknown History [Combivent Respimat] Nitroglycerin [Nitrostat] 0.4 mg SL Q5M PRN 07/21/17 08/28/17 08/28/17 History Rosuvastatin Calcium [Crestor] 10 mg PO HS 07/21/17 08/28/17 Unknown History lamiVUDine [Epivir NICU] 5 ml PO DAILY 07/21/17 08/28/17 Unknown History traZODone [Desyrel] 50 mg PO QHS 07/21/17 08/28/17 Unknown History Amiodarone [Cordarone 200 MG TAB] 200 mg PO BID #60 tablet 07/26/17 08/28/17 Unknown Rx AtorvaSTATin [Lipitor] 20 mg PO QHS #30 tablet 07/26/17 08/28/17 Unknown Rx Budesonide [Pulmicort Respules] 1 mg IH Q12HRT #60 nebu 07/26/17 08/28/17 Unknown Rx Sevelamer Carbonate [Renvela] 1,600 mg PO TIDWM #30 tablet 07/26/17 08/28/17 Unknown Rx Warfarin [Coumadin] 7.5 mg PO QDAY #30 tablet 07/26/17 08/28/17 Unknown Rx ED Physical Exam - General Limitations: No Limitations General appearance: alert, in no apparent distress - Head Head exam: Present: atraumatic, normocephalic - Eye Eye exam: Present: normal appearance - ENT ENT exam: Present: mucous membranes moist - Neck Neck exam: Present: normal inspection. Absent: tenderness, meningismus - Respiratory Respiratory exam: Present: normal lung sounds bilaterally. Absent: respiratory distress - Cardiovascular Cardiovascular Exam: Present: regular rate, normal rhythm. Absent: systolic murmur, diastolic murmur, rubs, gallop - GI/Abdominal GI/Abdominal exam: Present: soft, normal bowel sounds. Absent: distended, tenderness, guarding, rebound, rigid - Rectal Rectal exam: Present: deferred - Extremities Exam Extremities exam: Present: normal inspection - Back Exam Back exam: Present: normal inspection - Neurological Exam Neurological exam: Present: alert, oriented X3, other (no acute focal deficit) - Psychiatric Psychiatric exam: Present: normal affect, normal mood - Skin Skin exam: Present: warm, dry, intact, normal color. Absent: rash ED Course Vital Signs 09/01/17 09/01/17 09/01/17 08:08 08:15 08:21 Temperature 98.5 F Pulse Rate 81 89 Respiratory 15 19 Rate Blood Pressure 120/70 126/66 O2 Sat by Pulse 95 93 93 Oximetry 09/01/17 09/01/17 09/01/17 08:30 08:45 09:01 Temperature Pulse Rate 79 83 Respiratory 16 17 19 Rate Blood Pressure 120/70 88/46 88/46 O2 Sat by Pulse 96 90 95 Oximetry 09/01/17 09/01/17 09/01/17 09:15 09:30 09:45 Temperature Pulse Rate Respiratory 14 12 20 Rate Blood Pressure 87/44 117/72 124/78 O2 Sat by Pulse 90 92 94 Oximetry 09/01/17 10:05 Temperature Pulse Rate Respiratory 18 Rate Blood Pressure O2 Sat by Pulse 99 Oximetry - Reevaluation(s) Reevaluation #1: The patient's chest pain is clearly atypical. He's had negative workups in the past. He has a slightly elevated troponin. It has been explained to him that his x-ray shows signs of early CHF. I have told him that he needs to be admitted to the hospital for dialysis today. I've explained to him that it is unlikely that he makes it through the weekend for dialysis on Monday. Additionally, further cardiac evaluation can be done if he is willing to stay. The patient refuses to be admitted to the hospital. He states he is ready to leave directly. I have spoken to him 3 times concerning the risks and benefits of hospitalization and the need there. He is mentally troponin. He has signed out AGAINST MEDICAL ADVICE. 09/01/17 11:33 CECILIO score - Cecilio Score Age > 65: (0) No Aspirin use within the Past 7 Days: (1) Yes 3 or more CAD Risk Factors: (1) Yes 2 or more Angina events in past 24 hrs: (1) Yes Known CAD with more than 50% Stenosis: (0) No Elevated Cardiac Markers: (1) Yes ST Deviation Greater than 0.5mm: (0) No CECILIO Score: 4 ED Medical Decision Making - Lab Data Result diagrams: 09/01/17 08:53 09/01/17 08:53 Laboratory Results - last 24 hr 09/01/17 09/01/17 08:53 08:53 WBC 5.7 RBC 3.79 Hgb 10.9 L Hct 34.6 L MCV 91 MCH 29 MCHC 32 RDW 19.2 H Plt Count 272 [place] % (Auto) Technology Risk Intern Add Manual Diff Complete Total Counted 100 Seg Neuts % (Manual) 59.0 Band Neutrophils % 0 Lymphocytes % (Manual) 17.0 Reactive Lymphs % (Man) 0 Monocytes % (Manual) 20.0 H Eosinophils % (Manual) 3.0 Basophils % (Manual) 0 Metamyelocytes % 1.0 Myelocytes % 0 Promyelocytes % 0 Blast Cells % 0 Nucleated RBC % Not Reportable Seg Neutrophils # Man 3.4 Band Neutrophils # 0.0 Lymphocytes # (Manual) 1.0 L Abs React Lymphs (Man) 0.0 Monocytes # (Manual) 1.1 H Eosinophils # (Manual) 0.2 Basophils # (Manual) 0.0 Metamyelocytes # 0.1 Myelocytes # 0.0 Promyelocytes # 0.0 Blast Cells # 0.0 WBC Morphology Not Reportable Hypersegmented Neuts Not Reportable Hyposegmented Neuts Not Reportable Hypogranular Neuts Not Reportable Smudge Cells Not Reportable Toxic Granulation Not Reportable Toxic Vacuolation Not Reportable Dohle Bodies Not Reportable Pelger-Huet Anomaly Not Reportable Carmen Rods Not Reportable Platelet Estimate Consistent w auto Clumped Platelets Not Reportable Plt Clumps, EDTA Not Reportable Large Platelets Not Reportable Giant Platelets Not Reportable Platelet Satelliting Not Reportable Plt Morphology Comment Not Reportable RBC Morphology Not Reportable Dimorphic RBCs Not Reportable Polychromasia Few Hypochromasia 1+ Poikilocytosis Not Reportable Anisocytosis Not Reportable Microcytosis Not Reportable Macrocytosis 1+ Spherocytes Not Reportable Pappenheimer Bodies Not Reportable Sickle Cells Not Reportable Target Cells Not Reportable Tear Drop Cells Not Reportable Ovalocytes Not Reportable Stomatocytes 1+ Helmet Cells Not Reportable [place] Bodies Not Reportable [place] Rings Not Reportable Ebenezer Cells Not Reportable Bite Cells Not Reportable Crenated Cell Not Reportable Elliptocytes Not Reportable Acanthocytes (Spur) Not Reportable Rouleaux Not Reportable Hemoglobin C Crystals Not Reportable Schistocytes Not Reportable Malaria parasites Not Reportable Kendrick Bodies Not Reportable Hem Pathologist Commnt No Sodium 137 Potassium 4.5 Chloride 92.7 L Carbon Dioxide 28 Anion Gap 21 BUN 20 Creatinine 8.4 H Estimated GFR 8 BUN/Creatinine Ratio 2 Glucose 63 L Calcium 7.1 L Troponin T 0.547 H* D - EKG Data -: EKG Interpreted by Wy EKG shows normal: sinus rhythm Rate: normal - EKG Data Interpretation: LVH (repolarization abnormalities consistent and typical of LVH) - Radiology Data Radiology results: report reviewed (early CHF is suspected) Critical care attestation.: If time is entered above; I have spent that time in minutes in the direct care of this critically ill patient, excluding procedure time. ED Disposition Clinical Impression: Dilated cardiomyopathy, Atypical chest pain Congestive heart failure Qualifiers: Heart failure type: combined systolic and diastolic Heart failure chronicity: acute on chronic Qualified Code(s): I50.43 - Acute on chronic combined systolic (congestive) and diastolic (congestive) heart failure Disposition: LEFT AGAINST MED ADVICE Is pt being admited?: No Does the pt Need Aspirin: No Condition: Stable Instructions: Chest Pain (ED) Referrals: PRIMARY CARE, [Primary Care Provider] - 3-5 Days Time of Disposition: 11:37
[2017-09-01 11:19] LABS: INR 1.92 (0.87-1.13)
[2017-09-01 11:20] LABS: Partial Thromboplastin Time 51.7 Sec. (24.2-36.6)
[2017-09-01 11:39] LABS: Creatine Kinase MB 3.7 ng/mL (0.0-4.0)
[2017-09-01 11:40] LABS: Albumin 3.6 g/dL (3.9-5); Bilirubin,Direct 0.3 mg/dL (0-0.2)
== END 2017-09-01 11:37 | disposition left against medical advice (07) ==
LOC: ED 08:01
DX: I42.0 Dilated cardiomyopathy (principal); I13.0 Hypertensive heart and chronic kidney disease with heart failure and stage 1 through stage 4 chronic kidney disease, or unspecified chronic kidney disease; N18.9 Chronic kidney disease, unspecified; E11.22 Type 2 diabetes mellitus with diabetic chronic kidney disease; Z99.2 Dependence on renal dialysis; J44.9 Chronic obstructive pulmonary disease, unspecified; Z95.0 Presence of cardiac pacemaker; Z88.2 Allergy status to sulfonamides
CPT/HCPCS: 36415; 71045; 80048; 80074; 82550; 82553; 83735; 83880; 84484; 85007; 85025; 85610; 85730; 93005; 93010; 99284

== ENCOUNTER 2018-06-11 15:46 | Emergency (ER) | payer MEDICARE ==
[2018-06-11 16:21] VITALS: BP 144/75
--- NOTE | 2018-06-11 17:49 | Emergency Department Report ---
ED Medical Clearance HPI - General Chief complaint: Medical Clearance Stated complaint: LOW POTASSIUM LEVEL Source: patient, EMS Mode of arrival: Wheelchair - History of Present Illness Initial comments: This is a 63-year-old -Cong[place] male who reports to the emergency room for low potassium. Past medical history of asthma, congestive heart failure, COPD, home oxygen 3 L, diabetes type 2, HIV, and hypertension. Patient states he went to dialysis on Monday and had labs drawn prior to dialysis. She is dialysis nurse called him today and stated his potassium was low and to follow up in the emergency room. Patient states he took one nitroglycerin prior to arrival. He also complains of some muscle cramps. He denies chest pain, palpitations, and edema. MD Complaint: medical clearance request -: This afternoon Reason for Medical Clearance: laboratory abnormality Place: home Alledged Intoxication: No Compliant with Home Medications: Yes Traumatic Symptoms: denies traumatic injury Associated Symptoms: denies: chest pain, shortness of breath, palpitations, diaphoresis, confusion, cough, fever/chills, headaches, anorexia, malaise, nausea/vomiting, rash, seizure, syncope, weakness Treatments Prior to Arrival: medication (nitroglycerin) Home medications: Home Medications Medication Instructions Recorded Confirmed Last Taken Albuterol Sulfate [Ventolin HFA] 2 puff IH QID PRN 09/09/16 05/13/18 01/27/17 amLODIPine [Norvasc] 10 mg PO DAILY 09/09/16 05/13/18 03/12/17 Gabapentin [Neurontin] 300 mg PO QHS 11/22/16 05/13/18 08/28/17 Atazanavir Sulfate/Cobicistat 1 each PO QDAY 04/03/17 05/13/18 Unknown [Evotaz 300 mg-150 mg Tablet] ALBUTEROL NEB's [Proventil 0.083% 2.5 mg IH Q6H PRN 07/21/17 05/13/18 Unknown NEBS] Budesonide/Formoterol Fumarate 2 puff IH BID 07/21/17 05/13/18 Unknown [Symbicort 160-4.5 Mcg Inhaler] Ferric Citrate (Nf) [Auryxia (Nf)] 3 tab PO QID 07/21/17 05/13/18 Unknown Fluticasone [Flonase] 2 sprays NS QDAY 07/21/17 05/13/18 Unknown Gemfibrozil [Lopid] 600 mg PO BID 07/21/17 05/13/18 Unknown Ipratropium/Albuterol Sulfate 1 spray IH QID 07/21/17 05/13/18 Unknown [Combivent Respimat] Nitroglycerin [Nitrostat] 0.4 mg SL Q5M PRN 07/21/17 05/13/18 08/28/17 lamiVUDine [Epivir NICU] 5 ml PO DAILY 07/21/17 05/13/18 Unknown traZODone [Desyrel] 50 mg PO QHS 07/21/17 05/13/18 Unknown Prezcobix 800 mg-150 mg (Nf) 800 mg PO QDAY 05/13/18 05/13/18 Unknown Previous Rx's Medication Instructions Recorded Last Taken Type Dolutegravir Sodium [Tivicay] 50 mg PO DAILY #30 tablet 04/07/17 Unknown Rx PARoxetine HCl [PARoxetine] 40 mg PO DAILY #30 tablet 04/07/17 Unknown Rx Cinacalcet [Sensipar] 60 mg PO QDAY tablet 07/05/17 Unknown Rx Acetaminophen/Codeine [Tylenol 1 tab PO Q6H PRN #12 tab 07/20/17 07/20/17 Rx /Codeine # 3 tab] Amiodarone [Cordarone 200 MG TAB] 200 mg PO BID #60 tablet 07/26/17 Unknown Rx AtorvaSTATin [Lipitor] 20 mg PO QHS #30 tablet 07/26/17 Unknown Rx Budesonide [Pulmicort Respules] 1 mg IH Q12HRT #60 nebu 07/26/17 Unknown Rx Sevelamer Carbonate [Renvela] 1,600 mg PO TIDWM #30 tablet 07/26/17 Unknown Rx Metoprolol Xl [Metoprolol 100 mg PO QDAY #30 tablet 05/23/18 Unknown Rx SUCCINATE ER TAB] Warfarin [Coumadin] 7.5 mg PO QDAY #30 tablet 05/23/18 Unknown Rx Allergies/Adverse reactions: Allergies Allergy/AdvReac Type Severity Reaction Status Date / Time sulfamethoxazole Allergy Anaphylaxis Verified 08/28/17 08:46 [From Bactrim] trimethoprim [From Bactrim] Allergy Anaphylaxis Verified 08/28/17 08:46 ED Review of Systems ROS: Stated complaint: LOW POTASSIUM LEVEL Other details as noted in HPI Constitutional: denies: chills, fever Respiratory: denies: cough, shortness of breath, wheezing Cardiovascular: denies: chest pain, palpitations Gastrointestinal: denies: abdominal pain, nausea, diarrhea Musculoskeletal: myalgia Neurological: denies: headache, weakness, paresthesias Psychiatric: denies: anxiety, depression ED Past Medical Hx - Past Medical History Hx Hypertension: Yes Hx Congestive Heart Failure: Yes Hx Diabetes: Yes Hx Deep Vein Thrombosis: No Hx Renal Disease: Yes (Dialysis M, W, F) Hx Asthma: Yes Hx COPD: Yes (3 L home O2) Hx HIV: Yes Additional medical history: pancreatitis, left upper arm HD graft. bells palsy - Surgical History Hx Pacemaker: No Hx Internal Defibrillator: Yes Additional Surgical History: graft to left arm, R chest vas cath, DeFib - Social History Smoking Status: Current Some Day Smoker Substance Use Type: None - Medications Home Medications: Home Medications Medication Instructions Recorded Confirmed Last Taken Type Albuterol Sulfate [Ventolin HFA] 2 puff IH QID PRN 09/09/16 05/13/18 01/27/17 History amLODIPine [Norvasc] 10 mg PO DAILY 09/09/16 05/13/18 03/12/17 History Gabapentin [Neurontin] 300 mg PO QHS 11/22/16 05/13/18 08/28/17 History Atazanavir Sulfate/Cobicistat 1 each PO QDAY 04/03/17 05/13/18 Unknown History [Evotaz 300 mg-150 mg Tablet] Dolutegravir Sodium [Tivicay] 50 mg PO DAILY #30 tablet 04/07/17 05/13/18 Unknown Rx PARoxetine HCl [PARoxetine] 40 mg PO DAILY #30 tablet 04/07/17 05/13/18 Unknown Rx Cinacalcet [Sensipar] 60 mg PO QDAY tablet 07/05/17 05/13/18 Unknown Rx Acetaminophen/Codeine [Tylenol 1 tab PO Q6H PRN #12 tab 07/20/17 05/13/18 07/20/17 Rx /Codeine # 3 tab] ALBUTEROL NEB's [Proventil 0.083% 2.5 mg IH Q6H PRN 07/21/17 05/13/18 Unknown History NEBS] Budesonide/Formoterol Fumarate 2 puff IH BID 07/21/17 05/13/18 Unknown History [Symbicort 160-4.5 Mcg Inhaler] Ferric Citrate (Nf) [Auryxia (Nf)] 3 tab PO QID 07/21/17 05/13/18 Unknown History Fluticasone [Flonase] 2 sprays NS QDAY 07/21/17 05/13/18 Unknown History Gemfibrozil [Lopid] 600 mg PO BID 07/21/17 05/13/18 Unknown History Ipratropium/Albuterol Sulfate 1 spray IH QID 07/21/17 05/13/18 Unknown History [Combivent Respimat] Nitroglycerin [Nitrostat] 0.4 mg SL Q5M PRN 07/21/17 05/13/18 08/28/17 History lamiVUDine [Epivir NICU] 5 ml PO DAILY 07/21/17 05/13/18 Unknown History traZODone [Desyrel] 50 mg PO QHS 07/21/17 05/13/18 Unknown History Amiodarone [Cordarone 200 MG TAB] 200 mg PO BID #60 tablet 07/26/17 05/13/18 Unknown Rx AtorvaSTATin [Lipitor] 20 mg PO QHS #30 tablet 07/26/17 05/13/18 Unknown Rx Budesonide [Pulmicort Respules] 1 mg IH Q12HRT #60 nebu 07/26/17 05/13/18 Unknown Rx Sevelamer Carbonate [Renvela] 1,600 mg PO TIDWM #30 tablet 07/26/17 05/13/18 Unknown Rx Prezcobix 800 mg-150 mg (Nf) 800 mg PO QDAY 05/13/18 05/13/18 Unknown History Metoprolol Xl [Metoprolol 100 mg PO QDAY #30 tablet 05/23/18 Unknown Rx SUCCINATE ER TAB] Warfarin [Coumadin] 7.5 mg PO QDAY #30 tablet 05/23/18 Unknown Rx ED Physical Exam - General Limitations: No Limitations General appearance: alert, in no apparent distress, obese - Respiratory Respiratory exam: Present: normal lung sounds bilaterally. Absent: respiratory distress - Cardiovascular Cardiovascular Exam: Present: regular rate, normal rhythm. Absent: systolic murmur, diastolic murmur, rubs, gallop - GI/Abdominal GI/Abdominal exam: Present: soft, normal bowel sounds - Neurological Exam Neurological exam: Present: alert, oriented X3 - Psychiatric Psychiatric exam: Present: normal affect, normal mood - Skin Skin exam: Present: warm, dry, intact, normal color. Absent: rash ED Course Vital Signs 06/11/18 16:17 Temperature 98.4 F Pulse Rate 94 H Respiratory 20 Rate Blood Pressure 144/75 O2 Sat by Pulse 98 Oximetry ED Medical Decision Making - Lab Data Result diagrams: 06/11/18 17:03 Lab Results 06/11/18 Range/Units 17:03 Sodium 134 L (137-145) mmol/L Potassium 4.6 (3.6-5.0) mmol/L Chloride 91.3 L (98-107) mmol/L Carbon Dioxide 30 (22-30) mmol/L Anion Gap 17 mmol/L BUN 22 H (9-20) mg/dL Creatinine 8.0 H (0.8-1.5) mg/dL Estimated GFR 8 ml/min BUN/Creatinine Ratio 3 % Glucose 79 (75-100) mg/dL Calcium 8.0 L (8.4-10.2) mg/dL - Medical Decision Making Patient was examined by me. Vitals are normal and patient is in no acute distress. Obtained a BMP and EKG. BUN and creatinine 22 and 8 on this visit which is better than prior visit on May 11. EKG interpreted by the attending, sinus rhythm, rate 93, no STEMI. The patient was dialyzed on Monday, usual schedule Monday, Monday, and Monday. Patient informed of results. Consulted with attending, Lisa Burnette Instructed to follow-up with linoleum mechanic and primary care doctor. Plan discussed with patient to discharge home and treat outpatient. He agrees with ER plan. Patient discharged home in stable condition. Follow up with PCP in 2-3 days. ED Disposition Clinical Impression: Feared complaint without diagnosis Disposition: -01 TO HOME OR SELFCARE Is pt being admited?: No Does the pt Need Aspirin: No Condition: Stable Instructions: Hypokalemia (ED) Additional Instructions: Follow-up with your primary care doctor and dialysis. Referrals: [facility] [Outside] - 3-5 Days [facility] [Outside] - 3-5 Days JUSTIN WOOTEN, DO [Staff Physician] - 3-5 Days Time of Disposition: 18:09
[2018-06-11] MEDS ORDERED: TORADOL IM ONE (17:59)
[2018-06-11] MEDS ORDERED: TORADOL ONE (18:09)
== END 2018-06-11 18:30 | disposition home or self-care (01) ==
LOC: ED 15:46
DX: R25.2 Cramp and spasm (principal); J44.9 Chronic obstructive pulmonary disease, unspecified; I11.0 Hypertensive heart disease with heart failure; I50.9 Heart failure, unspecified; E11.9 Type 2 diabetes mellitus without complications; F17.200 Nicotine dependence, unspecified, uncomplicated; Z79.899 Other long term (current) drug therapy; Z88.2 Allergy status to sulfonamides; Z71.1 Person with feared health complaint in whom no diagnosis is made; Z99.2 Dependence on renal dialysis
CPT/HCPCS: 36415; 80048; 93005; 93010; 96372; 99283; J1885

== ENCOUNTER 2018-06-24 13:16 | Inpatient (IN) | payer MEDICARE ==
[2018-06-24] MEDS ORDERED: SUBLIMAZE IV ONE (14:00)
[2018-06-24] MEDS ORDERED: NITRO-BID 2% TP ONE (14:03)
[2018-06-24] MEDS ORDERED: ASPIRIN PO ONE (14:03)
[2018-06-24 14:53] LABS: Basophils # (Auto) 0.1 K/mm3 (0.0-0.1); Basophils % (Auto) 1.2 % (0.0-1.8); Eosinophils # (Auto) 0.1 K/mm3 (0.0-0.4); Eosinophils % (Auto) 0.4 % (0.0-4.3); Hematocrit 35.3 % (35.5-45.6); Hemoglobin 10.9 gm/dl (11.8-15.2); Lymphocytes # (Auto) 4.1 K/mm3 (1.2-5.4); Lymphocytes % (Auto) 33.7 % (13.4-35.0); Mean Corpuscular HGB Conc 31 % (32-34); Mean Corpuscular Volume 89 fl (84-94); Monocytes # (Auto) 1.3 K/mm3 (0.0-0.8); Monocytes % (Auto) 10.9 % (0.0-7.3); Platelet Count 322 K/mm3 (140-440); Red Blood Count 3.95 M/mm3 (3.65-5.03); Red Cell Distribution Width 23.9 % (13.2-15.2)
[2018-06-24 15:01] LABS: INR 1.66 (0.87-1.13)
[2018-06-24 15:02] LABS: Partial Thromboplastin Time 40.2 Sec. (24.2-36.6)
--- NOTE | 2018-06-24 15:07 | XRay Report ---
FINAL REPORT EXAM: XR CHEST 1V AP HISTORY: chest pain TECHNIQUE: Chest, portable semi upright PRIORS: None. FINDINGS: Previous infiltrates have improved. There is minimal residual patchy density in the mid right lung. T he remaining lungs are clear. There is no pneumothorax or pleural effusion. There is no convincing co ngestion. IMPRESSION: Majority of previously-seen infiltrates are resolved. There is minimal patchy density persistent in t he mid right lung.
[2018-06-24 15:35] LABS: Calcium 7.1 mg/dL (8.4-10.2)
[2018-06-24 15:45] LABS: Creatine Kinase MB 2.4 ng/mL (0.0-4.0)
--- NOTE | 2018-06-24 15:57 | Emergency Department Report ---
HPI - General Chief Complaint: Chest Pain Time Seen by Provider: 06/24/18 13:50 - HPI HPI: Room 5 The patient is a 63-year-old male presenting with chief complaint of chest pain. Patient states his symptoms began this morning at 04:00 with nausea and vo miting. The patient states at 08:00 developed substernal chest pain described as stabbing and intermittent in nature. The patient states he took a nitroglycerin and help slightly. The patient went back to sleep and awakened at noon with continued chest pain. Patient states he has shortness of breath, nausea/vomiting and diaphoresis with his chest pain. The patient states he took a second nitroglycerin but it did not help and subsequently called EMS. He gives his pain a score of 9-10/10 Location: [See above] Duration: [See above] Quality: [See above] Severity: [See above] Modifying factors: [see above] Context: [see above] Mode of transportation: [not driving] ED Past Medical Hx - Past Medical History Previous Medical History?: Yes Hx Hypertension: Yes Hx Congestive Heart Failure: Yes Hx Diabetes: Yes Hx Renal Disease: Yes (Dialysis M, W, F) Hx Asthma: Yes Hx COPD: Yes (3 L home O2) Hx HIV: Yes Additional medical history: pancreatitis, left upper arm HD graft. bells palsy - Surgical History Hx Internal Defibrillator: Yes Additional Surgical History: graft to left arm, R chest vas cath, DeFib - Family History Family history: no significant - Social History Smoking Status: Current Every Day Smoker Substance Use Type: None (denies illicit drug use) - Medications Home Medications: Home Medications Medication Instructions Recorded Confirmed Last Taken Type Albuterol Sulfate [Ventolin HFA] 2 puff IH QID PRN 09/09/16 05/13/18 01/27/17 History amLODIPine [Norvasc] 10 mg PO DAILY 09/09/16 05/13/18 03/12/17 History Gabapentin [Neurontin] 300 mg PO QHS 11/22/16 05/13/18 08/28/17 History Atazanavir Sulfate/Cobicistat 1 each PO QDAY 04/03/17 05/13/18 Unknown History [Evotaz 300 mg-150 mg Tablet] Dolutegravir Sodium [Tivicay] 50 mg PO DAILY #30 tablet 04/07/17 05/13/18 Unknown Rx PARoxetine HCl [PARoxetine] 40 mg PO DAILY #30 tablet 04/07/17 05/13/18 Unknown Rx Cinacalcet [Sensipar] 60 mg PO QDAY tablet 07/05/17 05/13/18 Unknown Rx Acetaminophen/Codeine [Tylenol 1 tab PO Q6H PRN #12 tab 07/20/17 05/13/18 07/20/17 Rx /Codeine # 3 tab] ALBUTEROL NEB's [Proventil 0.083% 2.5 mg IH Q6H PRN 07/21/17 05/13/18 Unknown History NEBS] Budesonide/Formoterol Fumarate 2 puff IH BID 07/21/17 05/13/18 Unknown History [Symbicort 160-4.5 Mcg Inhaler] Ferric Citrate (Nf) [Auryxia (Nf)] 3 tab PO QID 07/21/17 05/13/18 Unknown History Fluticasone [Flonase] 2 sprays NS QDAY 07/21/17 05/13/18 Unknown History Gemfibrozil [Lopid] 600 mg PO BID 07/21/17 05/13/18 Unknown History Ipratropium/Albuterol Sulfate 1 spray IH QID 07/21/17 05/13/18 Unknown History [Combivent Respimat] Nitroglycerin [Nitrostat] 0.4 mg SL Q5M PRN 07/21/17 05/13/18 08/28/17 History lamiVUDine [Epivir NICU] 5 ml PO DAILY 07/21/17 05/13/18 Unknown History traZODone [Desyrel] 50 mg PO QHS 07/21/17 05/13/18 Unknown History Amiodarone [Cordarone 200 MG TAB] 200 mg PO BID #60 tablet 07/26/17 05/13/18 Unknown Rx AtorvaSTATin [Lipitor] 20 mg PO QHS #30 tablet 07/26/17 05/13/18 Unknown Rx Budesonide [Pulmicort Respules] 1 mg IH Q12HRT #60 nebu 07/26/17 05/13/18 Unknown Rx Sevelamer Carbonate [Renvela] 1,600 mg PO TIDWM #30 tablet 07/26/17 05/13/18 Unknown Rx Prezcobix 800 mg-150 mg (Nf) 800 mg PO QDAY 05/13/18 05/13/18 Unknown History Metoprolol Xl [Metoprolol 100 mg PO QDAY #30 tablet 05/23/18 Unknown Rx SUCCINATE ER TAB] Warfarin [Coumadin] 7.5 mg PO QDAY #30 tablet 05/23/18 Unknown Rx ED Review of Systems ROS: Stated complaint: CHEST PAIN Other details as noted in HPI Constitutional: diaphoresis Eyes: denies: eye pain ENT: denies: throat pain Respiratory: shortness of breath Cardiovascular: chest pain Gastrointestinal: nausea, vomiting Genitourinary: denies: dysuria Musculoskeletal: denies: back pain Neurological: denies: headache Physical Exam - Physical Exam Vital Signs: Vital Signs 06/24/18 06/24/18 06/24/18 13:44 14:30 14:35 Temperature 98.3 F 98.1 F Pulse Rate 67 89 Respiratory 34 H 32 H 32 H Rate Blood Pressure 118/70 184/93 Blood Pressure 178/90 [Right] O2 Sat by Pulse 94 95 Oximetry 06/24/18 06/24/18 14:38 14:45 Temperature Pulse Rate 74 Respiratory 31 H 24 Rate Blood Pressure 184/93 Blood Pressure [Right] O2 Sat by Pulse 94 Oximetry Physical Exam: GENERAL: The patient is well-developed well-nourished male sitting on stretcher not appearing to be in acute distress. [] HEENT: Normocephalic. Atraumatic. Extraocular motions are intact. Patient has moist mucous membranes. NECK: Supple. Trachea midline CHEST/LUNGS: Clear to auscultation. There is no respiratory distress noted. HEART/CARDIOVASCULAR: Regular. There is no tachycardia. There is no gallop rub or murmur. ABDOMEN: Abdomen is soft, nontender. Patient has normal bowel sounds. There is no abdominal distention. SKIN: There is no rash. There is no edema. There is no diaphoresis. NEURO: The patient is awake, alert, and oriented. The patient is cooperative. The patient has normal speech MUSCULOSKELETAL: There is no evidence of acute injury. ED Course Vital Signs 06/24/18 06/24/18 06/24/18 13:44 14:30 14:35 Temperature 98.3 F 98.1 F Pulse Rate 67 89 Respiratory 34 H 32 H 32 H Rate Blood Pressure 118/70 184/93 Blood Pressure 178/90 [Right] O2 Sat by Pulse 94 95 Oximetry 06/24/18 06/24/18 14:38 14:45 Temperature Pulse Rate 74 Respiratory 31 H 24 Rate Blood Pressure 184/93 Blood Pressure [Right] O2 Sat by Pulse 94 Oximetry - Consultations Consultation #1: 06/24/18 16:07 Nephrology paged 06/24/18 16:[address] Smyth- recommends administering Kayexalate as well as other medications already administered and to recheck the potassium in several hours. If there is not improvement he will arrange dialysis tonight otherwise dialysis in the morning ED Medical Decision Making - Lab Data Result diagrams: 06/24/18 14:36 06/24/18 14:36 Laboratory Tests 06/24/18 06/24/18 06/24/18 14:36 14:36 14:36 WBC 12.0 H RBC 3.95 Hgb 10.9 L Hct 35.3 L MCV 89 MCH 28 MCHC 31 L RDW 23.9 H Plt Count 322 Lymph % (Auto) 33.7 Bradley % (Auto) 10.9 H Eos % (Auto) 0.4 Baso % (Auto) 1.2 Lymph # 4.1 Bradley # 1.3 H Eos # 0.1 Baso # 0.1 Seg Neutrophils % 53.8 Seg Neutrophils # 6.5 PT 20.0 H INR 1.66 H APTT 40.2 H Sodium Potassium Chloride Carbon Dioxide Anion Gap BUN Creatinine Estimated GFR BUN/Creatinine Ratio Glucose Calcium Total Creatine Kinase 165 CK-MB (CK-2) 2.4 CK-MB (CK-2) Rel Index 1.4 Troponin T 06/24/18 14:36 WBC RBC Hgb Hct MCV MCH MCHC RDW Plt Count Lymph % (Auto) Bradley % (Auto) Eos % (Auto) Baso % (Auto) Lymph # Bradley # Eos # Baso # Seg Neutrophils % Seg Neutrophils # PT INR APTT Sodium 133 L Potassium 6.4 H* Chloride 92.6 L Carbon Dioxide 18 L Anion Gap 29 BUN 35 H Creatinine 10.6 H Estimated GFR 6 BUN/Creatinine Ratio 3 Glucose 45 L Calcium 7.1 L Total Creatine Kinase CK-MB (CK-2) CK-MB (CK-2) Rel Index Troponin T 0.163 H* - EKG Data -: EKG Interpreted by Ut EKG shows normal: sinus rhythm Rate: normal - EKG Data When compared to previous EKG there are: previous EKG unavailable Interpretation: nonspecific ST-T wave shaheen (T wave inversion to) - Radiology Data Radiology results: report reviewed (chest x-ray), image reviewed (chest x-ray) interpreted by me: Chest x-ray- no focal infiltrates, no pneumothorax [facility] [address] [place] [address] XRay Report Signed Patient: TITUS ALEGRIA MR#: [id number] : 1955 Acct:[id number] Age/Sex: 63 / M ADM Date: 06/24/18 Loc: ED Attending Dr: Ordering Physician: ROSS HAYWOOD MD Date of Service: 06/24/18 Procedure(s): XR chest 1V ap Accession Number(s): [id number] cc: ROSS HAYWOOD MD Fluoro Time In Minutes: FINAL REPORT EXAM: XR CHEST 1V AP HISTORY: chest pain TECHNIQUE: Chest, portable semi upright PRIORS: None. FINDINGS: Previous infiltrates have improved. There is minimal residual patchy density in the mid right lung. The remaining lungs are clear. There is no pneumothorax or pleural effusion. There is no convincing congestion. IMPRESSION: Majority of previously-seen infiltrates are resolved. There is minimal patchy density persistent in the mid right lung. Transcribed By: ALFONSO Dictated By: EDWARD GARCIA MD Electronically Authenticated By: EDWARD GARCIA MD Signed Date/Time: 06/24/18 1507 DD/ 150 TD/TT: 06/24/18 1509 - Differential Diagnosis ACS, pericarditis, GERD Critical care attestation.: If time is entered above; I have spent that time in minutes in the direct care of this critically ill patient, excluding procedure time. ED Disposition Clinical Impression: Chest pain, Hyperkalemia, ESRD needing dialysis Disposition: OP ADMIT IP TO THIS HOSP Is pt being admited?: Yes Does the pt Need Aspirin: Yes Condition: Fair Instructions: Chest Pain (ED) Referrals: PRIMARY CARE, [Primary Care Provider] - 3-5 Days Time of Disposition: 16:06 (Hospitalist notified (Dr Wiley))
[2018-06-24] MEDS ORDERED: PROVENTIL IH ONE (16:01)
[2018-06-24] MEDS ORDERED: HumuLIN R IV ONE (16:02)
[2018-06-24] MEDS ORDERED: D50W (25GM) Syringe IV ONE (16:02)
[2018-06-24 16:17] LABS: Chol/HDL Ratio 3.12 %
[2018-06-24] MEDS ORDERED: KIONEX PO ONE (16:24)
--- NOTE | 2018-06-24 16:33 | History and Physical Report ---
History of Present Illness Chief complaint: Im having chest pain History of present illness: 63 YO Male with Systolic CHF(EF 25%), HTN, ESRD (HD:M,W,F), Asthma, COPD, Chronic Respiratory Failure on 3L O2 via nasal canula, HIV, Nicotine Dependence presents to ED for evaluation. Pt states that he has experienced chest pain, nausea, and multiple episodes of vomiting over the past 1 day. Pt stats that pain is 9-10/10, substernal, stabbing in nature, intermittent, relieved with nitro, nonradiating, not worsened with exertion, not relieved with rest. Pt transported to [facility] for further care and evaluation. Pt seen and evaluated in ED and found to have ESRD, Acidosis, SIRS, HIV, CHF. Pt admitted to telemetry. Nephrology consulted in ED for urgent dialysis. Past History Past Medical History: COPD, diabetes, ESRD, heart failure, HIV/AIDS, hypertension Past Surgical History: Other (AV Fistula, ICD Placement, Permacath) Social history: , smoking. denies: alcohol abuse, prescription drug abuse Family history: diabetes, hypertension Medications and Allergies Allergies Allergy/AdvReac Type Severity Reaction Status Date / Time sulfamethoxazole Allergy Anaphylaxis Verified 08/28/17 08:46 [From Bactrim] trimethoprim [From Bactrim] Allergy Anaphylaxis Verified 08/28/17 08:46 Home Medications Medication Instructions Recorded Confirmed Last Taken Type Albuterol Sulfate [Ventolin HFA] 2 puff IH QID PRN 09/09/16 05/13/18 01/27/17 History amLODIPine [Norvasc] 10 mg PO DAILY 09/09/16 05/13/18 03/12/17 History Gabapentin [Neurontin] 300 mg PO QHS 11/22/16 05/13/18 08/28/17 History Atazanavir Sulfate/Cobicistat 1 each PO QDAY 04/03/17 05/13/18 Unknown History [Evotaz 300 mg-150 mg Tablet] Dolutegravir Sodium [Tivicay] 50 mg PO DAILY #30 tablet 04/07/17 05/13/18 Unknown Rx PARoxetine HCl [PARoxetine] 40 mg PO DAILY #30 tablet 04/07/17 05/13/18 Unknown Rx Cinacalcet [Sensipar] 60 mg PO QDAY tablet 07/05/17 05/13/18 Unknown Rx Acetaminophen/Codeine [Tylenol 1 tab PO Q6H PRN #12 tab 07/20/17 05/13/18 07/20/17 Rx /Codeine # 3 tab] ALBUTEROL NEB's [Proventil 0.083% 2.5 mg IH Q6H PRN 07/21/17 05/13/18 Unknown History NEBS] Budesonide/Formoterol Fumarate 2 puff IH BID 07/21/17 05/13/18 Unknown History [Symbicort 160-4.5 Mcg Inhaler] Ferric Citrate (Nf) [Auryxia (Nf)] 3 tab PO QID 07/21/17 05/13/18 Unknown History Fluticasone [Flonase] 2 sprays NS QDAY 07/21/17 05/13/18 Unknown History Gemfibrozil [Lopid] 600 mg PO BID 07/21/17 05/13/18 Unknown History Ipratropium/Albuterol Sulfate 1 spray IH QID 07/21/17 05/13/18 Unknown History [Combivent Respimat] Nitroglycerin [Nitrostat] 0.4 mg SL Q5M PRN 07/21/17 05/13/18 08/28/17 History lamiVUDine [Epivir NICU] 5 ml PO DAILY 07/21/17 05/13/18 Unknown History traZODone [Desyrel] 50 mg PO QHS 07/21/17 05/13/18 Unknown History Amiodarone [Cordarone 200 MG TAB] 200 mg PO BID #60 tablet 07/26/17 05/13/18 Unknown Rx AtorvaSTATin [Lipitor] 20 mg PO QHS #30 tablet 07/26/17 05/13/18 Unknown Rx Budesonide [Pulmicort Respules] 1 mg IH Q12HRT #60 nebu 07/26/17 05/13/18 Unknown Rx Sevelamer Carbonate [Renvela] 1,600 mg PO TIDWM #30 tablet 07/26/17 05/13/18 Unknown Rx Prezcobix 800 mg-150 mg (Nf) 800 mg PO QDAY 05/13/18 05/13/18 Unknown History Metoprolol Xl [Metoprolol 100 mg PO QDAY #30 tablet 05/23/18 Unknown Rx SUCCINATE ER TAB] Warfarin [Coumadin] 7.5 mg PO QDAY #30 tablet 05/23/18 Unknown Rx Active Meds: Active Medications Calcium Gluconate 1,000 mg/ (Sodium Chloride) 110 mls @ 660 mls/hr IV ONCE.ED ONE Stop: 06/24/18 17:09 Sodium Bicarbonate (Sodium Bicarbonate Syringe) 50 meq IV ONCE ONE Stop: 06/24/18 17:01 Review of Systems Constitutional: no weight loss, no weight gain, no fever, no chills Ears, nose, mouth and throat: no ear pain, no ear discharge, no decreased hearing, no nose pain Cardiovascular: chest pain, shortness of breath, no orthopnea, no palpitations, no rapid/irregular heart beat, no edema Respiratory: no cough, no cough with sputum, no excessive sputum Gastrointestinal: nausea, vomiting, no diarrhea, no constipation Genitourinary Male: no hematuria, no flank pain, no discharge, no urinary frequency, no urinary hesitancy Rectal: no pain, no incontinence Musculoskeletal: no neck stiffness, no neck pain, no shooting arm pain, no arm numbness/tingling Integumentary: no rash, no pruritis, no redness, no sores Neurological: no transient paralysis, no paralysis, no weakness, no parathesias, no numbness, no tingling, no seizures, no syncope Psychiatric: no anxiety, no memory loss, no change in sleep habits, no sleep disturbances, no insomnia, no hypersomnia, no change in appetite Endocrine: no cold intolerance, no heat intolerance, no polyphagia, no excessive thirst Hematologic/Lymphatic: no easy bruising, no easy bleeding, no lymphadenopathy, no lymphedema Allergic/Immunologic: no urticaria, no wheezing, no persistent infections, no anaphylaxis, no angioedema Exam - Constitutional Vitals: Temp Pulse Resp BP Pulse Ox 98.1 F 63 32 H 184/93 95 06/24/18 14:30 06/24/18 15:46 06/24/18 15:46 06/24/18 15:46 06/24/18 15:46 General appearance: Present: mild distress - EENT Eyes: Present: PERRL ENT: hearing intact, clear oral mucosa - Neck Neck: Present: supple, normal ROM - Respiratory Respiratory effort: normal Respiratory: bilateral: CTA - Cardiovascular Heart Sounds: Present: S1 & S2. Absent: rub, click - Extremities Extremities: pulses symmetrical, No edema Peripheral Pulses: within normal limits - Abdominal General gastrointestinal: Present: soft, non-tender, non-distended, normal bowel sounds Male genitourinary: Present: normal - Integumentary Integumentary: Present: clear, warm, dry - Musculoskeletal Musculoskeletal: gait normal, strength equal bilaterally - Psychiatric Psychiatric: appropriate mood/affect, intact judgment & insight - Neurologic Neurologic: CNII-XII intact, moves all extremities Results - Labs CBC & Chem 7: 06/24/18 14:36 06/24/18 14:36 Labs: Abnormal lab results 06/24/18 06/24/18 06/24/18 Range/Units 14:36 14:36 14:36 WBC 12.0 H (4.5-11.0) K/mm3 Hgb 10.9 L (11.8-15.2) gm/dl Hct 35.3 L (35.5-45.6) % MCHC 31 L (32-34) % RDW 23.9 H (13.2-15.2) % [place] % (Auto) 10.9 H (0.0-7.3) % [place] # 1.3 H (0.0-0.8) K/mm3 PT 20.0 H (12.2-14.9) Sec. INR 1.66 H (0.87-1.13) APTT 40.2 H (24.2-36.6) Sec. Sodium 133 L (137-145) mmol/L Potassium 6.4 H* (3.6-5.0) mmol/L Chloride 92.6 L (98-107) mmol/L Carbon Dioxide 18 L (22-30) mmol/L BUN 35 H (9-20) mg/dL Creatinine 10.6 H (0.8-1.5) mg/dL Glucose 45 L (75-100) mg/dL Calcium 7.1 L (8.4-10.2) mg/dL Troponin T 0.163 H* (0.00-0.029) ng/mL HDL Cholesterol 31 L (40-59) mg/dL Assessment and Plan - Patient Problems (1) SIRS (systemic inflammatory response syndrome) Current Visit: Yes Status: Acute Plan to address problem: CBC, Empiric antibiotic therapy, Flu swab, chest x ray, urinalysis (2) ESRD needing dialysis Current Visit: Yes Status: Acute Plan to address problem: Nephrology consulted in ED for urgent dialysis as per renal team. (3) Acute and chronic respiratory failure Current Visit: No Status: Acute Qualifiers: Respiratory failure complication: hypoxia Qualified Code(s): J96.21 - Acute and chronic respiratory failure with hypoxia Plan to address problem: Supplemental oxygen, nebulizer therapy, NIPPV as clinically indicated. (4) Acute exacerbation of congestive heart failure Current Visit: No Status: Acute Qualifiers: Heart failure type: combined systolic and diastolic Qualified Code(s): I50.43 - Acute on chronic combined systolic (congestive) and diastolic (congestive) heart failure Plan to address problem: Admit to telemetry, strict I/O, daily weight, monitor uop q shift, afterload reduction, urgent dialysis, cardiology consulted in ED. (5) HIV disease Current Visit: No Status: Acute Plan to address problem: continue antiretroviral therapy, outpatient ID F/U care. (6) Acidosis Current Visit: Yes Status: Acute Plan to address problem: IV bicarbonate therapy, urgent dialysis, (7) DVT prophylaxis Current Visit: No Status: Acute Plan to address problem: SCD to BLE while in bed.
[2018-06-24] MEDS ORDERED: SODIUM CHLORIDE FLUSH SYRINGE 10 ML IV PRN (16:58)
[2018-06-24] MEDS ORDERED: TYLENOL PO PRN (16:58)
[2018-06-24] MEDS ORDERED: ZOFRAN IV PRN (16:58)
[2018-06-24] MEDS ORDERED: CALCIUM GLUCONATE 1,000 MG in NACL 0.9% 100 ML IV ONE (17:00)
[2018-06-24] MEDS ORDERED: VANCOMYCIN/NS 1 GM/250 ML 1 GM/250 ML BAG IV ONE (18:00)
[2018-06-24] MEDS ORDERED: NACL 0.9% 100 ML IV PRN (19:20)
[2018-06-24 21:37] LABS: Calcium 6.8 mg/dL (8.4-10.2)
[2018-06-24] MEDS: SODIUM CHLORIDE FLUSH SYRINGE 10 ML IV SCH (22:31)
--- NOTE | 2018-06-25 09:23 | Consultation ---
History of Present Illness - Reason for Consult Consult date: 06/25/18 end stage renal disease - History of Present Illness patient with end stage renal disease on HD every MWF, came to the ED last night for worsening chest pain, SOB and nausea, he was found to have leukocytes and sepsis protocol was started, he was also found to have hyperkalemia and renal consult was requested for HD management Past History Past Medical History: COPD, diabetes, ESRD, heart failure, HIV/AIDS, hypertension Past Surgical History: Other (AV Fistula, ICD Placement, Permacath) Social history: , smoking. denies: alcohol abuse, prescription drug abuse Family history: diabetes, hypertension Medications and Allergies Allergies Allergy/AdvReac Type Severity Reaction Status Date / Time sulfamethoxazole Allergy Anaphylaxis Verified 08/28/17 08:46 [From Bactrim] trimethoprim [From Bactrim] Allergy Anaphylaxis Verified 08/28/17 08:46 Home Medications Medication Instructions Recorded Confirmed Last Taken Type Albuterol Sulfate [Ventolin HFA] 2 puff IH QID PRN 09/09/16 05/13/18 01/27/17 H istory amLODIPine [Norvasc] 10 mg PO DAILY 09/09/16 05/13/18 03/12/17 History Gabapentin [Neurontin] 300 mg PO QHS 11/22/16 05/13/18 08/28/17 History Atazanavir Sulfate/Cobicistat 1 each PO QDAY 04/03/17 05/13/18 Unknown History [Evotaz 300 mg-150 mg Tablet] Dolutegravir Sodium [Tivicay] 50 mg PO DAILY #30 tablet 04/07/17 05/13/18 Unknown Rx PARoxetine HCl [PARoxetine] 40 mg PO DAILY #30 tablet 04/07/17 05/13/18 Unknown Rx Cinacalcet [Sensipar] 60 mg PO QDAY tablet 07/05/17 05/13/18 Unknown Rx Acetaminophen/Codeine [Tylenol 1 tab PO Q6H PRN #12 tab 07/20/17 05/13/18 Rx /Codeine # 3 tab] ALBUTEROL NEB's [Proventil 0.083% 2.5 mg IH Q6H PRN 07/21/17 05/13/18 Unknown History NEBS] Budesonide/Formoterol Fumarate 2 puff IH BID 07/21/17 05/13/18 Unknown History [Symbicort 160-4.5 Mcg Inhaler] Ferric Citrate (Nf) [Auryxia (Nf)] 3 tab PO QID 07/21/17 05/13/18 Unknown History Fluticasone [Flonase] 2 sprays NS QDAY 07/21/17 05/13/18 Unknown History Gemfibrozil [Lopid] 600 mg PO BID 07/21/17 05/13/18 Unknown History Ipratropium/Albuterol Sulfate 1 spray IH QID 07/21/17 05/13/18 Unknown History [Combivent Respimat] Nitroglycerin [Nitrostat] 0.4 mg SL Q5M PRN 07/21/17 05/13/18 08/28/17 History lamiVUDine [Epivir NICU] 5 ml PO DAILY 07/21/17 05/13/18 Unknown History traZODone [Desyrel] 50 mg PO QHS 07/21/17 05/13/18 Unknown History Amiodarone [Cordarone 200 MG TAB] 200 mg PO BID #60 tablet 07/26/17 05/13/18 Unknown Rx AtorvaSTATin [Lipitor] 20 mg PO QHS #30 tablet 07/26/17 05/13/18 Unknown Rx Budesonide [Pulmicort Respules] 1 mg IH Q12HRT #60 nebu 07/26/17 05/13/18 Unknown Rx Sevelamer Carbonate [Renvela] 1,600 mg PO TIDWM #30 tablet 07/26/17 05/13/18 Unknown Rx Prezcobix 800 mg-150 mg (Nf) 800 mg PO QDAY 05/13/18 05/13/18 Unknown History Metoprolol Xl [Metoprolol 100 mg PO QDAY #30 tablet 05/23/18 Unknown Rx SUCCINATE ER TAB] Warfarin [Coumadin] 7.5 mg PO QDAY #30 tablet 05/23/18 Unknown Rx Active Meds: Active Medications Acetaminophen (Tylenol) 650 mg PO Q4H PRN PRN Reason: Pain MILD(1-3)/Fever >100.5/BA Sodium Chloride (Nacl 0.9%) 100 mls @ 999 mls/hr IV SIENA PRN PRN Reason: Hypotension Ondansetron HCl (Zofran) 4 mg IV Q8H PRN PRN Reason: Nausea And Vomiting Sodium Chloride (Sodium Chloride Flush Syringe 10 Ml) 10 ml IV BID TRICIA Last Admin: 06/24/18 22:31 Dose: 10 ml Documented by: Sodium Chloride (Sodium Chloride Flush Syringe 10 Ml) 10 ml IV PRN PRN PRN Reason: LINE FLUSH Review of Systems All systems: negative (pain in both legs) Exam - Vital Signs Vital signs: Vital Signs Temp Pulse Resp BP Pulse Ox 98.3 F 67 34 H 118/70 94 06/24/18 13:44 06/24/18 13:44 06/24/18 13:44 06/24/18 13:44 06/24/18 13:44 - General Appearance General appearance: well-developed, well-nourished, appears stated age EENT: ATNC, PERRL, mucous membranes moist Neck: Present: neck supple Respiratory: Clear to Ascultation Heart: regular, S1S2 Gastrointestinal: Present: normoactive bowel sounds. Absent: tenderness, distended Integumentary: no rash, warm and dry Neurologic: no focal deficit, no asterixis, alert and oriented x3 Musculoskeletal: Present: other (no edema in BLE) Psychiatric: cooperative Results - Lab Results 06/24/18 14:36 06/24/18 20:43 Most recent lab results Calcium 6.8 mg/dL (8.4-10.2) L 06/24/18 20:43 Assessment and Plan ESRD on HD hyperkalemia shortness of breath Sepsis/leukocytosis - HD last night for clearance and volume removal - will assess dialysis needs daily - vanco and cultures per primary team - renally dose meds - strict I&O - daily weight Ward Collado MD [phone]
[2018-06-25] MEDS: SODIUM CHLORIDE FLUSH SYRINGE 10 ML IV SCH ×2 (11:25→22:26)
--- NOTE | 2018-06-25 11:27 | Progress Note ---
Assessment and Plan Assessment and plan: Chest pain. Patient will be placed on the chest pain pathway. We will schedule for Lexiscan in a.m. Last stress test documented here was August 2016 which revealed no evidence of myocardial ischemia but severely dilated hypokinetic left ventricle with EF of 25%. SIRS. Patient does have slight leukocytosis. Continue Antibiotics and follow culture results. Chest x-ray revealed ? right middle lobe infiltrate ESRD. Nephrology consult in the emergency department. Continue hemodialysis per nephrology recommendations. Hyperkalemia. Resolved. Continue Hemodialysis. Acute on chronic hypoxemic respiratory failure. Continue supplemental oxygen. BiPAP as clinically indicated. Acute combined systolic and diastolic CHF exacerbation. Echocardiogram of July 2017 reveal moderate to severely dilated left ventricle and systolic function severely decreased with EF 15-20%. Mild concentric left ventricular hypertrophy. Nonischemic cardiomyopathy. Cardiology consultation. HIV disease. continue antiretroviral therapy, outpatient ID F/U care. History Interval history: No new issues overnight. Hospitalist Physical - Constitutional Vitals: Temp Pulse Resp BP Pulse Ox 98.2 F 65 18 144/78 99 06/25/18 08:15 06/25/18 08:15 06/25/18 08:15 06/25/18 08:15 06/25/18 08:15 General appearance: Present: no acute distress - EENT Eyes: Present: PERRL, EOM intact ENT: hearing intact, clear oral mucosa, dentition normal - Neck Neck: Present: supple, normal ROM - Respiratory Respiratory effort: normal Respiratory: bilateral: CTA - Cardiovascular Rhythm: regular Heart Sounds: Present: S1 & S2. Absent: gallop, rub - Extremities Extremities: no ischemia, No edema, Full ROM - Abdominal General gastrointestinal: soft, non-tender, non-distended, normal bowel sounds - Integumentary Integumentary: Present: clear, warm, dry - Neurologic Neurologic: CNII-XII intact, moves all extremities Results - Labs CBC & Chem 7: 06/24/18 14:36 06/24/18 20:43 Labs: Laboratory Last Values WBC 12.0 K/mm3 (4.5-11.0) H 06/24/18 14:36 RBC 3.95 M/mm3 (3.65-5.03) 06/24/18 14:36 Hgb 10.9 gm/dl (11.8-15.2) L 06/24/18 14:36 Hct 35.3 % (35.5-45.6) L 06/24/18 14:36 MCV 89 fl (84-94) 06/24/18 14:36 MCH 28 pg (28-32) 06/24/18 14:36 MCHC 31 % (32-34) L 06/24/18 14:36 RDW 23.9 % (13.2-15.2) H 06/24/18 14:36 Plt Count 322 K/mm3 (140-440) 06/24/18 14:36 Lymph % (Auto) 33.7 % (13.4-35.0) 06/24/18 14:36 [place] % (Auto) 10.9 % (0.0-7.3) H 06/24/18 14:36 Eos % (Auto) 0.4 % (0.0-4.3) 06/24/18 14:36 Baso % (Auto) 1.2 % (0.0-1.8) 06/24/18 14:36 Lymph # 4.1 K/mm3 (1.2-5.4) 06/24/18 14:36 [place] # 1.3 K/mm3 (0.0-0.8) H 06/24/18 14:36 Eos # 0.1 K/mm3 (0.0-0.4) 06/24/18 14:36 Baso # 0.1 K/mm3 (0.0-0.1) 06/24/18 14:36 Seg Neutrophils % 53.8 % (40.0-70.0) 06/24/18 14:36 Seg Neutrophils # 6.5 K/mm3 (1.8-7.7) 06/24/18 14:36 PT 20.0 Sec. (12.2-14.9) H 06/24/18 14:36 INR 1.66 (0.87-1.13) H 06/24/18 14:36 APTT 40.2 Sec. (24.2-36.6) H 06/24/18 14:36 Sodium 133 mmol/L (137-145) L 06/24/18 20:43 Potassium 5.1 mmol/L (3.6-5.0) H D 06/24/18 20:43 Chloride 90.7 mmol/L (98-107) L 06/24/18 20:43 Carbon Dioxide 21 mmol/L (22-30) L 06/24/18 20:43 Anion Gap 26 mmol/L 06/24/18 20:43 BUN 41 mg/dL (9-20) H 06/24/18 20:43 Creatinine 11.0 mg/dL (0.8-1.5) H 06/24/18 20:43 Estimated GFR 6 ml/min 06/24/18 20:43 BUN/Creatinine Ratio 4 % 06/24/18 20:43 Glucose 106 mg/dL (75-100) H 06/24/18 20:43 POC Glucose 77 (70-105) 06/25/18 07:38 Calcium 6.8 mg/dL (8.4-10.2) L 06/24/18 20:43 Total Creatine Kinase 165 units/L (55-170) 06/24/18 14:36 CK-MB (CK-2) 2.4 ng/mL (0.0-4.0) 06/24/18 14:36 CK-MB (CK-2) Rel Index 1.4 (0-4) 06/24/18 14:36 Troponin T 0.163 ng/mL (0.00-0.029) H* 06/24/18 14:36 Triglycerides 109 mg/dL (2-149) 06/24/18 14:36 Cholesterol 97 mg/dL (50-199) 06/24/18 14:36 LDL Cholesterol Direct 50 mg/dL (50-130) 06/24/18 14:36 HDL Cholesterol 31 mg/dL (40-59) L 06/24/18 14:36 Cholesterol/HDL Ratio 3.12 % 06/24/18 14:36
[2018-06-25] MEDS ORDERED: NEURONTIN PO SCH ×2 (14:00→20:00)
[2018-06-25] MEDS ORDERED: RESTORIL PO ONE (23:47)
[2018-06-26 04:54] VITALS: BP 160/87
--- NOTE | 2018-06-26 07:29 | Discharge Summary ---
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 He was found to have leukocytes and sepsis protocol was started, he was also found to have hyperkalemia and renal consult was requested for HD management. The patien t was being managed for the above diagnoses however was noted to leave the floor on multiple occasions. Patient will leave the floor unannounced per nursing. Hospital policy explained to pt but without success. Instructed on safety precautions prn. Code walker called x 1 this shift. Pt refused bed alarm. Eventually the patient left AMA on 6:55 AM 06/26/18. Disposition: DC-07 LEFT AGAINST MED ADVICE Time spent for discharge: 35 - Discharge Diagnoses (1) Hyperkalemia Status: Acute (2) Sepsis Status: Acute Core Measure Documentation - Palliative Care Palliative Care/ Comfort Measures: Not Applicable - Core Measures Any of the following diagnoses?: none Exam - Constitutional Vitals: Temp Pulse Resp BP Pulse Ox 98.0 F 67 18 160/87 100 06/26/18 04:32 06/26/18 04:32 06/26/18 04:32 06/26/18 04:32 06/26/18 05:41 Plan Follow up with: SHIRLEY LYNNE MD [Primary Care Provider] - 3-5 Days
--- NOTE | 2018-07-02 12:24 | Query- General ---
Kingsley Busch Harlan Date:___07/02/18 Windows Server Engineer/CDS:____Mike/Gayle Phone#: [phone] Exercise your independent professional judgment when responding to this query. Questions asked do not imply a particular answer is desired or expected. We greatly appreciate your clarification on this issue. Clinical Documentation States: 63 YO Male with Systolic CHF(EF 25%), HTN, ESRD , Asthma, COPD, Chronic Respiratory Failure on 3L O2 , HIV, presents to ED for evaluation. Pt states that he has experienced chest pain, nausea, and multiple episodes of vomiting over the past 1 day. Pt seen and evaluated in ED and found to have ESRD, Acidosis, SIRS, HIV, CHF. Assessment and Plan SIRS HIV disease Clinical Findings Show (include reference to source document): 06/24/18 WBC 12.0 Based on the clinical presentation, please further clarify the patients HIV Status: [ ] Asymptomatic HIV [ x] HIV Disease / AIDS [ ] Positive HIV Serology without symptoms [ ] HIV with associated condition (Please specify: ) [ ] History of previously confirmed HIV - related condition (Please specify: ) [ ] Other: Present on Admission: [x ] Yes (Y) [ ] Clinically undeterminable (W) [ ]No(N) Please also document response in your Progress Notes and/or Discharge Summary and indicate if the condition was present on admission. JOSE ARMANDOD
== END 2018-06-26 07:00 | disposition left against medical advice (07) | DRG 974 ==
LOC: ED 13:16 → 4A 16:58
PROVIDERS: ADMIT Internal Medicine; ATTEND Internal Medicine
PROC: 5A1D70Z Performance of Urinary Filtration, Intermittent, Less than 6 Hours Per Day (ICD-10-PCS; principal; 2018-06-24)
PROC: 5A09357 Assistance with Respiratory Ventilation, Less than 24 Consecutive Hours, Continuous Positive Airway Pressure (ICD-10-PCS; 2018-06-25)
DX: B20 Human immunodeficiency virus [HIV] disease (principal); I50.43 Acute on chronic combined systolic (congestive) and diastolic (congestive) heart failure; A41.9 Sepsis, unspecified organism; N18.6 End stage renal disease; J96.21 Acute and chronic respiratory failure with hypoxia; I13.2 Hypertensive heart and chronic kidney disease with heart failure and with stage 5 chronic kidney disease, or end stage renal disease; E87.2 Acidosis; I42.9 Cardiomyopathy, unspecified; F17.200 Nicotine dependence, unspecified, uncomplicated; Z83.3 Family history of diabetes mellitus; Z82.49 Family history of ischemic heart disease and other diseases of the circulatory system; Z88.1 Allergy status to other antibiotic agents; Z88.2 Allergy status to sulfonamides; E11.22 Type 2 diabetes mellitus with diabetic chronic kidney disease; E87.5 Hyperkalemia; Z53.21 Procedure and treatment not carried out due to patient leaving prior to being seen by health care provider
CPT/HCPCS: 36415; 71045; 80048; 80061; 82550; 82553; 82962; 84484; 85025; 85610; 85730; 93005; 93010; 94760; 96374; 96375; G0378; J0610; J1815; J3010; J3370

== ENCOUNTER 2018-08-13 08:54 | Emergency (ER) | payer MEDICARE ==
[2018-08-13] MEDS ORDERED: PERCOCET 5/325 PO ONE (09:37)
[2018-08-13 09:49] LABS: INR 1.33 (0.87-1.13)
[2018-08-13 09:50] LABS: Partial Thromboplastin Time 43.1 Sec. (24.2-36.6)
[2018-08-13 09:51] LABS: Basophils # (Auto) 0.1 K/mm3 (0.0-0.1); Basophils % (Auto) 1.2 % (0.0-1.8); Eosinophils # (Auto) 0.1 K/mm3 (0.0-0.4); Eosinophils % (Auto) 1.5 % (0.0-4.3); Hematocrit 37.3 % (35.5-45.6); Hemoglobin 11.9 gm/dl (11.8-15.2); Lymphocytes # (Auto) 1.8 K/mm3 (1.2-5.4); Lymphocytes % (Auto) 23.9 % (13.4-35.0); Mean Corpuscular HGB Conc 32 % (32-34); Mean Corpuscular Volume 91 fl (84-94); Monocytes # (Auto) 0.9 K/mm3 (0.0-0.8); Monocytes % (Auto) 11.9 % (0.0-7.3); Platelet Count 247 K/mm3 (140-440); Red Blood Count 4.09 M/mm3 (3.65-5.03); Red Cell Distribution Width 22.7 % (13.2-15.2)
[2018-08-13 09:54] LABS: Albumin 3.5 g/dL (3.9-5); Calcium 8.8 mg/dL (8.4-10.2)
[2018-08-13 10:03] VITALS: BP 140/87
--- NOTE | 2018-08-13 10:22 | Emergency Department Report ---
ED Extremity Problem HPI - General Chief complaint: Extremity Problem,Nontraumatic Stated complaint: LEG PAIN/NERVE PAIN Time Seen by Provider: 08/13/18 09:22 Source: patient Mode of arrival: Wheelchair Limitations: Physical Limitation - History of Present Illness Initial comments: 63-year-old male with a past medical history HIV with CD4 count greater than 200, end-stage renal disease on dialysis Monday, Monday, and Monday, diabetes, hypertension, elevated cholesterol, A. fib/flutter, chronic diabetic neuropathy, CHF with EF of 15-20% presents to the Hospital complaining of ongoing bilateral lower extremity pain 1 year. Patient states pain is a shooting/electrical feeling that radiates down both legs which is chronic and progressive secondary to diabetic neuropathy. He takes gabapentin without relief. He is also on Coumadin for atrial fib/flutter and states he has been compliant. Complains of a mild cough that URI symptoms without fever, chest pain, or shortness of breath. Patient received 2 hours of this scheduled for our dialysis and it was discontinued due to worsening leg pain. He denies being currently being on any narcotic pain meds. Severity scale (0 -10): 4 - Related Data Home Medications Medication Instructions Recorded Confirmed Last Taken Albuterol Sulfate [Ventolin HFA] 2 puff IH QID PRN 09/09/16 05/13/18 01/27/17 amLODIPine [Norvasc] 10 mg PO DAILY 09/09/16 05/13/18 03/12/17 Gabapentin [Neurontin] 300 mg PO QHS 11/22/16 05/13/18 08/28/17 Atazanavir Sulfate/Cobicistat 1 each PO QDAY 04/03/17 05/13/18 Unknown [Evotaz 300 mg-150 mg Tablet] ALBUTEROL NEB's [Proventil 0.083% 2.5 mg IH Q6H PRN 07/21/17 05/13/18 Unknown NEBS] Budesonide/Formoterol Fumarate 2 puff IH BID 07/21/17 05/13/18 Unknown [Symbicort 160-4.5 Mcg Inhaler] Ferric Citrate (Nf) [Auryxia (Nf)] 3 tab PO QID 07/21/17 05/13/18 Unknown Fluticasone [Flonase] 2 sprays NS QDAY 07/21/17 05/13/18 Unknown Gemfibrozil [Lopid] 600 mg PO BID 07/21/17 05/13/18 Unknown Ipratropium/Albuterol Sulfate 1 spray IH QID 07/21/17 05/13/18 Unknown [Combivent Respimat] Nitroglycerin [Nitrostat] 0.4 mg SL Q5M PRN 07/21/17 05/13/18 08/28/17 lamiVUDine [Epivir NICU] 5 ml PO DAILY 07/21/17 05/13/18 Unknown traZODone [Desyrel] 50 mg PO QHS 07/21/17 05/13/18 Unknown Prezcobix 800 mg-150 mg (Nf) 800 mg PO QDAY 05/13/18 05/13/18 Unknown Previous Rx's Medication Instructions Recorded Last Taken Type Dolutegravir Sodium [Tivicay] 50 mg PO DAILY #30 tablet 04/07/17 Unknown Rx PARoxetine HCl [PARoxetine] 40 mg PO DAILY #30 tablet 04/07/17 Unknown Rx Cinacalcet [Sensipar] 60 mg PO QDAY tablet 07/05/17 Unknown Rx Acetaminophen/Codeine [Tylenol 1 tab PO Q6H PRN #12 tab 07/20/17 07/20/17 Rx /Codeine # 3 tab] Amiodarone [Cordarone 200 MG TAB] 200 mg PO BID #60 tablet 07/26/17 Unknown Rx AtorvaSTATin [Lipitor] 20 mg PO QHS #30 tablet 07/26/17 Unknown Rx Budesonide [Pulmicort Respules] 1 mg IH Q12HRT #60 nebu 07/26/17 Unknown Rx Sevelamer Carbonate [Renvela] 1,600 mg PO TIDWM #30 tablet 07/26/17 Unknown Rx Metoprolol Xl [Metoprolol 100 mg PO QDAY #30 tablet 05/23/18 Unknown Rx SUCCINATE ER TAB] Warfarin [Coumadin] 7.5 mg PO QDAY #30 tablet 05/23/18 Unknown Rx HYDROcodone/APAP 5-325 [[place] 1 each PO Q4HR PRN #20 tablet 08/13/18 Unknown Rx 5/325] Allergies Allergy/AdvReac Type Severity Reaction Status Date / Time sulfamethoxazole Allergy Anaphylaxis Verified 08/28/17 08:46 [From Bactrim] trimethoprim [From Bactrim] Allergy Anaphylaxis Verified 08/28/17 08:46 ED Review of Systems ROS: Stated complaint: LEG PAIN/NERVE PAIN Other details as noted in HPI Comment: All other systems reviewed and negative ED Past Medical Hx - Past Medical History Previous Medical History?: Yes Hx Hypertension: Yes Hx Congestive Heart Failure: Yes Hx Diabetes: Yes Hx Deep Vein Thrombosis: No Hx Renal Disease: Yes Hx Asthma: Yes Hx COPD: Yes (3 L home O2) Hx HIV: Yes Additional medical history: pancreatitis, left upper arm HD graft. bells palsy - Surgical History Past Surgical History?: Yes Hx Pacemaker: Yes Hx Internal Defibrillator: Yes Additional Surgical History: graft to left arm, R chest vas cath, DeFib - Social History Smoking Status: Never Smoker - Medications Home Medications: Home Medications Medication Instructions Recorded Confirmed Last Taken Type Albuterol Sulfate [Ventolin HFA] 2 puff IH QID PRN 09/09/16 05/13/18 01/27/17 History amLODIPine [Norvasc] 10 mg PO DAILY 09/09/16 05/13/18 03/12/17 History Gabapentin [Neurontin] 300 mg PO QHS 11/22/16 05/13/18 08/28/17 History Atazanavir Sulfate/Cobicistat 1 each PO QDAY 04/03/17 05/13/18 Unknown History [Evotaz 300 mg-150 mg Tablet] Dolutegravir Sodium [Tivicay] 50 mg PO DAILY #30 tablet 04/07/17 05/13/18 Unknown Rx PARoxetine HCl [PARoxetine] 40 mg PO DAILY #30 tablet 04/07/17 05/13/18 Unknown Rx Cinacalcet [Sensipar] 60 mg PO QDAY tablet 07/05/17 05/13/18 Unknown Rx Acetaminophen/Codeine [Tylenol 1 tab PO Q6H PRN #12 tab 07/20/17 05/13/18 07/20/17 Rx /Codeine # 3 tab] ALBUTEROL NEB's [Proventil 0.083% 2.5 mg IH Q6H PRN 07/21/17 05/13/18 Unknown History NEBS] Budesonide/Formoterol Fumarate 2 puff IH BID 07/21/17 05/13/18 Unknown History [Symbicort 160-4.5 Mcg Inhaler] Ferric Citrate (Nf) [Auryxia (Nf)] 3 tab PO QID 07/21/17 05/13/18 Unknown History Fluticasone [Flonase] 2 sprays NS QDAY 07/21/17 05/13/18 Unknown History Gemfibrozil [Lopid] 600 mg PO BID 07/21/17 05/13/18 Unknown History Ipratropium/Albuterol Sulfate 1 spray IH QID 07/21/17 05/13/18 Unknown History [Combivent Respimat] Nitroglycerin [Nitrostat] 0.4 mg SL Q5M PRN 07/21/17 05/13/18 08/28/17 History lamiVUDine [Epivir NICU] 5 ml PO DAILY 07/21/17 05/13/18 Unknown History traZODone [Desyrel] 50 mg PO QHS 07/21/17 05/13/18 Unknown History Amiodarone [Cordarone 200 MG TAB] 200 mg PO BID #60 tablet 07/26/17 05/13/18 Unknown Rx AtorvaSTATin [Lipitor] 20 mg PO QHS #30 tablet 07/26/17 05/13/18 Unknown Rx Budesonide [Pulmicort Respules] 1 mg IH Q12HRT #60 nebu 07/26/17 05/13/18 Unknown Rx Sevelamer Carbonate [Renvela] 1,600 mg PO TIDWM #30 tablet 07/26/17 05/13/18 Unknown Rx Prezcobix 800 mg-150 mg (Nf) 800 mg PO QDAY 05/13/18 05/13/18 Unknown History Metoprolol Xl [Metoprolol 100 mg PO QDAY #30 tablet 05/23/18 Unknown Rx SUCCINATE ER TAB] Warfarin [Coumadin] 7.5 mg PO QDAY #30 tablet 05/23/18 Unknown Rx HYDROcodone/APAP 5-325 [[place] 1 each PO Q4HR PRN #20 tablet 08/13/18 Unknown Rx 5/325] ED Physical Exam - General Limitations: Physical Limitation - Other Other exam information: General: No limitations, patient is alert in no acute distress Head exam: Atraumatic, normocephalic Eyes exam: Normal appearance ENT: Moist mucous membrane Neck exam: Normal inspection, full range of motion, no meningismus nontender Respiratory exam: Clear to auscultation bilateral, no wheezes, rales, crackles Cardiovascular: Normal rate and rhythm left arm AV axis with thrill Abdomen: Soft, nondistended, and nontender, with normal bowel sounds, no rebound, or guarding Extremity: Full range of motion normal inspection no deformity. Mild pedal edema without leg asymmetry or calf tenderness to palpation. Able to identify both DP pulses with Doppler but only able to palpate the left pulse. Back: Normal Inspection, full range of motion, no tenderness Neurologic: Alert, oriented x3, cranial nerves intact, no motor or sensory deficit Psychiatric: normal affect, normal mood Skin: Warm, dry, intact ED Course Vital Signs 08/13/18 08/13/18 08/13/18 09:05 09:58 10:07 Temperature 97.4 F L 97.7 F Pulse Rate 86 83 Respiratory 20 20 18 Rate Blood Pressure 121/73 Blood Pressure 140/87 [Right] O2 Sat by Pulse 99 99 99 Oximetry ED Medical Decision Making - Lab Data Result diagrams: 08/13/18 09:29 08/13/18 09:29 Lab Results 08/13/18 08/13/18 08/13/18 Range/Units 09:29 09:29 09:29 WBC 7.4 (4.5-11.0) K/mm3 RBC 4.09 (3.65-5.03) M/mm3 Hgb 11.9 (11.8-15.2) gm/dl Hct 37.3 (35.5-45.6) % MCV 91 (84-94) fl MCH 29 (28-32) pg MCHC 32 (32-34) % RDW 22.7 H (13.2-15.2) % Plt Count 247 (140-440) K/mm3 Lymph % (Auto) 23.9 (13.4-35.0) % [place] % (Auto) 11.9 H (0.0-7.3) % Eos % (Auto) 1.5 (0.0-4.3) % Baso % (Auto) 1.2 (0.0-1.8) % Lymph # 1.8 (1.2-5.4) K/mm3 [place] # 0.9 H (0.0-0.8) K/mm3 Eos # 0.1 (0.0-0.4) K/mm3 Baso # 0.1 (0.0-0.1) K/mm3 Seg Neutrophils % 61.5 (40.0-70.0) % Seg Neutrophils # 4.6 (1.8-7.7) K/mm3 PT 17.3 H (12.2-14.9) Sec. INR 1.33 H (0.87-1.13) APTT 43.1 H (24.2-36.6) Sec. Sodium 133 L (137-145) mmol/L Potassium 3.7 (3.6-5.0) mmol/L Chloride 91.3 L (98-107) mmol/L Carbon Dioxide 28 (22-30) mmol/L Anion Gap 17 mmol/L BUN 26 H (9-20) mg/dL Creatinine 7.7 H (0.8-1.5) mg/dL Estimated GFR 9 ml/min BUN/Creatinine Ratio 3 % Glucose 90 (75-100) mg/dL Calcium 8.8 (8.4-10.2) mg/dL Magnesium 2.20 (1.7-2.3) mg/dL Total Bilirubin 1.20 (0.1-1.2) mg/dL AST 25 (5-40) units/L ALT 12 (7-56) units/L Alkaline Phosphatase 95 (35-129) units/L Total Creatine Kinase 62 (55-170) units/L Total Protein 8.0 (6.3-8.2) g/dL Albumin 3.5 L (3.9-5) g/dL Albumin/Globulin Ratio 0.8 % - Medical Decision Making Patient received Percocet 5 mg 2 tablets and some improvement in pain. Patient's symptoms are chronic and progressive. No signs of infection, clinical findings of DVT, and electrolytes are normal. Patient likely has PAD given difficult to palpate pedal pulses. Outpatient vascular follow-up will be encouraged and medications will be prescribed for chronic diabetic neuropathy with acute exacerbation. Patient has a INR below subtherapeutic range however, no signs of A. fib on a monitor at this time patient denies history of PEs as DVT. Outpatient adjustment and INR monitoring is recommended. Patient did not complete his dialysis session but no signs of hyperkalemia or significant volume overload - Differential Diagnosis neuropathy, PhD, DVT, electrolyte abnormalities, rhabdomyolysis Critical Care Time: No Critical care attestation.: If time is entered above; I have spent that time in minutes in the direct care of this critically ill patient, excluding procedure time. ED Disposition Clinical Impression: ESRD on dialysis, Diabetic neuropathy, Chronic leg pain, Subtherapeutic international normalized ratio (INR) Disposition: TO HOME OR SELFCARE Is pt being admited?: No Does the pt Need Aspirin: No Condition: Stable Instructions: Diabetic Neuropathy (ED), Chronic Pain (ED), End-Stage Kidney Disease (ED), Warfarin (By mouth) Additional Instructions: Take the medication as prescribed. Follow up with your doctor or the clinic/doctor provided. Return if symptoms worsen as indicated by your discharge instructions. Follow up with your vascular surgeon or the vascular surgeon provided for further evaluation of the circulation in your legs. Also follow up with you doctor for further management of the Coumadin dosage to since your INR is below therapeutic range. Prescriptions: HYDROcodone/APAP 5-325 [[place] 5/325] 1 each PO Q4HR PRN #20 tablet PRN Reason: Pain Referrals: TAN KENWESLEY CHAPEL MD TRINY [Primary Care Provider] - 3-5 Days NAVEEN HUTCHINSON MD [Staff Physician] - 3-5 Days (Vascular doctor) Time of Disposition: 10:32
== END 2018-08-13 10:40 | disposition home or self-care (01) ==
LOC: ED 08:54
DX: E11.40 Type 2 diabetes mellitus with diabetic neuropathy, unspecified (principal); M79.662 Pain in left lower leg; G89.29 Other chronic pain; E11.22 Type 2 diabetes mellitus with diabetic chronic kidney disease; I12.0 Hypertensive chronic kidney disease with stage 5 chronic kidney disease or end stage renal disease; N18.6 End stage renal disease; Z99.2 Dependence on renal dialysis; I50.9 Heart failure, unspecified; J44.9 Chronic obstructive pulmonary disease, unspecified
CPT/HCPCS: 36415; 80053; 82550; 83735; 85025; 85610; 85730

== ENCOUNTER 2018-08-17 11:17 | Inpatient (IN) | payer MEDICARE ==
--- NOTE | 2018-08-17 13:17 | Emergency Department Report ---
HPI - General Chief Complaint: Weakness Time Seen by Provider: 08/17/18 13:01 - HPI HPI: Room 26 The patient is a 63-year-old male presenting with chief complaint of altered mental status. Per EMS patient began complaining of diffuse weakness after hemo dialysis today. The patient falls asleep during the interview very easily. The patient's states he does not know why he is currently this way. However the patient states he came to the emergency department because he's had pain in both lower extremities for several years and it worsened today. Patient then falls back asleep and does not provide further history Location: [See above] Duration: [See above] Quality: [See above] Severity: [See above] Modifying factors: [see above] Context: [see above] Mode of transportation: [not driving] ED Past Medical Hx - Past Medical History Hx Hypertension: Yes Hx Congestive Heart Failure: Yes Hx Diabetes: Yes Hx Renal Disease: Yes Hx Asthma: Yes Hx COPD: Yes (3 L home O2) Hx HIV: Yes (does not recall last CD4 count) Additional medical history: pancreatitis, left upper arm HD graft. bells palsy - Surgical History Past Surgical History?: Yes Hx Pacemaker: Yes Hx Internal Defibrillator: Yes Additional Surgical History: graft to left arm, R chest vas cath, DeFib - Family History Family history: no significant - Social History Smoking Status: Former Smoker Substance Use Type: None - Medications Home Medications: Home Medications Medication Instructions Recorded Confirmed Last Taken Type Albuterol Sulfate [Ventolin HFA] 2 puff IH QID PRN 09/09/16 05/13/18 01/27/17 History amLODIPine [Norvasc] 10 mg PO DAILY 09/09/16 05/13/18 03/12/17 History Gabapentin [Neurontin] 300 mg PO QHS 11/22/16 05/13/18 08/28/17 History Atazanavir Sulfate/Cobicistat 1 each PO QDAY 04/03/17 05/13/18 Unknown History [Evotaz 300 mg-150 mg Tablet] Dolutegravir Sodium [Tivicay] 50 mg PO DAILY #30 tablet 04/07/17 05/13/18 Unknown Rx PARoxetine HCl [PARoxetine] 40 mg PO DAILY #30 tablet 04/07/17 05/13/18 Unknown Rx Cinacalcet [Sensipar] 60 mg PO QDAY tablet 07/05/17 05/13/18 Unknown Rx Acetaminophen/Codeine [Tylenol 1 tab PO Q6H PRN #12 tab 07/20/17 05/13/18 07/20/17 Rx /Codeine # 3 tab] ALBUTEROL NEB's [Proventil 0.083% 2.5 mg IH Q6H PRN 07/21/17 05/13/18 Unknown History NEBS] Budesonide/Formoterol Fumarate 2 puff IH BID 07/21/17 05/13/18 Unknown History [Symbicort 160-4.5 Mcg Inhaler] Ferric Citrate (Nf) [Auryxia (Nf)] 3 tab PO QID 07/21/17 05/13/18 Unknown History Fluticasone [Flonase] 2 sprays NS QDAY 07/21/17 05/13/18 Unknown History Gemfibrozil [Lopid] 600 mg PO BID 07/21/17 05/13/18 Unknown History Ipratropium/Albuterol Sulfate 1 spray IH QID 07/21/17 05/13/18 Unknown History [Combivent Respimat] Nitroglycerin [Nitrostat] 0.4 mg SL Q5M PRN 07/21/17 05/13/18 08/28/17 History lamiVUDine [Epivir NICU] 5 ml PO DAILY 07/21/17 05/13/18 Unknown History traZODone [Desyrel] 50 mg PO QHS 07/21/17 05/13/18 Unknown History Amiodarone [Cordarone 200 MG TAB] 200 mg PO BID #60 tablet 07/26/17 05/13/18 Unknown Rx AtorvaSTATin [Lipitor] 20 mg PO QHS #30 tablet 07/26/17 05/13/18 Unknown Rx Budesonide [Pulmicort Respules] 1 mg IH Q12HRT #60 nebu 07/26/17 05/13/18 Unknown Rx Sevelamer Carbonate [Renvela] 1,600 mg PO TIDWM #30 tablet 07/26/17 05/13/18 Unknown Rx Prezcobix 800 mg-150 mg (Nf) 800 mg PO QDAY 05/13/18 05/13/18 Unknown History Metoprolol Xl [Metoprolol 100 mg PO QDAY #30 tablet 05/23/18 Unknown Rx SUCCINATE ER TAB] Warfarin [Coumadin] 7.5 mg PO QDAY #30 tablet 05/23/18 Unknown Rx HYDROcodone/APAP 5-325 [[place] 1 each PO Q4HR PRN #20 tablet 08/13/18 Unknown Rx 5/325] ED Review of Systems ROS: Stated complaint: WEAKNESS Other details as noted in HPI Constitutional: no symptoms reported Eyes: denies: eye pain ENT: denies: throat pain Respiratory: no symptoms reported Cardiovascular: denies: chest pain Endocrine: no symptoms reported Gastrointestinal: denies: abdominal pain Genitourinary: denies: testicular pain Musculoskeletal: myalgia. denies: back pain Neurological: denies: headache Physical Exam - Physical Exam Vital Signs: Vital Signs 08/17/18 12:41 Temperature 98.6 F Pulse Rate 86 Respiratory 16 Rate Blood Pressure 133/84 O2 Sat by Pulse 94 Oximetry Physical Exam: GENERAL: The patient is well-developed well-nourished male lying on stretcher sleeping not appearing to be in acute distress. [] HEENT: Normocephalic. Atraumatic. Extraocular motions are intact. Patient has moist mucous membranes. NECK: Supple. No meningitic signs are noted. Trachea midline CHEST/LUNGS: Clear to auscultation. There is no respiratory distress noted. HEART/CARDIOVASCULAR: Regular. There is no tachycardia. There is no gallop rub or murmur. ABDOMEN: Abdomen is soft, nontender. Patient has normal bowel sounds. There is no abdominal distention. SKIN: There is no rash. There is no edema. There is no diaphoresis. NEURO: The patient is asleep but awakens to verbal stimuli. Patient falls back to sleep quickly. The patient is cooperative. The patient has normal speech MUSCULOSKELETAL:There is no evidence of acute injury. ED Course Vital Signs 08/17/18 12:41 Temperature 98.6 F Pulse Rate 86 Respiratory 16 Rate Blood Pressure 133/84 O2 Sat by Pulse 94 Oximetry ED Medical Decision Making - Lab Data Result diagrams: 08/17/18 13:25 08/17/18 13:25 Laboratory Tests 08/17/18 08/17/18 08/17/18 13:25 13:25 13:25 WBC 8.5 RBC 4.41 Hgb 12.7 Hct 40.2 MCV 91 MCH 29 MCHC 32 RDW 22.8 H Plt Count 243 Lymph % (Auto) 22.9 [place] % (Auto) 15.2 H Eos % (Auto) 3.3 Baso % (Auto) 1.6 Lymph # 1.9 [place] # 1.3 H Eos # 0.3 Baso # 0.1 Seg Neutrophils % 57.0 Seg Neutrophils # 4.8 PT 16.5 H INR 1.25 H APTT 33.6 Sodium 138 Potassium 4.3 Chloride 94.4 L Carbon Dioxide 27 Anion Gap 21 BUN 23 H Creatinine 7.8 H Estimated GFR 9 BUN/Creatinine Ratio 3 Glucose 76 Calcium 8.7 Magnesium 2.40 H Total Bilirubin 1.50 H AST 21 ALT 10 Alkaline Phosphatase 104 Ammonia Total Creatine Kinase 29 L CK-MB (CK-2) 1.7 CK-MB (CK-2) Rel Index 5.8 H Troponin T 0.158 H* Total Protein 8.0 Albumin 3.4 L Albumin/Globulin Ratio 0.7 Triglycerides 90 Cholesterol 88 LDL Cholesterol Direct 48 L HDL Cholesterol 23 L Cholesterol/HDL Ratio 3.82 TSH Free T4 Plasma/Serum Alcohol 08/17/18 08/17/18 08/17/18 13:25 13:25 13:25 WBC RBC Hgb Hct MCV MCH MCHC RDW Plt Count Lymph % (Auto) [place] % (Auto) Eos % (Auto) Baso % (Auto) Lymph # [place] # Eos # Baso # Seg Neutrophils % Seg Neutrophils # PT INR APTT Sodium Potassium Chloride Carbon Dioxide Anion Gap BUN Creatinine Estimated GFR BUN/Creatinine Ratio Glucose Calcium Magnesium Total Bilirubin AST ALT Alkaline Phosphatase Ammonia 45.0 Total Creatine Kinase CK-MB (CK-2) CK-MB (CK-2) Rel Index Troponin T Total Protein Albumin Albumin/Globulin Ratio Triglycerides Cholesterol LDL Cholesterol Direct HDL Cholesterol Cholesterol/HDL Ratio TSH 10.880 H Free T4 1.22 Plasma/Serum Alcohol < 0.01 - EKG Data -: EKG Interpreted by Me EKG shows normal: sinus rhythm Rate: normal - EKG Data When compared to previous EKG there are: changes noted Interpretation: nonspecific ST-T wave shaheen (new T-wave inversions in leads 1, V5, V6 when compared to previous EKG dated 06/24/2018) - Radiology Data Radiology results: report reviewed (CT head), image reviewed (CT head) [facility] [address] [place] [address] Cat Scan Report Signed Patient: TITUS ALEGRIA MR#: [id number] : 1955 Acct:[id number] Age/Sex: 63 / M ADM Date: 08/17/18 Loc: ED Attending Dr: Ordering Physician: ROSS HAYWOOD MD Date of Service: 08/17/18 Procedure(s): CT head/brain wo con Accession Number(s): [id number] cc: ROSS HAYWOOD MD CT HEAD WITHOUT CONTRAST: HISTORY: Altered mental status. TECHNIQUE: Sequential CT images without contrast. FINDINGS: Images obtained show bilateral prominence of the sulci and ventricles. There are no abnormal intra- or extra-axial blood or fluid collections. There are no focal masses or evidence of mass effect. The hend[place] white matter differentiation appears within normal limits. Regions of periventricular decreased attenuation are consistent with microangiopathic ischemic disease. The posterior fossa structures including the fourth ventricle, cerebellum, and brainstem appear normal. IMPRESSION: Evidence of atrophy and microangiopathic ischemic disease. No acute intracranial process noted. No significant change since 05/21/18. Transcribed By: TTR Dictated By: ANTHONY HAN JR, MD Electronically Authenticated By: ANTHONY HAN JR, MD Signed Date/Time: 08/17/18 1452 DD/ 1451 TD/TT: 08/17/18 1452 - Differential Diagnosis obstructive sleep apnea, electrolyte abnormality, ICH, hepatic encephalopat Critical care attestation.: If time is entered above; I have spent that time in minutes in the direct care of this critically ill patient, excluding procedure time. ED Disposition Clinical Impression: Altered mental status, End stage renal disease on dialysis Disposition: OP ADMIT IP TO THIS HOSP Is pt being admited?: Yes Does the pt Need Aspirin: Yes Condition: Fair Referrals: YASMIN BARCENAS MD [Primary Care Provider] - 3-5 Days Time of Disposition: 14:59 (hospitalist paged (Dr Wiley))
[2018-08-17 13:58] LABS: Basophils # (Auto) 0.1 K/mm3 (0.0-0.1); Basophils % (Auto) 1.6 % (0.0-1.8); Eosinophils # (Auto) 0.3 K/mm3 (0.0-0.4); Eosinophils % (Auto) 3.3 % (0.0-4.3); Hematocrit 40.2 % (35.5-45.6); Hemoglobin 12.7 gm/dl (11.8-15.2); Lymphocytes # (Auto) 1.9 K/mm3 (1.2-5.4); Lymphocytes % (Auto) 22.9 % (13.4-35.0); Mean Corpuscular HGB Conc 32 % (32-34); Mean Corpuscular Volume 91 fl (84-94); Monocytes # (Auto) 1.3 K/mm3 (0.0-0.8); Monocytes % (Auto) 15.2 % (0.0-7.3); Platelet Count 243 K/mm3 (140-440); Red Blood Count 4.41 M/mm3 (3.65-5.03)
[2018-08-17 13:59] LABS: Red Cell Distribution Width 22.8 % (13.2-15.2)
[2018-08-17 14:08] LABS: Creatine Kinase MB 1.7 ng/mL (0.0-4.0); INR 1.25 (0.87-1.13)
[2018-08-17 14:09] LABS: Partial Thromboplastin Time 33.6 Sec. (24.2-36.6)
[2018-08-17 14:11] LABS: Albumin 3.4 g/dL (3.9-5); Calcium 8.7 mg/dL (8.4-10.2)
[2018-08-17 14:18] LABS: Free T4 (Free Thyroxine) 1.22 ng/dL (0.76-1.46)
[2018-08-17 14:23] LABS: Chol/HDL Ratio 3.82 %
--- NOTE | 2018-08-17 14:55 | Cat Scan Report ---
CT HEAD WITHOUT CONTRAST: HISTORY: Altered mental status. TECHNIQUE: Sequential CT images without contrast. FINDINGS: Images obtained show bilateral prominence of the sulci and ventricles. There are no abnormal intra- or extra-axial blood or fluid collections. There are no focal masses or evidence of mass effect. The [place] white matter differentiation appears within normal limits. Regions of periventricular decreased attenuation are consistent with microangiopathic ischemic disease. The posterior fossa structures including the fourth ventricle, cerebellum, and brainstem appear normal. IMPRESSION: Evidence of atrophy and microangiopathic ischemic disease. No acute intracranial process noted. No significant change since 05/21/18.
[2018-08-17] MEDS ORDERED: ASPIRIN PO ONE (14:59)
[2018-08-18] MEDS ORDERED: TYLENOL PO PRN (00:20)
[2018-08-18] MEDS ORDERED: ZOFRAN IV PRN (00:20)
[2018-08-18] MEDS ORDERED: PERCOCET 5/325 PO PRN (00:23)
[2018-08-18] MEDS ORDERED: LOVENOX SUB-Q ONE ×2 (00:47→01:37)
--- NOTE | 2018-08-18 01:17 | History and Physical Report ---
History of Present Illness Date of examination: 08/17/18 Date of admission: 08/18/18 00:23 Chief complaint: generalized weakness History of present illness: Pt is a 63-year-old male with PMHx CAD, CHF, ESRD on HD Per EMS, HTN, COPD/asthma, hyperlipidemia, HIV, DM type 2, DVT (on coumadin) who was brought to the ER by EMS for c/o generalized weakness after HD today. Pt c/o diffuse weakness of both legs with inability to walk or perform any activity, pt was seen in room, continue to c/o weakness, he reports bilateral legs pain which is chronic, he c/o sore throat and a frequent wet cough with productive sputum for the past 2 weeks, he denies fever or chills, denies headache, denies dizziness. In the ER pt's VS was WNL, his H&H was 12.7 and 40.2, his PT and INR was 16.5 and 1.25 respectively, his troponin was 0.158, CKMB 5.8, his TSH was 10.880. Patient is admitted for further evaluation and treatment. Past History Past Medical History: COPD, diabetes, DVT, ESRD, heart failure, HIV/AIDS, hyperthyroidism, hypertension, hyperlipidemia, hypothyroidism Past Surgical History: Other (pacemaker, defibrilator) Medications and Allergies Allergies Allergy/AdvReac Type Severity Reaction Status Date / Time sulfamethoxazole Allergy Anaphylaxis Verified 08/28/17 08:46 [From Bactrim] trimethoprim [From Bactrim] Allergy Anaphylaxis Verified 08/28/17 08:46 Home Medications Medication Instructions Recorded Confirmed Last Taken Type Albuterol Sulfate [Ventolin HFA] 2 puff IH QID PRN 09/09/16 08/17/18 01/27/17 History amLODIPine [Norvasc] 10 mg PO DAILY 09/09/16 08/17/18 03/12/17 History Gabapentin [Neurontin] 300 mg PO BID 11/22/16 08/17/18 08/28/17 History PARoxetine HCl [PARoxetine] 40 mg PO DAILY #30 tablet 04/07/17 08/17/18 Unknown Rx ALBUTEROL NEB's [Proventil 0.083% 2.5 mg IH Q6H PRN 07/21/17 08/17/18 Unknown History NEBS] Budesonide/Formoterol Fumarate 2 puff IH BID 07/21/17 08/17/18 Unknown History [Symbicort 160-4.5 Mcg Inhaler] Ferric Citrate (Nf) [Auryxia (Nf)] 3 tab PO QID 07/21/17 08/17/18 Unknown History Fluticasone [Flonase] 2 sprays NS QDAY 07/21/17 08/17/18 Unknown History Gemfibrozil [Lopid] 600 mg PO BID 07/21/17 08/17/18 Unknown History Ipratropium/Albuterol Sulfate 1 spray IH QID 07/21/17 08/17/18 Unknown History [Combivent Respimat] Nitroglycerin [Nitrostat] 0.4 mg SL Q5M PRN 07/21/17 08/17/18 08/28/17 History traZODone [Desyrel] 50 mg PO QHS 07/21/17 08/17/18 Unknown History Amiodarone [Cordarone 200 MG TAB] 200 mg PO BID #60 tablet 07/26/17 08/17/18 Unknown Rx AtorvaSTATin [Lipitor] 20 mg PO QHS #30 tablet 07/26/17 08/17/18 Unknown Rx Warfarin [Coumadin] 7.5 mg PO QDAY #30 tablet 05/23/18 08/17/18 Unknown Rx Carvedilol 25 mg PO QAM 08/17/18 08/17/18 Unknown History Carvedilol 50 mg PO QPM 08/17/18 08/17/18 Unknown History Darunavir/Cobicistat [Prezcobix 1 each PO DAILY 08/17/18 08/17/18 Unknown History 800 mg-150 mg Tablet] Ergocalciferol [Vitamin D2] 1 cap PO QWEEK 08/17/18 08/17/18 Unknown History Etravirine [Intelence] 200 mg PO BID 08/17/18 08/17/18 Unknown History Insulin Aspart [NovoLOG Flexpen] 5 units SQ AC 08/17/18 08/17/18 Unknown History Insulin Glargine,Hum.rec.anlog 10 units SQ QHS 08/17/18 08/17/18 Unknown History [Lantus] Losartan [Cozaar] 25 mg PO QDAY 08/17/18 08/17/18 Unknown History [place]-3 Acid Ethyl Esters [Lovaza] 2 gm PO BID 08/17/18 08/17/18 Unknown History Raltegravir Potassium [Isentress] 400 mg PO BID 08/17/18 08/17/18 Unknown Hist ory Rosuvastatin (Nf) [Crestor] 10 mg PO QHS 08/17/18 08/17/18 Unknown History dilTIAZem [CarDIZEM] 60 mg PO QID 08/17/18 08/17/18 Unknown History hydrOXYzine HCl [Hydroxyzine HCl] 25 mg PO TID 08/17/18 08/17/18 Unknown History Active Meds: Active Medications Acetaminophen (Tylenol) 650 mg PO Q4H PRN PRN Reason: Pain MILD(1-3)/Fever >100.5/BA Ondansetron HCl (Zofran) 4 mg IV Q8H PRN PRN Reason: Nausea And Vomiting Oxycodone/Acetaminophen (Percocet 5/325) 1 tab PO Q6H PRN PRN Reason: Pain, Moderate (4-6) Review of Systems Constitutional: fatigue, weakness, lethargy Ears, nose, mouth and throat: nose pain Respiratory: cough, cough with sputum Genitourinary Male: dysuria, incontinence Exam - Constitutional Vitals: Temp Pulse Resp BP Pulse Ox 98.6 F 84 16 137/81 96 08/17/18 12:41 08/17/18 18:06 08/17/18 18:06 08/17/18 23:45 08/17/18 18:06 General appearance: Present: no acute distress - EENT Eyes: Present: PERRL ENT: hearing intact - Neck Neck: Present: normal ROM - Respiratory Respiratory effort: normal Respiratory: bilateral: diminished - Cardiovascular Rhythm: regular - Extremities Extremities: no ischemia - Rectal Rectal Exam: deferred - Integumentary Integumentary: Present: warm, dry - Musculoskeletal Musculoskeletal: strength equal bilaterally - Psychiatric Psychiatric: appropriate mood/affect - Neurologic Neurologic: moves all extremities Results - Labs CBC & Chem 7: 08/17/18 13:25 08/17/18 13:25 Labs: Laboratory Last Values WBC 8.5 K/mm3 (4.5-11.0) 08/17/18 13:25 RBC 4.41 M/mm3 (3.65-5.03) 08/17/18 13:25 Hgb 12.7 gm/dl (11.8-15.2) 08/17/18 13:25 Hct 40.2 % (35.5-45.6) 08/17/18 13:25 MCV 91 fl (84-94) 08/17/18 13:25 MCH 29 pg (28-32) 08/17/18 13:25 MCHC 32 % (32-34) 08/17/18 13:25 RDW 22.8 % (13.2-15.2) H 08/17/18 13:25 Plt Count 243 K/mm3 (140-440) 08/17/18 13:25 Lymph % (Auto) 22.9 % (13.4-35.0) 08/17/18 13:25 Posey % (Auto) 15.2 % (0.0-7.3) H 08/17/18 13:25 Eos % (Auto) 3.3 % (0.0-4.3) 08/17/18 13:25 Baso % (Auto) 1.6 % (0.0-1.8) 08/17/18 13:25 Lymph # 1.9 K/mm3 (1.2-5.4) 08/17/18 13:25 Posey # 1.3 K/mm3 (0.0-0.8) H 08/17/18 13:25 Eos # 0.3 K/mm3 (0.0-0.4) 08/17/18 13:25 Baso # 0.1 K/mm3 (0.0-0.1) 08/17/18 13:25 Seg Neutrophils % 57.0 % (40.0-70.0) 08/17/18 13:25 Seg Neutrophils # 4.8 K/mm3 (1.8-7.7) 08/17/18 13:25 PT 16.5 Sec. (12.2-14.9) H 08/17/18 13:25 INR 1.25 (0.87-1.13) H 08/17/18 13:25 APTT 33.6 Sec. (24.2-36.6) 08/17/18 13:25 Sodium 138 mmol/L (137-145) 08/17/18 13:25 Potassium 4.3 mmol/L (3.6-5.0) 08/17/18 13:25 Chloride 94.4 mmol/L (98-107) L 08/17/18 13:25 Carbon Dioxide 27 mmol/L (22-30) 08/17/18 13:25 Anion Gap 21 mmol/L 08/17/18 13:25 BUN 23 mg/dL (9-20) H 08/17/18 13:25 Creatinine 7.8 mg/dL (0.8-1.5) H 08/17/18 13:25 Estimated GFR 9 ml/min 08/17/18 13:25 BUN/Creatinine Ratio 3 % 08/17/18 13:25 Glucose 76 mg/dL (75-100) 08/17/18 13:25 Calcium 8.7 mg/dL (8.4-10.2) 08/17/18 13:25 Magnesium 2.40 mg/dL (1.7-2.3) H 08/17/18 13:25 Total Bilirubin 1.50 mg/dL (0.1-1.2) H 08/17/18 13:25 AST 21 units/L (5-40) 08/17/18 13:25 ALT 10 units/L (7-56) 08/17/18 13:25 Alkaline Phosphatase 104 units/L (35-129) 08/17/18 13:25 Ammonia 45.0 umol/L (25-60) 08/17/18 13:25 Total Creatine Kinase 29 units/L (55-170) L 08/17/18 13:25 CK-MB (CK-2) 1.7 ng/mL (0.0-4.0) 08/17/18 13:25 CK-MB (CK-2) Rel Index 5.8 (0-4) H 08/17/18 13:25 Troponin T 0.158 ng/mL (0.00-0.029) H* 08/17/18 13:25 Total Protein 8.0 g/dL (6.3-8.2) 08/17/18 13:25 Albumin 3.4 g/dL (3.9-5) L 08/17/18 13:25 Albumin/Globulin Ratio 0.7 % 08/17/18 13:25 Triglycerides 90 mg/dL (2-149) 08/17/18 13:25 Cholesterol 88 mg/dL (50-199) 08/17/18 13:25 LDL Cholesterol Direct 48 mg/dL (50-130) L 08/17/18 13:25 HDL Cholesterol 23 mg/dL (40-59) L 08/17/18 13:25 Cholesterol/HDL Ratio 3.82 % 08/17/18 13:25 TSH 10.880 mlU/mL (0.270-4.200) H 08/17/18 13:25 Free T4 1.22 ng/dL (0.76-1.46) 08/17/18 13:25 Plasma/Serum Alcohol < 0.01 % (0-0.07) 08/17/18 13:25 Assessment and Plan Assessment and plan: 1. Generalized weakness (likely due to hemodialysis) 2. CAD status post pacemaker 3. CHF (EF unknown, status post defibrillator) 4. ESRD on HD (Monday) 5. HTN (BP stable) 6. COPD/asthma (severe cough) 7. Hyperlipidemia 8. HIV (CD4 unknown, on HAART 9. DM type 2 10. DVT (on coumadin) Plan: Admit to [facility] Fluid restriction Tessalon perle q8hr PRN PT/INR in a.m. [employer] Coordinator nephrology for hemodialysis Consult cardiology for CHF Further plan per hospital course Advance Directives: Yes VTE prophylaxis?: Chemical Plan of care discussed with patient/family: Yes
[2018-08-18] MEDS ORDERED: PERCOCET 5/325 ONE (01:37)
[2018-08-18] MEDS ORDERED: NITROSTAT SL PRN (06:02)
[2018-08-18] MEDS ORDERED: PROAIR IH PRN (06:02)
[2018-08-18] MEDS ORDERED: PROVENTIL IH PRN (06:02)
[2018-08-18] MEDS: HumaLOG SUB-Q SCH ×3 (07:30→17:50)
[2018-08-18] MEDS ORDERED: COREG PO SCH ×2 (08:00→18:00)
[2018-08-18] MEDS: ATARAX PO SCH ×3 (08:00→22:37)
[2018-08-18 08:29] LABS: INR 1.38 (0.87-1.13)
[2018-08-18] MEDS: DUONEB *Not for PRN Use IH SCH ×4 (09:54→21:40)
[2018-08-18] MEDS: BROVANA NEBU IH SCH ×2 (09:57→21:36)
[2018-08-18] MEDS: PULMICORT IH SCH ×2 (09:57→21:36)
[2018-08-18] MEDS ORDERED: COZAAR PO SCH (10:00)
[2018-08-18] MEDS ORDERED: PAXIL PO SCH (10:00)
[2018-08-18] MEDS ORDERED: NON-FORMULARY (Budesonide/Formoterol Fumarate [Symbicort 160-4.5 Mcg Inhaler] 2 PUFF) IH SCH (10:00)
[2018-08-18] MEDS ORDERED: NON-FORMULARY (Ipratropium/Albuterol Sulfate [Combivent Respimat] 1 SPRAY) IH SCH (10:00)
[2018-08-18] MEDS ORDERED: FERRIC CITRATE PO SCH (10:00)
[2018-08-18] MEDS: CARDIZEM PO SCH ×4 (10:00→22:37)
[2018-08-18] MEDS ORDERED: NON-FORMULARY (Etravirine [Intelence] 200 MG) PO SCH (10:00)
[2018-08-18] MEDS ORDERED: NORVASC PO SCH (10:00)
--- NOTE | 2018-08-18 13:12 | Event Note ---
Date: 08/18/18 Pt seen and examined Pt is a 63-year-old male with PMHx CAD, CHF, ESRD on HD Per EMS, HTN, COPD/asthma, hyperlipidemia, HIV, DM type 2, DVT (on coumadin) who was brought to the ER by EMS for c/o generalized weakness after HD. Cont current mx and plan dictated in H/P PT consult placed
[2018-08-18] MEDS: TESSALON PERLES PO SCH ×2 (13:24→22:36)
[2018-08-18] MEDS: CORDARONE PO SCH ×2 (13:25→22:37)
[2018-08-18] MEDS: NEURONTIN PO SCH ×2 (13:25→22:37)
[2018-08-18] MEDS: LOPID PO SCH ×2 (13:26→22:37)
[2018-08-18] MEDS ORDERED: COUMADIN PO SCH (17:00)
[2018-08-18] MEDS: FISH OIL PO SCH ×2 (17:48→22:37)
[2018-08-18] MEDS: FLONASE NS SCH (17:49)
[2018-08-18] MEDS ORDERED: DESYREL PO SCH (22:00)
[2018-08-18] MEDS ORDERED: LANTUS SUB-Q SCH (22:00)
[2018-08-18] MEDS ORDERED: NON-FORMULARY (Rosuvastatin (Nf) 10 MG) PO SCH (22:00)
[2018-08-18] MEDS: LOVENOX SUB-Q SCH (22:36)
[2018-08-19] MEDS: TESSALON PERLES PO SCH ×3 (06:02→22:14)
[2018-08-19 06:27] LABS: INR 1.54 (0.87-1.13)
[2018-08-19 06:38] LABS: Hematocrit 40.3 % (35.5-45.6); Hemoglobin 12.3 gm/dl (11.8-15.2); Mean Corpuscular HGB Conc 30 % (32-34); Mean Corpuscular Volume 93 fl (84-94); Platelet Count 253 K/mm3 (140-440); Red Blood Count 4.32 M/mm3 (3.65-5.03); Red Cell Distribution Width 22.4 % (13.2-15.2)
[2018-08-19 06:46] LABS: Calcium 7.8 mg/dL (8.4-10.2)
[2018-08-19] MEDS ORDERED: NACL 0.9% 250ML 250 ML ONE (06:59)
[2018-08-19] MEDS ORDERED: ATROPINE 0.1% (CARDIAC) ONE (07:00)
--- NOTE | 2018-08-19 07:08 | Event Note ---
Date: 08/19/18 Called to see patient, very lethargic, hypotensive and bradycardic Heart rate as low as 40, fluctuating to 60s Fingerstick check, in the 90s Transferred to MICU for close monitoring Hold sedatives, beta caity, antihypertensives Hold pain medications Atropine at bedside
[2018-08-19] MEDS ORDERED: NACL 0.9% 500 ML 500 ML IV ONE (07:43)
[2018-08-19] MEDS ORDERED: NACL 0.9% 250ML 250 ML IV ONE (07:43)
[2018-08-19] MEDS: HumaLOG SUB-Q SCH ×3 (08:38→17:04)
[2018-08-19] MEDS ORDERED: D50W (25GM) Vial IV ONE (08:41)
[2018-08-19] MEDS ORDERED: KIONEX PO ONE (08:41)
[2018-08-19] MEDS ORDERED: CALCIUM GLUCONATE 1,000 MG in NACL 0.9% 100 ML IV ONE (08:41)
[2018-08-19] MEDS ORDERED: HumuLIN R IV ONE (08:41)
--- NOTE | 2018-08-19 08:56 | XRay Report ---
EXAM: XR CHEST 1V AP HISTORY: sob TECHNIQUE: Portable CXR dated 08/19/2018 at 7:59 AM. COMPARISON: CXR dated June 24, 2018. FINDINGS: There is a stable left lateral chest wall pacer device with a single intact wire to upper central med iastinum. Clinical correlation is advised. There is evidence for cardiomegaly. The pulmonary vascularity and interstitial markings are diffusely prominent, consistent with mild CHF or volume overload in the appropriate clinical setting. There is no gross focal lung consolidation, pleural effusion, or pneumothorax seen. The visualized anuja ny structures are within normal limits. IMPRESSION: 1. Findings consistent with mild CHF or volume overload in the appropriate clinical setting; DDX inc ludes mild bronchitis or bronchopneumonia in the appropriate clinical setting. Recommend clinical cor relation and appropriate followup evaluation as clinically warranted. This document is electronically signed by Kyra Cavazos MD., August 19 2018 08:53:53 AM ET
[2018-08-19] MEDS ORDERED: D50W (25GM) Syringe IV ONE ×2 (09:00→22:11)
--- NOTE | 2018-08-19 09:13 | Progress Note ---
Assessment and Plan Sinus bradycardia - med induced vs from hyperkalemia - hold BP meds, treat for high K - stat EKG, cardiology consult Hyperkalemia, Ordered insulin/d50/NaHCO3/calcium gluconate/kayexalate ESRD, renal consulted, gets HD on //, last HD was on last monday Atrial fib, on coumadin, INR subtherapeutic, placed on ranally dosed lovenox CHF, Ef 15-20%- decompensated - currently on hold coreg, ACEI - plan for emergent HD today Acute respiratory failure, due to CHF exacerbation - supplemental O2, emergent HD hypotension, likely med induced, will hold BP meds, pressor as needed DVT Px, coumadin/lovenox The high probability of a clinically significant, sudden or life threatening deterioration of the [multiple] system(s) required my full and direct attention, intervention and personal management. The aggregate critical care time was [] minutes. This time is in addition to time spent performing reported procedures but includes the following: [x] Data Review and interpretation [x] Patient assessment and monitoring of vital signs [x] Documentation [x] Medication orders and management Subjective Date of service: 08/19/18 Interval history: patient seen and examined HR at low 40s, SBP at low 90s transferred to ICU o/n K also 6.0 c/o generalized weakness resting on bed denies chest pain Objective - Constitutional Vitals: Vital Signs - 12hr 08/18/18 08/18/18 08/18/18 21:00 21:40 21:48 Temperature Pulse Rate Pulse Rate [ 62 Bilateral Upper Lobe] Respiratory 22 Rate Respiratory 18 Rate [Bilateral Upper Lobe] Respiratory Rate [L buttock ] Blood Pressure O2 Sat by Pulse 97 96 Oximetry 08/18/18 08/18/18 08/19/18 22:00 23:30 04:43 Temperature 98.6 F 98.7 F Pulse Rate 50 L 47 L Pulse Rate [ Bilateral Upper Lobe] Respiratory 20 20 Rate Respiratory Rate [Bilateral Upper Lobe] Respiratory 22 Rate [L buttock ] Blood Pressure 92/58 86/46 O2 Sat by Pulse 93 100 Oximetry 08/19/18 07:00 Temperature Pulse Rate 40 L Pulse Rate [ Bilateral Upper Lobe] Respiratory 22 Rate Respiratory Rate [Bilateral Upper Lobe] Respiratory Rate [L buttock ] Blood Pressure 87/55 O2 Sat by Pulse Oximetry General appearance: Present: mild distress, obese - EENT Eyes: PERRL, EOM intact ENT: hearing intact, clear oral mucosa Ears: bilateral: normal - Neck Neck: supple, normal ROM - Respiratory Respiratory effort: labored Respiratory: bilateral: rales, wheezing - Cardiovascular Rhythm: regular Heart Sounds: Present: S1 & S2. Absent: gallop, rub Extremities: pulses intact, normal color, Full ROM Extremity abnormal: edema - Gastrointestinal General gastrointestinal: Present: soft, non-tender, non-distended, normal bowel sounds - Integumentary Integumentary: clear, warm, dry - Musculoskeletal Musculoskeletal: generalized weakness - Neurologic Neurologic: moves all extremities - Psychiatric Psychiatric: cooperative - Labs CBC & Chem 7: 08/19/18 05:58 08/19/18 21:15 Labs: Abnormal lab results 08/18/18 08/18/18 08/18/18 Range/Units 06:52 12:58 16:20 MCHC (32-34) % RDW (13.2-15.2) % PT 17.9 H (12.2-14.9) Sec. INR 1.38 H (0.87-1.13) Potassium (3.6-5.0) mmol/L Chloride (98-107) mmol/L BUN (9-20) mg/dL Creatinine (0.8-1.5) mg/dL Glucose (75-100) mg/dL POC Glucose 60 L 42 L (70-105) Calcium (8.4-10.2) mg/dL Troponin T (0.00-0.029) ng/mL NT-Pro-B Natriuret Pep (0-900) pg/mL 08/18/18 08/18/18 08/18/18 Range/Units 17:39 17:57 21:02 MCHC (32-34) % RDW (13.2-15.2) % PT (12.2-14.9) Sec. INR (0.87-1.13) Potassium (3.6-5.0) mmol/L Chloride (98-107) mmol/L BUN (9-20) mg/dL Creatinine (0.8-1.5) mg/dL Glucose (75-100) mg/dL POC Glucose 226 H 158 H (70-105) Calcium (8.4-10.2) mg/dL Troponin T 0.167 H* (0.00-0.029) ng/mL NT-Pro-B Natriuret Pep (0-900) pg/mL 08/19/18 08/19/18 08/19/18 Range/Units 00:59 03:21 05:58 MCHC (32-34) % RDW (13.2-15.2) % PT 19.5 H (12.2-14.9) Sec. INR 1.54 H (0.87-1.13) Potassium (3.6-5.0) mmol/L Chloride (98-107) mmol/L BUN (9-20) mg/dL Creatinine (0.8-1.5) mg/dL Glucose (75-100) mg/dL POC Glucose 137 H (70-105) Calcium (8.4-10.2) mg/dL Troponin T 0.181 H* (0.00-0.029) ng/mL NT-Pro-B Natriuret Pep (0-900) pg/mL 08/19/18 08/19/18 08/19/18 Range/Units 05:58 05:58 05:58 MCHC 30 L (32-34) % RDW 22.4 H (13.2-15.2) % PT (12.2-14.9) Sec. INR (0.87-1.13) Potassium 6.0 H D (3.6-5.0) mmol/L Chloride 94.5 L (98-107) mmol/L BUN 38 H (9-20) mg/dL Creatinine 10.4 H (0.8-1.5) mg/dL Glucose 106 H (75-100) mg/dL POC Glucose (70-105) Calcium 7.8 L (8.4-10.2) mg/dL Troponin T 0.163 H* (0.00-0.029) ng/mL NT-Pro-B Natriuret Pep (0-900) pg/mL 08/19/18 Range/Units 05:58 MCHC (32-34) % RDW (13.2-15.2) % PT (12.2-14.9) Sec. INR (0.87-1.13) Potassium (3.6-5.0) mmol/L Chloride (98-107) mmol/L BUN (9-20) mg/dL Creatinine (0.8-1.5) mg/dL Glucose (75-100) mg/dL POC Glucose (70-105) Calcium (8.4-10.2) mg/dL Troponin T (0.00-0.029) ng/mL NT-Pro-B Natriuret Pep 105056 H (0-900) pg/mL
[2018-08-19] MEDS: PULMICORT IH SCH ×2 (09:44→20:15)
[2018-08-19] MEDS: BROVANA NEBU IH SCH ×2 (09:44→20:15)
[2018-08-19] MEDS ORDERED: PROAMATINE PO ONE (09:48)
--- NOTE | 2018-08-19 09:51 | Consultation ---
History of Present Illness - History of Present Illness Thank you for the consultation Source of information: Patient himself, patient's over the phone current chart History of presenting illness Patient is 63-year-old -Malagasy male who has been admitted here with hyperkalemia and volume overload bradycardia arrhythmia hypotension currently in ICU being evaluated by cardiology. 4 hyperkalemia has been given medication management, patient is [place] [facility] [place] Discussed with his he is not very compliant with his diet fluid, He has also been noted to be in congestive heart failure discussed with Dr. Infante, and he wants patient dialyze due to congestive heart failure as well as hyperkalemia and bradycardia arrhythmia Past medical history significant for: End-stage renal disease Cardiomyopathy Atrial fibrillation Hypotension Secondary hyperparathyroidism And many others reviewed from the chart Current allergies: Reviewed Home medication/present medication: Reviewed Social history: Reviewed from the current chart Family history: Reviewed from the current chart Review of system is positive for; All other review of systems were negative Physical examination Vitals: Reviewed from this admission Gen.: No acute distress HEENT: Normocephalic/atraumatic skull oral mucosa moist minimal pallor no icterus or uremic order Neck: Supple without any thyromegaly nodular mass or JVD Chest: Bilateral basilar crackles Heart: Irregular apical 46 S1 and S2 heard no S3-S4 no pericardial rub Abdomen: Soft nontender no guarding rigidity rebound organomegaly no suprapubic masses, no CVA tenderness no renal bruit Back: No CVA tenderness Derm: No petechial rashes dry skin Extremity: Pulses palpable no peripheral cyanosis, 1+ edema dry skin Neurological: Alert awake follows commands Psychiatric: No agitation and aggression Labs and x-rays: Were reviewed from this admission Assessment and plan; End-stage renal disease: Patient has been admitted here with bradycardia h yperkalemia, blood pressure has been between 80 and 90, systolic which is very concerning patient is a high mortality risk, Patient's ejection fraction is very poor, also does have history of atrial fibrillation with variable ventricular response Hyperkalemia medical treatment has been provided will follow patient has been advised to get hemodialysis per cardiology Abnormal troponin likely due to chronic kidney disease but given very poor EF and bradycardia I believe patient should be seen and followed by cardiology In the meantime we may need to start the patient on midodrine 5 mg twice a day Trazodone should be avoided with history of hypotension I would advise to Reduce gabapentin to 200 mg at bedtime and eventually possibly 100 Patient has been adequately counseled and educated regarding all the renal related issues From Hospital medicine patient is going to receive calcium, D50, insulin, Kayexalate, albuterol 10 mg for hyperkalemia Will check cortisol level Multiple other chronic health condition including coronary artery disease, congestive heart failure, hypertension, COPD, hyperlipidemia, HIV, diabetes, DVT Compliance is doubtful Severe cardiomyopathy Patient's prognosis overall is very poor due to end-stage renal disease and multiple comorbidities, his mortality risk is also very high Had a detailed discussion with patient about the plan of care from renal standpoint. Also discussed with patient's explained her about poor prognosis Patient noted to be noncompliant with diet fluid sodium and potassium All questions were answered labs and pertinent imaging findings were explained to the patient and simple Japanese. Advised patient to make an appointment for follow-up within a week of the discharge, for proper renal care We'll continue to follow and make recommendation from renal standpoint with his crisis nurse Thank you for the consultation. Past History Past Medical History: COPD, diabetes, DVT, ESRD, heart failure, HIV/AIDS, hyperthyroidism, hypertension, hyperlipidemia, hypothyroidism Past Surgical History: Other (pacemaker, defibrilator) Medications and Allergies Allergies Allergy/AdvReac Type Severity Reaction Status Date / Time sulfamethoxazole Allergy Anaphylaxis Verified 08/28/17 08:46 [From Bactrim] trimethoprim [From Bactrim] Allergy Anaphylaxis Verified 08/28/17 08:46 Home Medications Medication Instructions Recorded Confirmed Last Taken Type Albuterol Sulfate [Ventolin HFA] 2 puff IH QID PRN 09/09/16 08/17/18 01/27/17 History amLODIPine [Norvasc] 10 mg PO DAILY 09/09/16 08/17/18 03/12/17 History Gabapentin [Neurontin] 300 mg PO BID 11/22/16 08/17/18 08/28/17 History PARoxetine HCl [PARoxetine] 40 mg PO DAILY #30 tablet 04/07/17 08/17/18 Unknown Rx ALBUTEROL NEB's [Proventil 0.083% 2.5 mg IH Q6H PRN 07/21/17 08/17/18 Unknown History NEBS] Budesonide/Formoterol Fumarate 2 puff IH BID 07/21/17 08/17/18 Unknown History [Symbicort 160-4.5 Mcg Inhaler] Ferric Citrate (Nf) [Auryxia (Nf)] 3 tab PO QID 07/21/17 08/17/18 Unknown History Fluticasone [Flonase] 2 sprays NS QDAY 07/21/17 08/17/18 Unknown History Gemfibrozil [Lopid] 600 mg PO BID 07/21/17 08/17/18 Unknown History Ipratropium/Albuterol Sulfate 1 spray IH QID 07/21/17 08/17/18 Unknown History [Combivent Respimat] Nitroglycerin [Nitrostat] 0.4 mg SL Q5M PRN 07/21/17 08/17/18 08/28/17 History traZODone [Desyrel] 50 mg PO QHS 07/21/17 08/17/18 Unknown History Amiodarone [Cordarone 200 MG TAB] 200 mg PO BID #60 tablet 07/26/17 08/17/18 Unknown Rx AtorvaSTATin [Lipitor] 20 mg PO QHS #30 tablet 07/26/17 08/17/18 Unknown Rx Warfarin [Coumadin] 7.5 mg PO QDAY #30 tablet 05/23/18 08/17/18 Unknown Rx Carvedilol 25 mg PO QAM 08/17/18 08/17/18 Unknown History Carvedilol 50 mg PO QPM 08/17/18 08/17/18 Unknown History Darunavir/Cobicistat [Prezcobix 1 each PO DAILY 08/17/18 08/17/18 Unknown History 800 mg-150 mg Tablet] Ergocalciferol [Vitamin D2] 1 cap PO QWEEK 08/17/18 08/17/18 Unknown History Etravirine [Intelence] 200 mg PO BID 08/17/18 08/17/18 Unknown History Insulin Aspart [NovoLOG Flexpen] 5 units SQ AC 08/17/18 08/17/18 Unknown History Insulin Glargine,Hum.rec.anlog 10 units SQ QHS 08/17/18 08/17/18 Unknown History [Lantus] Losartan [Cozaar] 25 mg PO QDAY 08/17/18 08/17/18 Unknown History [place]-3 Acid Ethyl Esters [Lovaza] 2 gm PO BID 08/17/18 08/17/18 Unknown History Raltegravir Potassium [Isentress] 400 mg PO BID 08/17/18 08/17/18 Unknown History Rosuvastatin (Nf) [Crestor] 10 mg PO QHS 08/17/18 08/17/18 Unknown History dilTIAZem [CarDIZEM] 60 mg PO QID 08/17/18 08/17/18 Unknown History hydrOXYzine HCl [Hydroxyzine HCl] 25 mg PO TID 08/17/18 08/17/18 Unknown History Active Meds: Active Medications Acetaminophen (Tylenol) 650 mg PO Q4H PRN PRN Reason: Pain MILD(1-3)/Fever >100.5/BA Albuterol (Proventil) 2.5 mg IH Q6HRT PRN PRN Reason: Shortness Of Breath Albuterol/Ipratropium (Duoneb *Not For Prn Use*) 1 ampul IH QIDRT [facility] Last Admin: 08/18/18 21:40 Dose: 1 ampul Documented by: Arformoterol Tartrate (Brovana Nebu) 15 mcg IH Q12HRT [facility] Last Admin: 08/18/18 21:36 Dose: 15 mcg Documented by: Atorvastatin Calcium (Lipitor) 20 mg PO QHS [facility] Last Admin: 08/18/18 22:37 Dose: 20 mg Documented by: Benzonatate (Tessalon Perles) 200 mg PO Q8HR [facility] Last Admin: 08/19/18 06:02 Dose: 200 mg Documented by: Budesonide (Pulmicort) 0.5 mg IH Q12HRT [facility] Last Admin: 08/18/18 21:36 Dose: 0.5 mg Documented by: Enoxaparin Sodium (Lovenox) 80 mg SUB-Q Q24H [facility] Last Admin: 08/18/18 22:36 Dose: 80 mg Documented by: Ergocalciferol (Vitamin D2) 50,000 unit PO [place] [facility] Fish Oil (Fish Oil) 2,000 mg PO BID [facility] Last Admin: 08/18/18 22:37 Dose: 2,000 mg Documented by: Fluticasone Propionate (Flonase) 100 mcg NS QDAY [facility] Last Admin: 08/18/18 17:49 Dose: 100 mcg Documented by: Gabapentin (Neurontin) 300 mg PO BID [facility] Last Admin: 08/18/18 22:37 Dose: 300 mg Documented by: Gemfibrozil (Lopid) 600 mg PO BID [facility] Last Admin: 08/18/18 22:37 Dose: 600 mg Documented by: Hydroxyzine HCl (Atarax) 25 mg PO TID [facility] Last Admin: 08/18/18 22:37 Dose: 25 mg Documented by: Insulin Glargine (Lantus) 10 units SUB-Q QHS [facility] Last Admin: 08/18/18 22:38 Dose: Not Given Documented by: Insulin Human Lispro (Humalog) 5 unit SUB-Q [facility] Last Admin: 08/19/18 08:38 Dose: Not Given Documented by: Midodrine (Proamatine) 5 mg PO BID ONE Stop: 08/19/18 09:49 Miscellaneous Medication (Darunavir/Cobicistat [Prezcobix 800 Mg-150 Mg Tablet]) 1 each PO DAILY [facility] Miscellaneous Medication (Etravirine [Intelence]) 200 mg PO BID [facility] Miscellaneous Medication (Ferric Citrate) 3 tab PO QID [facility] Nitroglycerin (Nitrostat) 0.4 mg SL Q5M PRN PRN Reason: Chest Pain Ondansetron HCl (Zofran) 4 mg IV Q8H PRN PRN Reason: Nausea And Vomiting Oxycodone/Acetaminophen (Percocet 5/325) 1 tab PO Q6H PRN PRN Reason: Pain, Moderate (4-6) Last Admin: 08/18/18 01:00 Dose: 1 tab Documented by: Paroxetine HCl (Paxil) 40 mg PO DAILY [facility] Last Admin: 08/18/18 13:25 Dose: 40 mg Documented by: Raltegravir (Isentress) 400 mg PO BID [facility] Sodium Bicarbonate (Sodium Bicarbonate) 50 meq IV ONCE ONE Stop: 08/19/18 10:01 Trazodone HCl (Desyrel) 50 mg PO QHS [facility] Last Admin: 08/18/18 22:37 Dose: 50 mg Documented by: Warfarin Sodium (Coumadin) 7.5 mg PO QDAY@1700 [facility]; Protocol Last Admin: 08/18/18 17:49 Dose: 7.5 mg Documented by: Exam - Vital Signs Vital signs: Vital Signs Temp Pulse Resp BP Pulse Ox 98.6 F 86 16 133/84 94 08/17/18 12:41 08/17/18 12:41 08/17/18 12:41 08/17/18 12:41 08/17/18 12:41 Results - Lab Results 08/20/18 00:45 08/20/18 00:45 Most recent lab results Calcium 7.8 mg/dL (8.4-10.2) L 08/19/18 05:58 Magnesium 2.40 mg/dL (1.7-2.3) H 08/17/18 13:25
[2018-08-19] MEDS: DUONEB *Not for PRN Use IH SCH ×4 (09:55→20:15)
[2018-08-19] MEDS ORDERED: SODIUM BICARBONATE IV ONE (10:00)
[2018-08-19] MEDS ORDERED: VITAMIN D2 PO SCH (10:00)
[2018-08-19] MEDS ORDERED: NEURONTIN PO SCH (10:27)
[2018-08-19] MEDS ORDERED: LEVOPHED DRIP 4 MG/NS 250 ML 4 MG/250 ML BAG IV SCH (11:00)
--- NOTE | 2018-08-19 11:18 | Consultation ---
History of Present Illness Consult date: 08/19/18 Requesting physician: SONDRA NGUYỄN Consult reason: bradycardia History of present illness: The patient has a history of severe nonischemic cardiomyopathy with an ejection fraction of 1520% echo of 07/30. He has chronic HFrEF, paroxysmal atrial flutter controlled on amiodarone 200 mg twice a day and end-stage renal disease on hemodialysis. At home, he is on high-dose AV blocking medications including Coreg 50 mg q am and 25 mg q pm and diltiazem 60 mg 4 times a day. He was brought to ER by EMS with complaints of generalized weakness after dialysis. The patient was lethargic at presentation. Brain CT scan revealed no acute findings. While on the medical floor, the patient became hypotensive and bradycardic and was transferred to the ICU. Chest x-ray this morning showed bilateral infiltrates consistent with edema. His potassium is 6.0. The patient complains of progressive shortness of breath over the past couple of days. He denies chest pain. He is quite lethargic at the time of interview. His troponin level is positive for NSTEMI and his TSH is elevated. He is in junctional rhythm at 40 beats per minute. Past History Past Medical History: arrhythmia (Atrial Flutter), COPD, diabetes, dialysis, DVT, ESRD, heart failure, HIV/AIDS, hypertension, hyperlipidemia, stroke, other (Severe NICMP; Normal coronaries 2014) Past Surgical History: Other (Subcutaneous ICD implantation; Creation of AV fistula) Social history: denies: alcohol abuse Family history: other (not obtainable - too lethargic) Medications and Allergies Allergies Allergy/AdvReac Type Severity Reaction Status Date / Time sulfamethoxazole Allergy Anaphylaxis Verified 08/28/17 08:46 [From Bactrim] trimethoprim [From Bactrim] Allergy Anaphylaxis Verified 08/28/17 08:46 Home Medications Medication Instructions Recorded Confirmed Last Taken Type Albuterol Sulfate [Ventolin HFA] 2 puff IH QID PRN 09/09/16 08/17/18 01/27/17 History amLODIPine [Norvasc] 10 mg PO DAILY 09/09/16 08/17/18 03/12/17 History Gabapentin [Neurontin] 300 mg PO BID 11/22/16 08/17/18 08/28/17 History PARoxetine HCl [PARoxetine] 40 mg PO DAILY #30 tablet 04/07/17 08/17/18 Unknown Rx ALBUTEROL NEB's [Proventil 0.083% 2.5 mg IH Q6H PRN 07/21/17 08/17/18 Unknown History NEBS] Budesonide/Formoterol Fumarate 2 puff IH BID 07/21/17 08/17/18 Unknown History [Symbicort 160-4.5 Mcg Inhaler] Ferric Citrate (Nf) [Auryxia (Nf)] 3 tab PO QID 07/21/17 08/17/18 Unknown History Fluticasone [Flonase] 2 sprays NS QDAY 07/21/17 08/17/18 Unknown History Gemfibrozil [Lopid] 600 mg PO BID 07/21/17 08/17/18 Unknown History Ipratropium/Albuterol Sulfate 1 spray IH QID 07/21/17 08/17/18 Unknown History [Combivent Respimat] Nitroglycerin [Nitrostat] 0.4 mg SL Q5M PRN 07/21/17 08/17/18 08/28/17 History traZODone [Desyrel] 50 mg PO QHS 07/21/17 08/17/18 Unknown History Amiodarone [Cordarone 200 MG TAB] 200 mg PO BID #60 tablet 07/26/17 08/17/18 Unknown Rx AtorvaSTATin [Lipitor] 20 mg PO QHS #30 tablet 07/26/17 08/17/18 Unknown Rx Warfarin [Coumadin] 7.5 mg PO QDAY #30 tablet 05/23/18 08/17/18 Unknown Rx Carvedilol 25 mg PO QAM 08/17/18 08/17/18 Unknown History Carvedilol 50 mg PO QPM 08/17/18 08/17/18 Unknown History Darunavir/Cobicistat [Prezcobix 1 each PO DAILY 08/17/18 08/17/18 Unknown Hi story 800 mg-150 mg Tablet] Ergocalciferol [Vitamin D2] 1 cap PO QWEEK 08/17/18 08/17/18 Unknown History Etravirine [Intelence] 200 mg PO BID 08/17/18 08/17/18 Unknown History Insulin Aspart [NovoLOG Flexpen] 5 units SQ AC 08/17/18 08/17/18 Unknown History Insulin Glargine,Hum.rec.anlog 10 units SQ QHS 08/17/18 08/17/18 Unknown History [Lantus] Losartan [Cozaar] 25 mg PO QDAY 08/17/18 08/17/18 Unknown History [place]-3 Acid Ethyl Esters [Lovaza] 2 gm PO BID 08/17/18 08/17/18 Unknown History Raltegravir Potassium [Isentress] 400 mg PO BID 08/17/18 08/17/18 Unknown Histor y Rosuvastatin (Nf) [Crestor] 10 mg PO QHS 08/17/18 08/17/18 Unknown History dilTIAZem [CarDIZEM] 60 mg PO QID 08/17/18 08/17/18 Unknown History hydrOXYzine HCl [Hydroxyzine HCl] 25 mg PO TID 08/17/18 08/17/18 Unknown History Active Meds: Active Medications Acetaminophen (Tylenol) 650 mg PO Q4H PRN PRN Reason: Pain MILD(1-3)/Fever >100.5/BA Albuterol (Proventil) 2.5 mg IH Q6HRT PRN PRN Reason: Shortness Of Breath Albuterol/Ipratropium (Duoneb *Not For Prn Use*) 1 ampul IH QIDRT [facility] Last Admin: 08/19/18 09:55 Dose: Not Given Documented by: Arformoterol Tartrate (Brovana Nebu) 15 mcg IH Q12HRT [facility] Last Admin: 08/19/18 09:44 Dose: 15 mcg Documented by: Atorvastatin Calcium (Lipitor) 20 mg PO QHS [facility] Last Admin: 08/18/18 22:37 Dose: 20 mg Documented by: Benzonatate (Tessalon Perles) 200 mg PO Q8HR [facility] Last Admin: 08/19/18 06:02 Dose: 200 mg Documented by: Budesonide (Pulmicort) 0.5 mg IH Q12HRT [facility] Last Admin: 08/19/18 09:44 Dose: 0.5 mg Documented by: Enoxaparin Sodium (Lovenox) 80 mg SUB-Q Q24H [facility] Last Admin: 08/18/18 22:36 Dose: 80 mg Documented by: Ergocalciferol (Vitamin D2) 50,000 unit PO [facility] Fish Oil (Fish Oil) 2,000 mg PO BID [facility] Last Admin: 08/18/18 22:37 Dose: 2,000 mg Documented by: Fluticasone Propionate (Flonase) 100 mcg NS QDAY [facility] Last Admin: 08/18/18 17:49 Dose: 100 mcg Documented by: Gabapentin (Neurontin) 200 mg PO BID [facility] Gemfibrozil (Lopid) 600 mg PO BID [facility] Last Admin: 08/18/18 22:37 Dose: 600 mg Documented by: Hydroxyzine HCl (Atarax) 25 mg PO TID [facility] Last Admin: 08/18/18 22:37 Dose: 25 mg Documented by: Norepinephrine (Levophed Drip 4 Mg/Ns 250 Ml) 4 mg in 250 mls @ 7.5 mls/hr IV TITR [facility]; Protocol Insulin Glargine (Lantus) 10 units SUB-Q QHS [facility] Last Admin: 08/18/18 22:38 Dose: Not Given Documented by: Insulin Human Lispro (Humalog) 5 unit SUB-Q AC [facility] Last Admin: 08/19/18 08:38 Dose: Not Given Documented by: Miscellaneous Medication (Darunavir/Cobicistat [Prezcobix 800 Mg-150 Mg Tablet]) 1 each PO DAILY [facility] Miscellaneous Medication (Etravirine [Intelence]) 200 mg PO BID [facility] Miscellaneous Medication (Ferric Citrate) 3 tab PO QID [facility] Nitroglycerin (Nitrostat) 0.4 mg SL Q5M PRN PRN Reason: Chest Pain Ondansetron HCl (Zofran) 4 mg IV Q8H PRN PRN Reason: Nausea And Vomiting Oxycodone/Acetaminophen (Percocet 5/325) 1 tab PO Q6H PRN PRN Reason: Pain, Moderate (4-6) Last Admin: 08/18/18 01:00 Dose: 1 tab Documented by: Raltegravir (Isentress) 400 mg PO BID [facility] Warfarin Sodium (Coumadin) 7.5 mg PO QDAY@1700 [facility]; Protocol Last Admin: 08/18/18 17:49 Dose: 7.5 mg Documented by: Review of Systems Constitutional: no fever, no chills Ears, nose, mouth and throat: no ear pain, no ear discharge, no sore throat Cardiovascular: orthopnea, shortness of breath, no chest pain Respiratory: shortness of breath, no cough, no hemoptysis Gastrointestinal: no abdominal pain, no nausea, no vomiting, no diarrhea, no constipation Genitourinary Male: no dysuria, no urinary frequency Rectal: no pain, no bleeding Musculoskeletal: no neck stiffness, no neck pain, no myalgias Integumentary: no rash, no pruritis Neurological: weakness, no parathesias, no headaches Endocrine: no cold intolerance, no heat intolerance Hematologic/Lymphatic: no easy bruising, no easy bleeding Allergic/Immunologic: no urticaria, no angioedema Physical Examination Vital Signs Last Vital Signs Temp 98.7 F 08/19/18 04:43 Pulse 40 L 08/19/18 10:30 Resp 20 08/19/18 10:30 BP 104/65 08/19/18 10:30 Pulse Ox 87 08/19/18 10:30 General appearance: mild distress HEENT: Positive: EOMI, Normocephaly, Mucus Membranes Moist Neck: Positive: neck supple, trachea midline, JVD/HJR (elevated) Cardiac: Positive: Regular Rhythm, S1/S2 Lungs: Positive: Rales Neuro: Positive: Other (Awake, oriented but lethargic) Abdomen: Positive: Soft, Active Bowel Sounds. Negative: Tender Skin: Negative: Rash Musculoskeletal: Normal Range of Motion Extremities: Absent: edema Results 08/19/18 05:58 08/19/18 05:58 Coagulation 08/19/18 Range/Units 05:58 PT 19.5 H (12.2-14.9) Sec. INR 1.54 H (0.87-1.13) CBC 08/19/18 Range/Units 05:58 WBC 8.3 (4.5-11.0) K/mm3 RBC 4.32 (3.65-5.03) M/mm3 Hgb 12.3 (11.8-15.2) gm/dl Hct 40.3 (35.5-45.6) % Plt Count 253 (140-440) K/mm3 Comprehensive Metabolic Panel 08/19/18 Range/Units 05:58 Sodium 137 (137-145) mmol/L Potassium 6.0 H D (3.6-5.0) mmol/L Chloride 94.5 L (98-107) mmol/L Carbon Dioxide 23 (22-30) mmol/L BUN 38 H (9-20) mg/dL Creatinine 10.4 H (0.8-1.5) mg/dL Glucose 106 H (75-100) mg/dL Calcium 7.8 L (8.4-10.2) mg/dL - Imaging and Cardiology EKG: image reviewed EKG interpretations - Telemetry EKG Rhythm: Sinus Rhythm - EKG Sinus rhythms and dysrhythmias: sinus rhythm AV and intraventricular conduction: right bundle branch block Assessment and Plan 1. His toby-arrhythmia is probably multifactorial in origin icluding the effect of multiple AV blocking meds, hyperkalemia and hypothyroidism. He will benefit from acute dialysis for his bradycardia and heart failure. His BP may be supported with Levophed while on dialysis. 2. I wonder if his elevated TSH is related to Amiodarone therapy or predates initiation of the drug. 3. Hold all AV blocking and BP meds for now. 4. Obtain echo. 5. His elevated Tn suggests type 2 NSTEMI, considering h/o NL coronaries in 2014. - Patient Problems (1) Symptomatic bradycardia Current Visit: Yes Status: Acute (2) Lethargy Current Visit: Yes Status: Acute (3) Hyperkalemia Current Visit: Yes Status: Acute (4) Acute on chronic HFrEF (heart failure with reduced ejection fraction) Current Visit: Yes Status: Acute (5) Nonischemic cardiomyopathy Current Visit: Yes Status: Chronic (6) Non-STEMI (non-ST elevated myocardial infarction) Current Visit: Yes Status: Acute (7) COPD (chronic obstructive pulmonary disease) Current Visit: Yes Status: Chronic (8) Paroxysmal atrial flutter Current Visit: Yes Status: Chronic (9) ESRD (end stage renal disease) on dialysis Current Visit: Yes Status: Chronic (10) AICD (automatic cardioverter/defibrillator) present Current Visit: Yes Status: Chronic (11) Hypothyroidism Current Visit: Yes Status: Acute (12) Subtherapeutic international normalized ratio (INR) Current Visit: Yes Status: Acute (13) H/O: hypertension Current Visit: Yes Status: Chronic (14) Diabetes mellitus Current Visit: Yes Status: Chronic Qualifiers: Diabetes mellitus type: type 2 (15) HIV (human immunodeficiency virus infection) Current Visit: Yes Status: Chronic
[2018-08-19] MEDS ORDERED: XYLOCAINE 1% 20 mL ONE (11:22)
--- NOTE | 2018-08-19 11:56 | Event Note ---
Date: 08/19/18 (C-LINE PLACEMENT) Requested to place C-Line for venous access. Pt with ESRD on HD. INR 1.54 Sterile central line protocol used and documented on check list on chart RIJ successfully attempted several times and unable to pass wire. Pulled on R arm and finally able to thread guidewire; no ectopy noted. C-Line sutured in place and CXR pending Appears to have hematoma/swelling on R side of neck and holding pressure and will eval on CXR also
[2018-08-19] MEDS ORDERED: NACL 0.9% 100 ML IV PRN (11:59)
--- NOTE | 2018-08-19 12:01 | Event Note ---
D/w cardiology wants patient dialyzed
--- NOTE | 2018-08-19 12:35 | XRay Report ---
EXAM: XR CHEST 1V AP HISTORY: central line placement TECHNIQUE: AP chest x-ray dated 08/19/2018 at 12:11 PM. COMPARISON: Chest x-ray dated 08/19/2018 at 7:59 AM FINDINGS: There is a new right internal jugular central venous catheter with distal tip in SVC (adequate positi on). Recommend careful clinical correlation to ensure venous blood return. The left lateral chest wall pacer with a single wire to the middle mediastinum is noted in situ. Ther e is evidence for cardiomegaly. The pulmonary vascularity and interstitial markings are diffusely pro minent, consistent with mild to moderate CHF or volume overload in the appropriate clinical setting; differential diagnosis includes (but is not limited to) bronchitis and bronchopneumonia in the [facility] clinical setting. There is no gross focal lung consolidation, pleural effusion, or pneumothorax seen. The visualized [place] structures are within normal limits. IMPRESSION: 1. New right internal jugular central venous catheter with distal tip in SVC (adequate position). R ecommend careful clinical correlation to ensure venous blood return. 2. Findings consistent with mild to moderate CHF or volume overload in the appropriate clinical sett ing (stable appearance); DDX includes bronchitis and bronchopneumonia in the appropriate clinical set ting. Clinical correlation is advised. This document is electronically signed by Kyra Cavazos MD., August 19 2018 12:33:21 PM JAY
--- NOTE | 2018-08-19 14:35 | Consultation ---
History of Present Illness Consult date: 08/19/18 Requesting physician: SONDRA NGUYỄN Reason for consult: other (Symptomatic Bradycardia; Hypotension) History of present illness: PULMONARY/CCM CONSULT NOTE (Full dictation # [id number]) Please see dictated notes for full details Past History Past Medical History: arrhythmia (Atrial Flutter), COPD, diabetes, dialysis, DVT, ESRD, heart failure, HIV/AIDS, hypertension, hyperlipidemia, stroke, other (Severe NICMP; Normal coronaries 2014) Past Surgical History: Other (Subcutaneous ICD implantation; Creation of AV fistula) Social history: denies: alcohol abuse Family history: other (not obtainable - too lethargic) Medications and Allergies Allergies Allergy/AdvReac Type Severity Reaction Status Date / Time sulfamethoxazole Allergy Anaphylaxis Verified 08/28/17 08:46 [From Bactrim] trimethoprim [From Bactrim] Allergy Anaphylaxis Verified 08/28/17 08:46 Home Medications Medication Instructions Recorded Confirmed Last Taken Type Albuterol Sulfate [Ventolin HFA] 2 puff IH QID PRN 09/09/16 08/17/18 01/27/17 History amLODIPine [Norvasc] 10 mg PO DAILY 09/09/16 08/17/18 03/12/17 History Gabapentin [Neurontin] 300 mg PO BID 11/22/16 08/17/18 08/28/17 History PARoxetine HCl [PARoxetine] 40 mg PO DAILY #30 tablet 04/07/17 08/17/18 Unknown Rx ALBUTEROL NEB's [Proventil 0.083% 2.5 mg IH Q6H PRN 07/21/17 08/17/18 Unknown History NEBS] Budesonide/Formoterol Fumarate 2 puff IH BID 07/21/17 08/17/18 Unknown History [Symbicort 160-4.5 Mcg Inhaler] Ferric Citrate (Nf) [Auryxia (Nf)] 3 tab PO QID 07/21/17 08/17/18 Unknown History Fluticasone [Flonase] 2 sprays NS QDAY 07/21/17 08/17/18 Unknown History Gemfibrozil [Lopid] 600 mg PO BID 07/21/17 08/17/18 Unknown History Ipratropium/Albuterol Sulfate 1 spray IH QID 07/21/17 08/17/18 Unknown History [Combivent Respimat] Nitroglycerin [Nitrostat] 0.4 mg SL Q5M PRN 07/21/17 08/17/18 08/28/17 History traZODone [Desyrel] 50 mg PO QHS 07/21/17 08/17/18 Unknown History Amiodarone [Cordarone 200 MG TAB] 200 mg PO BID #60 tablet 07/26/17 08/17/18 Unknown Rx AtorvaSTATin [Lipitor] 20 mg PO QHS #30 tablet 07/26/17 08/17/18 Unknown Rx Warfarin [Coumadin] 7.5 mg PO QDAY #30 tablet 05/23/18 08/17/18 Unknown Rx Carvedilol 25 mg PO QAM 08/17/18 08/17/18 Unknown History Carvedilol 50 mg PO QPM 08/17/18 08/17/18 Unknown History Darunavir/Cobicistat [Prezcobix 1 each PO DAILY 08/17/18 08/17/18 Unknown History 800 mg-150 mg Tablet] Ergocalciferol [Vitamin D2] 1 cap PO QWEEK 08/17/18 08/17/18 Unknown History Etravirine [Intelence] 200 mg PO BID 08/17/18 08/17/18 Unknown History Insulin Aspart [NovoLOG Flexpen] 5 units SQ AC 08/17/18 08/17/18 Unknown History Insulin Glargine,Hum.rec.anlog 10 units SQ QHS 08/17/18 08/17/18 Unknown History [Lantus] Losartan [Cozaar] 25 mg PO QDAY 08/17/18 08/17/18 Unknown History [place]-3 Acid Ethyl Esters [Lovaza] 2 gm PO BID 08/17/18 08/17/18 Unknown History Raltegravir Potassium [Isentress] 400 mg PO BID 08/17/18 08/17/18 Unknown History Rosuvastatin (Nf) [Crestor] 10 mg PO QHS 08/17/18 08/17/18 Unknown History dilTIAZem [CarDIZEM] 60 mg PO QID 08/17/18 08/17/18 Unknown History hydrOXYzine HCl [Hydroxyzine HCl] 25 mg PO TID 08/17/18 08/17/18 Unknown History Active Meds: Active Medications Acetaminophen (Tylenol) 650 mg PO Q4H PRN PRN Reason: Pain MILD(1-3)/Fever >100.5/BA Albuterol (Proventil) 2.5 mg IH Q6HRT PRN PRN Reason: Shortness Of Breath Albuterol/Ipratropium (Duoneb *Not For Prn Use*) 1 ampul IH QIDRT [facility] Last Admin: 08/19/18 09:55 Dose: Not Given Documented by: Arformoterol Tartrate (Brovana Nebu) 15 mcg IH Q12HRT [facility] Last Admin: 08/19/18 09:44 Dose: 15 mcg Documented by: Atorvastatin Calcium (Lipitor) 20 mg PO QHS [facility] Last Admin: 08/18/18 22:37 Dose: 20 mg Documented by: Benzonatate (Tessalon Perles) 200 mg PO Q8HR [facility] Last Admin: 08/19/18 06:02 Dose: 200 mg Documented by: Budesonide (Pulmicort) 0.5 mg IH Q12HRT [facility] Last Admin: 08/19/18 09:44 Dose: 0.5 mg Documented by: Enoxaparin Sodium (Lovenox) 80 mg SUB-Q Q24H [facility] Last Admin: 08/18/18 22:36 Dose: 80 mg Documented by: Ergocalciferol (Vitamin D2) 50,000 unit PO Bradford [facility] Fish Oil (Fish Oil) 2,000 mg PO BID [facility] Last Admin: 08/18/18 22:37 Dose: 2,000 mg Documented by: Fluticasone Propionate (Flonase) 100 mcg NS QDAY [facility] Last Admin: 08/18/18 17:49 Dose: 100 mcg Documented by: Gabapentin (Neurontin) 200 mg PO BID [facility] Gemfibrozil (Lopid) 600 mg PO BID [facility] Last Admin: 08/18/18 22:37 Dose: 600 mg Documented by: Hydroxyzine HCl (Atarax) 25 mg PO TID [facility] Last Admin: 08/18/18 22:37 Dose: 25 mg Documented by: Norepinephrine (Levophed Drip 4 Mg/Ns 250 Ml) 4 mg in 250 mls @ 7.5 mls/hr IV TITR TRICIA; Protocol Sodium Chloride (Nacl 0.9%) 100 mls @ 999 mls/hr IV SIENA PRN PRN Reason: Hypotension Insulin Glargine (Lantus) 10 units SUB-Q QHS [facility] Last Admin: 08/18/18 22:38 Dose: Not Given Documented by: Insulin Human Lispro (Humalog) 5 unit SUB-Q AC [facility] Last Admin: 08/19/18 14:20 Dose: Not Given Documented by: Miscellaneous Medication (Darunavir/Cobicistat [Prezcobix 800 Mg-150 Mg Tablet]) 1 each PO DAILY [facility] Miscellaneous Medication (Etravirine [Intelence]) 200 mg PO BID [facility] Miscellaneous Medication (Ferric Citrate) 3 tab PO QID [facility] Nitroglycerin (Nitrostat) 0.4 mg SL Q5M PRN PRN Reason: Chest Pain Ondansetron HCl (Zofran) 4 mg IV Q8H PRN PRN Reason: Nausea And Vomiting Oxycodone/Acetaminophen (Percocet 5/325) 1 tab PO Q6H PRN PRN Reason: Pain, Moderate (4-6) Last Admin: 08/18/18 01:00 Dose: 1 tab Documented by: Raltegravir (Isentress) 400 mg PO BID [facility] Warfarin Sodium (Coumadin) 7.5 mg PO QDAY@1700 [facility]; Protocol Last Admin: 08/18/18 17:49 Dose: 7.5 mg Documented by: Physical Examination Vital signs: Vital Signs Temp Pulse Resp BP Pulse Ox 98.6 F 86 16 133/84 94 08/17/18 12:41 08/17/18 12:41 08/17/18 12:41 08/17/18 12:41 08/17/18 12:41 Results - Laboratory Findings CBC and BMP: 08/19/18 05:58 08/19/18 05:58 PT/INR, D-dimer PT 19.5 Sec. (12.2-14.9) H 08/19/18 05:58 INR 1.54 (0.87-1.13) H 08/19/18 05:58 Abnormal lab findings: Abnormal Labs 08/17/18 08/17/18 08/17/18 13:25 13:25 13:25 MCHC RDW 22.8 H Gem % (Auto) 15.2 H Gem # 1.3 H PT 16.5 H INR 1.25 H Potassium Chloride 94.4 L BUN 23 H Creatinine 7.8 H Glucose POC Glucose Calcium Magnesium 2.40 H Total Bilirubin 1.50 H Total Creatine Kinase 29 L CK-MB (CK-2) Rel Index 5.8 H Troponin T 0.158 H* NT-Pro-B Natriuret Pep Albumin 3.4 L LDL Cholesterol Direct 48 L HDL Cholesterol 23 L TSH 08/17/18 08/18/18 08/18/18 13:25 06:52 12:58 MCHC RDW Gem % (Auto) Gem # PT 17.9 H INR 1.38 H Potassium Chloride BUN Creatinine Glucose POC Glucose 60 L Calcium Magnesium Total Bilirubin Total Creatine Kinase CK-MB (CK-2) Rel Index Troponin T NT-Pro-B Natriuret Pep Albumin LDL Cholesterol Direct HDL Cholesterol TSH 10.880 H 08/18/18 08/18/18 08/18/18 16:20 17:39 17:57 MCHC RDW Gem % (Auto) Gem # PT INR Potassium Chloride BUN Creatinine Glucose POC Glucose 42 L 226 H Calcium Magnesium Total Bilirubin Total Creatine Kinase CK-MB (CK-2) Rel Index Troponin T 0.167 H* NT-Pro-B Natriuret Pep Albumin LDL Cholesterol Direct HDL Cholesterol TSH 08/18/18 08/19/18 08/19/18 21:02 00:59 03:21 MCHC RDW Gem % (Auto) Gem # PT INR Potassium Chloride BUN Creatinine Glucose POC Glucose 158 H 137 H Calcium Magnesium Total Bilirubin Total Creatine Kinase CK-MB (CK-2) Rel Index Troponin T 0.181 H* NT-Pro-B Natriuret Pep Albumin LDL Cholesterol Direct HDL Cholesterol TSH 08/19/18 08/19/18 08/19/18 05:58 05:58 05:58 MCHC 30 L RDW 22.4 H Gem % (Auto) Gem # PT 19.5 H INR 1.54 H Potassium Chloride BUN Creatinine Glucose POC Glucose Calcium Magnesium Total Bilirubin Total Creatine Kinase CK-MB (CK-2) Rel Index Troponin T 0.163 H* NT-Pro-B Natriuret Pep Albumin LDL Cholesterol Direct HDL Cholesterol TSH 08/19/18 08/19/18 08/19/18 05:58 05:58 11:49 MCHC RDW Gem % (Auto) Gem # PT INR Potassium 6.0 H D Chloride 94.5 L BUN 38 H Creatinine 10.4 H Glucose 106 H POC Glucose Calcium 7.8 L Magnesium Total Bilirubin Total Creatine Kinase CK-MB (CK-2) Rel Index Troponin T 0.167 H* NT-Pro-B Natriuret Pep 715525 H Albumin LDL Cholesterol Direct HDL Cholesterol TSH
[2018-08-19] MEDS: ATARAX PO SCH ×3 (15:30→20:10)
[2018-08-19] MEDS: FISH OIL PO SCH ×2 (16:59→22:16)
[2018-08-19] MEDS: FLONASE NS SCH (17:00)
[2018-08-19] MEDS: LOPID PO SCH ×2 (17:00→22:14)
[2018-08-19] MEDS ORDERED: PEPCID ONE (20:02)
[2018-08-19] MEDS: PEPCID PO SCH (20:09)
[2018-08-19] MEDS ORDERED: NACL 0.9 (PRIMING MACHINE ONLY DIALYSIS) MC ONE (20:36)
--- NOTE | 2018-08-19 21:48 | Consultation ---
PULMONARY CRITICAL CARE CONSULTATION CONSULTING PHYSICIAN: Kelley Manning MD REASON FOR CONSULTATION: [id number] hypoxemic respiratory failure, hypotension, symptomatic bradycardia. CHIEF COMPLAINT AND HISTORY OF PRESENT ILLNESS: The patient is a 63-year-old male with past medical history significant amongst other things for a diagnosis of end-stage renal disease, on dialysis, brought into the Emergency Room by the emergency medical services due to generalized weakness after dialysis on the day of presentation, which I believe was yesterday, although he does tell me he missed some dialysis sessions. He was falling asleep during the interview, confused, complaining of pain in both lower extremities at initial presentation. Evaluation in the Emergency Room suspected possible obstructive sleep apnea with obesity hypoventilation syndrome, possible intracranial hemorrhage. He was admitted, I believe initially the plan was to go to the medical floor. When reevaluated by the hospitalist, he was found to be hypotensive and bradycardic, heart rate in the 40s. His glucose level was normal. He was transferred to the Intensive Care Unit where I was asked to assist in his management. When I stopped by to see him, he was resting in bed, definitely lethargic. Denied any acute chest pain. Could not give me too much of a history, otherwise. Since he has been here, no vomiting, no overt aspiration. Now with regards to his tobacco use/abuse history, he is described as a former smoker. He is unable to quantify the tobacco use at this time, that is as much of the history of presentation as I have. PAST MEDICAL HISTORY: End-stage renal disease, on dialysis; hypertension; congestive heart failure; diabetes; history of chronic obstructive lung disease, on 3 liters nasal cannula at home. He is HIV positive, history of pancreatitis, history of Mckeon palsy. PAST SURGICAL HISTORY: He has, I believe, right upper extremity AV graft. MEDICATIONS: He was on at the time I stopped by to see him were reviewed. Pertinent medications included the following: Tylenol 650 mg p.o. q. 4 hours p.r.n. mild pain, albuterol treatments 2.5 mg nebulized q. 6 hours p.r.n. shortness of breath, DuoNeb treatment was scheduled q.i.d., Brovana 15 mcg nebulized q. 12 hours, Lipitor 20 mg p.o. at bedtime, Tessalon Perles 200 mg p.o. q. 8 hours scheduled, Pulmicort 0.5 mg nebulized q. 12 hours, Lovenox 80 mg subcutaneous daily, vitamin D2 of 50,000 units p.o. every Monday, fish oil 2 g p.o. b.i.d., Flonase 100 mcg nasal spray to affected nostril daily, Neurontin 200 mg p.o. b.i.d., Lopid 600 mg p.o. b.i.d., Atarax 25 mg p.o. t.i.d., scheduled Lantus 10 units subcutaneous at bedtime, scheduled insulin via sliding scale. He is on nonformulary medications and Levophed drip at 2 mcg per minute, Zofran 4 mg IV q. 8 hours p.r.n. nausea and vomiting, p.r.n. Percocet for moderate pain. He is on raltegravir 400 mg p.o. b.i.d. and Coumadin 7.5 mg p.o. daily. ALLERGIES: BACTRIM. Nature of this allergy is unknown. DIET: Obese gentleman, acute weight loss or gain history is unknown. FAMILY AND SOCIAL HISTORY: It looks like he lives in the community. Has a remote tobacco smoking history. Alcohol, illicit drug use or abuse history unknown. Family history, otherwise, unobtainable. REVIEW OF SYSTEMS: Difficult to obtain secondary to the patient's medical and mental condition. Since he has been here, no gross hematochezia or melena, no gross hematuria, no hematemesis, no hemoptysis, no witnessed seizures. No new onset focal weakness. He denies chest pains. Review of systems, otherwise, unobtainable or as in the body of history above. PHYSICAL EXAMINATION: VITAL SIGNS: At presentation in the Emergency Room revealed vital signs showed that he was afebrile, temperature 98.6 degrees Fahrenheit; pulse 86; respiratory rate was 16; blood pressure was 133/84; oxygen sats were 94%; inspired oxygen concentration at that time was not recorded. His blood pressure did drop as low as 79/41 blood pressure at a point. Right now, he is 98%, however that is on 50% Venturi mask. GENERAL: He is an elderly looking, chronically ill looking male, obese, normocephalic, resting in bed with mildly increased respiratory effort at rest. HEAD, EYES, EARS, NOSE, AND THROAT: He has mild scleral icterus. No conjunctival erythema. Oropharynx is moist. Mallampati #3 oropharynx. NECK: Large neck circumference. Right IJ central line in place. No obvious bleeding at the stoma site. Mild subcutaneous emphysema around the area of the neck. Grossly, no palpable lymph nodes in the supraclavicular or submandibular lymph node chains. LUNGS: Auscultation of both lung jay significant for bibasilar inspiratory rales. No active wheezing. He does have a prolonged expiratory phase. HEART: Sounds 1 and 2 are heard, regular, bradycardia at the time of my evaluation. He does have a soft systolic murmur. ABDOMEN: Soft, full, bowel sounds are positive, nontender. No palpable hepatosplenomegaly. EXTREMITIES: Without overt digital clubbing, no cyanosis, no significant pedal edema. Dorsalis pedis pulses are weakly palpable. NEUROLOGIC: Pupils are equal, round, about 4 mm, reactive to light. Extraocular muscle movements are intact. He moves all 4 extremities spontaneously. He is lethargic. SKIN: Normal turgor without overt cellulitis or rash. LABORATORY DATA: From my review are as follows, white cell count 8500 at presentation with hemoglobin of 12.7, hematocrit of 40.2 and platelet count of 243. INR was 1.25. Serum sodium 138, potassium was 4.3, chloride 95, bicarbonate 27, BUN 23, creatinine 7.8, glucose was 76. Total bilirubin elevated at 1.5, magnesium was 2.4. Troponin was 0.158. CPK within normal limits. Albumin low at 3.4. Alcohol level was nondetectable. Next troponin is 0.167. No microbiology studies. DIAGNOSTIC DATA: Chest x-ray essentially shows gross cardiomegaly, implanted cardiac device in the left lateral chest wall, and increased interstitial markings consistent with [id number] pulmonary edema in my opinion. No overt pleural effusions, right IJ central line is in the mid SVC. No gross pneumothorax and no obvious subcutaneous emphysema on the chest x-ray. CT scan of his head was also done at presentation. I have reviewed the radiologist's interpretation and essentially is described as no acute intracranial process. ASSESSMENT: 1. Severe sepsis with shock, etiology unclear at this point. 2. Symptomatic bradycardia. 3. Acute encephalopathy, probably toxic metabolic. 4. Beifj-tu-xodymtf hypoxemic respiratory failure with increasing oxygen requirement. 5. Acute pulmonary edema. 6. Possible occult pneumonia. 7. Congestive heart failure. 8. History of hypertension. 9. Diabetes. 10. Acute chronic obstructive pulmonary disease exacerbation. 11. HIV positive. 12. Obesity, possible obesity hypoventilation syndrome. 13. History of deep venous thrombosis, on Coumadin. 14. Hyperbilirubinemia. 15. [id number] myocardial infarction, possibly demand ischemia. PLAN: I do feel like we need to broaden the differential a little bit. Despite the absence of leukocytosis, he could well be dealing with bacteremia especially in this gentleman with relative immunosuppression from HIV infection and also on dialysis. I will go ahead and get: 1. Two sets of blood cultures. 2. Begin empiric broad-spectrum antibiotic therapy. I will go with Zosyn and vancomycin empirically. I will get a CRP level as well as a lactic acid level and trend as necessary to rigging helper clinical decision making and antibiotic de-escalation. Stat arterial blood gases will be done. Bilevel positive airway pressure ventilation therapy will be started. I do suspect there is an element of hypercapnic narcosis here, but also because of his congestive heart failure and its salutary effects on cardiovascular hemodynamics, Cardiology evaluation for an acute coronary syndrome workup is appropriate. The 12-lead EKG does not show any acute ST elevation. He is status post right IJ central line. We will titrate the Levophed to keep mean arterial pressures greater than or equal to about 65 mmHg, especially during dialysis he probably will need more support. Oxygen will be weaned to keep sats greater than or equal to about 90%. Bronchodilators will be continued. Aspiration precautions will be maintained. BiPAP will also be scheduled at bedtime for possible obstructive sleep apnea. Electrolytes will be monitored and corrected as necessary. Glycemic control will be via sliding scale insulin for a target blood glucose 140-180 mg/dL acutely. Flu and pneumonia vaccination will be addressed per protocol. He is fully anticoagulated with Lovenox and he will be placed on GI prophylaxis. Other chronic disease medications will be continued per the attending. Thank you very much for the consult. We will follow along and make further recommendations as picture progresses/becomes clearer. I should mention any sedating medications will be held at this point. I will hold his Neurontin. I would also hold his scheduled Atarax and make it p.r.n. I will hold his Tessalon Perles that is scheduled in to avoid any relative depression in the swallow reflex. Flu and pneumonia vaccination will be addressed per protocol. He is critically ill, has high risk of deterioration including the risk of from cardiopulmonary and renal system deterioration. At this time, I spent about 35-40 minutes of critical care time without overlap and excluding any procedural time that may be necessary. JOB# [id number] FATMATA/EDIN TOMLINSON
[2018-08-19 21:51] LABS: Calcium 7.6 mg/dL (8.4-10.2)
[2018-08-19] MEDS: LOVENOX SUB-Q SCH (23:52)
[2018-08-20 01:15] LABS: Calcium 7.7 mg/dL (8.4-10.2)
[2018-08-20 01:33] LABS: Hematocrit 40.8 % (35.5-45.6); Hemoglobin 12.8 gm/dl (11.8-15.2); Mean Corpuscular HGB Conc 31 % (32-34); Mean Corpuscular Volume 91 fl (84-94); Platelet Count 248 K/mm3 (140-440); Red Blood Count 4.48 M/mm3 (3.65-5.03)
[2018-08-20 01:35] LABS: Red Cell Distribution Width 21.5 % (13.2-15.2)
[2018-08-20 05:36] LABS: INR 2.18 (0.87-1.13)
[2018-08-20] MEDS: TESSALON PERLES PO SCH ×3 (06:10→22:55)
--- NOTE | 2018-08-20 06:43 | XRay Report ---
PROCEDURE: XR CHEST 1V AP HISTORY: pulmonary edema COMPARISONS: X-ray dated 08/19/2018 FINDINGS: Prominent size heart for a portable technique. Interval increase in central pulmonary and bilateral interstitial lung markings. Findings are in keeping with vascular congestion and interstitial edema. Right costophrenic angle is blunted on the current study from underlying infiltrates and/or pleural e ffusion. Satisfactory position of right-sided jugular venous catheter with tip projecting over the SVC. IMPRESSION: 1. Interval worsening of pulmonary vascular congestion and interstitial edema. Continue x-ray follow- up. . This document is electronically signed by Martha Shi MD., August 20 2018 06:41:21 AM ET
[2018-08-20] MEDS: PULMICORT IH SCH ×2 (08:25→21:30)
[2018-08-20] MEDS: DUONEB *Not for PRN Use IH SCH ×4 (08:25→21:30)
[2018-08-20] MEDS: BROVANA NEBU IH SCH ×2 (08:25→21:30)
[2018-08-20] MEDS: FLONASE NS SCH (09:11)
[2018-08-20] MEDS: ATARAX PO SCH ×3 (09:12→22:20)
[2018-08-20] MEDS: LOPID PO SCH ×2 (09:13→22:55)
[2018-08-20] MEDS: FISH OIL PO SCH ×2 (09:13→22:55)
[2018-08-20] MEDS: PEPCID PO SCH (09:13)
[2018-08-20] MEDS: NEURONTIN PO SCH ×2 (09:18→22:55)
[2018-08-20] MEDS ORDERED: PEPCID PO SCH (10:00)
--- NOTE | 2018-08-20 10:15 | Progress Note ---
Subjective Interval history: Patient was seen today for follow-up on multiple renal related issues Events of this hospitalization noted Patient remains in the critical care setting Patient denies having any chest pain pressure or shortness of breath Vitals labs intake output medications were reviewed Social history: Reviewed Allergies: Reviewed Family history: Reviewed Physical examination HEENT: Oral mucosa moist no pallor or icterus Neck: Supple no JVD Chest: Few bilateral crackles CVS: Regular rate and rhythm S1 and S2 heard Abdomen: Soft nontender no suprapubic masses no organomegaly appreciable Extremity: Dry skin less than 1+ peripheral edema Musculoskeletal: No joint effusion noted in knees and ankle Neurological: Alert awake Dermatology: No petechial rashes Psychiatry: No evidence of any agitation and aggression noted Assessment and plan End Stage renal disease currently on maintenance hemodialysis, patient is high risk for hemodialysis due to poor ejection fraction low blood pressure, this has been clearly explained to the patient's that is very high risk candidate in terms of hemodynamic problems as well as mortality risk during dialysis and she does have some medical background and did understood his health condition very well over the phone as I explained her Will need to reevaluate him tomorrow morning for possible need for renal replacement therapy Hyperkalemia: Mostly resulting from noncompliance counseled and educated at length Volume overload mostly resulting from noncompliance counseled and educated ultrafiltrate with hemodialysis as tolerated Severe cardiomyopathy atrial fibrillation and bradyarrhythmia: Prognosis extremely poor, patient is high mortality risk in my opinion Noncompliance with diet fluid sodium and potassium adequately counseled and educated Not a good candidate for DIOR inhibitor or angiotensin receptor caity due to hyperkalemia and noncompliance Continue with supportive care overall prognosis very poor long-term prognosis also appears to be poor Upon discharge she will need to make a follow-up appointment with his treating safety assistant Was compliant with diet lifestyle changes Patient was adequately counseled and educated regarding multiple renal related i ssues Pertinent lab findings were discussed with patient, patient does exhibit good understanding of renal issues We'll continue to follow and make recommendation from renal standpoint Objective - Vital Signs Vital signs: Vital Signs - 12hr 08/19/18 08/19/18 08/19/18 22:20 22:30 22:40 Temperature Pulse Rate 70 74 69 Pulse Rate [ Anterior Bilateral Throughout] Pulse Rate [ Bilateral Upper Lobe] Pulse Rate [ From Monitor] Respiratory 17 12 14 Rate Respiratory Rate [Anterior Bilateral Throughout] Respiratory Rate [Bilateral Upper Lobe] Blood Pressure 118/73 144/80 144/80 O2 Sat by Pulse 99 91 97 Oximetry 08/19/18 08/19/18 08/19/18 22:50 23:00 23:10 Temperature Pulse Rate 70 70 70 Pulse Rate [ Anterior Bilateral Throughout] Pulse Rate [ Bilateral Upper Lobe] Pulse Rate [ From Monitor] Respiratory 20 18 14 Rate Respiratory Rate [Anterior Bilateral Throughout] Respiratory Rate [Bilateral Upper Lobe] Blood Pressure 139/96 145/83 145/83 O2 Sat by Pulse 97 96 96 Oximetry 08/19/18 08/19/18 08/19/18 23:20 23:30 23:40 Temperature Pulse Rate 71 73 70 Pulse Rate [ Anterior Bilateral Throughout] Pulse Rate [ Bilateral Upper Lobe] Pulse Rate [ From Monitor] Respiratory 13 15 17 Rate Respiratory Rate [Anterior Bilateral Throughout] Respiratory Rate [Bilateral Upper Lobe] Blood Pressure 134/76 134/76 134/76 O2 Sat by Pulse 95 98 97 Oximetry 08/19/18 08/19/18 08/19/18 23:50 23:51 23:57 Temperature Pulse Rate 69 70 71 Pulse Rate [ Anterior Bilateral Throughout] Pulse Rate [ Bilateral Upper Lobe] Pulse Rate [ From Monitor] Respiratory 14 21 19 Rate Respiratory Rate [Anterior Bilateral Throughout] Respiratory Rate [Bilateral Upper Lobe] Blood Pressure 119/67 119/67 119/67 O2 Sat by Pulse 97 98 98 Oximetry 08/20/18 08/20/18 08/20/18 00:00 00:07 00:10 Temperature 97.7 F Pulse Rate 70 69 69 Pulse Rate [ Anterior Bilateral Throughout] Pulse Rate [ Bilateral Upper Lobe] Pulse Rate [ From Monitor] Respiratory 14 14 13 Rate Respiratory Rate [Anterior Bilateral Throughout] Respiratory Rate [Bilateral Upper Lobe] Blood Pressure 124/78 124/78 145/84 O2 Sat by Pulse 97 97 97 Oximetry 08/20/18 08/20/18 08/20/18 00:12 00:20 00:30 Temperature Pulse Rate 69 69 70 Pulse Rate [ Anterior Bilateral Throughout] Pulse Rate [ Bilateral Upper Lobe] Pulse Rate [ From Monitor] Respiratory 14 15 16 Rate Respiratory Rate [Anterior Bilateral Throughout] Respiratory Rate [Bilateral Upper Lobe] Blood Pressure 145/84 128/74 127/80 O2 Sat by Pulse 96 97 98 Oximetry 08/20/18 08/20/18 08/20/18 00:40 00:50 01:00 Temperature Pulse Rate 71 68 68 Pulse Rate [ Anterior Bilateral Throughout] Pulse Rate [ Bilateral Upper Lobe] Pulse Rate [ From Monitor] Respiratory 15 13 12 Rate Respiratory Rate [Anterior Bilateral Throughout] Respiratory Rate [Bilateral Upper Lobe] Blood Pressure 124/78 119/84 113/64 O2 Sat by Pulse 97 97 97 Oximetry 08/20/18 08/20/18 08/20/18 01:10 01:20 01:30 Temperature Pulse Rate 68 67 67 Pulse Rate [ Anterior Bilateral Throughout] Pulse Rate [ Bilateral Upper Lobe] Pulse Rate [ From Monitor] Respiratory 13 13 14 Rate Respiratory Rate [Anterior Bilateral Throughout] Respiratory Rate [Bilateral Upper Lobe] Blood Pressure 119/84 116/56 97/55 O2 Sat by Pulse 99 98 99 Oximetry 08/20/18 08/20/18 08/20/18 01:40 01:50 02:00 Temperature Pulse Rate 68 68 70 Pulse Rate [ Anterior Bilateral Throughout] Pulse Rate [ Bilateral Upper Lobe] Pulse Rate [ From Monitor] Respiratory 12 13 15 Rate Respiratory Rate [Anterior Bilateral Throughout] Respiratory Rate [Bilateral Upper Lobe] Blood Pressure 97/55 90/55 108/69 O2 Sat by Pulse 99 99 99 Oximetry 08/20/18 08/20/18 08/20/18 02:10 02:20 02:30 Temperature Pulse Rate 70 70 69 Pulse Rate [ Anterior Bilateral Throughout] Pulse Rate [ Bilateral Upper Lobe] Pulse Rate [ From Monitor] Respiratory 13 14 13 Rate Respiratory Rate [Anterior Bilateral Throughout] Respiratory Rate [Bilateral Upper Lobe] Blood Pressure 108/69 110/68 109/66 O2 Sat by Pulse 98 99 99 Oximetry 08/20/18 08/20/18 08/20/18 02:40 02:50 03:00 Temperature Pulse Rate 69 69 68 Pulse Rate [ Anterior Bilateral Throughout] Pulse Rate [ Bilateral Upper Lobe] Pulse Rate [ From Monitor] Respiratory 14 15 13 Rate Respiratory Rate [Anterior Bilateral Throughout] Respiratory Rate [Bilateral Upper Lobe] Blood Pressure 109/66 119/62 102/56 O2 Sat by Pulse 99 100 99 Oximetry 08/20/18 08/20/18 08/20/18 03:10 03:20 03:30 Temperature Pulse Rate 68 70 68 Pulse Rate [ Anterior Bilateral Throughout] Pulse Rate [ Bilateral Upper Lobe] Pulse Rate [ From Monitor] Respiratory 13 18 15 Rate Respiratory Rate [Anterior Bilateral Throughout] Respiratory Rate [Bilateral Upper Lobe] Blood Pressure 102/56 108/63 97/57 O2 Sat by Pulse 100 99 99 Oximetry 08/20/18 08/20/18 08/20/18 03:40 03:50 04:00 Temperature 97.4 F L Pulse Rate 68 68 69 Pulse Rate [ Anterior Bilateral Throughout] Pulse Rate [ Bilateral Upper Lobe] Pulse Rate [ From Monitor] Respiratory 15 14 15 Rate Respiratory Rate [Anterior Bilateral Throughout] Respiratory Rate [Bilateral Upper Lobe] Blood Pressure 97/57 91/55 104/62 O2 Sat by Pulse 99 98 100 Oximetry 08/20/18 08/20/18 08/20/18 04:10 04:20 04:30 Temperature Pulse Rate 69 69 68 Pulse Rate [ Anterior Bilateral Throughout] Pulse Rate [ Bilateral Upper Lobe] Pulse Rate [ From Monitor] Respiratory Rate Respiratory Rate [Anterior Bilateral Throughout] Respiratory Rate [Bilateral Upper Lobe] Blood Pressure 104/62 111/58 105/60 O2 Sat by Pulse 99 100 99 Oximetry 08/20/18 08/20/18 08/20/18 04:40 04:50 04:56 Temperature Pulse Rate 68 70 70 Pulse Rate [ Anterior Bilateral Throughout] Pulse Rate [ Bilateral Upper Lobe] Pulse Rate [ From Monitor] Respiratory 20 Rate Respiratory Rate [Anterior Bilateral Throughout] Respiratory Rate [Bilateral Upper Lobe] Blood Pressure 105/60 105/58 105/58 O2 Sat by Pulse 99 99 99 Oximetry 08/20/18 08/20/18 08/20/18 05:00 05:10 05:20 Temperature Pulse Rate 70 69 70 Pulse Rate [ Anterior Bilateral Throughout] Pulse Rate [ Bilateral Upper Lobe] Pulse Rate [ From Monitor] Respiratory Rate Respiratory Rate [Anterior Bilateral Throughout] Respiratory Rate [Bilateral Upper Lobe] Blood Pressure 112/61 112/61 102/55 O2 Sat by Pulse 99 98 99 Oximetry 08/20/18 08/20/18 08/20/18 05:30 05:40 05:50 Temperature Pulse Rate 70 71 70 Pulse Rate [ Anterior Bilateral Throughout] Pulse Rate [ Bilateral Upper Lobe] Pulse Rate [ From Monitor] Respiratory Rate Respiratory Rate [Anterior Bilateral Throughout] Respiratory Rate [Bilateral Upper Lobe] Blood Pressure 106/64 106/64 107/61 O2 Sat by Pulse 98 99 99 Oximetry 08/20/18 08/20/18 08/20/18 06:00 06:10 06:20 Temperature Pulse Rate 71 71 73 Pulse Rate [ Anterior Bilateral Throughout] Pulse Rate [ Bilateral Upper Lobe] Pulse Rate [ From Monitor] Respiratory Rate Respiratory Rate [Anterior Bilateral Throughout] Respiratory Rate [Bilateral Upper Lobe] Blood Pressure 106/61 106/61 103/57 O2 Sat by Pulse 99 98 99 Oximetry 08/20/18 08/20/18 08/20/18 06:30 06:40 06:50 Temperature Pulse Rate 73 72 73 Pulse Rate [ Anterior Bilateral Throughout] Pulse Rate [ Bilateral Upper Lobe] Pulse Rate [ From Monitor] Respiratory Rate Respiratory Rate [Anterior Bilateral Throughout] Respiratory Rate [Bilateral Upper Lobe] Blood Pressure 91/47 91/47 97/50 O2 Sat by Pulse 97 98 98 Oximetry 08/20/18 08/20/18 08/20/18 07:00 07:11 07:21 Temperature Pulse Rate 73 72 71 Pulse Rate [ Anterior Bilateral Throughout] Pulse Rate [ Bilateral Upper Lobe] Pulse Rate [ From Monitor] Respiratory 16 Rate Respiratory Rate [Anterior Bilateral Throughout] Respiratory Rate [Bilateral Upper Lobe] Blood Pressure 106/67 97/50 104/60 O2 Sat by Pulse 97 97 98 Oximetry 08/20/18 08/20/18 08/20/18 07:30 07:41 07:51 Temperature Pulse Rate 71 69 71 Pulse Rate [ Anterior Bilateral Throughout] Pulse Rate [ Bilateral Upper Lobe] Pulse Rate [ From Monitor] Respiratory 17 20 20 Rate Respiratory Rate [Anterior Bilateral Throughout] Respiratory Rate [Bilateral Upper Lobe] Blood Pressure 102/55 106/67 109/59 O2 Sat by Pulse 98 99 98 Oximetry 08/20/18 08/20/18 08/20/18 08:00 08:11 08:21 Temperature 98.3 F Pulse Rate 71 71 72 Pulse Rate [ Anterior Bilateral Throughout] Pulse Rate [ Bilateral Upper Lobe] Pulse Rate [ 71 From Monitor] Respiratory 12 15 20 Rate Respiratory Rate [Anterior Bilateral Throughout] Respiratory Rate [Bilateral Upper Lobe] Blood Pressure 111/61 111/61 107/55 O2 Sat by Pulse 99 98 97 Oximetry 08/20/18 08/20/18 08/20/18 08:27 08:31 08:45 Temperature Pulse Rate 72 Pulse Rate [ 75 Anterior Bilateral Throughout] Pulse Rate [ 75 Bilateral Upper Lobe] Pulse Rate [ From Monitor] Respiratory 17 Rate Respiratory 24 Rate [Anterior Bilateral Throughout] Respiratory 23 Rate [Bilateral Upper Lobe] Blood Pressure 114/61 O2 Sat by Pulse 100 96 Oximetry - Lab 08/21/18 Unknown 08/21/18 Unknown Most recent lab results Calcium 7.7 mg/dL (8.4-10.2) L 08/20/18 00:45 Magnesium 2.40 mg/dL (1.7-2.3) H 08/17/18 13:25 Medications & Allergies - Medications Allergies/Adverse Reactions: Allergies sulfamethoxazole [From Bactrim] Allergy (Verified 08/28/17 08:46) Anaphylaxis trimethoprim [From Bactrim] Allergy (Verified 08/28/17 08:46) Anaphylaxis Home Medications: Home Medications Medication Instructions Recorded Confirmed Last Taken Type Albuterol Sulfate [Ventolin HFA] 2 puff IH QID PRN 09/09/16 08/17/18 01/27/17 History amLODIPine [Norvasc] 10 mg PO DAILY 09/09/16 08/17/18 03/12/17 History Gabapentin [Neurontin] 300 mg PO BID 11/22/16 08/17/18 08/28/17 History PARoxetine HCl [PARoxetine] 40 mg PO DAILY #30 tablet 04/07/17 08/17/18 Unknown Rx ALBUTEROL NEB's [Proventil 0.083% 2.5 mg IH Q6H PRN 07/21/17 08/17/18 Unknown History NEBS] Budesonide/Formoterol Fumarate 2 puff IH BID 07/21/17 08/17/18 Unknown History [Symbicort 160-4.5 Mcg Inhaler] Ferric Citrate (Nf) [Auryxia (Nf)] 3 tab PO QID 07/21/17 08/17/18 Unknown History Fluticasone [Flonase] 2 sprays NS QDAY 07/21/17 08/17/18 Unknown History Gemfibrozil [Lopid] 600 mg PO BID 07/21/17 08/17/18 Unknown History Ipratropium/Albuterol Sulfate 1 spray IH QID 07/21/17 08/17/18 Unknown History [Combivent Respimat] Nitroglycerin [Nitrostat] 0.4 mg SL Q5M PRN 07/21/17 08/17/18 08/28/17 History traZODone [Desyrel] 50 mg PO QHS 07/21/17 08/17/18 Unknown History Amiodarone [Cordarone 200 MG TAB] 200 mg PO BID #60 tablet 07/26/17 08/17/18 Unknown Rx AtorvaSTATin [Lipitor] 20 mg PO QHS #30 tablet 07/26/17 08/17/18 Unknown Rx Warfarin [Coumadin] 7.5 mg PO QDAY #30 tablet 05/23/18 08/17/18 Unknown Rx Carvedilol 25 mg PO QAM 08/17/18 08/17/18 Unknown History Carvedilol 50 mg PO QPM 08/17/18 08/17/18 Unknown History Darunavir/Cobicistat [Prezcobix 1 each PO DAILY 08/17/18 08/17/18 Unknown History 800 mg-150 mg Tablet] Ergocalciferol [Vitamin D2] 1 cap PO QWEEK 08/17/18 08/17/18 Unknown History Etravirine [Intelence] 200 mg PO BID 08/17/18 08/17/18 Unknown History Insulin Aspart [NovoLOG Flexpen] 5 units SQ AC 08/17/18 08/17/18 Unknown History Insulin Glargine,Hum.rec.anlog 10 units SQ QHS 08/17/18 08/17/18 Unknown History [Lantus] Losartan [Cozaar] 25 mg PO QDAY 08/17/18 08/17/18 Unknown History [place]-3 Acid Ethyl Esters [Lovaza] 2 gm PO BID 08/17/18 08/17/18 Unknown History Raltegravir Potassium [Isentress] 400 mg PO BID 08/17/18 08/17/18 Unknown History Rosuvastatin (Nf) [Crestor] 10 mg PO QHS 08/17/18 08/17/18 Unknown History dilTIAZem [CarDIZEM] 60 mg PO QID 08/17/18 08/17/18 Unknown History hydrOXYzine HCl [Hydroxyzine HCl] 25 mg PO TID 08/17/18 08/17/18 Unknown History Active Medications: Generic Name Dose Route Start Last Admin Trade Name Freq PRN Reason Stop Dose Admin Acetaminophen 650 mg 08/18/18 00:20 Tylenol PO Q4H PRN Pain MILD(1-3)/Fever >100.5/BA Albuterol 2.5 mg 08/18/18 06:02 Proventil IH Q6HRT PRN Shortness Of Breath Albuterol/Ipratropium 1 ampul 08/18/18 08:00 08/20/18 08:25 Duoneb *Not For Prn Use* IH 1 ampul QIDRT TRICIA Administration Arformoterol Tartrate 15 mcg 08/18/18 08:00 08/20/18 08:25 Brovana Nebu IH 15 mcg Q12HRT TRICIA Administration Atorvastatin Calcium 20 mg 08/18/18 22:00 08/19/18 22:14 Lipitor PO 20 mg QHS TRICIA Administration Benzonatate 200 mg 08/18/18 14:00 08/20/18 06:10 Tessalon Perles PO 200 mg Q8HR TRICIA Administration Budesonide 0.5 mg 08/18/18 08:00 08/20/18 08:25 Pulmicort IH 0.5 mg Q12HRT TRICIA Administration Enoxaparin Sodium 80 mg 08/18/18 22:00 08/19/18 23:52 Lovenox SUB-Q 80 mg Q24H TRICIA Administration Ergocalciferol 50,000 unit 08/19/18 10:00 08/19/18 17:01 Vitamin D2 PO Not Given [facility] Famotidine 10 mg 08/19/18 16:00 08/20/18 09:13 Pepcid PO 10 mg DAILY TRICIA Administration Fish Oil 2,000 mg 08/18/18 10:00 08/20/18 09:13 Fish Oil PO 2,000 mg BID TRICIA Administration Fluticasone Propionate 100 mcg 08/18/18 10:00 08/20/18 09:11 Flonase NS 100 mcg QDAY TRICIA Administration Gabapentin 200 mg 08/20/18 10:00 08/20/18 09:18 Neurontin PO 200 mg BID TRICIA Administration Gemfibrozil 600 mg 08/18/18 10:00 08/20/18 09:13 Lopid PO 600 mg BID TRICIA Administration Hydroxyzine HCl 25 mg 08/18/18 08:00 08/20/18 09:12 Atarax PO 25 mg TID TRICIA Administration Norepinephrine 4 mg in 250 mls @ 7.5 mls/hr 08/19/18 11:00 Levophed Drip 4 Mg/Ns 250 Ml IV TITR TRICIA Protocol 2 MCG/MIN Sodium Chloride 100 mls @ 999 mls/hr 08/19/18 11:59 Nacl 0.9% IV SIENA PRN Hypotension Miscellaneous Medication 1 each 08/18/18 10:00 Darunavir/Cobicistat [Prezcobix 800 Mg-150 Mg Tablet] PO DAILY [facility] Miscellaneous Medication 200 mg 08/18/18 10:00 Etravirine [Intelence] PO BID [facility] Miscellaneous Medication 3 tab 08/18/18 10:00 Ferric Citrate PO QID [facility] Ondansetron HCl 4 mg 08/18/18 00:20 Zofran IV Q8H PRN Nausea And Vomiting Raltegravir 400 mg 08/18/18 10:00 Isentress PO BID [facility] Warfarin Sodium 4 mg 08/20/18 17:00 Coumadin PO DAILY@1700 [facility] Protocol
--- NOTE | 2018-08-20 10:15 | Progress Note ---
Assessment and Plan Severe sepsis with shock, etiology unclear at this point. Symptomatic bradycardia. Acute encephalopathy, probably toxic metabolic. [id number] hypoxemic respiratory failure with increased oxygen requireme nts from baseline. Acute pulmonary edema. Possible occult pneumonia. Congestive heart failure. History of hypertension. Diabetes. Acute chronic obstructive pulmonary disease exacerbation. HIV positive. Obesity, possible obesity hypoventilation syndrome. History of deep venous thrombosis, on Coumadin. Hyperbilirubinemia. [id number] myocardial infarction, possibly demand ischemia - continue supplemental oxygen to keep sats > 90% - continue BIPAP with attempts to give daytime breaks as tolerated - aspiration precautions - continue bronchodilators with pulmonary hygiene per RT - continue HD/UF for toxin and volume clearance - conservative volume management stragtegies and wean off levophed for target MAP > 65 mmHg - continue GI & VTE prophylaxis - continue empiric AB's and de-escalate based on clinical and microbiologic data - continue other care per attending / other consultants ... improved; if stays off levophed can transfer top telemetry floor with close monitoring ... 38' care time Subjective Date of service: 08/20/18 Principal diagnosis: Septic Shock; Symptomatic bradycardia; Acute encephalopathy Interval history: Patient is seen today for: Severe sepsis with shock; Symptomatic bradycardia; Acute encephalopathy, probably toxic metabolic; [id number] hypoxemic respiratory failure; Acute pulmonary edema; Possible occult pneumonia; Acute chronic obstructive pulmonary disease exacerbation. Seen and examined at bedside; 24hour events reviewed; nursing and respiratory care staff consulted; no adverse overnight events reported to me; tolerated HD/UF well; about to wean off levophed; denies acute chest pains or palpitati ons; A-fib rate controlled; remains on supplemental oxygen therapy Objective Vital Signs - 12hr 08/19/18 08/19/18 08/19/18 22:20 22:30 22:40 Temperature Pulse Rate 70 74 69 Pulse Rate [ Anterior Bilateral Throughout] Pulse Rate [ Bilateral Upper Lobe] Pulse Rate [ From Monitor] Respiratory 17 12 14 Rate Respiratory Rate [Anterior Bilateral Throughout] Respiratory Rate [Bilateral Upper Lobe] Blood Pressure 118/73 144/80 144/80 O2 Sat by Pulse 99 91 97 Oximetry 08/19/18 08/19/18 08/19/18 22:50 23:00 23:10 Temperature Pulse Rate 70 70 70 Pulse Rate [ Anterior Bilateral Throughout] Pulse Rate [ Bilateral Upper Lobe] Pulse Rate [ From Monitor] Respiratory 20 18 14 Rate Respiratory Rate [Anterior Bilateral Throughout] Respiratory Rate [Bilateral Upper Lobe] Blood Pressure 139/96 145/83 145/83 O2 Sat by Pulse 97 96 96 Oximetry 08/19/18 08/19/18 08/19/18 23:20 23:30 23:40 Temperature Pulse Rate 71 73 70 Pulse Rate [ Anterior Bilateral Throughout] Pulse Rate [ Bilateral Upper Lobe] Pulse Rate [ From Monitor] Respiratory 13 15 17 Rate Respiratory Rate [Anterior Bilateral Throughout] Respiratory Rate [Bilateral Upper Lobe] Blood Pressure 134/76 134/76 134/76 O2 Sat by Pulse 95 98 97 Oximetry 08/19/18 08/19/18 08/19/18 23:50 23:51 23:57 Temperature Pulse Rate 69 70 71 Pulse Rate [ Anterior Bilateral Throughout] Pulse Rate [ Bilateral Upper Lobe] Pulse Rate [ From Monitor] Respiratory 14 21 19 Rate Respiratory Rate [Anterior Bilateral Throughout] Respiratory Rate [Bilateral Upper Lobe] Blood Pressure 119/67 119/67 119/67 O2 Sat by Pulse 97 98 98 Oximetry 08/20/18 08/20/18 08/20/18 00:00 00:07 00:10 Temperature 97.7 F Pulse Rate 70 69 69 Pulse Rate [ Anterior Bilateral Throughout] Pulse Rate [ Bilateral Upper Lobe] Pulse Rate [ From Monitor] Respiratory 14 14 13 Rate Respiratory Rate [Anterior Bilateral Throughout] Respiratory Rate [Bilateral Upper Lobe] Blood Pressure 124/78 124/78 145/84 O2 Sat by Pulse 97 97 97 Oximetry 08/20/18 08/20/18 08/20/18 00:12 00:20 00:30 Temperature Pulse Rate 69 69 70 Pulse Rate [ Anterior Bilateral Throughout] Pulse Rate [ Bilateral Upper Lobe] Pulse Rate [ From Monitor] Respiratory 14 15 16 Rate Respiratory Rate [Anterior Bilateral Throughout] Respiratory Rate [Bilateral Upper Lobe] Blood Pressure 145/84 128/74 127/80 O2 Sat by Pulse 96 97 98 Oximetry 08/20/18 08/20/18 08/20/18 00:40 00:50 01:00 Temperature Pulse Rate 71 68 68 Pulse Rate [ Anterior Bilateral Throughout] Pulse Rate [ Bilateral Upper Lobe] Pulse Rate [ From Monitor] Respiratory 15 13 12 Rate Respiratory Rate [Anterior Bilateral Throughout] Respiratory Rate [Bilateral Upper Lobe] Blood Pressure 124/78 119/84 113/64 O2 Sat by Pulse 97 97 97 Oximetry 0308/20/18 08/20/18 01:10 01:20 01:30 Temperature Pulse Rate 68 67 67 Pulse Rate [ Anterior Bilateral Throughout] Pulse Rate [ Bilateral Upper Lobe] Pulse Rate [ From Monitor] Respiratory 13 13 14 Rate Respiratory Rate [Anterior Bilateral Throughout] Respiratory Rate [Bilateral Upper Lobe] Blood Pressure 119/84 116/56 97/55 O2 Sat by Pulse 99 98 99 Oximetry 08/20/18 08/20/18 08/20/18 01:40 01:50 02:00 Temperature Pulse Rate 68 68 70 Pulse Rate [ Anterior Bilateral Throughout] Pulse Rate [ Bilateral Upper Lobe] Pulse Rate [ From Monitor] Respiratory 12 13 15 Rate Respiratory Rate [Anterior Bilateral Throughout] Respiratory Rate [Bilateral Upper Lobe] Blood Pressure 97/55 90/55 108/69 O2 Sat by Pulse 99 99 99 Oximetry 08/20/18 08/20/18 08/20/18 02:10 02:20 02:30 Temperature Pulse Rate 70 70 69 Pulse Rate [ Anterior Bilateral Throughout] Pulse Rate [ Bilateral Upper Lobe] Pulse Rate [ From Monitor] Respiratory 13 14 13 Rate Respiratory Rate [Anterior Bilateral Throughout] Respiratory Rate [Bilateral Upper Lobe] Blood Pressure 108/69 110/68 109/66 O2 Sat by Pulse 98 99 99 Oximetry 08/20/18 08/20/18 08/20/18 02:40 02:50 03:00 Temperature Pulse Rate 69 69 68 Pulse Rate [ Anterior Bilateral Throughout] Pulse Rate [ Bilateral Upper Lobe] Pulse Rate [ From Monitor] Respiratory 14 15 13 Rate Respiratory Rate [Anterior Bilateral Throughout] Respiratory Rate [Bilateral Upper Lobe] Blood Pressure 109/66 119/62 102/56 O2 Sat by Pulse 99 100 99 Oximetry 08/20/18 08/20/18 08/20/18 03:10 03:20 03:30 Temperature Pulse Rate 68 70 68 Pulse Rate [ Anterior Bilateral Throughout] Pulse Rate [ Bilateral Upper Lobe] Pulse Rate [ From Monitor] Respiratory 13 18 15 Rate Respiratory Rate [Anterior Bilateral Throughout] Respiratory Rate [Bilateral Upper Lobe] Blood Pressure 102/56 108/63 97/57 O2 Sat by Pulse 100 99 99 Oximetry 08/20/18 08/20/18 08/20/18 03:40 03:50 04:00 Temperature 97.4 F L Pulse Rate 68 68 69 Pulse Rate [ Anterior Bilateral Throughout] Pulse Rate [ Bilateral Upper Lobe] Pulse Rate [ From Monitor] Respiratory 15 14 15 Rate Respiratory Rate [Anterior Bilateral Throughout] Respiratory Rate [Bilateral Upper Lobe] Blood Pressure 97/57 91/55 104/62 O2 Sat by Pulse 99 98 100 Oximetry 08/20/18 08/20/18 08/20/18 04:10 04:20 04:30 Temperature Pulse Rate 69 69 68 Pulse Rate [ Anterior Bilateral Throughout] Pulse Rate [ Bilateral Upper Lobe] Pulse Rate [ From Monitor] Respiratory Rate Respiratory Rate [Anterior Bilateral Throughout] Respiratory Rate [Bilateral Upper Lobe] Blood Pressure 104/62 111/58 105/60 O2 Sat by Pulse 99 100 99 Oximetry 08/20/18 08/20/18 08/20/18 04:40 04:50 04:56 Temperature Pulse Rate 68 70 70 Pulse Rate [ Anterior Bilateral Throughout] Pulse Rate [ Bilateral Upper Lobe] Pulse Rate [ From Monitor] Respiratory 20 Rate Respiratory Rate [Anterior Bilateral Throughout] Respiratory Rate [Bilateral Upper Lobe] Blood Pressure 105/60 105/58 105/58 O2 Sat by Pulse 99 99 99 Oximetry 08/20/18 08/20/18 08/20/18 05:00 05:10 05:20 Temperature Pulse Rate 70 69 70 Pulse Rate [ Anterior Bilateral Throughout] Pulse Rate [ Bilateral Upper Lobe] Pulse Rate [ From Monitor] Respiratory Rate Respiratory Rate [Anterior Bilateral Throughout] Respiratory Rate [Bilateral Upper Lobe] Blood Pressure 112/61 112/61 102/55 O2 Sat by Pulse 99 98 99 Oximetry 08/20/18 08/20/18 08/20/18 05:30 05:40 05:50 Temperature Pulse Rate 70 71 70 Pulse Rate [ Anterior Bilateral Throughout] Pulse Rate [ Bilateral Upper Lobe] Pulse Rate [ From Monitor] Respiratory Rate Respiratory Rate [Anterior Bilateral Throughout] Respiratory Rate [Bilateral Upper Lobe] Blood Pressure 106/64 106/64 107/61 O2 Sat by Pulse 98 99 99 Oximetry 08/20/18 08/20/18 08/20/18 06:00 06:10 06:20 Temperature Pulse Rate 71 71 73 Pulse Rate [ Anterior Bilateral Throughout] Pulse Rate [ Bilateral Upper Lobe] Pulse Rate [ From Monitor] Respiratory Rate Respiratory Rate [Anterior Bilateral Throughout] Respiratory Rate [Bilateral Upper Lobe] Blood Pressure 106/61 106/61 103/57 O2 Sat by Pulse 99 98 99 Oximetry 08/20/18 08/20/18 08/20/18 06:30 06:40 06:50 Temperature Pulse Rate 73 72 73 Pulse Rate [ Anterior Bilateral Throughout] Pulse Rate [ Bilateral Upper Lobe] Pulse Rate [ From Monitor] Respiratory Rate Respiratory Rate [Anterior Bilateral Throughout] Respiratory Rate [Bilateral Upper Lobe] Blood Pressure 91/47 91/47 97/50 O2 Sat by Pulse 97 98 98 Oximetry 08/20/18 08/20/18 08/20/18 07:00 07:11 07:21 Temperature Pulse Rate 73 72 71 Pulse Rate [ Anterior Bilateral Throughout] Pulse Rate [ Bilateral Upper Lobe] Pulse Rate [ From Monitor] Respiratory 16 Rate Respiratory Rate [Anterior Bilateral Throughout] Respiratory Rate [Bilateral Upper Lobe] Blood Pressure 106/67 97/50 104/60 O2 Sat by Pulse 97 97 98 Oximetry 08/20/18 08/20/18 08/20/18 07:30 07:41 07:51 Temperature Pulse Rate 71 69 71 Pulse Rate [ Anterior Bilateral Throughout] Pulse Rate [ Bilateral Upper Lobe] Pulse Rate [ From Monitor] Respiratory 17 20 20 Rate Respiratory Rate [Anterior Bilateral Throughout] Respiratory Rate [Bilateral Upper Lobe] Blood Pressure 102/55 106/67 109/59 O2 Sat by Pulse 98 99 98 Oximetry 08/20/18 08/20/18 08/20/18 08:00 08:11 08:21 Temperature 98.3 F Pulse Rate 71 71 72 Pulse Rate [ Anterior Bilateral Throughout] Pulse Rate [ Bilateral Upper Lobe] Pulse Rate [ 71 From Monitor] Respiratory 12 15 20 Rate Respiratory Rate [Anterior Bilateral Throughout] Respiratory Rate [Bilateral Upper Lobe] Blood Pressure 111/61 111/61 107/55 O2 Sat by Pulse 99 98 97 Oximetry 08/20/18 08/20/18 08/20/18 08:27 08:31 08:45 Temperature Pulse Rate 72 Pulse Rate [ 75 Anterior Bilateral Throughout] Pulse Rate [ 75 Bilateral Upper Lobe] Pulse Rate [ From Monitor] Respiratory 17 Rate Respiratory 24 Rate [Anterior Bilateral Throughout] Respiratory 23 Rate [Bilateral Upper Lobe] Blood Pressure 114/61 O2 Sat by Pulse 100 96 Oximetry Constitutional: appears uncomfortable, other (elderly looking AAM, normocephalic and with mildly increased resp effort at rest) Eyes: non-icteric ENT: oropharynx moist, other (mallampati 2) Neck: supple, no lymphadenopathy, no JVD, other (no thyromegaly) Effort: mildly labored Ascultation: Bilateral: rhonchi Percussion: Bilateral: not dull Cardiovascular: irregular rhythm, murmur noted (SANDRA) Gastrointestinal: normoactive bowel sounds, soft, non-tender, non-distended, other (no HSM) Integumentary: normal Extremities: no cyanosis, pulses normal, no ischemia or petechiae Neurologic: non-focal exam (grossly), pupils equal and round, CN II-XII normal, motor strength normal and Psychiatric: mood appropriate, affect normal CBC and BMP: 08/21/18 Unknown 08/21/18 Unknown ABG, PT/INR, D-dimer: ABG POC ABG pH 7.265 (7.35-7.45) L 08/19/18 15:24 POC ABG pCO2 52.5 (35-45) H 08/19/18 15:24 POC ABG pO2 68 (80-105) L 08/19/18 15:24 POC ABG HCO3 23.8 08/19/18 15:24 POC ABG Total CO2 25 08/19/18 15:24 POC ABG O2 Sat 90 08/19/18 15:24 PT/INR, D-dimer PT 25.7 Sec. (12.2-14.9) H 08/20/18 04:55 INR 2.18 (0.87-1.13) H 08/20/18 04:55 Abnormal lab findings: Abnormal Labs 08/17/18 08/17/18 08/17/18 13:25 13:25 13:25 MCHC RDW 22.8 H Frio % (Auto) 15.2 H Frio # 1.3 H PT 16.5 H INR 1.25 H POC ABG pH POC ABG pCO2 POC ABG pO2 Potassium Chloride 94.4 L BUN 23 H Creatinine 7.8 H Glucose POC Glucose Calcium Magnesium 2.40 H Total Bilirubin 1.50 H Total Creatine Kinase 29 L CK-MB (CK-2) Rel Index 5.8 H Troponin T 0.158 H* C-Reactive Protein NT-Pro-B Natriuret Pep Albumin 3.4 L LDL Cholesterol Direct 48 L HDL Cholesterol 23 L TSH 08/17/18 08/18/18 08/18/18 13:25 06:52 12:58 MCHC RDW Frio % (Auto) Frio # PT 17.9 H INR 1.38 H POC ABG pH POC ABG pCO2 POC ABG pO2 Potassium Chloride BUN Creatinine Glucose POC Glucose 60 L Calcium Magnesium Total Bilirubin Total Creatine Kinase CK-MB (CK-2) Rel Index Troponin T C-Reactive Protein NT-Pro-B Natriuret Pep Albumin LDL Cholesterol Direct HDL Cholesterol TSH 10.880 H 08/18/18 08/18/18 08/18/18 16:20 17:39 17:57 MCHC RDW Frio % (Auto) Frio # PT INR POC ABG pH POC ABG pCO2 POC ABG pO2 Potassium Chloride BUN Creatinine Glucose POC Glucose 42 L 226 H Calcium Magnesium Total Bilirubin Total Creatine Kinase CK-MB (CK-2) Rel Index Troponin T 0.167 H* C-Reactive Protein NT-Pro-B Natriuret Pep Albumin LDL Cholesterol Direct HDL Cholesterol TSH 08/18/18 08/19/18 08/19/18 21:02 00:59 03:21 MCHC RDW Frio % (Auto) Frio # PT INR POC ABG pH POC ABG pCO2 POC ABG pO2 Potassium Chloride BUN Creatinine Glucose POC Glucose 158 H 137 H Calcium Magnesium Total Bilirubin Total Creatine Kinase CK-MB (CK-2) Rel Index Troponin T 0.181 H* C-Reactive Protein NT-Pro-B Natriuret Pep Albumin LDL Cholesterol Direct HDL Cholesterol TSH 08/19/18 08/19/18 08/19/18 05:58 05:58 05:58 MCHC 30 L RDW 22.4 H Frio % (Auto) Frio # PT 19.5 H INR 1.54 H POC ABG pH POC ABG pCO2 POC ABG pO2 Potassium Chloride BUN Creatinine Glucose POC Glucose Calcium Magnesium Total Bilirubin Total Creatine Kinase CK-MB (CK-2) Rel Index Troponin T 0.163 H* C-Reactive Protein NT-Pro-B Natriuret Pep Albumin LDL Cholesterol Direct HDL Cholesterol TSH 08/19/18 08/19/18 08/19/18 05:58 05:58 11:49 MCHC RDW Frio % (Auto) Frio # PT INR POC ABG pH POC ABG pCO2 POC ABG pO2 Potassium 6.0 H D Chloride 94.5 L BUN 38 H Creatinine 10.4 H Glucose 106 H POC Glucose Calcium 7.8 L Magnesium Total Bilirubin Total Creatine Kinase CK-MB (CK-2) Rel Index Troponin T 0.167 H* C-Reactive Protein NT-Pro-B Natriuret Pep 801679 H Albumin LDL Cholesterol Direct HDL Cholesterol TSH 08/19/18 08/19/18 08/19/18 15:24 21:15 21:15 MCHC RDW Frio % (Auto) Frio # PT INR POC ABG pH 7.265 L POC ABG pCO2 52.5 H POC ABG pO2 68 L Potassium Chloride 94.1 L BUN 21 H Creatinine 6.6 H Glucose 55 L POC Glucose Calcium 7.6 L Magnesium Total Bilirubin Total Creatine Kinase CK-MB (CK-2) Rel Index Troponin T C-Reactive Protein 3.60 H NT-Pro-B Natriuret Pep Albumin LDL Cholesterol Direct HDL Cholesterol TSH 08/19/18 08/20/18 08/20/18 22:10 00:45 00:45 MCHC 31 L RDW 21.5 H Frio % (Auto) Frio # PT INR POC ABG pH POC ABG pCO2 POC ABG pO2 Potassium Chloride 92.9 L BUN 22 H Creatinine 7.5 H Glucose 102 H POC Glucose 62 L Calcium 7.7 L Magnesium Total Bilirubin Total Creatine Kinase CK-MB (CK-2) Rel Index Troponin T C-Reactive Protein NT-Pro-B Natriuret Pep Albumin LDL Cholesterol Direct HDL Cholesterol TSH 08/20/18 04:55 MCHC RDW Frio % (Auto) Frio # PT 25.7 H INR 2.18 H POC ABG pH POC ABG pCO2 POC ABG pO2 Potassium Chloride BUN Creatinine Glucose POC Glucose Calcium Magnesium Total Bilirubin Total Creatine Kinase CK-MB (CK-2) Rel Index Troponin T C-Reactive Protein NT-Pro-B Natriuret Pep Albumin LDL Cholesterol Direct HDL Cholesterol TSH Chest x-ray: image reviewed (interstitial edema pattern worse; RIJ CVL with tip in SVC) Allied health notes reviewed: nursing
--- NOTE | 2018-08-20 10:59 | Progress Note ---
Assessment and Plan 1. His toby-arrhythmia is probably multifactorial in origin including the effect of multiple AV blocking meds, hyperkalemia and hypothyroidism. HR improved today. 2. I wonder if his elevated TSH is related to Amiodarone therapy or predates initiation of the drug. 3. Cont to hold all AV blocking and BP meds for now. Midodrine initiated per nephrology. 4. Obtain echo. 5. His elevated Tn suggests type 2 NSTEMI, considering h/o NL coronaries in 2014. The patient has been seen in conjunction with Dr. Infante who agrees with the assessment and plan of care. - Patient Problems (1) Symptomatic bradycardia Current Visit: Yes Status: Acute (2) Lethargy Current Visit: Yes Status: Acute (3) Hyperkalemia Current Visit: Yes Status: Acute (4) Acute on chronic HFrEF (heart failure with reduced ejection fraction) Current Visit: Yes Status: Acute (5) Nonischemic cardiomyopathy Current Visit: Yes Status: Chronic (6) Non-STEMI (non-ST elevated myocardial infarction) Current Visit: Yes Status: Acute (7) COPD (chronic obstructive pulmonary disease) Current Visit: Yes Status: Chronic (8) Paroxysmal atrial flutter Current Visit: Yes Status: Chronic (9) ESRD (end stage renal disease) on dialysis Current Visit: Yes Status: Chronic (10) AICD (automatic cardioverter/defibrillator) present Current Visit: Yes Status: Chronic (11) Hypothyroidism Current Visit: Yes Status: Acute (12) Subtherapeutic international normalized ratio (INR) Current Visit: Yes Status: Acute (13) H/O: hypertension Current Visit: Yes Status: Chronic (14) Diabetes mellitus Current Visit: Yes Status: Chronic Qualifiers: Diabetes mellitus type: type 2 (15) HIV (human immunodeficiency virus infection) Current Visit: Yes Status: Chronic Subjective Date of service: 08/20/18 Principal diagnosis: Septic Shock; Symptomatic bradycardia; Acute encephalopathy Interval history: pt resting in bed, states he is feeling better today. in SR, HR 70s. Objective Last Vital Signs Temp 98.3 F 08/20/18 08:00 Pulse 75 08/20/18 08:45 Resp 24 08/20/18 08:45 BP 114/61 08/20/18 08:31 Pulse Ox 96 08/20/18 08:45 - Physical Examination General: No Apparent Distress HEENT: Positive: EOMI, Normocephaly, Mucus Membranes Moist Neck: Positive: neck supple, trachea midline, JVD/HJR (elevated) Cardiac: Positive: Reg Rate and Rhythm, S1/S2 Lungs: Positive: Decreased Breath Sounds Neuro: Positive: Other (Awake, oriented but lethargic) Abdomen: Positive: Soft, Active Bowel Sounds. Negative: Tender Skin: Negative: Rash Musculoskeletal: Normal Range of Motion Extremities: Absent: edema - Labs and Meds Coagulation 08/20/18 Range/Units 04:55 PT 25.7 H (12.2-14.9) Sec. INR 2.18 H (0.87-1.13) CBC 08/20/18 Range/Units 00:45 WBC 7.9 (4.5-11.0) K/mm3 RBC 4.48 (3.65-5.03) M/mm3 Hgb 12.8 (11.8-15.2) gm/dl Hct 40.8 (35.5-45.6) % Plt Count 248 (140-440) K/mm3 Comprehensive Metabolic Panel 08/19/18 08/20/18 Range/Units 21:15 00:45 Sodium 138 137 (137-145) mmol/L Potassium 3.9 D 3.9 (3.6-5.0) mmol/L Chloride 94.1 L 92.9 L (98-107) mmol/L Carbon Dioxide 30 D 30 (22-30) mmol/L BUN 21 H 22 H (9-20) mg/dL Creatinine 6.6 H 7.5 H (0.8-1.5) mg/dL Glucose 55 L 102 H (75-100) mg/dL Calcium 7.6 L 7.7 L (8.4-10.2) mg/dL - Imaging and Cardiology EKG: image reviewed - EKG Sinus rhythms and dysrhythmias: sinus rhythm AV and intraventricular conduction: right bundle branch block
[2018-08-20] MEDS ORDERED: VANCOMYCIN 1,250 MG in NACL 0.9% 250ML 250 ML IV ONE (12:30)
[2018-08-20] MEDS: ZOSYN/NS 2.25 GM/50ML 2.25 GM/50 ML BAG IV SCH ×2 (14:22→23:50)
--- NOTE | 2018-08-20 16:00 | Progress Note ---
Assessment and Plan Acute on chronic respiratory failure, due to CHF exacerbation and volume overload - cont supplemental O2, HD per renal hypotension, resolved - likely med induced, held BP meds, now off pressor, - started on empiric abx for possible underlying infection, ordered reyes cx - stop abx if cx negative Sinus bradycardia, resolved - med induced vs from hyperkalemia - held BP meds, treated for high K with meds and emergent HD Hyperkalemia, s/p insulin/d50/NaHCO3/calcium gluconate/kayexalate and HD - resolved ESRD, renal consulted, gets HD on // s/p emergent HD yesterday Paroxysmal Atrial flutter, on coumadin, INR subtherapeutic, placed on ranally dosed lovenox INR therapeutic today, will d/c lovenox CHF, Ef 15-20%- decompensated - currently on held coreg, ACEI for hypotension - s/p emergent HD for volume control DM type 2, cont on home dose of insulin HLD, on lipitor h/o HIV, cont ARV Elevated TSH - T4 level normal, could be amiodarone induced, held now DVT Px, coumadin/lovenox Brief History: Pt is a 63-year-old male with PMHx CAD, CHF, ESRD on HD Per EMS, HTN, COPD/asthma, hyperlipidemia, HIV, DM type 2, DVT, atrial flutter (on coumadin), chronic respiratory failure on home O2 who was brought to the ER by EMS for c/o generalized weakness after HD. Developed respiratory distress, toby cardia, hypotension, hyperkalemia following admission. Transferred to ICU, treated hyperkalemia, Placed on levophed, held BP meds, had emergent HD. Patient much more stable today, K level normalized, off levophed. Transfer to [facility], PT eval. Physical exam: General appearance: Present: mild distress, obese - EENT Eyes: PERRL, EOM intact ENT: hearing intact, clear oral mucosa Ears: bilateral: normal - Neck Neck: supple, normal ROM - Respiratory Respiratory effort: labored Respiratory: bilateral: rales, wheezing - Cardiovascular Rhythm: regular Heart Sounds: Present: S1 & S2. Absent: gallop, rub Extremities: pulses intact, normal color, Full ROM Extremity abnormal: edema - Gastrointestinal General gastrointestinal: Present: soft, non-tender, non-distended, normal bowel sounds - Integumentary Integumentary: clear, warm, dry - Musculoskeletal Musculoskeletal: generalized weakness - Neurologic Neurologic: moves all extremities - Psychiatric Psychiatric: cooperative Subjective Date of service: 08/20/18 Principal diagnosis: Septic Shock; Symptomatic bradycardia; Acute encephalopathy Interval history: patient seen and examined c/o generalized weakness resting on bed with n/c denies chest pain, but c/o SOB with minimal exertion Objective - Constitutional Vitals: Vital Signs - 12hr 08/20/18 08/20/18 08/20/18 04:00 04:10 04:20 Temperature 97.4 F L Pulse Rate 69 69 69 Pulse Rate [ Anterior Bilateral Throughout] Pulse Rate [ Bilateral Upper Lobe] Pulse Rate [ From Monitor] Respiratory 15 Rate Respiratory Rate [Anterior Bilateral Throughout] Respiratory Rate [Bilateral Upper Lobe] Blood Pressure 104/62 104/62 111/58 O2 Sat by Pulse 100 99 100 Oximetry 08/20/18 08/20/18 08/20/18 04:30 04:40 04:50 Temperature Pulse Rate 68 68 70 Pulse Rate [ Anterior Bilateral Throughout] Pulse Rate [ Bilateral Upper Lobe] Pulse Rate [ From Monitor] Respiratory Rate Respiratory Rate [Anterior Bilateral Throughout] Respiratory Rate [Bilateral Upper Lobe] Blood Pressure 105/60 105/60 105/58 O2 Sat by Pulse 99 99 99 Oximetry 08/20/18 08/20/18 08/20/18 04:56 05:00 05:10 Temperature Pulse Rate 70 70 69 Pulse Rate [ Anterior Bilateral Throughout] Pulse Rate [ Bilateral Upper Lobe] Pulse Rate [ From Monitor] Respiratory 20 Rate Respiratory Rate [Anterior Bilateral Throughout] Respiratory Rate [Bilateral Upper Lobe] Blood Pressure 105/58 112/61 112/61 O2 Sat by Pulse 99 99 98 Oximetry 08/20/18 08/20/18 08/20/18 05:20 05:30 05:40 Temperature Pulse Rate 70 70 71 Pulse Rate [ Anterior Bilateral Throughout] Pulse Rate [ Bilateral Upper Lobe] Pulse Rate [ From Monitor] Respiratory Rate Respiratory Rate [Anterior Bilateral Throughout] Respiratory Rate [Bilateral Upper Lobe] Blood Pressure 102/55 106/64 106/64 O2 Sat by Pulse 99 98 99 Oximetry 08/20/18 08/20/18 08/20/18 05:50 06:00 06:10 Temperature Pulse Rate 70 71 71 Pulse Rate [ Anterior Bilateral Throughout] Pulse Rate [ Bilateral Upper Lobe] Pulse Rate [ From Monitor] Respiratory Rate Respiratory Rate [Anterior Bilateral Throughout] Respiratory Rate [Bilateral Upper Lobe] Blood Pressure 107/61 106/61 106/61 O2 Sat by Pulse 99 99 98 Oximetry 08/20/18 08/20/18 08/20/18 06:20 06:30 06:40 Temperature Pulse Rate 73 73 72 Pulse Rate [ Anterior Bilateral Throughout] Pulse Rate [ Bilateral Upper Lobe] Pulse Rate [ From Monitor] Respiratory Rate Respiratory Rate [Anterior Bilateral Throughout] Respiratory Rate [Bilateral Upper Lobe] Blood Pressure 103/57 91/47 91/47 O2 Sat by Pulse 99 97 98 Oximetry 08/20/18 08/20/18 08/20/18 06:50 07:00 07:11 Temperature Pulse Rate 73 73 72 Pulse Rate [ Anterior Bilateral Throughout] Pulse Rate [ Bilateral Upper Lobe] Pulse Rate [ From Monitor] Respiratory Rate Respiratory Rate [Anterior Bilateral Throughout] Respiratory Rate [Bilateral Upper Lobe] Blood Pressure 97/50 106/67 97/50 O2 Sat by Pulse 98 97 97 Oximetry 08/20/18 08/20/18 08/20/18 07:21 07:30 07:41 Temperature Pulse Rate 71 71 69 Pulse Rate [ Anterior Bilateral Throughout] Pulse Rate [ Bilateral Upper Lobe] Pulse Rate [ From Monitor] Respiratory 16 17 20 Rate Respiratory Rate [Anterior Bilateral Throughout] Respiratory Rate [Bilateral Upper Lobe] Blood Pressure 104/60 102/55 106/67 O2 Sat by Pulse 98 98 99 Oximetry 08/20/18 08/20/18 08/20/18 07:51 08:00 08:11 Temperature 98.3 F Pulse Rate 71 71 71 Pulse Rate [ Anterior Bilateral Throughout] Pulse Rate [ Bilateral Upper Lobe] Pulse Rate [ 71 From Monitor] Respiratory 20 12 15 Rate Respiratory Rate [Anterior Bilateral Throughout] Respiratory Rate [Bilateral Upper Lobe] Blood Pressure 109/59 111/61 111/61 O2 Sat by Pulse 98 99 98 Oximetry 08/20/18 08/20/18 08/20/18 08:21 08:27 08:31 Temperature Pulse Rate 72 72 Pulse Rate [ Anterior Bilateral Throughout] Pulse Rate [ 75 Bilateral Upper Lobe] Pulse Rate [ From Monitor] Respiratory 20 17 Rate Respiratory Rate [Anterior Bilateral Throughout] Respiratory 23 Rate [Bilateral Upper Lobe] Blood Pressure 107/55 114/61 O2 Sat by Pulse 97 100 Oximetry 03/11/19 03/11/19 03/11/19 08:41 08:45 08:51 Temperature Pulse Rate 72 73 Pulse Rate [ 75 Anterior Bilateral Throughout] Pulse Rate [ Bilateral Upper Lobe] Pulse Rate [ From Monitor] Respiratory 13 19 Rate Respiratory 24 Rate [Anterior Bilateral Throughout] Respiratory Rate [Bilateral Upper Lobe] Blood Pressure 114/61 120/63 O2 Sat by Pulse 96 62 L Oximetry 08/20/18 08/20/18 08/20/18 09:01 09:11 09:21 Temperature Pulse Rate 73 74 72 Pulse Rate [ Anterior Bilateral Throughout] Pulse Rate [ Bilateral Upper Lobe] Pulse Rate [ From Monitor] Respiratory 16 17 22 Rate Respiratory Rate [Anterior Bilateral Throughout] Respiratory Rate [Bilateral Upper Lobe] Blood Pressure 91/46 91/46 95/42 O2 Sat by Pulse 97 93 95 Oximetry 08/20/18 08/20/18 08/20/18 09:31 09:41 09:51 Temperature Pulse Rate 73 73 Pulse Rate [ Anterior Bilateral Throughout] Pulse Rate [ Bilateral Upper Lobe] Pulse Rate [ From Monitor] Respiratory 15 20 22 Rate Respiratory Rate [Anterior Bilateral Throughout] Respiratory Rate [Bilateral Upper Lobe] Blood Pressure 124/56 124/56 130/47 O2 Sat by Pulse 95 95 96 Oximetry 08/20/18 08/20/18 08/20/18 10:00 10:11 10:21 Temperature Pulse Rate 73 74 76 Pulse Rate [ Anterior Bilateral Throughout] Pulse Rate [ Bilateral Upper Lobe] Pulse Rate [ From Monitor] Respiratory 18 15 13 Rate Respiratory Rate [Anterior Bilateral Throughout] Respiratory Rate [Bilateral Upper Lobe] Blood Pressure 119/66 119/66 112/61 O2 Sat by Pulse 95 98 93 Oximetry 08/20/18 08/20/18 08/20/18 10:31 10:41 10:51 Temperature Pulse Rate 74 72 73 Pulse Rate [ Anterior Bilateral Throughout] Pulse Rate [ Bilateral Upper Lobe] Pulse Rate [ From Monitor] Respiratory 12 9 L 19 Rate Respiratory Rate [Anterior Bilateral Throughout] Respiratory Rate [Bilateral Upper Lobe] Blood Pressure 128/72 128/72 121/72 O2 Sat by Pulse 92 96 97 Oximetry 08/20/18 08/20/18 08/20/18 11:01 11:11 11:21 Temperature Pulse Rate 71 71 72 Pulse Rate [ Anterior Bilateral Throughout] Pulse Rate [ Bilateral Upper Lobe] Pulse Rate [ From Monitor] Respiratory 14 20 13 Rate Respiratory Rate [Anterior Bilateral Throughout] Respiratory Rate [Bilateral Upper Lobe] Blood Pressure 116/62 116/62 116/62 O2 Sat by Pulse 96 96 96 Oximetry 08/20/18 08/20/18 08/20/18 11:31 11:41 11:51 Temperature Pulse Rate 71 71 71 Pulse Rate [ Anterior Bilateral Throughout] Pulse Rate [ Bilateral Upper Lobe] Pulse Rate [ From Monitor] Respiratory 14 20 12 Rate Respiratory Rate [Anterior Bilateral Throughout] Respiratory Rate [Bilateral Upper Lobe] Blood Pressure 120/62 120/62 120/62 O2 Sat by Pulse 94 94 97 Oximetry 08/20/18 08/20/18 08/20/18 12:00 12:11 12:13 Temperature 98.3 F Pulse Rate 71 71 Pulse Rate [ Anterior Bilateral Throughout] Pulse Rate [ 72 Bilateral Upper Lobe] Pulse Rate [ 71 From Monitor] Respiratory 17 18 Rate Respiratory Rate [Anterior Bilateral Throughout] Respiratory 22 Rate [Bilateral Upper Lobe] Blood Pressure 110/60 110/60 O2 Sat by Pulse 95 95 Oximetry 08/20/18 08/20/18 08/20/18 12:21 12:28 12:31 Temperature Pulse Rate 72 71 Pulse Rate [ 73 Anterior Bilateral Throughout] Pulse Rate [ Bilateral Upper Lobe] Pulse Rate [ From Monitor] Respiratory 17 15 Rate Respiratory 22 Rate [Anterior Bilateral Throughout] Respiratory Rate [Bilateral Upper Lobe] Blood Pressure 110/60 116/69 O2 Sat by Pulse 99 96 Oximetry 08/20/18 08/20/18 08/20/18 12:41 12:51 13:00 Temperature Pulse Rate 73 72 71 Pulse Rate [ Anterior Bilateral Throughout] Pulse Rate [ Bilateral Upper Lobe] Pulse Rate [ From Monitor] Respiratory 17 14 13 Rate Respiratory Rate [Anterior Bilateral Throughout] Respiratory Rate [Bilateral Upper Lobe] Blood Pressure 116/69 116/69 105/56 O2 Sat by Pulse 97 95 95 Oximetry 08/20/18 08/20/18 08/20/18 13:11 13:21 13:30 Temperature Pulse Rate 71 72 71 Pulse Rate [ Anterior Bilateral Throughout] Pulse Rate [ Bilateral Upper Lobe] Pulse Rate [ From Monitor] Respiratory 12 16 14 Rate Respiratory Rate [Anterior Bilateral Throughout] Respiratory Rate [Bilateral Upper Lobe] Blood Pressure 105/56 105/56 111/59 O2 Sat by Pulse 96 95 95 Oximetry 08/20/18 08/20/18 08/20/18 13:41 13:51 14:00 Temperature Pulse Rate 71 73 72 Pulse Rate [ Anterior Bilateral Throughout] Pulse Rate [ Bilateral Upper Lobe] Pulse Rate [ From Monitor] Respiratory 12 18 14 Rate Respiratory Rate [Anterior Bilateral Throughout] Respiratory Rate [Bilateral Upper Lobe] Blood Pressure 111/59 105/56 118/65 O2 Sat by Pulse 95 94 96 Oximetry 08/20/18 08/20/18 08/20/18 14:11 14:21 14:30 Temperature Pulse Rate 72 72 73 Pulse Rate [ Anterior Bilateral Throughout] Pulse Rate [ Bilateral Upper Lobe] Pulse Rate [ From Monitor] Respiratory 16 13 15 Rate Respiratory Rate [Anterior Bilateral Throughout] Respiratory Rate [Bilateral Upper Lobe] Blood Pressure 118/65 118/65 125/71 O2 Sat by Pulse 93 93 95 Oximetry 08/20/18 08/20/18 08/20/18 14:41 14:51 15:00 Temperature Pulse Rate 75 73 73 Pulse Rate [ Anterior Bilateral Throughout] Pulse Rate [ Bilateral Upper Lobe] Pulse Rate [ From Monitor] Respiratory 16 16 14 Rate Respiratory Rate [Anterior Bilateral Throughout] Respiratory Rate [Bilateral Upper Lobe] Blood Pressure 125/71 125/71 127/68 O2 Sat by Pulse 94 94 96 Oximetry - Labs CBC & Chem 7: 08/20/18 00:45 08/20/18 00:45 Labs: Abnormal lab results 08/19/18 08/19/18 08/19/18 Range/Units 21:15 21:15 22:10 MCHC (32-34) % RDW (13.2-15.2) % PT (12.2-14.9) Sec. INR (0.87-1.13) Chloride 94.1 L (98-107) mmol/L BUN 21 H (9-20) mg/dL Creatinine 6.6 H (0.8-1.5) mg/dL Glucose 55 L (75-100) mg/dL POC Glucose 62 L (70-105) Calcium 7.6 L (8.4-10.2) mg/dL C-Reactive Protein 3.60 H (0.00-1.30) mg/dL 08/20/18 08/20/18 08/20/18 Range/Units 00:45 00:45 04:55 MCHC 31 L (32-34) % RDW 21.5 H (13.2-15.2) % PT 25.7 H (12.2-14.9) Sec. INR 2.18 H (0.87-1.13) Chloride 92.9 L (98-107) mmol/L BUN 22 H (9-20) mg/dL Creatinine 7.5 H (0.8-1.5) mg/dL Glucose 102 H (75-100) mg/dL POC Glucose (70-105) Calcium 7.7 L (8.4-10.2) mg/dL C-Reactive Protein (0.00-1.30) mg/dL
[2018-08-20] MEDS: COUMADIN PO SCH (18:31)
[2018-08-21] MEDS: ZOSYN/NS 2.25 GM/50ML 2.25 GM/50 ML BAG IV SCH ×3 (05:57→22:15)
[2018-08-21] MEDS: TESSALON PERLES PO SCH ×3 (05:57→22:12)
[2018-08-21 06:51] LABS: Mean Corpuscular HGB Conc 31 % (32-34); Mean Corpuscular Volume 91 fl (84-94); Platelet Count 238 K/mm3 (140-440); Red Blood Count 4.19 M/mm3 (3.65-5.03)
[2018-08-21 07:00] LABS: Hemoglobin 11.6 gm/dl (11.8-15.2); Red Cell Distribution Width 22.1 % (13.2-15.2)
[2018-08-21 07:02] LABS: INR 2.49 (0.87-1.13)
[2018-08-21 07:15] LABS: Calcium 7.6 mg/dL (8.4-10.2)
[2018-08-21 07:58] LABS: Anisocytosis 1+; Basophils % (Manual) 0 % (0.0-1.8); Total Cells Counted 100
[2018-08-21 07:59] LABS: Hypochromasia 1+; Target Cells Few
[2018-08-21] MEDS: ATARAX PO SCH ×3 (08:51→21:45)
[2018-08-21] MEDS: LOPID PO SCH ×2 (09:04→22:12)
[2018-08-21] MEDS ORDERED: NACL 0.9% 100 ML IV PRN (09:37)
--- NOTE | 2018-08-21 09:40 | Progress Note ---
Subjective Principal diagnosis: Septic Shock; Symptomatic bradycardia; Acute encephalopathy Interval history: Patient was seen today for follow-up on multiple renal related issues Doing better transferred out to floor willing to do dialysis today Potassium has normalized Vitals labs intake output medications were reviewed Social history: Reviewed Allergies: Reviewed Family history: Reviewed Physical examination HEENT: Oral mucosa moist no pallor or icterus Neck: Supple no JVD Chest: Few bilateral crackles, much better CVS: Regular rate and rhythm S1 and S2 heard Abdomen: Soft nontender no suprapubic masses no organomegaly appreciable Extremity: Dry skin less than 1+ peripheral edema Musculoskeletal: No joint effusion noted in knees and ankle Neurological: Alert awake Dermatology: No petechial rashes Psychiatry: No evidence of any agitation and aggression noted Assessment and plan ESRD: Continue with hemodialysis now on Monday, advised to comply with treatment, discussed about noncompliance Hypotension: Currently doing better Strong competent of noncompliance with diet fluid sodium and potassium: Consequences explained including mortality risk to the as well as patient this admission Volume overload much better Place him on hemodialysis 3 times a week Hyperkalemia resolved in fact he will require 3.0 potassium bath Not a suitable candidate for DIOR inhibitor or angiotensin receptor caity even though his health requires we cannot give him due to noncompliance Prognosis is guarded to poor will depend on how involved patient is at his health Mortality risk is high, patient as well as has been educated about all the renal related issues this admission Follow-up with his senior game advisor within a week to prevent further hospitalizations We'll continue to follow and make recommendation from renal standpoint Objective - Vital Signs Vital signs: Vital Signs - 12hr 08/20/18 08/20/18 08/21/18 22:00 23:59 00:59 Temperature 98.0 F Pulse Rate 83 79 83 Respiratory 18 21 Rate Blood Pressure 103/58 O2 Sat by Pulse 85 97 Oximetry 08/21/18 08/21/18 08/21/18 04:13 05:24 09:04 Temperature 98.0 F 97.0 F L Pulse Rate 77 79 Respiratory 20 20 Rate Blood Pressure 139/87 131/79 O2 Sat by Pulse 100 97 97 Oximetry - Lab 08/21/18 Unknown 08/21/18 Unknown Most recent lab results Calcium 7.6 mg/dL (8.4-10.2) L 08/21/18 Unknown Magnesium 2.40 mg/dL (1.7-2.3) H 08/17/18 13:25 Medications & Allergies - Medications Allergies/Adverse Reactions: Allergies sulfamethoxazole [From Bactrim] Allergy (Verified 08/28/17 08:46) Anaphylaxis trimethoprim [From Bactrim] Allergy (Verified 08/28/17 08:46) Anaphylaxis Home Medications: Home Medications Medication Instructions Recorded Confirmed Last Taken Type Albuterol Sulfate [Ventolin HFA] 2 puff IH QID PRN 09/09/16 08/17/18 01/27/17 History amLODIPine [Norvasc] 10 mg PO DAILY 09/09/16 08/17/18 03/12/17 History Gabapentin [Neurontin] 300 mg PO BID 11/22/16 08/17/18 08/28/17 History PARoxetine HCl [PARoxetine] 40 mg PO DAILY #30 tablet 04/07/17 08/17/18 Unknown Rx ALBUTEROL NEB's [Proventil 0.083% 2.5 mg IH Q6H PRN 07/21/17 08/17/18 Unknown History NEBS] Budesonide/Formoterol Fumarate 2 puff IH BID 07/21/17 08/17/18 Unknown History [Symbicort 160-4.5 Mcg Inhaler] Ferric Citrate (Nf) [Auryxia (Nf)] 3 tab PO QID 07/21/17 08/17/18 Unknown History Fluticasone [Flonase] 2 sprays NS QDAY 07/21/17 08/17/18 Unknown History Gemfibrozil [Lopid] 600 mg PO BID 07/21/17 08/17/18 Unknown History Ipratropium/Albuterol Sulfate 1 spray IH QID 07/21/17 08/17/18 Unknown History [Combivent Respimat] Nitroglycerin [Nitrostat] 0.4 mg SL Q5M PRN 07/21/17 08/17/18 08/28/17 History traZODone [Desyrel] 50 mg PO QHS 07/21/17 08/17/18 Unknown History Amiodarone [Cordarone 200 MG TAB] 200 mg PO BID #60 tablet 07/26/17 08/17/18 Unknown Rx AtorvaSTATin [Lipitor] 20 mg PO QHS #30 tablet 07/26/17 08/17/18 Unknown Rx Warfarin [Coumadin] 7.5 mg PO QDAY #30 tablet 05/23/18 08/17/18 Unknown Rx Carvedilol 25 mg PO QAM 08/17/18 08/17/18 Unknown History Carvedilol 50 mg PO QPM 08/17/18 08/17/18 Unknown History Darunavir/Cobicistat [Prezcobix 1 each PO DAILY 08/17/18 08/17/18 Unknown History 800 mg-150 mg Tablet] Ergocalciferol [Vitamin D2] 1 cap PO QWEEK 08/17/18 08/17/18 Unknown History Etravirine [Intelence] 200 mg PO BID 08/17/18 08/17/18 Unknown History Insulin Aspart [NovoLOG Flexpen] 5 units SQ AC 08/17/18 08/17/18 Unknown History Insulin Glargine,Hum.rec.anlog 10 units SQ QHS 08/17/18 08/17/18 Unknown History [Lantus] Losartan [Cozaar] 25 mg PO QDAY 08/17/18 08/17/18 Unknown History [place]-3 Acid Ethyl Esters [Lovaza] 2 gm PO BID 08/17/18 08/17/18 Unknown History Raltegravir Potassium [Isentress] 400 mg PO BID 08/17/18 08/17/18 Unknown History Rosuvastatin (Nf) [Crestor] 10 mg PO QHS 08/17/18 08/17/18 Unknown History dilTIAZem [CarDIZEM] 60 mg PO QID 08/17/18 08/17/18 Unknown History hydrOXYzine HCl [Hydroxyzine HCl] 25 mg PO TID 08/17/18 08/17/18 Unknown History Active Medications: Generic Name Dose Route Start Last Admin Trade Name Freq PRN Reason Stop Dose Admin Acetaminophen 650 mg 08/18/18 00:20 Tylenol PO Q4H PRN Pain MILD(1-3)/Fever >100.5/BA Albuterol 2.5 mg 08/18/18 06:02 Proventil IH Q6HRT PRN Shortness Of Breath Albuterol/Ipratropium 1 ampul 08/18/18 08:00 08/20/18 21:30 Duoneb *Not For Prn Use* IH Not Given QIDRT TRICIA Arformoterol Tartrate 15 mcg 08/18/18 08:00 08/20/18 21:30 Brovana Nebu IH Not Given Q12HRT [facility] Atorvastatin Calcium 20 mg 08/18/18 22:00 08/20/18 22:55 Lipitor PO 20 mg QHS TRICIA Administration Benzonatate 200 mg 08/18/18 14:00 08/21/18 05:57 Tessalon Perles PO 200 mg Q8HR TRICIA Administration Budesonide 0.5 mg 08/18/18 08:00 08/20/18 21:30 Pulmicort IH Not Given Q12HRT TRICIA Ergocalciferol 50,000 unit 08/19/18 10:00 08/19/18 17:01 Vitamin D2 PO Not Given [facility] Famotidine 10 mg 08/19/18 16:00 08/20/18 09:13 Pepcid PO 10 mg DAILY TRICIA Administration Fish Oil 2,000 mg 08/18/18 10:00 08/20/18 22:55 Fish Oil PO 2,000 mg BID TRICIA Administration Fluticasone Propionate 100 mcg 08/18/18 10:00 08/20/18 09:11 Flonase NS 100 mcg QDAY TRICIA Administration Gabapentin 200 mg 08/20/18 10:00 08/20/18 22:55 Neurontin PO 200 mg BID TRICIA Administration Gemfibrozil 600 mg 08/18/18 10:00 08/20/18 22:55 Lopid PO 600 mg BID TRICIA Administration Hydroxyzine HCl 25 mg 08/18/18 08:00 08/20/18 22:20 Atarax PO 25 mg TID TRICIA Administration Sodium Chloride 100 mls @ 999 mls/hr 08/19/18 11:59 Nacl 0.9% IV SIENA PRN Hypotension Piperacillin Sod/Tazobactam Sod 2.25 gm in 50 mls @ 100 mls/hr 08/20/18 14:00 08/21/18 05:57 Zosyn/Ns 2.25 Gm/50ml IV 100 mls/hr Q8HR TRICIA Administration Sodium Chloride 100 mls @ 999 mls/hr 08/21/18 09:37 Nacl 0.9% IV SIENA PRN Hypotension Miscellaneous Medication 1 each 08/18/18 10:00 Darunavir/Cobicistat [Prezcobix 800 Mg-150 Mg Tablet] PO DAILY [facility] Miscellaneous Medication 200 mg 08/18/18 10:00 Etravirine [Intelence] PO BID [facility] Miscellaneous Medication 3 tab 08/18/18 10:00 Ferric Citrate PO QID [facility] Ondansetron HCl 4 mg 08/18/18 00:20 Zofran IV Q8H PRN Nausea And Vomiting Raltegravir 400 mg 08/18/18 10:00 Isentress PO BID [facility] Warfarin Sodium 4 mg 08/20/18 17:00 08/20/18 18:31 Coumadin PO 4 mg DAILY@1700 [facility] Administration Protocol
[2018-08-21] MEDS: BROVANA NEBU IH SCH ×2 (09:53→20:35)
[2018-08-21] MEDS: PULMICORT IH SCH ×2 (09:53→20:35)
[2018-08-21] MEDS: DUONEB *Not for PRN Use IH SCH ×4 (09:54→20:35)
[2018-08-21] MEDS: FISH OIL PO SCH ×2 (10:05→22:12)
--- NOTE | 2018-08-21 11:14 | Progress Note ---
Assessment and Plan Assessment and plan: Acute on chronic respiratory failure, due to CHF exacerbation and volume overload - cont supplemental O2, HD per renal hypotension, resolved - likely med induced, held BP meds, now off pressor, - started on empiric abx for possible underlying infection, - stop abx if cx negative Sinus bradycardia, resolved - med induced vs from hyperkalemia - held BP meds, treated for high K with meds and emergent HD Hyperkalemia, s/p insulin/d50/NaHCO3/calcium gluconate/kayexalate and HD - resolved ESRD, renal consulted, gets HD on M/W/F s/p emergent HD yesterday Paroxysmal Atrial flutter, on coumadin, INR subtherapeutic, placed on ranally dosed lovenox INR therapeutic today, will d/c lovenox Metabolic encephalopathy neurochecks CHF, Ef 15-20%- decompensated - currently on held coreg, ACEI for hypotension - s/p emergent HD for volume control DM type 2, cont on home dose of insulin HLD, on lipitor h/o HIV, cont ARV Elevated TSH - T4 level normal, could be amiodarone induced, held now DVT Px, coumadin/lovenox History Interval history: feels better confused No chest pain Hospitalist Physical - Physical exam Narrative exam: GEN: Not in acute distress, lying in bed HEENT: Normocephalic, atraumatic, Neck: supple, No JVD Lungs: Clear to auscultation bilat, no crackles, no wheeze Abd:soft, non tender, non distended, normal bowel sounds Ext: No edema, no clubbing, no cyanosis Neuro:Awake,alert, confused, moves all ext Skin:No rash Psych: normal mood - Constitutional Vitals: Temp Pulse Resp BP Pulse Ox 97.0 F L 77 18 131/79 99 08/21/18 09:04 08/21/18 10:09 08/21/18 10:09 08/21/18 09:04 08/21/18 09:56 Results - Labs CBC & Chem 7: 08/21/18 Unknown 08/21/18 Unknown Labs: Laboratory Last Values WBC 6.3 K/mm3 (4.5-11.0) 08/21/18 Unknown RBC 4.19 M/mm3 (3.65-5.03) 08/21/18 Unknown Hgb 11.6 gm/dl (11.8-15.2) L 08/21/18 Unknown Hct 38.0 % (35.5-45.6) 08/21/18 Unknown MCV 91 fl (84-94) 08/21/18 Unknown MCH 28 pg (28-32) 08/21/18 Unknown MCHC 31 % (32-34) L 08/21/18 Unknown RDW 22.1 % (13.2-15.2) H 08/21/18 Unknown Plt Count 238 K/mm3 (140-440) 08/21/18 Unknown Lymph % (Auto) 22.9 % (13.4-35.0) 08/17/18 13:25 [place] % (Auto) Drawing Instructor 08/21/18 Unknown Eos % (Auto) 3.3 % (0.0-4.3) 08/17/18 13:25 Baso % (Auto) 1.6 % (0.0-1.8) 08/17/18 13:25 Lymph # 1.9 K/mm3 (1.2-5.4) 08/17/18 13:25 [place] # 1.3 K/mm3 (0.0-0.8) H 08/17/18 13:25 Eos # 0.3 K/mm3 (0.0-0.4) 08/17/18 13:25 Baso # 0.1 K/mm3 (0.0-0.1) 08/17/18 13:25 Add Manual Diff Complete 08/21/18 Unknown Total Counted 100 08/21/18 Unknown Seg Neutrophils % 57.0 % (40.0-70.0) 08/17/18 13:25 Seg Neuts % (Manual) 67.0 % (40.0-70.0) 08/21/18 Unknown Band Neutrophils % 0 % 08/21/18 Unknown Lymphocytes % (Manual) 14.0 % (13.4-35.0) 08/21/18 Unknown Reactive Lymphs % (Man) 0 % 08/21/18 Unknown Monocytes % (Manual) 14.0 % (0.0-7.3) H 08/21/18 Unknown Eosinophils % (Manual) 3.0 % (0.0-4.3) 08/21/18 Unknown Basophils % (Manual) 0 % (0.0-1.8) 08/21/18 Unknown Metamyelocytes % 2.0 % 08/21/18 Unknown Myelocytes % 0 % 08/21/18 Unknown Promyelocytes % 0 % 08/21/18 Unknown Blast Cells % 0 % 08/21/18 Unknown Nucleated RBC % Not Reportable 08/21/18 Unknown Seg Neutrophils # 4.8 K/mm3 (1.8-7.7) 08/17/18 13:25 Seg Neutrophils # Man 4.2 K/mm3 (1.8-7.7) 08/21/18 Unknown Band Neutrophils # 0.0 K/mm3 08/21/18 Unknown Lymphocytes # (Manual) 0.9 K/mm3 (1.2-5.4) L 08/21/18 Unknown Abs React Lymphs (Man) 0.0 K/mm3 08/21/18 Unknown Monocytes # (Manual) 0.9 K/mm3 (0.0-0.8) H 08/21/18 Unknown Eosinophils # (Manual) 0.2 K/mm3 (0.0-0.4) 08/21/18 Unknown Basophils # (Manual) 0.0 K/mm3 (0.0-0.1) 08/21/18 Unknown Metamyelocytes # 0.1 K/mm3 08/21/18 Unknown Myelocytes # 0.0 K/mm3 08/21/18 Unknown Promyelocytes # 0.0 K/mm3 08/21/18 Unknown Blast Cells # 0.0 K/mm3 08/21/18 Unknown WBC Morphology Not Reportable 08/21/18 Unknown Hypersegmented Neuts Not Reportable 08/21/18 Unknown Hyposegmented Neuts Not Reportable 08/21/18 Unknown Hypogranular Neuts Not Reportable 08/21/18 Unknown Smudge Cells Not Reportable 08/21/18 Unknown Toxic Granulation Not Reportable 08/21/18 Unknown Toxic Vacuolation Not Reportable 08/21/18 Unknown Dohle Bodies Not Reportable 08/21/18 Unknown Pelger-Huet Anomaly Not Reportable 08/21/18 Unknown Carmen Rods Not Reportable 08/21/18 Unknown Platelet Estimate Appears normal 08/21/18 Unknown Clumped Platelets Not Reportable 08/21/18 Unknown Plt Clumps, EDTA Not Reportable 08/21/18 Unknown Large Platelets Not Reportable 08/21/18 Unknown Giant Platelets Not Reportable 08/21/18 Unknown Platelet Satelliting Not Reportable 08/21/18 Unknown Plt Morphology Comment Not Reportable 08/21/18 Unknown RBC Morphology Not Reportable 08/21/18 Unknown Dimorphic RBCs Not Reportable 08/21/18 Unknown Polychromasia Few 08/21/18 Unknown Hypochromasia 1+ 08/21/18 Unknown Poikilocytosis Not Reportable 08/21/18 Unknown Anisocytosis 1+ 08/21/18 Unknown Microcytosis Not Reportable 08/21/18 Unknown Macrocytosis Not Reportable 08/21/18 Unknown Spherocytes Not Reportable 08/21/18 Unknown Pappenheimer Bodies Not Reportable 08/21/18 Unknown Sickle Cells Not Reportable 08/21/18 Unknown Target Cells Few 08/21/18 Unknown Tear Drop Cells Not Reportable 08/21/18 Unknown Ovalocytes Not Reportable 08/21/18 Unknown Helmet Cells Not Reportable 08/21/18 Unknown Villalobos-Stewardson Bodies Not Reportable 08/21/18 Unknown Aneta Rings Not Reportable 08/21/18 Unknown Callao Cells Not Reportable 08/21/18 Unknown Bite Cells Not Reportable 08/21/18 Unknown Crenated Cell Not Reportable 08/21/18 Unknown Elliptocytes Not Reportable 08/21/18 Unknown Acanthocytes (Spur) Not Reportable 08/21/18 Unknown Rouleaux Not Reportable 08/21/18 Unknown Hemoglobin C Crystals Not Reportable 08/21/18 Unknown Schistocytes Not Reportable 08/21/18 Unknown Malaria parasites Not Reportable 08/21/18 Unknown Kendrick Bodies Not Reportable 08/21/18 Unknown Hem Pathologist Commnt No 08/21/18 Unknown PT 28.6 Sec. (12.2-14.9) H 08/21/18 Unknown INR 2.49 (0.87-1.13) H 08/21/18 Unknown APTT 33.6 Sec. (24.2-36.6) 08/17/18 13:25 POC ABG pH 7.265 (7.35-7.45) L 08/19/18 15:24 POC ABG pCO2 52.5 (35-45) H 08/19/18 15:24 POC ABG pO2 68 (80-105) L 08/19/18 15:24 POC ABG HCO3 23.8 08/19/18 15:24 POC ABG Total CO2 25 08/19/18 15:24 POC ABG O2 Sat 90 08/19/18 15:24 POC ABG Base Excess -3 08/19/18 15:24 FiO2 50 % 08/19/18 15:24 Sodium 135 mmol/L (137-145) L 08/21/18 Unknown Potassium 3.7 mmol/L (3.6-5.0) 08/21/18 Unknown Chloride 95.6 mmol/L (98-107) L 08/21/18 Unknown Carbon Dioxide 27 mmol/L (22-30) 08/21/18 Unknown Anion Gap 16 mmol/L 08/21/18 Unknown BUN 30 mg/dL (9-20) H 08/21/18 Unknown Creatinine 8.9 mg/dL (0.8-1.5) H 08/21/18 Unknown Estimated GFR 7 ml/min 08/21/18 Unknown BUN/Creatinine Ratio 3 % 08/21/18 Unknown Glucose 90 mg/dL (75-100) 08/21/18 Unknown POC Glucose 62 (70-105) L 08/19/18 22:10 Lactic Acid 1.50 mmol/L (0.7-2.0) 08/19/18 21:15 Calcium 7.6 mg/dL (8.4-10.2) L 08/21/18 Unknown Magnesium 2.40 mg/dL (1.7-2.3) H 08/17/18 13:25 Total Bilirubin 1.50 mg/dL (0.1-1.2) H 08/17/18 13:25 AST 21 units/L (5-40) 08/17/18 13:25 ALT 10 units/L (7-56) 08/17/18 13:25 Alkaline Phosphatase 104 units/L (35-129) 08/17/18 13:25 Ammonia 45.0 umol/L (25-60) 08/17/18 13:25 Total Creatine Kinase 29 units/L (55-170) L 08/17/18 13:25 CK-MB (CK-2) 1.7 ng/mL (0.0-4.0) 08/17/18 13:25 CK-MB (CK-2) Rel Index 5.8 (0-4) H 08/17/18 13:25 Troponin T 0.167 ng/mL (0.00-0.029) H* 08/19/18 11:49 C-Reactive Protein 3.60 mg/dL (0.00-1.30) H 08/19/18 21:15 NT-Pro-B Natriuret Pep 743943 pg/mL (0-900) H 08/19/18 05:58 Total Protein 8.0 g/dL (6.3-8.2) 08/17/18 13:25 Albumin 3.4 g/dL (3.9-5) L 08/17/18 13:25 Albumin/Globulin Ratio 0.7 % 08/17/18 13:25 Triglycerides 90 mg/dL (2-149) 08/17/18 13:25 Cholesterol 88 mg/dL (50-199) 08/17/18 13:25 LDL Cholesterol Direct 48 mg/dL (50-130) L 08/17/18 13:25 HDL Cholesterol 23 mg/dL (40-59) L 08/17/18 13:25 Cholesterol/HDL Ratio 3.82 % 08/17/18 13:25 TSH 10.880 mlU/mL (0.270-4.200) H 08/17/18 13:25 Free T4 1.22 ng/dL (0.76-1.46) 08/17/18 13:25 Plasma/Serum Alcohol < 0.01 % (0-0.07) 08/17/18 13:25 Nutrition/Malnutrition Assess - Dietary Evaluation Nutrition/Malnutrition Findings: Nutrition Notes Start: 08/20/18 16:17 Freq: Status: Active Protocol: Document 08/20/18 16:17 [facility] (Rec: 08/20/18 16:18 [facility] [id number]) Nutrition Notes Need for Assessment generated from: Education Initial or Follow up Brief Note Pertinent Medications Coumadin Subjective/Other Information Pt receiving PT at time of visit (11:26). Nutrition Intervention Follow-Up By: 08/21/18 Additional Comments F/U: DNI education needs
--- NOTE | 2018-08-21 11:51 | Progress Note ---
Assessment and Plan Echo reviewed - EF 25-30%, LA and RA mildly dilated, mild to mod LVH, pseudonormalization, RV mod dilated. His toby-arrhythmia is probably multifactorial in origin including the effect of multiple AV blocking meds, hyperkalemia and hypothyroidism. HR and BPs improved. Serum K+ WNL. Resume coreg and losartan at low doses. Would not resume home amio or cardizem. In setting of elevated troponins, plan for lexiscan MPI stress test in AM. NPO after MN. The patient has been seen in conjunction with Dr. Infante who agrees with the assessment and plan of care. - Patient Problems (1) Symptomatic bradycardia Current Visit: Yes Status: Acute (2) Lethargy Current Visit: Yes Status: Acute (3) Hyperkalemia Current Visit: Yes Status: Acute (4) Acute on chronic HFrEF (heart failure with reduced ejection fraction) Current Visit: Yes Status: Acute (5) Nonischemic cardiomyopathy Current Visit: Yes Status: Chronic (6) Non-STEMI (non-ST elevated myocardial infarction) Current Visit: Yes Status: Acute (7) COPD (chronic obstructive pulmonary disease) Current Visit: Yes Status: Chronic (8) Paroxysmal atrial flutter Current Visit: Yes Status: Chronic (9) ESRD (end stage renal disease) on dialysis Current Visit: Yes Status: Chronic (10) AICD (automatic cardioverter/defibrillator) present Current Visit: Yes Status: Chronic (11) Hypothyroidism Current Visit: Yes Status: Acute (12) Subtherapeutic international normalized ratio (INR) Current Visit: Yes Status: Acute (13) H/O: hypertension Current Visit: Yes Status: Chronic (14) Diabetes mellitus Current Visit: Yes Status: Chronic Qualifiers: Diabetes mellitus type: type 2 (15) HIV (human immunodeficiency virus infection) Current Visit: Yes Status: Chronic Subjective Date of service: 08/21/18 Principal diagnosis: Septic Shock; Symptomatic bradycardia; Acute encephalopathy Interval history: pt resting in bed, c/o generalized weakness. in SR on tele. Objective Last Vital Signs Temp 97.0 F L 08/21/18 09:04 Pulse 77 08/21/18 10:09 Resp 18 08/21/18 10:09 BP 131/79 08/21/18 09:04 Pulse Ox 99 08/21/18 09:56 - Physical Examination General: No Apparent Distress HEENT: Positive: EOMI, Normocephaly, Mucus Membranes Moist Neck: Positive: neck supple, trachea midline, JVD/HJR (elevated) Cardiac: Positive: Reg Rate and Rhythm, S1/S2 Lungs: Positive: Decreased Breath Sounds Neuro: Positive: Other (Awake, oriented but lethargic) Abdomen: Positive: Soft, Active Bowel Sounds. Negative: Tender Skin: Negative: Rash Musculoskeletal: Normal Range of Motion Extremities: Absent: edema - Labs and Meds Coagulation 08/21/18 Range/Units Unknown PT 28.6 H (12.2-14.9) Sec. INR 2.49 H (0.87-1.13) CBC 08/21/18 Range/Units Unknown WBC 6.3 (4.5-11.0) K/mm3 RBC 4.19 (3.65-5.03) M/mm3 Hgb 11.6 L (11.8-15.2) gm/dl Hct 38.0 (35.5-45.6) % Plt Count 238 (140-440) K/mm3 Comprehensive Metabolic Panel 08/21/18 Range/Units Unknown Sodium 135 L (137-145) mmol/L Potassium 3.7 (3.6-5.0) mmol/L Chloride 95.6 L (98-107) mmol/L Carbon Dioxide 27 (22-30) mmol/L BUN 30 H (9-20) mg/dL Creatinine 8.9 H (0.8-1.5) mg/dL Glucose 90 (75-100) mg/dL Calcium 7.6 L (8.4-10.2) mg/dL - Imaging and Cardiology EKG: image reviewed - EKG Sinus rhythms and dysrhythmias: sinus rhythm AV and intraventricular conduction: right bundle branch block
[2018-08-21] MEDS: NEURONTIN PO SCH ×2 (14:03→22:12)
[2018-08-21] MEDS ORDERED: NACL 0.9 (PRIMING MACHINE ONLY DIALYSIS) MC ONE (14:44)
[2018-08-21] MEDS: PEPCID PO SCH (15:03)
[2018-08-21] MEDS ORDERED: BENADRYL IV PRN (17:00)
[2018-08-21] MEDS: COUMADIN PO SCH (17:03)
[2018-08-21] MEDS: FLONASE NS SCH (17:05)
--- NOTE | 2018-08-21 18:02 | Progress Note ---
Assessment and Plan Patient sleeping on 3 litres O2.O2 saturation 97%. No acute respiratory distress at rest. - Patient Problems (1) Acute on chronic HFrEF (heart failure with reduced ejection fraction) Current Visit: Yes Status: Acute Plan to address problem: Management as per cardiology. (2) AICD (automatic cardioverter/defibrillator) present Current Visit: Yes Status: Chronic Plan to address problem: Followed by the cardiology. (3) COPD (chronic obstructive pulmonary disease) Current Visit: Yes Status: Chronic Plan to address problem: O2 3 litres via nasal canula. Albuterol/atrovent aerosol treatments q 6 hours prn for shortness of breath. Brovanna/Budesonide aerosol treatments q 12 hours. Patient is on Warfarin. Continue famotidine. (4) Diabetes mellitus Current Visit: Yes Status: Chronic Qualifiers: Diabetes mellitus type: type 2 Plan to address problem: Management as per primary care. (5) ESRD (end stage renal disease) on dialysis Current Visit: Yes Status: Chronic Plan to address problem: Management as per nephrology. (6) HIV (human immunodeficiency virus infection) Current Visit: Yes Status: Chronic Plan to address problem: Recommend to consult infectious diseases. Subjective Date of service: 08/21/18 Principal diagnosis: Septic Shock; Symptomatic bradycardia; Acute encephalopathy Interval history: Patient sleeping on 3 litres O2.O2 saturation 97%. No acute respiratory distress at rest. Objective Vital Signs - 12hr 08/21/18 08/21/18 08/21/18 09:04 09:56 09:57 Temperature 97.0 F L Pulse Rate 79 Pulse Rate [ Anterior Bilateral Throughout] Pulse Rate [ 77 Bilateral Lower Lobe] Pulse Rate [ Bilateral Upper Lobe] Respiratory 20 Rate Respiratory Rate [Anterior Bilateral Throughout] Respiratory 18 Rate [Bilateral Lower Lobe] Respiratory Rate [Bilateral Upper Lobe] Blood Pressure 131/79 O2 Sat by Pulse 97 99 Oximetry 08/21/18 08/21/18 08/21/18 10:09 10:50 11:00 Temperature 97.1 F L Pulse Rate 74 75 Pulse Rate [ 77 Anterior Bilateral Throughout] Pulse Rate [ Bilateral Lower Lobe] Pulse Rate [ Bilateral Upper Lobe] Respiratory 18 Rate Respiratory 18 Rate [Anterior Bilateral Throughout] Respiratory Rate [Bilateral Lower Lobe] Respiratory Rate [Bilateral Upper Lobe] Blood Pressure 117/73 134/71 O2 Sat by Pulse Oximetry 08/21/18 08/21/18 08/21/18 11:15 11:30 11:45 Temperature Pulse Rate 73 75 77 Pulse Rate [ Anterior Bilateral Throughout] Pulse Rate [ Bilateral Lower Lobe] Pulse Rate [ Bilateral Upper Lobe] Respiratory Rate Respiratory Rate [Anterior Bilateral Throughout] Respiratory Rate [Bilateral Lower Lobe] Respiratory Rate [Bilateral Upper Lobe] Blood Pressure 131/69 144/79 135/81 O2 Sat by Pulse Oximetry 08/21/18 08/21/18 08/21/18 12:00 12:45 13:51 Temperature 98.2 F Pulse Rate 75 75 Pulse Rate [ Anterior Bilateral Throughout] Pulse Rate [ 75 Bilateral Lower Lobe] Pulse Rate [ 78 Bilateral Upper Lobe] Respiratory 18 Rate Respiratory Rate [Anterior Bilateral Throughout] Respiratory 16 Rate [Bilateral Lower Lobe] Respiratory 16 Rate [Bilateral Upper Lobe] Blood Pressure 138/79 148/62 O2 Sat by Pulse Oximetry 08/21/18 16:41 Temperature 98.0 F Pulse Rate 80 Pulse Rate [ Anterior Bilateral Throughout] Pulse Rate [ Bilateral Lower Lobe] Pulse Rate [ Bilateral Upper Lobe] Respiratory 20 Rate Respiratory Rate [Anterior Bilateral Throughout] Respiratory Rate [Bilateral Lower Lobe] Respiratory Rate [Bilateral Upper Lobe] Blood Pressure 138/78 O2 Sat by Pulse 97 Oximetry Constitutional: no acute distress, asleep Eyes: non-icteric Neck: supple, no lymphadenopathy Ascultation: Bilateral: diminished breath sounds, rales Cardiovascular: regular rate and rhythm Gastrointestinal: normoactive bowel sounds, soft, non-tender Integumentary: normal Extremities: no cyanosis, no edema Neurologic: non-focal exam, pupils equal and round Psychiatric: other (Patient sleepy.) CBC and BMP: 08/21/18 Unknown 08/21/18 Unknown ABG, PT/INR, D-dimer: ABG POC ABG pH 7.265 (7.35-7.45) L 08/19/18 15:24 POC ABG pCO2 52.5 (35-45) H 08/19/18 15:24 POC ABG pO2 68 (80-105) L 08/19/18 15:24 POC ABG HCO3 23.8 08/19/18 15:24 POC ABG Total CO2 25 08/19/18 15:24 POC ABG O2 Sat 90 08/19/18 15:24 PT/INR, D-dimer PT 28.6 Sec. (12.2-14.9) H 08/21/18 Unknown INR 2.49 (0.87-1.13) H 08/21/18 Unknown Abnormal lab findings: Abnormal Labs 08/17/18 08/17/18 08/17/18 13:25 13:25 13:25 Hgb MCHC RDW 22.8 H [place] % (Auto) 15.2 H [place] # 1.3 H Monocytes % (Manual) Lymphocytes # (Manual) Monocytes # (Manual) PT 16.5 H INR 1.25 H POC ABG pH POC ABG pCO2 POC ABG pO2 Sodium Potassium Chloride 94.4 L BUN 23 H Creatinine 7.8 H Glucose POC Glucose Calcium Magnesium 2.40 H Total Bilirubin 1.50 H Total Creatine Kinase 29 L CK-MB (CK-2) Rel Index 5.8 H Troponin T 0.158 H* C-Reactive Protein NT-Pro-B Natriuret Pep Albumin 3.4 L LDL Cholesterol Direct 48 L HDL Cholesterol 23 L TSH 08/17/18 08/18/18 08/18/18 13:25 06:52 12:58 Hgb MCHC RDW [place] % (Auto) [place] # Monocytes % (Manual) Lymphocytes # (Manual) Monocytes # (Manual) PT 17.9 H INR 1.38 H POC ABG pH POC ABG pCO2 POC ABG pO2 Sodium Potassium Chloride BUN Creatinine Glucose POC Glucose 60 L Calcium Magnesium Total Bilirubin Total Creatine Kinase CK-MB (CK-2) Rel Index Troponin T C-Reactive Protein NT-Pro-B Natriuret Pep Albumin LDL Cholesterol Direct HDL Cholesterol TSH 10.880 H 08/18/18 08/18/18 08/18/18 16:20 17:39 17:57 Hgb MCHC RDW [place] % (Auto) [place] # Monocytes % (Manual) Lymphocytes # (Manual) Monocytes # (Manual) PT INR POC ABG pH POC ABG pCO2 POC ABG pO2 Sodium Potassium Chloride BUN Creatinine Glucose POC Glucose 42 L 226 H Calcium Magnesium Total Bilirubin Total Creatine Kinase CK-MB (CK-2) Rel Index Troponin T 0.167 H* C-Reactive Protein NT-Pro-B Natriuret Pep Albumin LDL Cholesterol Direct HDL Cholesterol TSH 08/18/18 08/19/18 08/19/18 21:02 00:59 03:21 Hgb MCHC RDW [place] % (Auto) [place] # Monocytes % (Manual) Lymphocytes # (Manual) Monocytes # (Manual) PT INR POC ABG pH POC ABG pCO2 POC ABG pO2 Sodium Potassium Chloride BUN Creatinine Glucose POC Glucose 158 H 137 H Calcium Magnesium Total Bilirubin Total Creatine Kinase CK-MB (CK-2) Rel Index Troponin T 0.181 H* C-Reactive Protein NT-Pro-B Natriuret Pep Albumin LDL Cholesterol Direct HDL Cholesterol TSH 08/19/18 08/19/18 08/19/18 05:58 05:58 05:58 Hgb MCHC 30 L RDW 22.4 H [place] % (Auto) [place] # Monocytes % (Manual) Lymphocytes # (Manual) Monocytes # (Manual) PT 19.5 H INR 1.54 H POC ABG pH POC ABG pCO2 POC ABG pO2 Sodium Potassium Chloride BUN Creatinine Glucose POC Glucose Calcium Magnesium Total Bilirubin Total Creatine Kinase CK-MB (CK-2) Rel Index Troponin T 0.163 H* C-Reactive Protein NT-Pro-B Natriuret Pep Albumin LDL Cholesterol Direct HDL Cholesterol TSH 08/19/18 08/19/18 08/19/18 05:58 05:58 11:49 Hgb MCHC RDW [place] % (Auto) [place] # Monocytes % (Manual) Lymphocytes # (Manual) Monocytes # (Manual) PT INR POC ABG pH POC ABG pCO2 POC ABG pO2 Sodium Potassium 6.0 H D Chloride 94.5 L BUN 38 H Creatinine 10.4 H Glucose 106 H POC Glucose Calcium 7.8 L Magnesium Total Bilirubin Total Creatine Kinase CK-MB (CK-2) Rel Index Troponin T 0.167 H* C-Reactive Protein NT-Pro-B Natriuret Pep 234632 H Albumin LDL Cholesterol Direct HDL Cholesterol TSH 08/19/18 08/19/18 08/19/18 15:24 21:15 21:15 Hgb MCHC RDW [place] % (Auto) [place] # Monocytes % (Manual) Lymphocytes # (Manual) Monocytes # (Manual) PT INR POC ABG pH 7.265 L POC ABG pCO2 52.5 H POC ABG pO2 68 L Sodium Potassium Chloride 94.1 L BUN 21 H Creatinine 6.6 H Glucose 55 L POC Glucose Calcium 7.6 L Magnesium Total Bilirubin Total Creatine Kinase CK-MB (CK-2) Rel Index Troponin T C-Reactive Protein 3.60 H NT-Pro-B Natriuret Pep Albumin LDL Cholesterol Direct HDL Cholesterol TSH 08/19/18 08/20/18 08/20/18 22:10 00:45 00:45 Hgb MCHC 31 L RDW 21.5 H [place] % (Auto) [place] # Monocytes % (Manual) Lymphocytes # (Manual) Monocytes # (Manual) PT INR POC ABG pH POC ABG pCO2 POC ABG pO2 Sodium Potassium Chloride 92.9 L BUN 22 H Creatinine 7.5 H Glucose 102 H POC Glucose 62 L Calcium 7.7 L Magnesium Total Bilirubin Total Creatine Kinase CK-MB (CK-2) Rel Index Troponin T C-Reactive Protein NT-Pro-B Natriuret Pep Albumin LDL Cholesterol Direct HDL Cholesterol TSH 08/20/18 08/21/18 08/21/18 04:55 Unknown Unknown Hgb 11.6 L MCHC 31 L RDW 22.1 H [place] % (Auto) [place] # Monocytes % (Manual) 14.0 H Lymphocytes # (Manual) 0.9 L Monocytes # (Manual) 0.9 H PT 25.7 H 28.6 H INR 2.18 H 2.49 H POC ABG pH POC ABG pCO2 POC ABG pO2 Sodium Potassium Chloride BUN Creatinine Glucose POC Glucose Calcium Magnesium Total Bilirubin Total Creatine Kinase CK-MB (CK-2) Rel Index Troponin T C-Reactive Protein NT-Pro-B Natriuret Pep Albumin LDL Cholesterol Direct HDL Cholesterol TSH 08/21/18 Unknown Hgb MCHC RDW [place] % (Auto) [place] # Monocytes % (Manual) Lymphocytes # (Manual) Monocytes # (Manual) PT INR POC ABG pH POC ABG pCO2 POC ABG pO2 Sodium 135 L Potassium Chloride 95.6 L BUN 30 H Creatinine 8.9 H Glucose POC Glucose Calcium 7.6 L Magnesium Total Bilirubin Total Creatine Kinase CK-MB (CK-2) Rel Index Troponin T C-Reactive Protein NT-Pro-B Natriuret Pep Albumin LDL Cholesterol Direct HDL Cholesterol TSH Chest x-ray: report reviewed (Reported interveal worsening of pulmonary vascular congestion and interstitial edema.), image reviewed
[2018-08-21] MEDS: COREG PO SCH (22:12)
[2018-08-22] MEDS: ISENTRESS PO SCH ×2 (06:17→16:31)
[2018-08-22] MEDS: TESSALON PERLES PO SCH ×2 (06:19→17:23)
[2018-08-22] MEDS: ZOSYN/NS 2.25 GM/50ML 2.25 GM/50 ML BAG IV SCH ×2 (06:19→16:28)
[2018-08-22 07:14] LABS: INR 2.73 (0.87-1.13)
[2018-08-22] MEDS: ATARAX PO SCH ×2 (08:00→17:23)
[2018-08-22] MEDS ORDERED: LEXISCAN IV ONE (08:11)
[2018-08-22] MEDS: DUONEB *Not for PRN Use IH SCH ×3 (08:12→16:47)
[2018-08-22] MEDS: PULMICORT IH SCH (08:12)
[2018-08-22] MEDS: BROVANA NEBU IH SCH (08:12)
[2018-08-22] MEDS ORDERED: NACL 0.9 (PRIMING MACHINE ONLY DIALYSIS) MC ONE (09:18)
--- NOTE | 2018-08-22 09:48 | Progress Note ---
Subjective Principal diagnosis: Septic Shock; Symptomatic bradycardia; Acute encephalopathy Interval history: Patient was seen today for follow-up on multiple renal related issues Patient did cut off his dialysis treatment yesterday He did not finish the treatment counseling and education Patient denies having any chest pain pressure or shortness of breath Vitals labs intake output medications were reviewed Social history: Reviewed Allergies: Reviewed Family history: Reviewed Physical examination HEENT: Oral mucosa moist no pallor or icterus Neck: Supple no JVD Chest: Few bilateral crackles CVS: Regular rate and rhythm S1 and S2 heard Abdomen: Soft nontender no suprapubic masses no organomegaly appreciable Extremity: Dry skin less than 1+ peripheral edema Musculoskeletal: No joint effusion noted in knees and ankle Neurological: Alert awake Dermatology: No petechial rashes Psychiatry: No evidence of any agitation and aggression noted Assessment and plan End-stage renal disease: Noncompliant patient refuses to finish the treatment admitted with fluid overload hyperkalemia Prognosis very poor From dialysis standpoint patient's potassium is normal hemoglobin 11.6 patient is noncompliant he did cut office treatment yesterday did not finish, Hyperkalemia with bradycardia: Mostly resulting from noncompliance with diet lifestyle fluid Patient's mortality risk is very high due to noncompliance Volume overload mostly resulting from noncompliance counseled and educated ultrafiltrate with hemodialysis as tolerated Severe cardiomyopathy atrial fibrillation and bradyarrhythmia: Prognosis extremely poor, patient is high mortality risk in my opinion This has been discussed with patient's upon admission Not a good candidate for DIOR inhibitor or angiotensin receptor caity due to hyperkalemia and noncompliance We'll continue to follow and make recommendation from renal standpoint Objective - Vital Signs Vital signs: Vital Signs - 12hr 08/21/18 08/21/18 08/21/18 22:00 22:12 22:32 Temperature Pulse Rate 78 84 83 Pulse Rate [ 79 From Monitor] Respiratory 17 25 H Rate Blood Pressure 129/80 O2 Sat by Pulse 95 100 Oximetry 08/21/18 08/22/18 08/22/18 23:02 00:21 03:31 Temperature 97.7 F 97.6 F Pulse Rate 78 85 Pulse Rate [ From Monitor] Respiratory 16 18 Rate Blood Pressure 151/92 142/87 O2 Sat by Pulse 98 98 94 Oximetry - Lab 08/21/18 Unknown 08/21/18 Unknown Most recent lab results Calcium 7.6 mg/dL (8.4-10.2) L 08/21/18 Unknown Magnesium 2.40 mg/dL (1.7-2.3) H 08/17/18 13:25 Medications & Allergies - Medications Allergies/Adverse Reactions: Allergies sulfamethoxazole [From Bactrim] Allergy (Verified 08/28/17 08:46) Anaphylaxis trimethoprim [From Bactrim] Allergy (Verified 08/28/17 08:46) Anaphylaxis Home Medications: Home Medications Medication Instructions Recorded Confirmed Last Taken Type Albuterol Sulfate [Ventolin HFA] 2 puff IH QID PRN 09/09/16 08/17/18 01/27/17 History amLODIPine [Norvasc] 10 mg PO DAILY 09/09/16 08/17/18 03/12/17 History Gabapentin [Neurontin] 300 mg PO BID 11/22/16 08/17/18 08/28/17 History PARoxetine HCl [PARoxetine] 40 mg PO DAILY #30 tablet 04/07/17 08/17/18 Unknown Rx ALBUTEROL NEB's [Proventil 0.083% 2.5 mg IH Q6H PRN 07/21/17 08/17/18 Unknown History NEBS] Budesonide/Formoterol Fumarate 2 puff IH BID 07/21/17 08/17/18 Unknown History [Symbicort 160-4.5 Mcg Inhaler] Ferric Citrate (Nf) [Auryxia (Nf)] 3 tab PO QID 07/21/17 08/17/18 Unknown History Fluticasone [Flonase] 2 sprays NS QDAY 07/21/17 08/17/18 Unknown History Gemfibrozil [Lopid] 600 mg PO BID 07/21/17 08/17/18 Unknown History Ipratropium/Albuterol Sulfate 1 spray IH QID 07/21/17 08/17/18 Unknown History [Combivent Respimat] Nitroglycerin [Nitrostat] 0.4 mg SL Q5M PRN 07/21/17 08/17/18 08/28/17 History traZODone [Desyrel] 50 mg PO QHS 07/21/17 08/17/18 Unknown History Amiodarone [Cordarone 200 MG TAB] 200 mg PO BID #60 tablet 07/26/17 08/17/18 Unknown Rx AtorvaSTATin [Lipitor] 20 mg PO QHS #30 tablet 07/26/17 08/17/18 Unknown Rx Warfarin [Coumadin] 7.5 mg PO QDAY #30 tablet 05/23/18 08/17/18 Unknown Rx Carvedilol 25 mg PO QAM 08/17/18 08/17/18 Unknown History Carvedilol 50 mg PO QPM 08/17/18 08/17/18 Unknown History Darunavir/Cobicistat [Prezcobix 1 each PO DAILY 08/17/18 08/17/18 Unknown History 800 mg-150 mg Tablet] Ergocalciferol [Vitamin D2] 1 cap PO QWEEK 08/17/18 08/17/18 Unknown History Etravirine [Intelence] 200 mg PO BID 08/17/18 08/17/18 Unknown History Insulin Aspart [NovoLOG Flexpen] 5 units SQ AC 08/17/18 08/17/18 Unknown History Insulin Glargine,Hum.rec.anlog 10 units SQ QHS 08/17/18 08/17/18 Unknown History [Lantus] Losartan [Cozaar] 25 mg PO QDAY 08/17/18 08/17/18 Unknown History [place]-3 Acid Ethyl Esters [Lovaza] 2 gm PO BID 08/17/18 08/17/18 Unknown History Raltegravir Potassium [Isentress] 400 mg PO BID 08/17/18 08/17/18 Unknown History Rosuvastatin (Nf) [Crestor] 10 mg PO QHS 08/17/18 08/17/18 Unknown History dilTIAZem [CarDIZEM] 60 mg PO QID 08/17/18 08/17/18 Unknown History hydrOXYzine HCl [Hydroxyzine HCl] 25 mg PO TID 08/17/18 08/17/18 Unknown History Active Medications: Generic Name Dose Route Start Last Admin Trade Name Freq PRN Reason Stop Dose Admin Acetaminophen 650 mg 08/18/18 00:20 Tylenol PO Q4H PRN Pain MILD(1-3)/Fever >100.5/BA Albuterol 2.5 mg 08/18/18 06:02 Proventil IH Q6HRT PRN Shortness Of Breath Albuterol/Ipratropium 1 ampul 08/18/18 08:00 08/22/18 08:12 Duoneb *Not For Prn Use* IH Not Given QIDRT TRICIA Arformoterol Tartrate 15 mcg 08/18/18 08:00 08/22/18 08:12 Broarely Navarro IH Not Given Q12HRT TRICIA Atorvastatin Calcium 20 mg 08/18/18 22:00 08/21/18 22:12 Lipitor PO 20 mg QHS TRICIA Administration Benzonatate 200 mg 08/18/18 14:00 08/22/18 06:19 Tessalon Perles PO 200 mg Q8HR TRICIA Administration Budesonide 0.5 mg 08/18/18 08:00 08/22/18 08:12 Pulmicort IH Not Given Q12HRT TRICIA Carvedilol 3.125 mg 08/21/18 22:00 08/21/18 22:12 Coreg PO 3.125 mg BID TRICIA Administration Diphenhydramine HCl 25 mg 08/21/18 17:00 08/22/18 01:32 Benadryl IV 25 mg Q6H PRN Administration Itching Ergocalciferol 50,000 unit 08/19/18 10:00 08/19/18 17:01 Vitamin D2 PO Not Given [place] [facility] Famotidine 10 mg 08/19/18 16:00 08/21/18 15:03 Pepcid PO 10 mg DAILY TRICIA Administration Fish Oil 2,000 mg 08/18/18 10:00 08/21/18 22:12 Fish Oil PO 2,000 mg BID TRICIA Administration Fluticasone Propionate 100 mcg 08/18/18 10:00 08/21/18 17:05 Flonase NS 100 mcg QDAY TRICIA Administration Gabapentin 200 mg 08/20/18 10:00 08/21/18 22:12 Neurontin PO 200 mg BID TRICIA Administration Gemfibrozil 600 mg 08/18/18 10:00 08/21/18 22:12 Lopid PO 600 mg BID TRICIA Administration Hydroxyzine HCl 25 mg 08/18/18 08:00 08/21/18 21:45 Atarax PO 25 mg TID TRICIA Administration Sodium Chloride 100 mls @ 999 mls/hr 08/19/18 11:59 Nacl 0.9% IV SIENA PRN Hypotension Piperacillin Sod/Tazobactam Sod 2.25 gm in 50 mls @ 100 mls/hr 08/20/18 14:00 08/22/18 06:19 Zosyn/Ns 2.25 Gm/50ml IV 08/23/18 06:29 100 mls/hr Q8HR [facility] Administration Lamivudine 50 mg 08/22/18 10:00 Epivir PO DAILY [facility] Losartan Potassium 12.5 mg 08/22/18 10:00 Cozaar PO QDAY [facility] Miscellaneous Medication 1 each 08/18/18 10:00 Darunavir/Cobicistat [Prezcobix 800 Mg-150 Mg Tablet] PO DAILY [facility] Miscellaneous Medication 3 tab 08/18/18 10:00 Ferric Citrate PO QID [facility] Miscellaneous Medication 200 mg 08/22/18 10:00 Ertravirine 100mg PO BID [facility] Ondansetron HCl 4 mg 08/18/18 00:20 Zofran IV Q8H PRN Nausea And Vomiting Raltegravir 400 mg 08/21/18 22:00 08/22/18 06:17 Isentress PO Not Given BID [facility] Warfarin Sodium 2.5 mg 08/22/18 17:00 Coumadin PO DAILY@1700 [facility] Protocol
[2018-08-22] MEDS: PEPCID PO SCH (10:00)
[2018-08-22] MEDS: LOPID PO SCH (10:00)
[2018-08-22] MEDS ORDERED: TIVICAY PO SCH (10:00)
[2018-08-22] MEDS ORDERED: EPIVIR PO SCH (10:00)
[2018-08-22] MEDS: FISH OIL PO SCH (10:00)
[2018-08-22] MEDS: COREG PO SCH (10:00)
[2018-08-22] MEDS ORDERED: [UNRECOGNIZED DRUG - OTHER] PO SCH (10:00)
[2018-08-22] MEDS: FLONASE NS SCH (10:00)
[2018-08-22] MEDS ORDERED: COZAAR PO SCH (10:00)
--- NOTE | 2018-08-22 10:15 | Progress Note ---
Assessment and Plan acute respiratory failure acute on chronic systolic heart failure nstemi type 2 htn improved hyperlipidemia esrd on hd hiv rec: pt on coreg, and losartan low dose, cont hd and stress no significant ischemia and pt sob has improved, may discharge from [facility] point of view Subjective Date of service: 08/22/18 Principal diagnosis: Septic Shock; Symptomatic bradycardia; Acute encephalopathy Interval history: pt sob has improved Objective Vital Signs Temp Pulse Pulse Pulse Pulse Resp Resp 08/22/18 03:31 97.6 F 85 18 08/22/18 00:21 08/21/18 23:02 97.7 F 78 16 08/21/18 22:32 83 25 H 08/21/18 22:12 84 08/21/18 22:00 78 79 17 08/21/18 20:50 84 08/21/18 20:41 08/21/18 20:35 88 08/21/18 19:32 97.4 F L 79 16 08/21/18 16:41 98.0 F 80 20 08/21/18 13:51 75 78 16 08/21/18 12:45 98.2 F 75 18 08/21/18 12:00 75 08/21/18 11:45 77 08/21/18 11:30 75 08/21/18 11:15 73 08/21/18 11:00 75 08/21/18 10:50 97.1 F L 74 18 Resp BP Pulse Ox 08/22/18 03:31 142/87 94 08/22/18 00:21 98 08/21/18 23:02 151/92 98 08/21/18 22:32 100 08/21/18 22:12 129/80 08/21/18 22:00 95 08/21/18 20:50 18 08/21/18 20:41 97 08/21/18 20:35 18 08/21/18 19:32 145/79 95 08/21/18 16:41 138/78 97 08/21/18 13:51 16 08/21/18 12:45 148/62 08/21/18 12:00 138/79 08/21/18 11:45 135/81 08/21/18 11:30 144/79 08/21/18 11:15 131/69 08/21/18 11:00 134/71 08/21/18 10:50 117/73 - Physical Examination General: No Apparent Distress HEENT: Positive: EOMI, Normocephaly, Mucus Membranes Moist Neck: Positive: neck supple, trachea midline, JVD/HJR (elevated) Cardiac: Positive: Reg Rate and Rhythm Lungs: Positive: clear to auscultation Neuro: Positive: Other (Awake, oriented but lethargic) Abdomen: Positive: Soft, Active Bowel Sounds. Negative: Tender Skin: Negative: Rash Musculoskeletal: Normal Range of Motion Extremities: Absent: edema - Labs and Meds Coagulation 08/22/18 Range/Units Unknown PT 30.8 H (12.2-14.9) Sec. INR 2.73 H (0.87-1.13) - Imaging and Cardiology EKG: image reviewed Pharmacologic stress test: report reviewed (ef22% dilated lv no signficant ischemia noted) Echo: report reviewed (ef25-30% trace tr and normal rvsp and no as and no mr) - Telemetry EKG Rhythm: Sinus Rhythm - EKG Sinus rhythms and dysrhythmias: sinus rhythm AV and intraventricular conduction: right bundle branch block
--- NOTE | 2018-08-22 10:37 | Progress Note ---
Assessment and Plan Patient awake. On 3 litres O2.O2 saturation 99%. No acute respiratory distress at rest. - Patient Problems (1) Acute on chronic HFrEF (heart failure with reduced ejection fraction) Status: Acute Plan to address problem: Management as per cardiology. (2) AICD (automatic cardioverter/defibrillator) present Status: Chronic Plan to address problem: Followed by the cardiology. (3) COPD (chronic obstructive pulmonary disease) Status: Chronic Plan to address problem: O2 3 litres via nasal canula. Albuterol/atrovent aerosol treatments q 6 hours prn for shortness of breath. Brovanna/Budesonide aerosol treatments q 12 hours. Patient is on Warfarin. Continue famotidine. (4) Diabetes mellitus Status: Chronic Qualifiers: Diabetes mellitus type: type 2 Plan to address problem: Management as per primary care. (5) ESRD (end stage renal disease) on dialysis Status: Chronic Plan to address problem: Management as per nephrology. (6) HIV (human immunodeficiency virus infection) Status: Chronic Plan to address problem: Recommend to consult infectious diseases. Subjective Date of service: 08/22/18 Principal diagnosis: Septic Shock; Symptomatic bradycardia; Acute encephalopathy Interval history: Patient awake. On 3 litres O2.O2 saturation 99%. No acute respiratory distress at rest. Objective Vital Signs - 12hr 08/21/18 08/22/18 08/22/18 23:02 00:21 03:31 Temperature 97.7 F 97.6 F Pulse Rate 78 85 Respiratory 16 18 Rate Blood Pressure 151/92 142/87 O2 Sat by Pulse 98 98 94 Oximetry 08/22/18 08/22/18 08/22/18 08:13 08:31 08:39 Temperature Pulse Rate Respiratory Rate Blood Pressure 132/86 141/86 161/86 O2 Sat by Pulse Oximetry 08/22/18 08/22/18 08/22/18 08:40 08:41 08:42 Temperature Pulse Rate Respiratory Rate Blood Pressure 153/88 158/92 144/90 O2 Sat by Pulse Oximetry Constitutional: no acute distress, alert Eyes: non-icteric Neck: supple, no lymphadenopathy Ascultation: Bilateral: diminished breath sounds, rales Cardiovascular: regular rate and rhythm Gastrointestinal: normoactive bowel sounds, soft, non-tender Integumentary: normal Extremities: no cyanosis, no edema Neurologic: non-focal exam, pupils equal and round Psychiatric: other (Patient sleepy.) CBC and BMP: 08/21/18 Unknown 08/21/18 Unknown ABG, PT/INR, D-dimer: ABG POC ABG pH 7.265 (7.35-7.45) L 08/19/18 15:24 POC ABG pCO2 52.5 (35-45) H 08/19/18 15:24 POC ABG pO2 68 (80-105) L 08/19/18 15:24 POC ABG HCO3 23.8 08/19/18 15:24 POC ABG Total CO2 25 08/19/18 15:24 POC ABG O2 Sat 90 08/19/18 15:24 PT/INR, D-dimer PT 30.8 Sec. (12.2-14.9) H 08/22/18 Unknown INR 2.73 (0.87-1.13) H 08/22/18 Unknown Abnormal lab findings: Abnormal Labs 08/17/18 08/17/18 08/17/18 13:25 13:25 13:25 Hgb MCHC RDW 22.8 H [place] % (Auto) 15.2 H [place] # 1.3 H Monocytes % (Manual) Lymphocytes # (Manual) Monocytes # (Manual) PT 16.5 H INR 1.25 H POC ABG pH POC ABG pCO2 POC ABG pO2 Sodium Potassium Chloride 94.4 L BUN 23 H Creatinine 7.8 H Glucose POC Glucose Calcium Magnesium 2.40 H Total Bilirubin 1.50 H Total Creatine Kinase 29 L CK-MB (CK-2) Rel Index 5.8 H Troponin T 0.158 H* C-Reactive Protein NT-Pro-B Natriuret Pep Albumin 3.4 L LDL Cholesterol Direct 48 L HDL Cholesterol 23 L TSH 08/17/18 08/18/18 08/18/18 13:25 06:52 12:58 Hgb MCHC RDW [place] % (Auto) [place] # Monocytes % (Manual) Lymphocytes # (Manual) Monocytes # (Manual) PT 17.9 H INR 1.38 H POC ABG pH POC ABG pCO2 POC ABG pO2 Sodium Potassium Chloride BUN Creatinine Glucose POC Glucose 60 L Calcium Magnesium Total Bilirubin Total Creatine Kinase CK-MB (CK-2) Rel Index Troponin T C-Reactive Protein NT-Pro-B Natriuret Pep Albumin LDL Cholesterol Direct HDL Cholesterol TSH 10.880 H 08/18/18 08/18/18 08/18/18 16:20 17:39 17:57 Hgb MCHC RDW [place] % (Auto) [place] # Monocytes % (Manual) Lymphocytes # (Manual) Monocytes # (Manual) PT INR POC ABG pH POC ABG pCO2 POC ABG pO2 Sodium Potassium Chloride BUN Creatinine Glucose POC Glucose 42 L 226 H Calcium Magnesium Total Bilirubin Total Creatine Kinase CK-MB (CK-2) Rel Index Troponin T 0.167 H* C-Reactive Protein NT-Pro-B Natriuret Pep Albumin LDL Cholesterol Direct HDL Cholesterol TSH 08/18/18 08/19/18 08/19/18 21:02 00:59 03:21 Hgb MCHC RDW [place] % (Auto) [place] # Monocytes % (Manual) Lymphocytes # (Manual) Monocytes # (Manual) PT INR POC ABG pH POC ABG pCO2 POC ABG pO2 Sodium Potassium Chloride BUN Creatinine Glucose POC Glucose 158 H 137 H Calcium Magnesium Total Bilirubin Total Creatine Kinase CK-MB (CK-2) Rel Index Troponin T 0.181 H* C-Reactive Protein NT-Pro-B Natriuret Pep Albumin LDL Cholesterol Direct HDL Cholesterol TSH 08/19/18 08/19/18 08/19/18 05:58 05:58 05:58 Hgb MCHC 30 L RDW 22.4 H [place] % (Auto) [place] # Monocytes % (Manual) Lymphocytes # (Manual) Monocytes # (Manual) PT 19.5 H INR 1.54 H POC ABG pH POC ABG pCO2 POC ABG pO2 Sodium Potassium Chloride BUN Creatinine Glucose POC Glucose Calcium Magnesium Total Bilirubin Total Creatine Kinase CK-MB (CK-2) Rel Index Troponin T 0.163 H* C-Reactive Protein NT-Pro-B Natriuret Pep Albumin LDL Cholesterol Direct HDL Cholesterol TSH 08/19/18 08/19/18 08/19/18 05:58 05:58 11:49 Hgb MCHC RDW [place] % (Auto) [place] # Monocytes % (Manual) Lymphocytes # (Manual) Monocytes # (Manual) PT INR POC ABG pH POC ABG pCO2 POC ABG pO2 Sodium Potassium 6.0 H D Chloride 94.5 L BUN 38 H Creatinine 10.4 H Glucose 106 H POC Glucose Calcium 7.8 L Magnesium Total Bilirubin Total Creatine Kinase CK-MB (CK-2) Rel Index Troponin T 0.167 H* C-Reactive Protein NT-Pro-B Natriuret Pep 888486 H Albumin LDL Cholesterol Direct HDL Cholesterol TSH 08/19/18 08/19/18 08/19/18 15:24 21:15 21:15 Hgb MCHC RDW [place] % (Auto) [place] # Monocytes % (Manual) Lymphocytes # (Manual) Monocytes # (Manual) PT INR POC ABG pH 7.265 L POC ABG pCO2 52.5 H POC ABG pO2 68 L Sodium Potassium Chloride 94.1 L BUN 21 H Creatinine 6.6 H Glucose 55 L POC Glucose Calcium 7.6 L Magnesium Total Bilirubin Total Creatine Kinase CK-MB (CK-2) Rel Index Troponin T C-Reactive Protein 3.60 H NT-Pro-B Natriuret Pep Albumin LDL Cholesterol Direct HDL Cholesterol TSH 08/19/18 08/20/18 08/20/18 22:10 00:45 00:45 Hgb MCHC 31 L RDW 21.5 H [place] % (Auto) [place] # Monocytes % (Manual) Lymphocytes # (Manual) Monocytes # (Manual) PT INR POC ABG pH POC ABG pCO2 POC ABG pO2 Sodium Potassium Chloride 92.9 L BUN 22 H Creatinine 7.5 H Glucose 102 H POC Glucose 62 L Calcium 7.7 L Magnesium Total Bilirubin Total Creatine Kinase CK-MB (CK-2) Rel Index Troponin T C-Reactive Protein NT-Pro-B Natriuret Pep Albumin LDL Cholesterol Direct HDL Cholesterol TSH 08/20/18 08/21/18 08/21/18 04:55 Unknown Unknown Hgb 11.6 L MCHC 31 L RDW 22.1 H [place] % (Auto) [place] # Monocytes % (Manual) 14.0 H Lymphocytes # (Manual) 0.9 L Monocytes # (Manual) 0.9 H PT 25.7 H 28.6 H INR 2.18 H 2.49 H POC ABG pH POC ABG pCO2 POC ABG pO2 Sodium Potassium Chloride BUN Creatinine Glucose POC Glucose Calcium Magnesium Total Bilirubin Total Creatine Kinase CK-MB (CK-2) Rel Index Troponin T C-Reactive Protein NT-Pro-B Natriuret Pep Albumin LDL Cholesterol Direct HDL Cholesterol TSH 08/21/18 08/22/18 Unknown Unknown Hgb MCHC RDW [place] % (Auto) [place] # Monocytes % (Manual) Lymphocytes # (Manual) Monocytes # (Manual) PT 30.8 H INR 2.73 H POC ABG pH POC ABG pCO2 POC ABG pO2 Sodium 135 L Potassium Chloride 95.6 L BUN 30 H Creatinine 8.9 H Glucose POC Glucose Calcium 7.6 L Magnesium Total Bilirubin Total Creatine Kinase CK-MB (CK-2) Rel Index Troponin T C-Reactive Protein NT-Pro-B Natriuret Pep Albumin LDL Cholesterol Direct HDL Cholesterol TSH
--- NOTE | 2018-08-22 14:02 | Discharge Summary ---
Providers - Providers Date of Admission: 08/18/18 00:23 Date of discharge: 08/22/18 Attending physician: SAMANTHA JAY 08/18/18 12:59 Physical Therapy Evaluation and Treat [CONS] Routine Comment: Reason For Exam: placement 08/18/18 20:13 Consult to Cardiology [CONS] Routine Consulting Provider: [facility] Reason For Exam: Elevated troponin 08/19/18 06:39 Consult to Physician [CONS] Routine Comment: Consulting Provider: FER [place] Physician Instructions: Reason For Exam: ESRD oh HD 08/19/18 10:23 Consult to Physician [CONS] Routine Comment: Consulting Provider: SUGAR SOTELO Physician Instructions: Reason For Exam: central line 08/19/18 15:18 Consult to Physician [CONS] Stat Comment: Consulting Provider: ABIGAIL MICHAEL Physician Instructions: Reason For Exam: ICU MEDICAL STAFF DIRECTOR [facility] Condition: Fair Hospital course: Patient is a 63-year-old male with history of coronary artery disease, CHF, ESRD on hemodialysis, hypertension, COPD, asthma, hyperlipidemia, HIV, diabetes, history of DVT on Coumadin. He was brought to the ED by EMS for c/o generalized weakness after hemodialysis. He complained of generalized weakness of both legs with inability to walk or perform any activity. he was evaluated in ED. He was diagnosed with acute on chronic resp failure secondary to CHF exacerbation. Was put on supplemental Oxgen, Lasix iv, beta blockers. he was evaluated by cardiology and nephrology. Stress test was done on 08/22/18 and no ischemia was present. he was then discharged home. He was asked to continue Coreg for previous DVT. Total time spent , 34 mins Disposition: [id number] TO HOME OR SELFCARE - Discharge Diagnoses (1) Acute on chronic HFrEF (heart failure with reduced ejection fraction) Status: Acute (2) Atrial flutter with rapid ventricular response Status: Acute (3) ESRD needing dialysis Status: Acute (4) HIV disease Status: Acute (5) Hyperkalemia Status: Acute (6) PAF (paroxysmal atrial fibrillation) Status: Acute (7) Sinus bradycardia Status: Acute (8) Acute and chronic respiratory failure Status: Acute (9) Acute on chronic systolic (congestive) heart failure Status: Acute (10) NSTEMI (non-ST elevated myocardial infarction) Status: Acute Core Measure Documentation - Palliative Care Palliative Care/ Comfort Measures: Not Applicable - Core Measures Any of the following diagnoses?: heart failure - Heart Failure Discharge Requirements DIOR/ARB for LVSD if EF <40%: No Reason for no DIOR/ARB: Hyperkalemia Beta caity at discharge: Yes Exam - Constitutional Vitals: Temp Pulse Resp BP Pulse Ox 98.6 F 81 20 147/84 94 08/22/18 10:20 08/22/18 12:30 08/22/18 10:20 08/22/18 12:30 08/22/18 03:31 Plan Activity: advance as tolerated Diet: low fat, low cholesterol, low salt, diabetic, renal Additional Instructions: 1.Follow up with PCP in 1 week. 2.Continue hemodialysis as scheduled. 3.Check INR on Monday08/27/18 to be followed by PCP. 4.Follow up with Nephrology in 1 week. 5.Follow up with Cardiology in 1 week Follow up with: YASMIN BARCENAS MD [Primary Care Provider] - 7 Days Forms: Warfarin Discharge Instruction Prescriptions: Carvedilol [Coreg] 3.125 mg PO BID #60 tablet Warfarin [Coumadin] 2.5 mg PO QDAY #60 tablet Famotidine [Pepcid] 10 mg PO BID #60 tablet
[2018-08-22] MEDS: NON-FORMULARY (Darunavir/Cobicistat [Prezcobix 800 Mg-150 Mg Tablet] 1 EACH) PO SCH ×2 (16:27→16:28)
[2018-08-22] MEDS: NEURONTIN PO SCH (16:34)
[2018-08-22] MEDS ORDERED: COUMADIN PO SCH (17:00)
[2018-08-22 17:05] VITALS: BP 128/79
--- NOTE | 2018-08-22 22:08 | Treadmill Report ---
NAME OF STUDY: Nuclear perfusion study. REASON FOR STUDY: Abnormal troponin and shortness of breath. IMAGING PROTOCOL: The patient received 10 mCi of Technetium 99m Tetrofosmin for resting image and 28 mCi of Technetium 99m Tetrofosmin for stress imaging. The imaging for the whole procedure was completed 30-90 minutes following the initial injection of Technetium 99m Tetrofosmin. The SPECT imaging in the 180 degree arc was performed in the right anterior oblique projection. Computerized reconstruction of the images was performed for analysis. IMAGING RESULTS: Cavity is dilated on both stress and rest. Distribution radionuclide is normal in the anterior, inferior, septal, and apical regions. Gated SPECT, EF 22% with moderate to severe global hypokinesis. The patient infused Lexiscan with no EKG changes. SUMMARY: 1. Negative Lexiscan EKG. 2. No significant stress-induced ischemia noted. 3. There is dilated LV seen both stress and rest with normal myocardial perfusion, with gated SPECT, EF 22% with moderate to severe LV dysfunction. JOB# [id number] IAIN/EDIN
== END 2018-08-22 19:10 | disposition home or self-care (01) | DRG 974 ==
LOC: ED 11:17 → 4A 08-18 00:23 → CC1 08-19 08:23 → 4A 08-20 20:54
PROVIDERS: ADMIT Internal Medicine; ATTEND Internal Medicine
PROC: 4A033R1 Measurement of Arterial Saturation, Peripheral, Percutaneous Approach (ICD-10-PCS; principal; 2018-08-19)
PROC: 5A1D70Z Performance of Urinary Filtration, Intermittent, Less than 6 Hours Per Day (ICD-10-PCS; 2018-08-19)
PROC: 5A09357 Assistance with Respiratory Ventilation, Less than 24 Consecutive Hours, Continuous Positive Airway Pressure (ICD-10-PCS; 2018-08-19)
PROC: 02HV33Z Insertion of Infusion Device into Superior Vena Cava, Percutaneous Approach (ICD-10-PCS; 2018-08-19)
PROC: 5A09357 Assistance with Respiratory Ventilation, Less than 24 Consecutive Hours, Continuous Positive Airway Pressure (ICD-10-PCS; 2018-08-20)
PROC: 5A1D70Z Performance of Urinary Filtration, Intermittent, Less than 6 Hours Per Day (ICD-10-PCS; 2018-08-21)
PROC: 5A09357 Assistance with Respiratory Ventilation, Less than 24 Consecutive Hours, Continuous Positive Airway Pressure (ICD-10-PCS; 2018-08-21)
PROC: 5A1D70Z Performance of Urinary Filtration, Intermittent, Less than 6 Hours Per Day (ICD-10-PCS; 2018-08-22)
DX: B20 Human immunodeficiency virus [HIV] disease (principal); A41.9 Sepsis, unspecified organism; N18.6 End stage renal disease; I50.23 Acute on chronic systolic (congestive) heart failure; R65.21 Severe sepsis with septic shock; J96.21 Acute and chronic respiratory failure with hypoxia; G93.41 Metabolic encephalopathy; I21.A1 Myocardial infarction type 2; I13.2 Hypertensive heart and chronic kidney disease with heart failure and with stage 5 chronic kidney disease, or end stage renal disease; I42.9 Cardiomyopathy, unspecified; N25.81 Secondary hyperparathyroidism of renal origin; J44.1 Chronic obstructive pulmonary disease with (acute) exacerbation; I48.92 Unspecified atrial flutter; E11.22 Type 2 diabetes mellitus with diabetic chronic kidney disease; E78.5 Hyperlipidemia, unspecified; E03.9 Hypothyroidism, unspecified; E87.5 Hyperkalemia; E66.9 Obesity, unspecified; E80.6 Other disorders of bilirubin metabolism; S10.93XA Contusion of unspecified part of neck, initial encounter; X58.XXXA Exposure to other specified factors, initial encounter; I48.91 Unspecified atrial fibrillation; Z86.73 Personal history of transient ischemic attack (TIA), and cerebral infarction without residual deficits; Z79.4 Long term (current) use of insulin; Z68.21 Body mass index [BMI] 21.0-21.9, adult; Z99.2 Dependence on renal dialysis; Z99.81 Dependence on supplemental oxygen; Z88.2 Allergy status to sulfonamides; Z88.8 Allergy status to other drugs, medicaments and biological substances; Z79.01 Long term (current) use of anticoagulants; Z86.718 Personal history of other venous thrombosis and embolism; Z95.810 Presence of automatic (implantable) cardiac defibrillator; Y93.89 Activity, other specified; Y92.89 Other specified places as the place of occurrence of the external cause; Y99.8 Other external cause status
CPT/HCPCS: 36415; 36600; 70450; 71045; 78452; 80048; 80053; 80061; 80320; 82140; 82533; 82550; 82553; 82803; 82962; 83735; 83880; 84439; 84443; 84484; 85007; 85025; 85027; 85610; 85730; 86140; 87040; 87116; 93005; 93010; 93017; 93306; 94640; 94660; 94760; 99406; G0378; A9270-GY; A9502; G0480; J0461; J0610; J1200; J1650; J1815; J2543; J2785; J3246; J3370; J7030; J7050

== ENCOUNTER 2018-08-24 11:51 | Emergency (ER) | payer MEDICARE ==
[2018-08-24 12:04] VITALS: BP 137/74
[2018-08-24] MEDS ORDERED: ULTRAM PO ONE (12:35)
[2018-08-24] MEDS ORDERED: NORCO 5/325 PO ONE (13:57)
[2018-08-24] MEDS ORDERED: NORCO 5/325 ONE (14:00)
--- NOTE | 2018-08-24 14:19 | XRay Report ---
RIGHT FOOT RADIOGRAPHS INDICATION: Pain after fall. COMPARISON: None similar. FINDINGS: AP, lateral and oblique right foot radiographs demonstrate mild hallux valgus. Few small soft tissue calcifications also noted medial to the first metatarsal head with mild overlying soft tissue swelling medially also not excluded. No focal suspicious joint erosions. Slight soft tissue swelling along dorsum of the foot also not excluded. Few atherosclerotic vascular calcifications noted about the ankle as well. CONCLUSION: No acute right foot bony abnormality with few degenerative changes, including mild hallux valgus with subtle forefoot soft tissue swelling not excluded, as described. Please correlate. Thank you for the opportunity to participate in this patient's care.
--- NOTE | 2018-08-24 14:58 | Emergency Department Report ---
ED Extremity Problem HPI - General Chief complaint: Extremity Problem,Nontraumatic Stated complaint: RT TOE PAIN Time Seen by Provider: 08/24/18 12:30 Source: patient Mode of arrival: Wheelchair Limitations: Physical Limitation - History of Present Illness Initial comments: Patient was recently discharged from admission from the hospital. He is at his home when he tripped and fell. Patient hit his right great toe. Patient has been unable to walk without a limp since. Patient states the pain is 10 out of 10 as throbbing. Hurts worse with weightbearing and movement. Patient denies any other injury at this time. Severity scale (0 -10): 4 - Related Data Home Medications Medication Instructions Recorded Confirmed Last Taken Albuterol Sulfate [Ventolin HFA] 2 puff IH QID PRN 09/09/16 08/17/18 01/27/17 amLODIPine [Norvasc] 10 mg PO DAILY 09/09/16 08/17/18 03/12/17 Gabapentin [Neurontin] 300 mg PO BID 11/22/16 08/17/18 08/28/17 ALBUTEROL NEB's [Proventil 0.083% 2.5 mg IH Q6H PRN 07/21/17 08/17/18 Unknown NEBS] Budesonide/Formoterol Fumarate 2 puff IH BID 07/21/17 08/17/18 Unknown [Symbicort 160-4.5 Mcg Inhaler] Ferric Citrate (Nf) [Auryxia (Nf)] 3 tab PO QID 07/21/17 08/17/18 Unknown Fluticasone [Flonase] 2 sprays NS QDAY 07/21/17 08/17/18 Unknown Gemfibrozil [Lopid] 600 mg PO BID 07/21/17 08/17/18 Unknown Ipratropium/Albuterol Sulfate 1 spray IH QID 07/21/17 08/17/18 Unknown [Combivent Respimat] Nitroglycerin [Nitrostat] 0.4 mg SL Q5M PRN 07/21/17 08/17/18 08/28/17 traZODone [Desyrel] 50 mg PO QHS 07/21/17 08/17/18 Unknown Darunavir/Cobicistat [Prezcobix 1 each PO DAILY 08/17/18 08/17/18 Unknown 800 mg-150 mg Tablet] Ergocalciferol [Vitamin D2] 1 cap PO QWEEK 08/17/18 08/17/18 Unknown Etravirine [Intelence] 200 mg PO BID 08/17/18 08/17/18 Unknown Insulin Aspart [NovoLOG Flexpen] 5 units SQ AC 08/17/18 08/17/18 Unknown Insulin Glargine,Hum.rec.anlog 10 units SQ QHS 08/17/18 08/17/18 Unknown [Lantus] [place]-3 Acid Ethyl Esters [Lovaza] 2 gm PO BID 08/17/18 08/17/18 Unknown Raltegravir Potassium [Isentress] 400 mg PO BID 08/17/18 08/17/18 Unknown Rosuvastatin (Nf) [Crestor] 10 mg PO QHS 08/17/18 08/17/18 Unknown dilTIAZem [Cardizem] 60 mg PO QID 08/17/18 08/17/18 Unknown hydrOXYzine HCl [Hydroxyzine HCl] 25 mg PO TID 08/17/18 08/17/18 Unknown Previous Rx's Medication Instructions Recorded Last Taken Type PARoxetine HCl [PARoxetine] 40 mg PO DAILY #30 tablet 04/07/17 Unknown Rx AtorvaSTATin [Lipitor] 20 mg PO QHS #30 tablet 07/26/17 Unknown Rx Warfarin [Coumadin] 7.5 mg PO QDAY #30 tablet 05/23/18 Unknown Rx Carvedilol [Coreg] 3.125 mg PO BID #60 tablet 08/22/18 Unknown Rx Famotidine [Pepcid] 10 mg PO BID #60 tablet 08/22/18 Unknown Rx Warfarin [Coumadin] 2.5 mg PO QDAY #60 tablet 08/22/18 Unknown Rx HYDROcodone/ACETAMINOPHEN 1 each PO Q8HR PRN #12 tablet 08/24/18 Unknown Rx [Hydrocodone-Acetamin 10-325 mg] Allergies Allergy/AdvReac Type Severity Reaction Status Date / Time sulfamethoxazole Allergy Anaphylaxis Verified 08/24/18 12:01 [From Bactrim] trimethoprim [From Bactrim] Allergy Anaphylaxis Verified 08/24/18 12:01 ED Review of Systems ROS: Stated complaint: RT TOE PAIN Other details as noted in HPI Comment: All other systems reviewed and negative ED Past Medical Hx - Past Medical History Hx Hypertension: Yes Hx Congestive Heart Failure: Yes Hx Diabetes: Yes Hx Deep Vein Thrombosis: Yes (Pt is on Coumadin) Hx Renal Disease: Yes Hx Asthma: Yes Hx COPD: Yes (On Home O2 3L/NC) Hx HIV: Yes Additional medical history: pancreatitis, left upper arm HD graft. bells palsy - Surgical History Hx Pacemaker: Yes Hx Internal Defibrillator: Yes Additional Surgical History: graft to left arm, R chest vas cath, DeFib - Social History Smoking Status: Never Smoker Substance Use Type: None - Medications Home Medications: Home Medications Medication Instructions Recorded Confirmed Last Taken Type Albuterol Sulfate [Ventolin HFA] 2 puff IH QID PRN 09/09/16 08/17/18 01/27/17 History amLODIPine [Norvasc] 10 mg PO DAILY 09/09/16 08/17/18 03/12/17 History Gabapentin [Neurontin] 300 mg PO BID 11/22/16 08/17/18 08/28/17 History PARoxetine HCl [PARoxetine] 40 mg PO DAILY #30 tablet 04/07/17 08/17/18 Unknown Rx ALBUTEROL NEB's [Proventil 0.083% 2.5 mg IH Q6H PRN 07/21/17 08/17/18 Unknown History NEBS] Budesonide/Formoterol Fumarate 2 puff IH BID 07/21/17 08/17/18 Unknown History [Symbicort 160-4.5 Mcg Inhaler] Ferric Citrate (Nf) [Auryxia (Nf)] 3 tab PO QID 07/21/17 08/17/18 Unknown History Fluticasone [Flonase] 2 sprays NS QDAY 07/21/17 08/17/18 Unknown History Gemfibrozil [Lopid] 600 mg PO BID 07/21/17 08/17/18 Unknown History Ipratropium/Albuterol Sulfate 1 spray IH QID 07/21/17 08/17/18 Unknown History [Combivent Respimat] Nitroglycerin [Nitrostat] 0.4 mg SL Q5M PRN 07/21/17 08/17/18 08/28/17 History traZODone [Desyrel] 50 mg PO QHS 07/21/17 08/17/18 Unknown History AtorvaSTATin [Lipitor] 20 mg PO QHS #30 tablet 07/26/17 08/17/18 Unknown Rx Warfarin [Coumadin] 7.5 mg PO QDAY #30 tablet 05/23/18 08/17/18 Unknown Rx Darunavir/Cobicistat [Prezcobix 1 each PO DAILY 08/17/18 08/17/18 Unknown History 800 mg-150 mg Tablet] Ergocalciferol [Vitamin D2] 1 cap PO QWEEK 08/17/18 08/17/18 Unknown History Etravirine [Intelence] 200 mg PO BID 08/17/18 08/17/18 Unknown History Insulin Aspart [NovoLOG Flexpen] 5 units SQ AC 08/17/18 08/17/18 Unknown History Insulin Glargine,Hum.rec.anlog 10 units SQ QHS 08/17/18 08/17/18 Unknown History [Lantus] [place]-3 Acid Ethyl Esters [Lovaza] 2 gm PO BID 08/17/18 08/17/18 Unknown History Raltegravir Potassium [Isentress] 400 mg PO BID 08/17/18 08/17/18 Unknown History Rosuvastatin (Nf) [Crestor] 10 mg PO QHS 08/17/18 08/17/18 Unknown History dilTIAZem [Cardizem] 60 mg PO QID 08/17/18 08/17/18 Unknown History hydrOXYzine HCl [Hydroxyzine HCl] 25 mg PO TID 08/17/18 08/17/18 Unknown History Carvedilol [Coreg] 3.125 mg PO BID #60 tablet 08/22/18 Unknown Rx Famotidine [Pepcid] 10 mg PO BID #60 tablet 08/22/18 Unknown Rx Warfarin [Coumadin] 2.5 mg PO QDAY #60 tablet 08/22/18 Unknown Rx HYDROcodone/ACETAMINOPHEN 1 each PO Q8HR PRN #12 tablet 08/24/18 Unknown Rx [Hydrocodone-Acetamin 10-325 mg] ED Physical Exam - General Limitations: Physical Limitation General appearance: alert, in no apparent distress - Head Head exam: Present: atraumatic, normocephalic - Eye Eye exam: Present: normal appearance - ENT ENT exam: Present: mucous membranes moist - Neck Neck exam: Present: normal inspection - Respiratory Respiratory exam: Present: normal lung sounds bilaterally. Absent: respiratory distress, wheezes, rales, rhonchi - Cardiovascular Cardiovascular Exam: Present: regular rate, normal rhythm. Absent: systolic murmur, diastolic murmur, rubs, gallop - GI/Abdominal GI/Abdominal exam: Present: soft, normal bowel sounds. Absent: distended, tenderness, guarding, rebound - Rectal Rectal exam: Present: deferred - Extremities Exam Extremities exam: Present: normal inspection, joint swelling (patient with some swelling to the base of the right great toe. There is tenderness with palpation but no deformity present.) - Back Exam Back exam: Present: normal inspection - Neurological Exam Neurological exam: Present: alert, oriented X3 - Psychiatric Psychiatric exam: Present: normal affect, normal mood - Skin Skin exam: Present: warm, dry, intact, normal color. Absent: rash ED Course Vital Signs 08/24/18 08/24/18 08/24/18 12:02 12:44 13:59 Temperature 97.4 F L Pulse Rate 91 H Respiratory 20 18 18 Rate Blood Pressure 137/74 O2 Sat by Pulse 95 Oximetry ED Medical Decision Making - Radiology Data Radiology results: report reviewed (report of the x-ray of the right foot shows that the patient has significant degenerative joint disease however no acute fractures been seen.) - Medical Decision Making Despite the negative x-ray patient does have quite a bit of swelling and pain. The patient was given pain meds for symptomatically relief. His placement or so she will have follow-up with podiatry. Critical care attestation.: If time is entered above; I have spent that time in minutes in the direct care of this critically ill patient, excluding procedure time. ED Disposition Clinical Impression: Toe sprain Qualifiers: Encounter type: initial encounter Qualified Code(s): S93.509A - Unspecified sprain of unspecified toe(s), initial encounter Disposition: -01 TO HOME OR SELFCARE Is pt being admited?: No Does the pt Need Aspirin: No Condition: Stable Instructions: Foot Sprain (ED) Referrals: KORIN ALEMAN DPM [Staff Physician] - 3-5 Days Time of Disposition: 14:55
== END 2018-08-24 15:15 | disposition home or self-care (01) ==
LOC: ED 11:51
DX: S93.501A Unspecified sprain of right great toe, initial encounter (principal); I11.0 Hypertensive heart disease with heart failure; E11.9 Type 2 diabetes mellitus without complications; J44.9 Chronic obstructive pulmonary disease, unspecified; G51.0 Bell's palsy; Z86.718 Personal history of other venous thrombosis and embolism; Z79.01 Long term (current) use of anticoagulants; Z21 Asymptomatic human immunodeficiency virus [HIV] infection status; Z88.2 Allergy status to sulfonamides; Z95.0 Presence of cardiac pacemaker; W01.0XXA Fall on same level from slipping, tripping and stumbling without subsequent striking against object, initial encounter; Y93.89 Activity, other specified; Y92.098 Other place in other non-institutional residence as the place of occurrence of the external cause; Y99.8 Other external cause status
CPT/HCPCS: 99283